=== PATIENT | male | born 1945 | race Two or more races ===

== ENCOUNTER → 2024-04-29 | Outpatient (CLI) | payer MEDICARE, MEDICAID, SELFPAY ==
--- NOTE | 2024-04-29 09:45 | XR_ITS ---
Examination: Abdomen sonogram, complete Date and time of exam: April 29, 2024 0954 hours INDICATIONS: Cirrhosis diagnosis, rectal pain beginning February 2024, diagnosis lung cancer. Technique: Multiple real-time grayscale transabdominal sonographic images of the abdomen have been obtained. Findings: Normal gallbladder Common bile duct 0.9 cm no stones Pancreatic head 2.8 cm Aorta not enlarged Liver irregular contour 11.7 cm with multiple calcifications with posterior shadowing, the largest lesion with calcified conway in the right lobe liver 2.5 x 2.4 x 2.6 cm Normal hepatopedal portal venous flow Patent IVC Right kidney 10.4 x 4.6 x 4.8 cm cortex 1.8 cm Left kidney 10.6 x 5.1 x 4.4 cm renal cortex 1.5 cm Moderate bilateral renal parenchyma scar formation No hydronephrosis Spleen 9.2 cm IMPRESSION: Cirrhosis Multiple calcified liver lesions MRI abdomen liver follow-up would best exclude solid hepatic lesions
== END | disposition home or self-care (01) ==
PROVIDERS: PCP Nurse Practitioner Family; Referring Provider Internal Medicine Gastroenterology; Visit Provider Internal Medicine Gastroenterology
DX: K74.60 Unspecified cirrhosis of liver (principal); K76.9 Liver disease, unspecified
CPT/HCPCS: 76700

== ENCOUNTER → 2024-05-11 | Outpatient (BNVA) | payer MEDICARE, MEDICAID, SELFPAY | END | disposition home or self-care (01) | PROVIDERS: PCP Nurse Practitioner Family; Referring Provider Nurse Practitioner Family; Visit Provider Nurse Practitioner Family | DX: E78.5 Hyperlipidemia, unspecified (principal); E11.9 Type 2 diabetes mellitus without complications; Z13.9 Encounter for screening, unspecified; Z23 Encounter for immunization; Z12.5 Encounter for screening for malignant neoplasm of prostate; Z01.83 Encounter for blood typing; M54.9 Dorsalgia, unspecified | CPT/HCPCS: 90471; 90686; 99214 ==

== ENCOUNTER → 2024-06-11 | Outpatient (CLI) | payer MEDICARE, MEDICAID, SELFPAY ==
--- NOTE | 2024-06-11 12:27 | XR_ITS ---
Examination: PA lateral chest 2 views TECHNIQUE: Upright PA lateral chest 2 views INDICATIONS: Masslike area in the left lung on chest film 08/04/2023 FINDINGS: Normal heart size Significant hyperexpansion Parenchymal disease is present in the lingular segment on the lateral view Significant osteopenia IMPRESSION: Recommend lordotic chest follow-up to confirm parenchymal disease in the lingular segment left upper
== END | disposition home or self-care (01) ==
LOC: CDIM 12:05
PROVIDERS: Referring Provider Specialist; Visit Provider Specialist
DX: R91.8 Other nonspecific abnormal finding of lung field (principal)
CPT/HCPCS: 71046

== ENCOUNTER → 2024-06-17 | Outpatient (BNVA) | payer MEDICARE, MEDICAID, SELFPAY | END | disposition home or self-care (01) | PROVIDERS: PCP Nurse Practitioner Family; Referring Provider Nurse Practitioner Family; Visit Provider Nurse Practitioner Family | DX: E11.9 Type 2 diabetes mellitus without complications (principal); Z71.2 Person consulting for explanation of examination or test findings; E78.5 Hyperlipidemia, unspecified; I10 Essential (primary) hypertension; F41.9 Anxiety disorder, unspecified; J44.9 Chronic obstructive pulmonary disease, unspecified | CPT/HCPCS: 94640; 99213; A9270 ==

== ENCOUNTER 2024-06-30 10:30 | Day surgery (SDC) | payer MEDICARE, MEDICAID, SELFPAY ==
[2024-06-30] VITALS (14 sets, daily range): BP systolic 116–182; BP diastolic 71–109; PULSE 62–87; RESP 11–22; TEMP 36.6–36.7; O2SAT 92–97; BMI 22.5
[2024-06-30] MEDS: ALBUTEROL RT 2.5 MG/0.5 ML NEBU INH (11:10)
[2024-06-30] MEDS: BENZOCAINE 20% (Hurricaine) SPRAY 1 DOSE TOP (13:18)
[2024-06-30] MEDS: fentaNYL CIT INJ 50 mCg/ML AMP 2ML (ASD USE ONLY) IV (13:19)
[2024-06-30] MEDS: MIDAZOLAM INJ 1 MG/ML VIAL 2 ML (ASD USE ONLY) 2 MG IV (13:19)
== END 2024-06-30 14:09 | disposition home or self-care (01) ==
PROVIDERS: PCP Nurse Practitioner Family; Referring Provider Internal Medicine Gastroenterology; Visit Provider Internal Medicine Gastroenterology
PROC: 0DBE8ZX Excision of Large Intestine, Via Natural or Artificial Opening Endoscopic, Diagnostic (ICD-10-PCS; CPT 45380; principal; 2024-06-30 12:00)
PROC: (CPT 43239; 2024-06-30 12:00)
DX: Z12.11 Encounter for screening for malignant neoplasm of colon (principal); D13.39 Benign neoplasm of other parts of small intestine; K64.3 Fourth degree hemorrhoids; K70.31 Alcoholic cirrhosis of liver with ascites
CPT/HCPCS: 45380; 88341; 88342; A4217; A4649; J2250; J3010; A9270

== ENCOUNTER 2024-07-01 02:27 | Inpatient (IN) | payer MEDICARE, MEDICAID, SELFPAY ==
[2024-07-01] VITALS (10 sets, daily range): BP systolic 121–161; BP diastolic 66–86; PULSE 65–98; RESP 14–22; TEMP 36.7–36.8; O2SAT 94–100; BMI 26.2
--- NOTE | 2024-07-01 03:16 | PD.EDRME ---
Rapid Medical Screening Exam RME Arrival date/time: 07/01/24 02:27 79-year-old male past medical history of COPD and hypertension presents emergency department complaining of lower abdominal pain 10 out of 10 with vomiting that started an hour ago. Chief Complaint: Abdominal Pain Time Seen by Provider: 07/01/24 03:12 Vital signs: Vital Signs Temperature 98.1 F 07/01/24 02:50 Pulse Rate 88 07/01/24 02:50 Respiratory Rate 18 07/01/24 02:50 Blood Pressure 126/67 07/01/24 02:50 Pulse Oximetry (%) 96 07/01/24 02:50 Oxygen Delivery Method Room Air 07/01/24 02:50 Vital signs reviewed by provider: Yes
--- NOTE | 2024-07-01 03:17 | XR_ITS ---
Examination: CT abdomen and pelvis without contrast. Coronal 3-D reconstructions. Sagittal 2-D reconstructions. Date and time of exam:July 01, 2024 at 0356 hrs. Comparison 02/21/2024 Indications: Onset abdominal pain beginning one hour ago, history perianal abscess on 02/21/2024 CT scan CTDI: vol (mGy): 6 DLP: (mGycm): 329 Technique: Axial images of the abdomen have been obtained, 3 mm slice thickness Intravenous contrast material has not been administered. Low dose protocols were performed. One or more of the following dose reduction techniques were used; automated exposure control, adjustment of the mA and/or KV according to patient size, use of iterative reconstruction technique. Findings: Minimal pericardial effusion Atelectasis versus pneumonia in the lingular segment and right lower lobe Pneumoperitoneum, several of the air droplets appear to be in the wall of small bowel, for instance axial image 90 Hyperdense areas in the liver No gallstones No pancreatic or adrenal mass No renal or ureteral calculi, no hydronephrosis No bowel obstruction No pericecal inflammatory change Fluid distended small bowel loops in the pelvis Contracted urinary bladder Transverse prostate dimension 4.2 cm Diffuse thickening of the conway of the colon, hepatic colopathy pattern Fat-containing inguinal hernias Significant osteopenia with advanced disc narrowing L5-S1 IMPRESSION: Cirrhosis Hyperdense areas in the liver, recommend elective MRI abdomen pre and post contrast follow-up Pneumoperitoneum, consider ischemic small bowel, recommend surgical consultation
[2024-07-01] MEDS: HYDROcodone/APAP 5/325 TABLET 1 TAB PO ×2 (04:05→21:24)
[2024-07-01 04:21] LABS: Alanine Aminotransferase 22 U/L (10-49); Albumin, Serum 4.4 gm/dL (3.4-4.8); Albumin/Globulin Ratio 1.3 (1.2-2.2); Alkaline Phosphatase 80 U/L (46-116); Anion Gap 8 (7-16); Aspartate Amino Transferase 37 U/L (0-34); BUN/Creatinine Ratio 19 Ratio (12-20); Bilirubin,Total 2.1 mg/dL (0.3-1.2); Blood Urea Nitrogen 17 mg/dL (9-23); Calcium 10.5 mg/dL (8.3-10.6); Calcium (Corrected) 10.5 mg/dL (8.5-10.1); Carbon Dioxide 29.9 mMol/L (20.0-31.0); Chloride 100 mMol/L (98-107); Creatinine (Component) 0.9 mg/dL (0.6-1.3); Estimated Creatinine Clearance 57.9 mL/min (>60); Globulin 3.4 gm/dL (2.3-3.5); Glucose 124 mg/dL (74-106); Lipase 31 U/L (12-53); Osmolality,Calculated 278 (275-295); Potassium 4.2 mMol/L (3.4-5.1); Sodium 138 mMol/L (136-145); Total Protein 7.8 gm/dL (5.7-8.2); eGFR > 60 See Note
[2024-07-01 04:37] LABS: Basophils # (Auto) 0.1 Thou/mm3 (0.0-0.2); Basophils % (Auto) 0 % (0-2.5); Eosinophils % (Auto) 0 % (0-10); Hematocrit 44.3 % (41.0-53.0); Hemoglobin 15.1 g/dL (13.5-16.0); Immature Granulocytes % (Auto) 0 % (0-0); Immature Granulocytes Auto 0.07 Thou/mm3 (0.00-0.00); Lymphocytes # (Auto) 1.5 Thou/mm3 (1.0-4.8); Lymphocytes % (Auto) 8 % (10-50); Mean Corpuscular HGB Conc 34.1 g/dl (31.0-37.0); Mean Corpuscular Hemoglobin 32.1 pg (25.0-35.0); Mean Corpuscular Volume 94 fL (80-100); Monocytes # (Auto) 1.1 Thou/mm3 (0.0-0.8); Monocytes % (Auto) 6 % (0-12); Neutrophils # (Auto) 16.8 Thou/mm3 (1.8-7.7); Neutrophils % (Auto) 86 % (37-80); Nucleated Red Blood Cell % 0 /100 WBC (0); Platelet Count 216 Thou/mm3 (140-440); RDW Standard Deviation 47.7 fL (35.1-43.9); White Blood Count 19.6 Thou/mm3 (3.8-10.6)
--- NOTE | 2024-07-01 04:56 | PRELIM_ITS ---
CT scan of the abdomen and pelvis without intravenous contrast (axial sections with sagittal and viki nal reformats) July 01, 2024 0356 hours Clinical History: Abdominal pain Comparison: None availabl e at the time of this report..Findings:Small consolidation in the lingula and right lower lobe.The ga llbladder, pancreas, spleen, kidneys and adrenals are unremarkable on this noncontrast study.Irregul ar liver margins. Hyperdense areas in the liver, possibly Lipiodol ablations.No evidence of bowel ob struction.No evidence of appendicitis.Vascular calcifications.There is no mesenteric or retroperitone al adenopathy.The urinary bladder is unremarkable. There is no free fluid or free air.Degenerative ch anges of the imaged portions of the spine. No acute fractures. Chronic multilevel disc disease.Vascu lar calcifications.Small complex pericardial effusion.Small hiatus hernia.Diverticulosis of the colon .Impression:1. Cirrhosis.2. Hyperdense areas in the liver, possibly Lipiodol ablations, please correl ate clinically and consider follow-up with MRI to assess for hepatocellular carcinoma.3. Small hiatus hernia.4. Small consolidation in the lingula and right lower lobe, scarring versus atelectasis versu s small foci of pneumonia.5. Small complex pericardial effusion suspicious for pericarditis.Discussio n Details: Attempts are being made to contact the clinical team to make them aware of these findings Report Electronically Signed By: Jostin Sol 07/01/2024 4:56:10 AM [EST]
[2024-07-01 05:43] LABS: Collection Type, Urine Clean Catch
[2024-07-01 06:07] LABS: Bacteria,Urine Rare; Bilirubin,Urine 1+ (Negative); Blood,Urine 2+ (Negative); Color,Urine Yellow (Lt Yel-Yel); Culture Indicated,Urine Not Indicated; Glucose, Urine Negative (Negative); Hyaline Casts,Urine < 1 /hpf (0-1); Ketones,Urine 1+ (Negative); Leukocyte Esterase,Urine Negative (Negative); Nitrite,Urine Negative (Negative); PH,Urine 5.5 (5.0-7.0); Protein,Urine 1+ (Neg - Trace); RBC,Urine 63 /hpf (0-3); Specific Gravity,Urine 1.037 (1.001-1.035); Squamous Epithelial Cell,Urine 3 /hpf (0-5); WBC,Urine 7 /hpf (0-5)
[2024-07-01 06:09] LABS: Clarity,Urine Hazy (Clear/Hazy); Sperm,Urine Present
--- NOTE | 2024-07-01 08:50 | EDNOTE_ITS ---
ED Abdominal Pain RME/HPI General Chief Complaint: Abdominal Pain Stated complaint: ABD PAIN X 1HOUR Time seen by provider: 07/01/24 03:12 Arrival date/time: 07/01/24 02:27 RME / HPI RME / HPI narrative: 07/01/24 02:27 79-year-old male past medical history of COPD and hypertension presents emergency department complaining of lower abdominal pain 10 out of 10 with vomiting that started an hour ago. DR. RESTREPO MAIN ED EVALUATION: 79 year old male presents to the ED for evaluation of abdominal and right shoulder pain today. The shoulder pain began 2 days ago, described as aching in sensation, rating as mild. States the abdominal pain began last night around 9pm, located most to the right lower abdomen, rating as moderate. Patients daughter reports the patient underwent endoscopy and colonoscopy with biopsies performed yesterday around noon and was doing well up until 9pm. Denies fevers, chills, sweats, chest pain, shortness of breath, nausea, vomiting, diarrhea, or urinary symptoms. Related Data Home Medications ?Medication ?Instructions ?Recorded ?Confirmed budesonide-formoterol HFA 160 2 puff inhalation Q12H 01/03/24 06/30/24 mcg-4.5 mcg/actuation aerosol inhaler (Symbicort) docusate sodium 100 mg capsule 100 mg PO QDAY 06/30/24 06/30/24 Previous Rx's ?Medication ?Instructions ?Recorded fluticasone propionate 230 2 puff inhalation BID #12 grams 12/23/23 mcg-salmeterol 21 mcg/actuation HFA inhaler (Advair HFA) apixaban 5 mg tablet (Eliquis) 5 mg PO BID #180 tabs 01/21/24 albuterol sulfate 90 mcg/actuation 2 puff inhalation Q6H PRN 06/17/24 aerosol inhaler (Ventolin HFA) Shortness Of Breath Or Wheezing #8.5 grams atorvastatin 10 mg tablet 10 mg PO QDAY #90 tabs 06/17/24 ezetimibe 10 mg tablet 10 mg PO QDAY #90 tabs 06/17/24 ipratropium bromide 17 2 puff inhalation Q8H #12.9 grams 06/17/24 mcg/actuation HFA aerosol inhaler (Atrovent HFA) lisinopril 20 mg tablet 20 mg PO QDAY #90 tabs 06/17/24 paroxetine HCl 10 mg tablet (Paxil) 10 mg PO QDAY #90 tabs 06/17/24 sitagliptin phosphate 25 mg tablet 25 mg PO QDAY #90 tabs 06/18/24 (Januvia) Allergies Allergy/AdvReac Type Severity Reaction Status Date / Time No Known Allergies Allergy Verified 06/30/24 11:15 Review of Systems Review of Systems Narrative Review of Systems: Constitutional: DENIES; Fevers Eyes: DENIES; Loss of vision Head/Ear/Nose: DENIES; Loss of hearing Throat: DENIES; Dysphagia Cardiovascular: DENIES; Chest pain, dyspnea or syncope Respiratory: DENIES; Shortness of breath Gastrointestinal: SEE HPI +abdominal pain. DENIES; Rectal bleeding or melena. Genitourinary: DENIES; Dysuria (painful or difficult urination) Musculoskeletal: SEE HPI +right shoulder pain Skin: DENIES; Rash Neurological: DENIES; Loss of function or movement Psychiatric: DENIES; recent major life stressor, emotional problem, illicit drug use or abuse Endocrinology: DENIES; Weight change Hematologic/Lymphatic: DENIES; Abnormal bruising Allergic/Immunologic: DENIES; Urticaria (hives) Past Medical History Past Medical History CARDIAC: Positive Cardiac Disorders, Atrial Fibrillation, Angina, Peripheral Vascular Disease, Hypercholesterolemia and Hypertension RESPIRATORY: Positive Chronic Obstructive Pulmonary Disease (COPD), Asthma, Bronchitis, Pneumonia and Smoking GASTROINTESTINAL: Positive Gastrointestinal Disorders and Cirrhosis GENITOURINARY: Positive Genitourinary Disorders and Renal Disease MUSCULOSKELETAL: Positive Musculoskeletal Disorders and Arthritis ENT: Positive Deafness ([place]) ENDOCRINE: Positive Endocrine Disorders and Diabetes Mellitus Type 2 HEMATOLOGIC: Positive Blood Disorders and Anemia PSYCHO/SOCIAL: Positive Depression OTHER HISTORY: Positive Hospitalization, Falls and Measles Family History FAMILY HISTORY: Positive Family Respiratory Disorders Surgical History SURGICAL: Negative Cardiac Surgery, Pacemaker, Endocrine Surgery, Abdominal Surgery or Joint Replacement Social History SMOKING STATUS: Current some day smoker SECOND HAND EXPOSURE: Yes SUBSTANCE USE: does not use ED Exam Narrative Physical exam: Physical Exam: General: The vital signs were reviewed. The patient is non-toxic, in no apparent distress and appears healthy with a patent airway, no respiratory distress and has no apparent circulatory problems. Head & Scalp: Normocephalic, atraumatic. Face: Appears normal and is without lesions, deformity. Ears: Left external pinna appears normal. Right external pinna appears normal. Eyes: The sclera is anicteric. No obvious photophobia. The Left and Right Orbit/Lid/Conjunctiva appears normal without swelling, discoloration or injection. Nose: The nose is without deformity, discharge or tenderness; Throat: Appears normal. The mucous membranes are pink and moist without exudates, redness or mass seen. The tongue appears normal. Neck: The neck is supple and no apparent mass or adenopathy. Chest: The chest wall is normal in size and symmetry and has no chest wall tenderness or crepitus. The patient displays normal ventilator effort without retractions, accessory muscle use and has adequate air movement bilaterally but has some diffuse mild wheezing and some rhonchus noises. Cardiovascular: Regular rate and rhythm; No murmurs, rubs, or gallops; Gastrointestinal: The abdomen appears normal. No obvious hernias or mass. The abdomen has vague central may be slightly rightward discomfort on palpation there is no rebound and there is no guarding. Is soft and benign, non-distended, with no pain, no guarding and no rebound tenderness. Bowel sounds are present and normal sounding. No CVA tenderness. Genitourinary: Back/Spine: Nontender normal inspection Extremities/Musculoskeletal/lymphatic: The bilateral upper and lower extremities are warm. There is no evidence of arterial insufficiency. There is no evidence of venous insufficiency/edema. The patient spontaneously moves bilateral upper and lower extremities with no pain and no limitation of movement. There is no apparent, injury or trauma. Skin: The skin is warm, dry and intact. No rashes. No petechia. No purpura. No abnormal bruising. The color is appropriate with no cyanosis. Mental status/Psychiatric: Mental status is appropriate for age. The patient has no apparent delusions, visual hallucinations, no apparent audible hallucinations. The patient has no apparent suicidal thoughts/ideation and no apparent homicidal thoughts/ideation. Neurological: The patient is awake, alert, interactive, cordial, cooperative and is oriented to name and situation. The patient follows commands and answers historical question with no impairment. There is no visual disturbance apparent. The pupils are equal and reactive bilaterally with normal eye movements and no diplopia The bilateral upper and lower extremities have normal strength, normal range of motion and normal functioning. The gait, station and balance were not tested due to acuity of Course Quality Measures none Orders Category Date Time Status CT abdomen pelvis wo con Stat Exams 07/01/24 03:17 Completed XR chest 1V portable Stat Exams 07/01/24 09:03 Completed Blood Culture (Lab) Stat Lab 07/01/24 09:30 Received CBC Stat Lab 07/01/24 03:17 Completed CMP [Comprehensive Metabolic Panel] Stat Lab 07/01/24 03:17 Completed Lactate (Lactic Acid) Stat Lab 07/01/24 09:44 Completed Lipase Stat Lab 07/01/24 03:17 Completed Urinalysis, C/S if Indicated Stat Lab 07/01/24 05:15 Completed Venous Blood Gas Stat Lab 07/01/24 09:44 Completed ALBUTEROL RT 0.5ml [Proventil Rt 0.5ml] Med 07/01/24 09:04 Discontinued 10 mg INH X1 ONE HYDROcodone*/APAP 5/325 [[place] 5/325] Med 07/01/24 03:17 Discontinued 1 tab PO X1 ONE MethylPREDNISolone.* [SoluMEDROL Inj] Med 07/01/24 09:04 Discontinued 125 mg IVP X1 ONE Piper/Tazo 3.375 gm [Zosyn] Med 07/01/24 09:41 Discontinued 3.375 gm in 50 ml IV X1 Sodium Chloride 0.9% 1000 ml [Ns] 1,000 ml Med 07/01/24 09:41 Active IV 150 mls/hr Sodium Chloride Rt Ronda 0.9% [NS Rt Ronda 0.9%] Med 07/01/24 09:04 Active 3 ml INH PRN PRN Vital Signs Vital signs: Vital Signs Temperature 98.1 F 07/01/24 02:50 Pulse Rate 88 07/01/24 02:50 Respiratory Rate 18 07/01/24 02:50 Blood Pressure 126/67 07/01/24 02:50 Pulse Oximetry (%) 96 07/01/24 02:50 Oxygen Delivery Method Room Air 07/01/24 02:50 Abdominal Pain MDM MDM Narrative MDM Narrative:: Patient had a full evaluation by myself and was found to have vague abdominal pain lots of wheezing a small pericardial effusion was incidentally picked up on the CT of the abdomen from last night and I was somewhat baffled by no significant explanation for the right abdominal pain since initial CT PE report from nighttime radiology service reported no free air under the diaphragm. But the radiologist today Dr. Hansen came down and reported that there is some free air under the diaphragm and presumably there was a perforation related to the colonoscopy. Dr. Palm our surgeon on-call was contacted she came down to see this patient and will be consulting. The Plavix will continue to be held. Patient's been started on Zosyn as I am dictating. And hospitalist Dr. Salvador the resident was called and will be admitting White count is 19.6 hemoglobin 15.1 venous blood gas pH is 7.42 pCO2 of 46 within normal limits. Electrolytes are within normal limits BUN is 17 and creatinine is 0.9 within normal limits. Total bilirubin slightly elevated 2.1 of uncertain significance. As the bilirubin has been up and down in the past multiple times has been measured urinalysis reveals a specific obvious concentrated with 63 red cells and 7 white cells. Chest x-ray reveals COPD changes diaphragm on the left is not as clearly seen and probably has infiltrates or chronic no effusion is seen. CT of the abdomen as reviewed with Dr. Hansen and over read from the original CT which did not see free air in the abdomen she reveals punctate air in the abdomen from an unknown source. In the setting of a colonoscopy yesterday again were concern for possible occult perforation and therefore patient be admitted as mentioned above Patient is fairly comfortable. Patient will be observed in the hospital at this time per Dr. Néstor Atkins who did the colonoscopy was paged and no callback as of 1307 hrs. Because of the presumed perforation and free air in the abdomen the patient is at risk for peritonitis and abscess therefore started antibiotics early. Patient is at risk for significant complication clean peritonitis sepsis and even . Because of this he will be a critical care patient. Patient data External records reviewed:: [facility] previous records (I reviewed endoscopy and colonoscopy performed yesterday 06/30/2024 ) Clinical information provided by:: patient Social determinants that could affect healthcare access:: none Patient has the following chronic illnesses:: AFib, hypertension, COPD, diabetes, hyperlipidemia, asthma, left spontaneous pneumothorax s/p chest tube, liver cirrhosis, former smoker How is presenting disease/condition affected by chronic disease/condition?: exacerbated by Evaluation data The following diagnostics were reviewed and interpreted by me:: lab results and radiology exam(s) Lab and/or radiology exams considered but not ordered:: None Interpretation Summary: Ordering Physician: Ernestina Umanzor (YARD MOTOR OPERATOR),Ramos YARD MOTOR OPERATOR Date of Service: 07/01/24 Procedure(s): CT abdomen pelvis wo [facility] Accession Number(s): [id number] cc: Roldan Aocsta MD; Imani Kevin ([facility]); Ernestina Umanzor (YARD MOTOR OPERATOR),Ramos VALLEP~ Examination: CT abdomen and pelvis without contrast. Coronal 3-D reconstructions. Sagittal 2-D reconstructions. Date and time of exam:July 01, 2024 at 0356 hrs. Comparison 02/21/2024 Indications: Onset abdominal pain beginning one hour ago, history perianal abscess on 02/21/2024 CT scan CTDI: vol (mGy): 6 DLP: (mGycm): 329 Technique: Axial images of the abdomen have been obtained, 3 mm slice thickness Intravenous contrast material has not been administered. Low dose protocols were performed. One or more of the following dose reduction techniques were used; automated exposure control, adjustment of the mA and/or KV according to patient size, use of iterative reconstruction technique. Findings: Minimal pericardial effusion Atelectasis versus pneumonia in the lingular segment and right lower lobe Pneumoperitoneum, several of the air droplets appear to be in the wall of small bowel, for instance axial image 90 Hyperdense areas in the liver No gallstones No pancreatic or adrenal mass No renal or ureteral calculi, no hydronephrosis No bowel obstruction No pericecal inflammatory change Fluid distended small bowel loops in the pelvis Contracted urinary bladder Transverse prostate dimension 4.2 cm Diffuse thickening of the conway of the colon, hepatic colopathy pattern Fat-containing inguinal hernias Significant osteopenia with advanced disc narrowing L5-S1 IMPRESSION: Cirrhosis Hyperdense areas in the liver, recommend elective MRI abdomen pre and post contrast follow-up Pneumoperitoneum, consider ischemic small bowel, recommend surgical consultation Dictated By: Roldan Acosta MD Signed By: <Electronically signed by Roldan Acosta MD in [place]> 07/01/24 1009 Medications / Prescriptions Medications or Prescriptions considered but not ordered:: None Medication administrations:: Medication Administration History Acetaminophen (Acetaminophen 325 Mg Tablet) 650 mg PO Q6H PRN PRN Reason: Fever >100.5 Stop: 07/31/24 11:42 Acetaminophen (Acetaminophen 325 Mg Tablet) 650 mg PO Q6H PRN PRN Reason: PAIN SCALE 1-3 (mild Stop: 07/31/24 11:42 Dextrose (Dextrose 50%-Water Inj 50 Ml Syringe) 25 ml IV Q15MIN PRN PRN Reason: BG 50-70 responsive npo pt Stop: 07/31/24 12:09 Dextrose (Dextrose 50%-Water Inj 50 Ml Syringe) 50 ml IV Q15MIN PRN PRN Reason: BG <50 OR BG <70 & pt unresponsive Stop: 07/31/24 12:09 Docusate Sodium (Docusate Sod 100 Mg Capsule) 100 mg PO QDAY [facility]; Protocol Stop: 07/31/24 11:44 Glucagon (Glucagon Inj 1 Mg Vial) 1 mg IM Q15MIN PRN PRN Reason: BG <70, and no IV access Stop: 07/01/24 14:11 Heparin Sodium (Porcine) (Heparin Sod Inj 5000 Unit/Ml Vial) 5,000 unit SC Q8HR [facility] Stop: 07/15/24 13:59 Sodium Chloride (Ns) 1,000 mls @ 150 mls/hr IV .Q6H40M ONE Stop: 07/01/24 16:20 Last Admin: 07/01/24 09:53 Dose: 150 mls/hr Documented By: JAIRO Ceftriaxone Sodium/Dextrose (Rocephin/D5w 1gm Iv Premix) 50 mls @ 100 mls/hr IV QDAY [facility] Stop: 07/08/24 11:46 Metronidazole (Flagyl 500 Mg Iv) 500 mg in 100 mls @ 200 mls/hr IV Q8HR [facility] Stop: 07/08/24 11:46 Insulin Human Lispro (Insulin Lispro (Admelog) 1 Unit/0.01 Ml Unit) 0 unit SC AC [facility]; Protocol Stop: 07/31/24 16:59 Melatonin (Melatonin 3 Mg Tablet) 3 mg PO HS SABINE Stop: 07/31/24 20:59 Ondansetron HCl (Ondansetron Inj 2 Mg/Ml Inj 2 Ml) 4 mg IV Q6H PRN; Protocol PRN Reason: NAUSEA OR VOMITING Stop: 07/31/24 11:42 Sodium Chloride (Sodium Chloride Rt Ronda 0.9% 3 Ml Nebu) 3 ml INH PRN PRN PRN Reason: SOLN Stop: 07/31/24 09:03 Last Admin: 07/01/24 09:12 Dose: 3 ml Documented By: BURAK Discontinued Medications Hydrocodone Bitart/Acetaminophen (Hydrocodone/Apap 5/325 Tablet) 1 tab PO X1 ONE Stop: 07/01/24 03:18 Last Admin: 07/01/24 04:05 Dose: 1 tab Documented By: TAO Albuterol (Albuterol Rt 2.5 Mg/0.5 Ml Nebu) 10 mg INH X1 ONE Stop: 07/01/24 09:05 Last Admin: 07/01/24 09:12 Dose: 10 mg Documented By: BURAK Piperacillin/Tazobactam/Dextrose (Zosyn) 3.375 gm in 50 mls @ 100 mls/hr IV X1 ONE Stop: 07/01/24 10:10 Last Infusion: 07/01/24 10:22 Dose: Infused Documented By: Admin: 07/01/24 09:52 Dose: 100 mls/hr Documented By: JAIRO Methylprednisolone Sodium Succinate (Methylprednisolone Sod Succ 62.5 Mg/Ml 2ml Vial) 125 mg IVP X1 ONE Stop: 07/01/24 09:05 Last Admin: 07/01/24 09:52 Dose: 125 mg Documented By: JAIRO See above Consultations Consultation(s) initiated? (list below): Yes Consultation #1 (Physician, Specialty, Details): I spoke with surgeon Dr. Vail. Discussed patients PMHx, HPI, ED course, exam findings, labs, and radiology results. Will come evaluate the patient in the ED. Time: 09:40 Consultation #2 (Physician, Specialty, Details): Surgeon Dr. Vail has evaluated the patient in ED and agrees to consult. Time: 09:45 Consultation #3 (Physician, Specialty, Details): I spoke with hospitalist Dr. Vasques working with Dr. Avalos. Discussed patients PMHx, HPI, ED course, exam findings, labs, and radiology results. The hospitalist accepts patient for admission. Diagnosis Differential diagnosis abdominal pain: abdominal pain, acute appendicitis, calculus of kidney, constipation, diverticulitis, gastroenteritis, pancreatitis and small bowel obstruction Most likely diagnosis given after review of the tests above:: Peritoneal free air COPD exacerbation Abdominal pain s/p colonoscopy Pericardial effusion Admission Indicated Admission indicated?: indicated Admission Request Was there a request for admission?: Yes Admission Attestation Admission request attestation: Discussed case with [] from Hospitalist service regarding admission. Discussed patients ED course, exam findings, labs, and radiology results. The Hospitalist [agrees,declines] to accept the patient for admission. Disposition Plan Disposition Plan: Admit Critical Care Time Critical Care Time Critical Care Time: Yes Total Critical Care Time (min.): 45 Attestation: The high probability of sudden, clinically significant deterioration in the patient's condition required the highest level of my preparedness to intervene urgently. The services I provided to this patient were to treat and/or prevent clinically significant deterioration. Services included the following: chart data review, reviewing nursing notes and/or old charts, documentation time, exchange underwriting consultant collaboration regarding findings and treatment options, medication orders and management, direct patient care, vital sign assessments and ordering, interpreting and reviewing diagnostic studies and lab tests. Aggregate critical care time includes only time during which I was engaged in work directly related to the patient's care, as described above, whether at bedside or elsewhere in the Emergency Department. It did not include time spent performing other reported procedures or the services of residents, students, nurses or physician assistants. Discharge Plan Plan Patient Disposition: Admit Acute Care w/in Hospital Disposition Comment: Hospitalist admit Dr. Palm to consult Problem List Clinical Impression: Peritoneal free air, COPD exacerbation, Abdominal pain, Status post colonoscopy, Pericardial effusion
--- NOTE | 2024-07-01 09:03 | XR_ITS ---
Examination: AP chest single view Technique one AP portable upright chest single view Exam date and time: July 01, 2024 0946 hours Comparison June 11, 2024 INDICATIONS: Leukocytosis and coughing today. FINDINGS: Mild bibasilar pneumonia Normal heart size Lordotic chest IMPRESSION: Mild bibasilar pneumonia
[2024-07-01] MEDS: ALBUTEROL RT 2.5 MG/0.5 ML NEBU 10 MG INH (09:12)
[2024-07-01] MEDS: SODIUM CHLORIDE RT SOL 0.9% 3 ML NEBU INH (09:12)
[2024-07-01] MEDS: PIPER/TAZO 3.375 GM 3.375 GM/50 ML BAG IV (09:52)
[2024-07-01] MEDS: MethylPREDNISolone SOD SUCC 62.5 MG/ML 2ML VIAL 125 MG IVP (09:52)
[2024-07-01] MEDS: SODIUM CHLORIDE 0.9% 1000 ML 1,000 ML 150 ML IV (09:53)
[2024-07-01 10:12] LABS: Lactate (Lactic Acid) 1.2 mMol/L (0.4-2.0)
--- NOTE | 2024-07-01 10:23 | ESCONSULT_ITS ---
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 Pt states pain was severe last night but it has improved; he denies any nausea/vomiting although is not feeling hungry. Pt underwent CT showing droplets of pneumoperitoneum, has WBC 19 without any fever or tachycardia Review of Systems Constitutional Constitutional: Reports system reviewed and no additional complaints, except as documented Meds Home Medications and Allergies Home Medications ?Medication ?Instructions ?Recorded ?Confirmed ?Type budesonide-formoterol HFA 160 2 puff inhalation Q12H 01/03/24 06/30/24 History mcg-4.5 mcg/actuation aerosol inhaler (Symbicort) docusate sodium 100 mg capsule 100 mg PO QDAY 06/30/24 06/30/24 History Allergies Allergy/AdvReac Type Severity Reaction Status Date / Time No Known Allergies Allergy Verified 06/30/24 11:15 Exam Vital Signs Temp Pulse Resp BP Pulse Ox O2 Del Method O2 Flow Rate 98.2 F 71 20 128/74 95 Aerosol Mask 7 07/01/24 08:11 07/01/24 10:12 07/01/24 10:12 07/01/24 10:12 07/01/24 10:12 07/01/24 10:12 07/01/24 10:12 Constitutional Constitutional: no acute distress Routine Respiratory Exam Respiratory: Present no resp distress Routine Abdominal Exam Abdominal: Present soft; Absent tenderness or distended Results Results: Laboratory Laboratory results: results reviewed Results: Imaging CT scan - abdomen: report reviewed and image reviewed Assessment & Plan Plan 79M with HTN, HLD, COPD, DMII, afib and cirrhosis who underwent EGD/colonoscopy 06/30 with findings of grade I varices, gastritis and ileal polyp presented to ER due to RLQ pain, findings of droplets of pneumoperitoneum on CT. Pt appears clinically very well with no current pain, benign abdominal exam and normal vitals; given his overall appearance I explained that surgery is not indicated, will proceed with bowel rest and abx NPO, IV abx Will follow up
[2024-07-01 11:17] LABS: Base Excess, Venous 5 (-3-3); O2 Saturation, Venous 93 % (96-97); PCO2, Venous 46 mmHg (36-56); PO2, Venous 65 mmHg (15-58); pH, Venous 7.42 (7.33-7.66)
--- NOTE | 2024-07-01 12:29 | PD.RESHP ---
Documentation for date of: 07/01/24 [facility] History of Present Illness Chief complaint: Abdominal pain History of present illness: 79-year-old male with past medical history of atrial fibrillation on Eliquis, hypertension, diabetes mellitus, hyperlipidemia, COPD who presented to the ED for abdominal pain. Per the patient patient had a colonoscopy yesterday with Dr. Atkins and then the following day started developing right lower quadrant and right upper quadrant abdominal pain, as well as some shortness of breath. Patient described the pain as 9 out of 10 in intensity characterizes sharp and nonradiating at this time. At this time patient denies headache, blurry vision, nausea, vomiting, chest pain, urinary symptoms. ED course: In the ED vitals stable, labs significant for leukocytosis WBCs 19.6, glucose 124, T. bili 2.1, AST 37, CT abdomen pelvis showed Cirrhosis, Hyperdense areas in the liver, recommend elective MRI abdomen pre and post-contrast follow-up, Pneumoperitoneum, consider ischemic small bowel, recommend surgical consultation. Chest x-ray showed mild bibasilar pneumonia. In the ED patient received 1 L NS, hydrocodone, Zosyn, PMHx: atrial fibrillation on Eliquis, hypertension, diabetes mellitus, hyperlipidemia, COPD SxHx: None Social Hx: Former smoker denies current cigarette use, denies alcohol use, denies illicit substances including THC FHx: Unknown Review of Systems Review of Systems Narrative Review of Systems: Narrative ROS GENERAL: Denies fevers/chills or diaphoresis. HEENT: Denies headache or visual/hearing changes. Denies nasal discharge. NEURO: Denies unusual weakness or difficulty speaking. CARDIO: Denies chest pain or palpitations. PULM: + SOB, denies coughing, or wheezing. GI: + abdominal pain, denies N/V/C/D/reflux/gas, bright red blood per rectum or melena. Reports having BMs. URO: Denies burning/itching/pain/urinary changes. MSK/EXT/SKIN: Denies joint/skeletal/muscle pain, issues/changes in upper or lower extremities, itchiness, or superficial pain. PSYCH: Cooperative, pleasant mood & affect. The rest of the review of systems is otherwise negative. Exam Vital Signs Temp Pulse Resp BP Pulse Ox O2 Del Method O2 Flow Rate 98.2 F 71 20 128/74 95 Aerosol Mask 7 07/01/24 08:11 07/01/24 10:12 07/01/24 10:12 07/01/24 10:12 07/01/24 10:12 07/01/24 10:12 07/01/24 10:12 Narrative Exam Physical Exam GENERAL: NAD, AAOx3 HEENT: Moist mucosa. Eyes open, symmetrical, & clear CARDIO: Heart RRR, no obvious murmurs PULM: No noted coughing/dyspnea bilateral wheezing mild GI: Abdomen soft, nondistended, pain on palpation in the right upper and right lower quadrants BSx4 SKIN/MSK/EXT: No wounds/rashes/edema/amputations, no pain on palpation. Pedal pulses present B/L NEURO: AAOx3, no focal neuro deficits, able to move all 4 extremities Results: Labs 07/02/24 04:40 07/02/24 04:40 Labs: Short CBC 07/01/24 Range/Units 03:17 WBC 19.6 H (3.8-10.6) Thou/mm3 Hgb 15.1 (13.5-16.0) g/dL Hct 44.3 (41.0-53.0) % Plt Count 216 (140-440) Thou/mm3 BMP 07/01/24 03:17 Sodium 138 Potassium 4.2 Chloride 100 Carbon Dioxide 29.9 BUN 17 Creatinine 0.9 Glucose 124 H Calcium 10.5 Liver Function 07/01/24 Range/Units 03:17 Total Bilirubin 2.1 H (0.3-1.2) mg/dL AST 37 H (0-34) U/L ALT 22 (10-49) U/L Alkaline Phosphatase 80 (46-116) U/L Albumin 4.4 (3.4-4.8) gm/dL Urine 07/01/24 Range/Units 05:15 Urine Color Yellow (Lt Yel-Yel) Urine Clarity Hazy (Clear/Hazy) Urine pH 5.5 (5.0-7.0) Ur Specific [place] 1.037 H (1.001-1.035) Urine Protein 1+ A (Neg - Trace) Urine Glucose (UA) Negative (Negative) ABG Interpretation ABG results: 07/01/24 09:44 VBG pH 7.42 VBG pCO2 46 VBG pO2 65 H VBG Base Excess 5 H Quality Measures Quality Measures none Advance care planning discussed with:: patient Medications Home Medications and Allergies Home Medications ?Medication ?Instructions ?Recorded ?Confirmed ?Type budesonide-formoterol HFA 160 2 puff inhalation Q12H 01/03/24 07/02/24 History mcg-4.5 mcg/actuation aerosol inhaler (Symbicort) docusate sodium 100 mg capsule 100 mg PO QDAY 06/30/24 07/02/24 History sitagliptin phosphate 25 mg tablet 25 mg PO DAILY 07/02/24 07/02/24 History (Januvia) Allergies Allergy/AdvReac Type Severity Reaction Status Date / Time No Known Allergies Allergy Verified 06/30/24 11:15 Visit Medications Acetaminophen (Acetaminophen 325 Mg Tablet) 650 mg PO Q6H PRN PRN Reason: Fever >100.5 Stop: 07/31/24 11:42 Acetaminophen (Acetaminophen 325 Mg Tablet) 650 mg PO Q6H PRN PRN Reason: PAIN SCALE 1-3 (mild Stop: 07/31/24 11:42 Dextrose (Dextrose 50%-Water Inj 50 Ml Syringe) 25 ml IV Q15MIN PRN PRN Reason: BG 50-70 responsive npo pt Stop: 07/31/24 12:09 Dextrose (Dextrose 50%-Water Inj 50 Ml Syringe) 50 ml IV Q15MIN PRN PRN Reason: BG <50 OR BG <70 & pt unresponsive Stop: 07/31/24 12:09 Docusate Sodium (Docusate Sod 100 Mg Capsule) 100 mg PO QDAY [facility]; Protocol Stop: 07/31/24 11:44 Glucagon (Glucagon Inj 1 Mg Vial) 1 mg IM Q15MIN PRN PRN Reason: BG <70, and no IV access Stop: 07/01/24 14:11 Heparin Sodium (Porcine) (Heparin Sod Inj 5000 Unit/Ml Vial) 5,000 unit SC Q8HR SABINE Stop: 07/15/24 13:59 Sodium Chloride (Ns) 1,000 mls @ 150 mls/hr IV .Q6H40M ONE Stop: 07/01/24 16:20 Last Admin: 07/01/24 09:53 Dose: 150 mls/hr Ceftriaxone Sodium/Dextrose (Rocephin/D5w 1gm Iv Premix) 50 mls @ 100 mls/hr IV QDAY [facility] Stop: 07/08/24 11:46 Metronidazole (Flagyl 500 Mg Iv) 500 mg in 100 mls @ 200 mls/hr IV Q8HR SABINE Stop: 07/08/24 11:46 Insulin Human Lispro (Insulin Lispro (Admelog) 1 Unit/0.01 Ml Unit) 0 unit SC AC SABINE; Protocol Stop: 07/31/24 16:59 Melatonin (Melatonin 3 Mg Tablet) 3 mg PO HS SABINE Stop: 07/31/24 20:59 Ondansetron HCl (Ondansetron Inj 2 Mg/Ml Inj 2 Ml) 4 mg IV Q6H PRN; Protocol PRN Reason: NAUSEA OR VOMITING Stop: 07/31/24 11:42 Sodium Chloride (Sodium Chloride Rt Ronda 0.9% 3 Ml Nebu) 3 ml INH PRN PRN PRN Reason: SOLN Stop: 07/31/24 09:03 Last Admin: 07/01/24 09:12 Dose: 3 ml Discontinued Medications Hydrocodone Bitart/Acetaminophen (Hydrocodone/Apap 5/325 Tablet) 1 tab PO X1 ONE Stop: 07/01/24 03:18 Last Admin: 07/01/24 04:05 Dose: 1 tab Albuterol (Albuterol Rt 2.5 Mg/0.5 Ml Nebu) 10 mg INH X1 ONE Stop: 07/01/24 09:05 Last Admin: 07/01/24 09:12 Dose: 10 mg Piperacillin/Tazobactam/Dextrose (Zosyn) 3.375 gm in 50 mls @ 100 mls/hr IV X1 ONE Stop: 07/01/24 10:10 Last Infusion: 07/01/24 10:22 Dose: Infused Methylprednisolone Sodium Succinate (Methylprednisolone Sod Succ 62.5 Mg/Ml 2ml Vial) 125 mg IVP X1 ONE Stop: 07/01/24 09:05 Last Admin: 07/01/24 09:52 Dose: 125 mg Assessment & Plan Plan 79-year-old male with past medical history of A-fib hypertension hyperlipidemia diabetes COPD who presented to the ED due to right upper quadrant and right lower quadrant pain after having a colonoscopy. Admitted for pneumoperitoneum. General surgery and GI consulted. #Pneumoperitoneum #Bibasilar pneumonia Patient had a colonoscopy the day prior to admission after which patient started developing right upper quadrant and right lower quadrant pain CT abdomen pelvis showed Pneumoperitoneum, consider ischemic small bowel, recommend surgical consultation. Chest x-ray shows some mild bibasilar pneumonia Patient is not septic -On IV fluids 75 cc/h -N.p.o. bowel rest -On ceftriaxone and Flagyl [07/01/2024-] -General Surgery Dr. Palm consulted, appreciate recommendations -GI Dr. Atkins consulted, appreciate recommendations #History of hypertension #History of A-fib Patient is normotensive at this time -Consider resuming antihypertensives at a later time -Eliquis has not been resumed at this time in anticipation for possible procedure #History of COPD Patient is a former smoker denies current cigarette use Examination some mild wheezing heard bilaterally -Levalbuterol and ipratropium as needed #Diabetes -Ordered A1c -SSI -Hypoglycemia protocol in place #Cirrhosis, Hyperdense areas in the liver Found on CT abdomen pelvis recommend elective MRI abdomen pre and post-contrast follow-up -Can follow-up as outpatient Case discussed with my senior Dr. Vasques PGY-[address] Bailey Valentine MD PGY-1 Disposition: Telemetry Fluids: NS Feeding: N.p.o. Thrombo prophylaxis: Heparin Gastric Ulcer prophylaxis: None CODE STATUS: Full code Senior resident attestation: Patient is 79-year-old male past medical history of A-fib, hypertension, hyperlipidemia, diabetes, COPD with a recent colonoscopy, found to have polyp in terminal ileum, which was attempted to be resected, following the procedure patient continued to have abdominal pain, and came to the emergency room, initial CT abdomen findings consistent with pneumoperitoneum, surgical consultation was obtained, Dr. 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 Dr. Atkins gastroenterology saw the patient, ordered labs, lactic acid, noticed uptrending lactic acidosis, IV fluid bolus was ordered. #Pneumoperitoneum General surgery recommends bowel rest, keep n.p.o., and IV fluids, will start the patient on broad-spectrum IV antibiotics due to concern for pneumoperitoneum. Will repeat chest x-ray in the morning, continue to monitor vitals, currently stable. #Cirrhosis/hypodense liver lesions MRI abdomen [id number] ordered, rule out hepatocellular carcinoma. #History of A-fib?on Eliquis at home, rate controlled, anticoagulation currently on hold in anticipation of possible surgical procedure. Patient evaluated and examined at the bedside, plan of care discussed with rest of the team including my attending physician, except as noted. Quresh PGY2 Attending Provider Attestation/Addendum Gloria Barreto DO, attest that I was physically present for the wilson portions of the service and evaluated the patient with the resident and I reviewed and discussed the case with the resident and agree with the resident's findings and plans of care as documented above Patient is a 79-year-old male with past medical history of A-fib on Eliquis, hypertension, diabetes mellitus, hyperlipidemia, COPD who presented to the ED with sudden onset of sharp abdominal pain that began yesterday. Patient had just undergone a colonoscopy during the day. He describes the pain as sharp in his right lower quadrant. He denies any fevers or chills, nausea or vomiting. Upon evaluation in the ED, abdomen is noted to be tense, but patient reports improvement of pain. He denies any dysuria, urinary frequency, diarrhea otherwise. CT abdomen pelvis was done in the ED showing evidence of cirrhosis, hypodense areas in the liver, pneumoperitoneum concerning for ischemic bowel. Patient was seen by surgeon, recommends n.p.o. bowel rest and IV fluids. Lactic acidosis noted. Will continue to follow. Will consult GI as well for further recommendations. Pain control as needed. Will admit patient to telemetry for further workup and medical management of pneumoperitoneum.
[2024-07-01] MEDS: DOCUSATE SOD 100 MG CAPSULE PO (13:50)
[2024-07-01] MEDS: HEPARIN SOD INJ 5000 UNIT/ML VIAL SC ×2 (13:51→22:45)
[2024-07-01] MEDS: cefTRIAXone/D5w 1gm IV premix 50 ML IV (13:51)
--- NOTE | 2024-07-01 14:27 | PC.CC ---
Patient is a 79 year-old male who presents to the hospital for abdominal pain. Patricia CALDERA made [id number] contact with patient. ASW introduced self, role, and reason for visit. Patient appeared alert and oriented to self, location, and situation. At bedside was patient's daughter, Shira Carreno who patient provided consent to remain in the room during assessment. Patient was pleasant and engaged in initial assessment. Patient confirmed information on demographics and reports he lives with his , Ina Carreno . Patient reports his medical decision maker is his Ina. At home patient is able to ambulate independently and complete his own ADLs. Patient does not use any DME. Patient receives primary care with Imani Kevin and uses [facility] for prescription medication. Upon discharge the patient plans to discharge home. statement services representative to remain available and follow-up for any discharge needs.
[2024-07-01] MEDS: metroNIDAZOLE/NS 500 MG IVPB 500 MG/100 ML BAG 200 MG IV ×2 (14:38→22:45)
--- NOTE | 2024-07-01 15:58 | PD.IMCONS ---
HPI Data of Consult Requesting Physician: Gloria Avalos DO Primary Care Provider: Imani Kevin NP Consult Narrative History of present illness: CC: Abdominal pain HPI: Pt is a 79 year old male with HTN, HLD, COPD, DMII, afib and cirrhosis who underwent EGD/colonoscopy 06/30 with findings of grade I varices, gastritis and ileal polyp presented to ER due to RLQ pain. Pt states pain was severe last night but it has improved; he denies any nausea/vomiting although is not feeling hungry. Pt underwent CT showing droplets of pneumoperitoneum, has WBC 19 without any fever or tachycardia. Pt had a colonoscopy yesterday performed by the data analyst report writer, had a Nodule/Polyp in terminal ileum, attempted to remove it by using a Hot Snare and electrocoagulation was applied but most likely due to fibrotic tecture of polyp/nodule, could not get removed and biopsy obtained. There was an easy intubation of TI. cc:: cc: Gloria Avalos DO Review of Systems Review of Systems Narrative Review of Systems: 12 POINT REVIEWED. Meds Home Medications and Allergies Home Medications ?Medication ?Instructions ?Recorded ?Confirmed ?Type budesonide-formoterol HFA 160 2 puff inhalation Q12H 01/03/24 06/30/24 History mcg-4.5 mcg/actuation aerosol inhaler (Symbicort) docusate sodium 100 mg capsule 100 mg PO QDAY 06/30/24 06/30/24 History Allergies Allergy/AdvReac Type Severity Reaction Status Date / Time No Known Allergies Allergy Verified 06/30/24 11:15 Exam Vital Signs Temp Pulse Resp BP Pulse Ox O2 Del Method O2 Flow Rate 98.1 F 80 17 122/66 95 Room Air 7 07/01/24 14:30 07/01/24 14:30 07/01/24 14:30 07/01/24 14:30 07/01/24 14:30 07/01/24 14:30 07/01/24 10:12 Detailed Abdominal Exam Comments: Normal abdominal exam, except tenderness in RLQ. No rebound No gaurding Results Labs 07/01/24 03:17 07/01/24 03:17 Labs: Short CBC 07/01/24 Range/Units 03:17 WBC 19.6 H (3.8-10.6) Thou/mm3 Hgb 15.1 (13.5-16.0) g/dL Hct 44.3 (41.0-53.0) % Plt Count 216 (140-440) Thou/mm3 BMP 07/01/24 03:17 Sodium 138 Potassium 4.2 Chloride 100 Carbon Dioxide 29.9 BUN 17 Creatinine 0.9 Glucose 124 H Calcium 10.5 Liver Function 07/01/24 Range/Units 03:17 Total Bilirubin 2.1 H (0.3-1.2) mg/dL AST 37 H (0-34) U/L ALT 22 (10-49) U/L Alkaline Phosphatase 80 (46-116) U/L Albumin 4.4 (3.4-4.8) gm/dL Urine 07/01/24 Range/Units 05:15 Urine Color Yellow (Lt Yel-Yel) Urine Clarity Hazy (Clear/Hazy) Urine pH 5.5 (5.0-7.0) Ur Specific [place] 1.037 H (1.001-1.035) Urine Protein 1+ A (Neg - Trace) Urine Glucose (UA) Negative (Negative) ABG Interpretation ABG results: 07/01/24 09:44 VBG pH 7.42 VBG pCO2 46 VBG pO2 65 H VBG Base Excess 5 H Assessment and Plan Additional Assessment & Plan Additional Plan: 79 year old male with HTN, HLD, COPD, DMII, afib and cirrhosis who underwent EGD/colonoscopy 06/30 with findings of grade I varices, gastritis and ileal polyp presented to ER due to RLQ pain. Nodule/Polyp in terminal ileum, attempted to remove it by using a Hot Snare and electrocoagulation was applied but most likely due to fibrotic tecture of polyp/nodule, could not get removed and biopsy obtained. There was an easy intubation of TI CT scan: IMPRESSION: Cirrhosis Hyperdense areas in the liver, recommend elective MRI abdomen pre and post contrast follow-up Pneumoperitoneum, consider ischemic small bowel, recommend surgical consultation post-polypectomy electrocoagulation syndrome Abx NPO for now IVF Check CRP Check lactic acid Check Procalcitonin Check Blood Cx x 2 Check CBC and BMP daily D/w Dr. Zuniga, no indication for surgical intervention Will follow closely
[2024-07-01 16:13] LABS: Lactate (Lactic Acid) 3.6 mMol/L (0.4-2.0)
[2024-07-01 16:26] LABS: Glucose Estimated Average 114 mg/dL (80-131); Hemoglobin A1C 5.6 % Hgb (4.8-6.0)
[2024-07-01] MEDS: SODIUM CHLORIDE 0.9% 1000 ML 1,000 ML 75 ML IV (16:30)
[2024-07-01 16:42] LABS: C-Reactive Protein 16.7 mg/dL (0.0-0.9); Procalcitonin 1.78 ng/ml (0.0-0.49)
[2024-07-01 19:12] LABS: Reflex Lactate? Y
[2024-07-01 19:43] LABS: Lactic Acid, 3 HR 2.4 mMol/L (0.4-2.0)
[2024-07-01] MEDS: SODIUM CHLORIDE 0.9% 1000 ML 1,000 ML 999 ML IV (20:58)
[2024-07-01] MEDS: SODIUM CHLORIDE 0.9% 1000 ML 1,000 ML 125 ML IV (21:09)
[2024-07-01] MEDS: MELATONIN 3 MG TABLET PO (21:50)
[2024-07-01 22:07] LABS: Lactate (Lactic Acid) 2.3 mMol/L (0.4-2.0)
[2024-07-01] MEDS: LEVALBUTEROL RT 1.25 MG/0.5 ML NEBU INH (23:43)
[2024-07-01] MEDS: IPRATROPIUM RT 0.5 MG/ 2.5 ML NEBU INH (23:43)
[2024-07-02] VITALS (11 sets, daily range): BP systolic 129–159; BP diastolic 64–107; PULSE 61–77; RESP 17–97; TEMP 36–37.1; O2SAT 92–100; BMI 23.9
[2024-07-02 01:06] LABS: Reflex Lactate? Y
[2024-07-02 02:11] LABS: Lactic Acid, 3 HR 1.6 mMol/L (0.4-2.0)
[2024-07-02] MEDS: SODIUM CHLORIDE 0.9% 1000 ML 1,000 ML 125 ML IV ×2 (03:18→15:42)
[2024-07-02] MEDS: HEPARIN SOD INJ 5000 UNIT/ML VIAL SC ×3 (05:27→21:27)
[2024-07-02] MEDS: metroNIDAZOLE/NS 500 MG IVPB 500 MG/100 ML BAG 200 MG IV (05:27)
--- NOTE | 2024-07-02 06:00 | XR_ITS ---
Examination: AP chest single view Technique one AP portable upright chest single view Exam date and time: July 02, 2024 0519 hrs. Comparison July 01, 2024 Indications: Leukocytosis abdominal pain coughing this week, pneumoperitoneum CTA abdomen pelvis dated July 01, 2024 Findings: Free air beneath right hemidiaphragm No significant cardiac enlargement Moderate vascular congestion No lobar pneumonia Moderate osteopenia Impression: Free air beneath right hemidiaphragm Moderate vascular congestion
[2024-07-02 06:05] LABS: Basophils % (Auto) 0 % (0-2.5); Eosinophils % (Auto) 0 % (0-10); Hematocrit 36.5 % (41.0-53.0); Hemoglobin 12.3 g/dL (13.5-16.0); Immature Granulocytes % (Auto) 1 % (0-0); Immature Granulocytes Auto 0.08 Thou/mm3 (0.00-0.00); Lymphocytes # (Auto) 0.9 Thou/mm3 (1.0-4.8); Lymphocytes % (Auto) 6 % (10-50); Mean Corpuscular HGB Conc 33.7 g/dl (31.0-37.0); Mean Corpuscular Hemoglobin 31.9 pg (25.0-35.0); Mean Corpuscular Volume 95 fL (80-100); Monocytes # (Auto) 0.3 Thou/mm3 (0.0-0.8); Monocytes % (Auto) 2 % (0-12); Neutrophils # (Auto) 12.5 Thou/mm3 (1.8-7.7); Neutrophils % (Auto) 91 % (37-80); Nucleated Red Blood Cell % 0 /100 WBC (0); Platelet Count 153 Thou/mm3 (140-440); RDW Standard Deviation 48.6 fL (35.1-43.9); Red Blood Count 3.85 Miln/mm3 (4.50-5.90); White Blood Count 13.8 Thou/mm3 (3.8-10.6)
[2024-07-02 06:50] LABS: Alanine Aminotransferase 15 U/L (10-49); Albumin, Serum 3.9 gm/dL (3.4-4.8); Albumin/Globulin Ratio 1.4 (1.2-2.2); Alkaline Phosphatase 56 U/L (46-116); Anion Gap 10 (7-16); Aspartate Amino Transferase 26 U/L (0-34); BUN/Creatinine Ratio 23 Ratio (12-20); Bilirubin,Total 0.9 mg/dL (0.3-1.2); Blood Urea Nitrogen 18 mg/dL (9-23); Calcium (Corrected) 9.1 mg/dL (8.5-10.1); Carbon Dioxide 24.5 mMol/L (20.0-31.0); Chloride 106 mMol/L (98-107); Cholesterol 111 mg/dL (132-200); Creatinine (Component) 0.8 mg/dL (0.6-1.3); Estimated Creatinine Clearance 65.1 mL/min (>60); Globulin 2.8 gm/dL (2.3-3.5); Glucose 142 mg/dL (74-106); HDL Cholesterol 56 mg/dL (40-60); LDL Cholesterol,Calculated 44 mg/dL (0-130); Magnesium 1.8 mg/dL (1.6-2.6); Osmolality,Calculated 283 (275-295); Sodium 140 mMol/L (136-145); Total Protein 6.7 gm/dL (5.7-8.2); Triglycerides 54 mg/dL (30-150); eGFR > 60 See Note
[2024-07-02] MEDS: LEVALBUTEROL RT 1.25 MG/0.5 ML NEBU INH ×3 (07:31→23:03)
[2024-07-02] MEDS: IPRATROPIUM RT 0.5 MG/ 2.5 ML NEBU INH ×3 (07:31→23:03)
--- NOTE | 2024-07-02 08:51 | XR_ITS ---
Examination: MRI abdomen with intravenous contrast. MRI abdomen without intravenous contrast. Date and time of exam: July 02, 2024 1258 hours INDICATIONS: Right-sided abdominal pain post colonoscopy, CT abdomen pelvis July 01, 2024 hyperdense areas in the liver Technique: Multiple axial, sagittal and coronal sections of the abdomen obtained. Transverse images, TR 6020, TE 107. T1 weighted transverse images, TR 582, TE 9.5. T2-weighted sagittal images, TR 4000, TE 105. T2-weighted sagittal images, TR 4000, TE 5. Coronal images, TR 4210, TE 107. Axial and coronal images are obtained post 19 cc gadolinium intravenous FINDINGS: The liver irregular in contour nonenhancing areas in the liver on the postcontrast images, likely complex cysts No biliary tract dilatation Spleen is not enlarged Gallbladder wall does not appear thickened No pancreatic mass Gallbladder is distended Common bile duct is enlarged 10 mm and there are several filling defects in the common bile duct, the largest 6 mm No pancreatic mass Spleen is not enlarged No hydronephrosis IMPRESSION: Primary hepatocellular disease No abnormal enhancing liver lesions Enlarged common bile duct with several filling defects consistent with sludge versus stones, recommend ERCP follow-up
[2024-07-02] MEDS: PIPER/TAZO 3.375 GM 3.375 GM/50 ML BAG IV ×3 (09:05→21:27)
[2024-07-02 09:29] LABS: C-Reactive Protein 20.9 mg/dL (0.0-0.9)
[2024-07-02 10:15] LABS: Lactate (Lactic Acid) 1.4 mMol/L (0.4-2.0)
--- NOTE | 2024-07-02 11:46 | PD.SURPROG ---
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 Pt states pain was severe last night but it has improved; he denies any nausea/vomiting although is not feeling hungry. Pt underwent CT showing droplets of pneumoperitoneum, has WBC 19 without any fever or tachycardia Narrative: Feeling well today with no pain, just mild soreness at the epigastrium. Denies nausea, has passed gas but not had a BM and not yet feeling hungry. Remaining afebrile with decreasing WBC Exam Vital Signs Temp Pulse Resp BP Pulse Ox O2 Del Method O2 Flow Rate 97.6 F 76 20 140/79 H 93 L Room Air 7 07/02/24 08:00 07/02/24 08:00 07/02/24 08:00 07/02/24 08:00 07/02/24 08:00 07/02/24 08:00 07/01/24 10:12 Constitutional Constitutional: no acute distress Routine Respiratory Exam Respiratory: Present no resp distress Routine Abdominal Exam Abdominal: Present soft; Absent tenderness or distended Results Results: Laboratory Laboratory results: results reviewed Results: Imaging Chest x-ray: report reviewed and image reviewed Assessment & Plan Plan 79M with HTN, HLD, COPD, DMII, afib and cirrhosis who underwent EGD/colonoscopy 06/30 with findings of grade I varices, gastritis and ileal polyp presented to ER due to RLQ pain, findings of droplets of pneumoperitoneum on CT. Pt appears clinically very well with no pain and benign abdominal exam; today's CXR showing free air under diaphragm is noted however as pt remains well it does not necessitate surgical intervention NPO (pt not yet feeling hungry), IVF Continue abx F/u MRI to assess liver Will follow up
--- NOTE | 2024-07-02 12:07 | PD.RESPRO ---
Documentation for date of: 07/02/24 Senior resident attestation: Patient evaluated and examined at the bedside, plan of care discussed with rest of the team including my attending physician, except as noted. Pneumoperitoneum following colonoscopy and biopsy of TI mass/lesion. Gen surg follwoing, pt is on bowel rest, NPO and iv fluids, repeat xr in the am showing expanding pneumoperitoneum but pt conitnue to report improvemt in symptoms, passing gas , abdominal exam reveals tense and tenderness in epigastrium/RUQ region but no rebound tenderness or rigidity. will follow gen surg recs, started on ernesto spectrum abx. Quresh PGY2 Subjective Subjective Interval history: Patient seen today at the bedside fine awake, alert, oriented x 3. No overnight events reported. States no active complaints at this time some mild tenderness in the right upper quadrant and epigastric region. Chest x-ray this morning showed free air under the right hemidiaphragm. General surgery Dr. Palm was consulted recommended no surgical intervention at this time ordered MRI we will follow-up. Ordered repeat chest x-ray for tomorrow morning. Exam Vital Signs Temp Pulse Resp BP Pulse Ox O2 Del Method O2 Flow Rate 97.6 F 76 20 140/79 H 93 L Room Air 7 07/02/24 08:00 07/02/24 08:00 07/02/24 08:00 07/02/24 08:00 07/02/24 08:00 07/02/24 08:00 07/01/24 10:12 Narrative Exam Physical Exam GENERAL: NAD, AAOx3 HEENT: Moist mucosa. Eyes open, symmetrical, & clear CARDIO: Heart RRR, no obvious murmurs PULM: No noted coughing/dyspnea bilateral wheezing mild GI: Abdomen soft, nondistended, tense, pain on palpation in the right upper and right lower quadrants BSx4 SKIN/MSK/EXT: No wounds/rashes/edema/amputations, no pain on palpation. Pedal pulses present B/L NEURO: AAOx3, no focal neuro deficits, able to move all 4 extremities Objective Labs 07/03/24 05:35 07/03/24 05:35 Labs: Laboratory Results - last 24 hr 07/01/24 07/01/2425 16:10 19:29 21:47 WBC RBC Hgb Hct MCV MCH MCHC RDW Std Deviation Plt Count Neut % (Auto) Lymph % (Auto) [place] % (Auto) Eos % (Auto) Baso % (Auto) Neut # (Auto) Lymph # (Auto) [place] # (Auto) Eos # (Auto) Baso # (Auto) Immature Gran # (Auto) Absolute Nucleated RBC Immature Gran % Nucleated RBC % Sodium Potassium Chloride Carbon Dioxide Anion Gap BUN Creatinine Estim Creat Clear Calc eGFR BUN/Creatinine Ratio Glucose Estimated Ave Glu mg/dL 114 Hemoglobin A1c 5.6 Calculated Osmolality Lactic Acid 3.6 H 2.4 H 2.3 H Calcium Corrected Calcium Magnesium Total Bilirubin AST ALT Alkaline Phosphatase C-Reactive Prot, Quant 16.7 H Total Protein Albumin Globulin Albumin/Globulin Ratio Triglycerides Cholesterol LDL Cholesterol, Calc HDL Cholesterol Cholesterol/HDL Ratio Tumor Marker AFP Procalcitonin 1.78 H 07/02/24 07/02/24 07/02/24 01:43 04:40 08:35 WBC 13.8 H D RBC 3.85 L Hgb 12.3 L D Hct 36.5 L MCV 95 MCH 31.9 MCHC 33.7 RDW Std Deviation 48.6 H Plt Count 153 D Neut % (Auto) 91 H Lymph % (Auto) 6 L [place] % (Auto) 2 Eos % (Auto) 0 Baso % (Auto) 0 Neut # (Auto) 12.5 H Lymph # (Auto) 0.9 L [place] # (Auto) 0.3 Eos # (Auto) 0.0 Baso # (Auto) 0.0 Immature Gran # (Auto) 0.08 H Absolute Nucleated RBC 0.00 Immature Gran % 1 H Nucleated RBC % 0 Sodium 140 Potassium 4.0 Chloride 106 Carbon Dioxide 24.5 Anion Gap 10 BUN 18 Creatinine 0.8 Estim Creat Clear Calc 65.1 eGFR > 60 BUN/Creatinine Ratio 23 H Glucose [address] Glu mg/dL Hemoglobin A1c Calculated Osmolality 283 Lactic Acid 1.6 Calcium 9.0 D Corrected Calcium 9.1 Magnesium 1.8 Total Bilirubin 0.9 D AST 26 ALT 15 Alkaline Phosphatase 56 D C-Reactive Prot, Quant 20.9 H Total Protein 6.7 Albumin 3.9 D Globulin 2.8 Albumin/Globulin Ratio 1.4 Triglycerides 54 Cholesterol 111 L LDL Cholesterol, Calc 44 HDL Cholesterol 56 Cholesterol/HDL Ratio 2.0 L Tumor Marker AFP 3.90 Procalcitonin 07/02/24 09:55 WBC RBC Hgb Hct MCV MCH MCHC RDW Std Deviation Plt Count Neut % (Auto) Lymph % (Auto) [place] % (Auto) Eos % (Auto) Baso % (Auto) Neut # (Auto) Lymph # (Auto) [place] # (Auto) Eos # (Auto) Baso # (Auto) Immature Gran # (Auto) Absolute Nucleated RBC Immature Gran % Nucleated RBC % Sodium Potassium Chloride Carbon Dioxide Anion Gap BUN Creatinine Estim Creat Clear Calc eGFR BUN/Creatinine Ratio Glucose Estimated Ave Glu mg/dL Hemoglobin A1c Calculated Osmolality Lactic Acid 1.4 Calcium Corrected Calcium Magnesium Total Bilirubin AST ALT Alkaline Phosphatase C-Reactive Prot, Quant Total Protein Albumin Globulin Albumin/Globulin Ratio Triglycerides Cholesterol LDL Cholesterol, Calc HDL Cholesterol Cholesterol/HDL Ratio Tumor Marker AFP Procalcitonin ABG Interpretation ABG results: 07/01/24 09:44 VBG pH 7.42 VBG pCO2 46 VBG pO2 65 H VBG Base Excess 5 H Quality Measures Quality Measures none Advance care planning discussed with:: patient and spouse Assessment & Plan Assessment Current Active Medications: Generic Name Dose Route Start Last Admin Trade Name Freq PRN Reason Stop Dose Admin Acetaminophen 650 mg 07/01/24 11:43 Acetaminophen 325 Mg Tablet PO 07/31/24 11:42 Q6H PRN Fever >100.5 Acetaminophen 650 mg 07/01/24 11:43 Acetaminophen 325 Mg Tablet PO 07/31/24 11:42 Q6H PRN PAIN SCALE 1-3 (mild Hydrocodone Bitart/Acetaminophen 1 tab 07/01/24 21:12 07/01/24 21:24 Hydrocodone/Apap 5/325 Tablet PO 07/06/24 21:11 1 tab Q4HR PRN Administration PAIN SCALE 4-10(Mod-Sev Dextrose 25 ml 07/01/24 12:10 Dextrose 50%-Water Inj 50 Ml Syringe IV 07/31/24 12:09 Q15MIN PRN BG 50-70 responsive npo pt Dextrose 50 ml 07/01/24 12:10 Dextrose 50%-Water Inj 50 Ml Syringe IV 07/31/24 12:09 Q15MIN PRN BG <50 OR BG <70 & pt unresponsive Docusate Sodium 100 mg 07/01/24 11:45 07/02/24 09:05 Docusate Sod 100 Mg Capsule PO 07/31/24 11:44 Not Given QDAY [facility] Protocol Heparin Sodium (Porcine) 5,000 unit 07/01/24 14:00 07/02/24 05:27 Heparin Sod Inj 5000 Unit/Ml Vial SC 07/15/24 13:59 5,000 unit Q8HR SABINE Administration Sodium Chloride 1,000 mls @ 125 mls/hr 07/01/24 20:06 07/02/24 03:18 Ns IV 07/31/24 20:05 125 mls/hr .Q8H SABINE Administration Piperacillin/Tazobactam/Dextrose 3.375 gm in 50 mls @ 12.5 mls/hr 07/02/24 14:00 Zosyn IV 07/09/24 13:59 Q8HR SABINE Insulin Human Lispro 0 unit 07/02/24 12:00 07/02/24 11:57 Insulin Lispro (Admelog) 1 Unit/0.01 Ml Unit SC 07/31/24 16:59 Not Given Q6HR [facility] Protocol Ipratropium [place] 0.5 mg 07/01/24 23:00 07/02/24 07:31 Ipratropium Rt 0.5 Mg/ 2.5 Ml Nebu INH 07/31/24 22:59 0.5 mg Q8HRRT SABINE Administration Levalbuterol HCl 1.25 mg 07/01/24 23:00 07/02/24 07:31 Levalbuterol Rt 1.25 Mg/0.5 Ml Nebu INH 07/31/24 22:59 1.25 mg Q8HRRT SABINE Administration Melatonin 3 mg 07/01/24 21:00 07/01/24 21:50 Melatonin 3 Mg Tablet PO 07/31/24 20:59 3 mg HS SABINE Administration Ondansetron HCl 4 mg 07/01/24 11:43 Ondansetron Inj 2 Mg/Ml Inj 2 Ml IV 07/31/24 11:42 Q6H PRN NAUSEA OR VOMITING Protocol Sodium Chloride 3 ml 07/01/24 15:50 Sodium Chloride Rt [place] 0.9% 3 Ml Nebu INH 07/31/24 15:49 PRN PRN SOLN Plan 79-year-old male with past medical history of A-fib hypertension hyperlipidemia diabetes COPD who presented to the ED due to right upper quadrant and right lower quadrant pain after having a colonoscopy. Admitted for pneumoperitoneum. General surgery and GI consulted. #Pneumoperitoneum #Bibasilar pneumonia Patient had a colonoscopy the day prior to admission after which patient started developing right upper quadrant and right lower quadrant pain CT abdomen pelvis showed Pneumoperitoneum, consider ischemic small bowel, recommend surgical consultation. Chest x-ray shows some mild bibasilar pneumonia Patient is not septic -On IV fluids 75 cc/h -N.p.o. bowel rest -On ceftriaxone and Flagyl [07/01/2024-] -General Surgery Dr. Palm consulted, appreciate recommendations -GI Dr. Atkins consulted, appreciate recommendations #History of hypertension #History of A-fib Patient is normotensive at this time -Consider resuming antihypertensives at a later time -Eliquis has not been resumed at this time in anticipation for possible procedure #History of COPD Patient is a former smoker denies current cigarette use Examination some mild wheezing heard bilaterally -Levalbuterol and ipratropium as needed #[id number] A1c 5.6 -SSI -Hypoglycemia protocol in place #Cirrhosis, Hyperdense areas in the liver Found on CT abdomen pelvis recommend elective MRI abdomen pre and post-contrast follow-up -Can follow-up as outpatient Case discussed with my senior Dr. Vasques PGY-[address] Bailey Valentine MD PGY-1 Disposition: Telemetry Fluids: NS Feeding: N.p.o. Thrombo prophylaxis: Heparin Gastric Ulcer prophylaxis: None CODE STATUS: Full code Attending Provider Attestation/Addendum Gloria Barreto DO, attest that I was physically present for the wilson portions of the service and evaluated the patient with the resident and I reviewed and discussed the case with the resident and agree with the resident's findings and plans of care as documented above Patient seen and evaluated this AM. Patient has no acute complaints. Patient's abdomen remains firm. No worsening distension noted. Patient endorses only pain to deep palpation. Case discussed with surgeon, continue with bowel rest and IV fluid hydration.
[2024-07-02] MEDS: PANTOPRAZOLE INJ 40 MG VIAL IV ×2 (13:53→21:27)
--- NOTE | 2024-07-02 15:19 | PC.SS ---
Rounding Note: Plan is for X-Ray, general surgery is following.
--- NOTE | 2024-07-02 15:19 | PD.IMPROG ---
Documentation for date of: 07/02/24 Subjective Subjective Interval history: Patient was seen and examined at the bedside, No overnight events reported. No abdominal pain. Exam Vital Signs Temp Pulse Resp BP Pulse Ox O2 Del Method O2 Flow Rate 98.4 F 61 20 129/64 100 Room Air 7 07/02/24 12:00 07/02/24 14:07/02/24 14:07/02/24 12:00 07/02/24 14:07/02/24 12:00 07/01/24 10:12 Detailed Abdominal Exam Comments: Soft, mild tenderness in RUQ, no rebound and no gaurding Objective Labs 07/02/24 04:40 07/02/24 04:40 Labs: Laboratory Results - last 24 hr 07/01/24 07/01/24 07/01/24 16:10 19:29 21:47 WBC RBC Hgb Hct MCV MCH MCHC RDW Std Deviation Plt Count Neut % (Auto) Lymph % (Auto) [place] % (Auto) Eos % (Auto) Baso % (Auto) Neut # (Auto) Lymph # (Auto) [place] # (Auto) Eos # (Auto) Baso # (Auto) Immature Gran # (Auto) Absolute Nucleated RBC Immature Gran % Nucleated RBC % Sodium Potassium Chloride Carbon Dioxide Anion Gap BUN Creatinine Estim Creat Clear Calc eGFR BUN/Creatinine Ratio Glucose Estimated Ave Glu mg/dL 114 Hemoglobin A1c 5.6 Calculated Osmolality Lactic Acid 3.6 H 2.4 H 2.3 H Calcium Corrected Calcium Magnesium Total Bilirubin AST ALT Alkaline Phosphatase C-Reactive Prot, Quant 16.7 H Total Protein Albumin Globulin Albumin/Globulin Ratio Triglycerides Cholesterol LDL Cholesterol, Calc HDL Cholesterol Cholesterol/HDL Ratio Tumor Marker AFP Procalcitonin 1.78 H 07/02/24 07/02/24 07/02/24 01:43 04:40 08:35 WBC 13.8 H D RBC 3.85 L Hgb 12.3 L D Hct 36.5 L MCV 95 MCH 31.9 MCHC 33.7 RDW Std Deviation 48.6 H Plt Count 153 D Neut % (Auto) 91 H Lymph % (Auto) 6 L [place] % (Auto) 2 Eos % (Auto) 0 Baso % (Auto) 0 Neut # (Auto) 12.5 H Lymph # (Auto) 0.9 L [place] # (Auto) 0.3 Eos # (Auto) 0.0 Baso # (Auto) 0.0 Immature Gran # (Auto) 0.08 H Absolute Nucleated RBC 0.00 Immature Gran % 1 H Nucleated RBC % 0 Sodium 140 Potassium 4.0 Chloride 106 Carbon Dioxide 24.5 Anion Gap 10 BUN 18 Creatinine 0.8 Estim Creat Clear Calc 65.1 eGFR > 60 BUN/Creatinine Ratio 23 H Glucose [address] Glu mg/dL Hemoglobin A1c Calculated Osmolality 283 Lactic Acid 1.6 Calcium 9.0 D Corrected Calcium 9.1 Magnesium 1.8 Total Bilirubin 0.9 D AST 26 ALT 15 Alkaline Phosphatase 56 D C-Reactive Prot, Quant 20.9 H Total Protein 6.7 Albumin 3.9 D Globulin 2.8 Albumin/Globulin Ratio 1.4 Triglycerides 54 Cholesterol 111 L LDL Cholesterol, Calc 44 HDL Cholesterol 56 Cholesterol/HDL Ratio 2.0 L Tumor Marker AFP 3.90 Procalcitonin 07/02/24 09:55 WBC RBC Hgb Hct MCV MCH MCHC RDW Std Deviation Plt Count Neut % (Auto) Lymph % (Auto) [place] % (Auto) Eos % (Auto) Baso % (Auto) Neut # (Auto) Lymph # (Auto) [place] # (Auto) Eos # (Auto) Baso # (Auto) Immature Gran # (Auto) Absolute Nucleated RBC Immature Gran % Nucleated RBC % Sodium Potassium Chloride Carbon Dioxide Anion Gap BUN Creatinine Estim Creat Clear Calc eGFR BUN/Creatinine Ratio Glucose Estimated Ave Glu mg/dL Hemoglobin A1c Calculated Osmolality Lactic Acid 1.4 Calcium Corrected Calcium Magnesium Total Bilirubin AST ALT Alkaline Phosphatase C-Reactive Prot, Quant Total Protein Albumin Globulin Albumin/Globulin Ratio Triglycerides Cholesterol LDL Cholesterol, Calc HDL Cholesterol Cholesterol/HDL Ratio Tumor Marker AFP Procalcitonin ABG Interpretation ABG results: 07/01/24 09:44 VBG pH 7.42 VBG pCO2 46 VBG pO2 65 H VBG Base Excess 5 H Assessment & Plan A&P Narrative 79 year old male with HTN, HLD, COPD, DMII, afib and cirrhosis who underwent EGD/colonoscopy 06/30 with findings of grade I varices, gastritis and ileal polyp presented to ER due to RLQ pain. Nodule/Polyp in terminal ileum, attempted to remove it by using a Hot Snare and electrocoagulation was applied but most likely due to fibrotic texture of polyp/nodule, could not get removed and biopsy obtained. There was an easy intubation of TI Post-polypectomy electrocoagulation syndrome Continue Abx Diet as per Surgery IVF Check CRP Check lactic acid Check Procalcitonin Check Blood Cx x 2 Check CBC and BMP daily D/w Dr. Zuniga, no indication for surgical intervention Will follow closely Time Spent With Patient Time: Total time spent is greater than 50% in coordination of care (as documented) at patient's floor/unit and/or counseling patient:
[2024-07-02] MEDS: MELATONIN 3 MG TABLET PO (21:27)
[2024-07-03] VITALS (14 sets, daily range): BP systolic 111–175; BP diastolic 68–91; PULSE 52–165; RESP 16–96; TEMP 36.3–37.2; O2SAT 92–99; BMI 24.0
[2024-07-03] MEDS: SODIUM CHLORIDE 0.9% 1000 ML 1,000 ML 125 ML IV ×3 (00:10→17:41)
--- NOTE | 2024-07-03 01:30 | PC.NURSE ---
Tele monitor reports patient HR as low as 43 does not sustain, HR in the low 50s, pt asleep in room, no distress noted, electronic engineering technician Dr Tegan TALLEY updated on HR, no new orders received, continue to monitor.
[2024-07-03] MEDS: HEPARIN SOD INJ 5000 UNIT/ML VIAL SC ×2 (05:21→14:54)
[2024-07-03] MEDS: PIPER/TAZO 3.375 GM 3.375 GM/50 ML BAG IV ×3 (05:21→21:13)
[2024-07-03 05:58] LABS: Basophils % (Auto) 0 % (0-2.5); Eosinophils % (Auto) 0 % (0-10); Hematocrit 34.5 % (41.0-53.0); Hemoglobin 11.7 g/dL (13.5-16.0); Immature Granulocytes % (Auto) 1 % (0-0); Immature Granulocytes Auto 0.07 Thou/mm3 (0.00-0.00); Lymphocytes # (Auto) 1.1 Thou/mm3 (1.0-4.8); Lymphocytes % (Auto) 9 % (10-50); Mean Corpuscular HGB Conc 33.9 g/dl (31.0-37.0); Mean Corpuscular Hemoglobin 32.5 pg (25.0-35.0); Mean Corpuscular Volume 96 fL (80-100); Monocytes # (Auto) 0.8 Thou/mm3 (0.0-0.8); Monocytes % (Auto) 7 % (0-12); Neutrophils # (Auto) 9.9 Thou/mm3 (1.8-7.7); Neutrophils % (Auto) 83 % (37-80); Nucleated Red Blood Cell % 0 /100 WBC (0); Platelet Count 182 Thou/mm3 (140-440); RDW Standard Deviation 49.1 fL (35.1-43.9); White Blood Count 11.9 Thou/mm3 (3.8-10.6)
--- NOTE | 2024-07-03 06:00 | XR_ITS ---
Examination: AP chest single view Technique one AP portable upright chest single view Exam date and time: July 03, 2024 0622 hrs. Comparison July 02, 2024 Indications: Onset abdominal pain this week with pneumoperitoneum on CT abdomen pelvis July 01, 2024 Findings: Minor prominence of ventricle Mild to moderate vascular congestion Free air beneath the hemidiaphragms Accentuation of the basilar bronchovascular markings No lobar pneumonia Impression: Significant pneumoperitoneum
[2024-07-03 06:36] LABS: Alanine Aminotransferase 17 U/L (10-49); Albumin, Serum 3.7 gm/dL (3.4-4.8); Albumin/Globulin Ratio 1.4 (1.2-2.2); Alkaline Phosphatase 49 U/L (46-116); Anion Gap 9 (7-16); Aspartate Amino Transferase 28 U/L (0-34); BUN/Creatinine Ratio 26 Ratio (12-20); Bilirubin,Total 0.9 mg/dL (0.3-1.2); Blood Urea Nitrogen 21 mg/dL (9-23); Calcium 8.6 mg/dL (8.3-10.6); Calcium (Corrected) 8.8 mg/dL (8.5-10.1); Carbon Dioxide 22.7 mMol/L (20.0-31.0); Chloride 110 mMol/L (98-107); Creatinine (Component) 0.8 mg/dL (0.6-1.3); Estimated Creatinine Clearance 65.1 mL/min (>60); Globulin 2.7 gm/dL (2.3-3.5); Glucose 106 mg/dL (74-106); Magnesium 1.9 mg/dL (1.6-2.6); Osmolality,Calculated 286 (275-295); Potassium 3.8 mMol/L (3.4-5.1); Sodium 142 mMol/L (136-145); Total Protein 6.4 gm/dL (5.7-8.2); eGFR > 60 See Note
[2024-07-03] MEDS: PANTOPRAZOLE INJ 40 MG VIAL IV ×2 (08:12→21:11)
[2024-07-03] MEDS: LEVALBUTEROL RT 1.25 MG/0.5 ML NEBU INH ×3 (08:59→22:11)
[2024-07-03] MEDS: IPRATROPIUM RT 0.5 MG/ 2.5 ML NEBU INH ×3 (08:59→22:11)
--- NOTE | 2024-07-03 11:54 | PC.SS ---
Rounding Note: General surgery recommendations are pending.
--- NOTE | 2024-07-03 12:55 | ECHO_ITS ---
Transthoracic Echo Report Ht (in): 65 Wt (lb): 144 Exam Location: Echo Lab Status: Inpatient Illuminator: Jayla Kathleen Indications: Procedure Performed: BP: 152 / 61 HR: 53 Rhythm: Sinus Technical Quality: Technically difficult study MEASUREMENTS (Male / Female) Normal Values 2D ECHO LV Diastolic Diameter PLAX 5.4 cm 4.2 - 5.9 / 3.9 - 5.3 cm LV Systolic Diameter PLAX 3.5 cm IVS Diastolic Thickness 0.8 cm 0.6 - 1.0 / 0.6 - 0.9 cm LVPW Diastolic Thickness 0.8 cm 0.6 - 1.0 / 0.6 - 0.9 cm LV Relative Wall Thickness 0.3 LVOT Diameter 1.9 cm LA Volume Index 27.5 cm?/m? 16 - 28 cm?/m? M-MODE Aortic Root Diameter MM 2.6 cm LA Systolic Diameter MM 3.8 cm LA Ao Ratio MM 1.5 AV Cusp Separation MM 2.2 cm DOPPLER AV Peak Velocity 119.0 cm/s AV Peak Gradient 5.7 mmHg AV Mean Gradient 3.0 mmHg AV Velocity Time Integral 28.4 cm LVOT Peak Velocity 95.3 cm/s LVOT Peak Gradient 3.6 mmHg LVOT Velocity Time Integral 20.6 cm LVOT Cardiac Index 1780.5 cm?/min?m? AV Area Cont Eq vti 2.1 cm? AV Area Cont Eq pk 2.3 cm? MV Area PHT 3.4 cm? MR Peak Velocity 438.5 cm/s MR Peak Gradient 76.9 mmHg Mitral E Point Velocity 76.6 cm/s Mitral A Point Velocity 85.9 cm/s Mitral E to A Ratio 0.9 LV E' Lateral Velocity 7.7 cm/s Mitral E to LV E' Lateral Ratio 9.9 LV E' Septal Velocity 7.7 cm/s Mitral E to LV E' Septal Ratio 9.9 TR Peak Velocity 280.0 cm/s TR Peak Gradient 31.4 mmHg PV Peak Velocity 70.6 cm/s PV Peak Gradient 2.0 mmHg FINDINGS Left Ventricle Normal left ventricular size, wall thickness, systolic function with no obvious regional wall motion abnormalities. Normal left ventricular diastolic filling pattern for age. The ejection fraction is v isually estimated at 55-60 %. Right Ventricle The right ventricle is normal in size and systolic function. Left Atrium The left atrium is normal by two-dimensional, color flow and Doppler imaging with no structural abnormalities, no thrombus formation present. Right Atrium The right atrium is normal by two-dimensional imaging, color flow and Doppler imaging with no struct ural abnormalities, no thrombus formation present. Atrial Septum The interatrial septum appears normal with no evidence of a shunt. Aorta The aorta is normal by two-dimensional, color flow and Doppler interrogation. Mitral Valve The mitral valve is normal by two-dimensional, color flow and Doppler interrogation. There is mild mitral valve regurgitation, stenosis or prolapse. Aortic Valve The aortic valve is trileaflet and normal by two-dimensional, color flow and Doppler interrogation. There is no significant aortic valve regurgitation. Tricuspid Valve The tricuspid valve is normal by two-dimensional, color flow and Doppler interrogation. There is mil d tricuspid valve regurgitation. Pulmonic Valve The pulmonic valve is not well visualized. There is no significant pulmonic valve regurgitation. Vessels The pulmonary artery appears normal. The inferior vena cava pulmonary and hepatic veins appear romero l. Pericardium The pericardium is normal by two-dimensional imaging. There is no significant pericardial effusion. CONCLUSIONS Indication: Pre-op cardiac clearance Normal LV size and function. Estimated EF 55-60%. Grade I diastolic dysfunction. Normal RV size and function. Mild MR and TR. Saran Chaves (Electronically Signed) Final Date: 06 July 2024 12:38
--- NOTE | 2024-07-03 13:51 | PC.SS ---
SOCCER PLAYER conducted bedside contact with the patient conduct initial assessment and to discuss discharge planning. Patient confirmed demographic information. Patient resides at home with spouse, Ina Carreno . Patient does not utilize any form of DME to assist with ambulation. Patient does not utilize home oxygen. Patient describes the ability to complete ADL?s independently. Patient spouse, Ina Carreno; as medical surrogate decision maker. Patient?s PCP is Vernell Kevin. Patient does not participate with dialysis. Patient?s farmer and grazier is Dr. Garcia. Patient utilizes [facility] for medication services. Plan is for the patient to return home at the time of discharge. Family will provide transportation on behalf of the patient. No discharge needs identified by the patient. No further intervention required at this time, director of social services will be available to address any further concerns. Patient?s physical address is [address], [place] [id number]. Next of Kin: Ina Wai D/C Plan: Home
--- NOTE | 2024-07-03 14:07 | ESPR_ITS ---
Documentation for date of: 07/03/24 Senior resident attestation: Patient evaluated and examined at the bedside, plan of care discussed with rest of the team including my attending physician, except as noted. Pneumoperitoneum following colonoscopy and biopsy of TI mass/lesion. Gen surg follwoing, pt is on bowel rest, NPO and iv fluids, repeat xr in the am showing expanding pneumoperitoneum but pt conitnue to report improvemt in symptoms, passing gas, abdominal exam reveals tense and tenderness in epigastrium/RUQ region but no rebound tenderness or rigidity. will follow gen surg recs, started on broad spectrum abx. Per GI , terminal illeum mass is Neuroendocrine tumor and patient may need surgical resection and colectomy, gen surg following, requiring Cardiac clearance prior to surgery, patient was updated regarding diagnosis and possible surgery, demonstrated understaning, started on lovenox BID for anticoaglution due to hx of afib to be withheld prior to surgery. Quresh PGY2 Subjective Subjective Interval history: Patient seen today at the bedside fine awake, alert, oriented x 3. No overnight events reported. Vital signs stable at this time. Labs unremarkable at this time. Chest x-ray this morning shows significant pneumoperitoneum. Dr. Atkins called said patient's polyp that was removed pathology reported to be a neuroendocrine tumor. General surgery Dr. Palm was consulted, recommended starting the patient on clear liquid diet and I request cardiac clearance for surgery on Saturday. Exam Vital Signs Temp Pulse Resp BP Pulse Ox O2 Del Method O2 Flow Rate 97.3 F 55 L 22 H 175/82 H 98 Room Air 7 07/03/24 08:00 07/03/24 12:00 07/03/24 09:00 07/03/24 08:00 07/03/24 09:00 07/03/24 08:00 07/01/24 10:12 Narrative Exam Physical Exam GENERAL: NAD, AAOx3 HEENT: Moist mucosa. Eyes open, symmetrical, & clear CARDIO: Heart RRR, no obvious murmurs PULM: No noted coughing/dyspnea bilateral wheezing mild GI: Abdomen soft, nondistended, tense, pain on palpation in the right upper and right lower quadrants BSx4 SKIN/MSK/EXT: No wounds/rashes/edema/amputations, no pain on palpation. Pedal pulses present B/L NEURO: AAOx3, no focal neuro deficits, able to move all 4 extremities Objective Labs 07/05/24 03:26 07/05/24 03:26 Labs: Laboratory Results - last 24 hr 07/03/24 05:35 WBC 11.9 H RBC 3.60 L Hgb 11.7 L Hct 34.5 L MCV 96 MCH 32.5 MCHC 33.9 RDW Std Deviation 49.1 H Plt Count 182 Neut % (Auto) 83 H Lymph % (Auto) 9 L [place] % (Auto) 7 Eos % (Auto) 0 Baso % (Auto) 0 Neut # (Auto) 9.9 H Lymph # (Auto) 1.1 [place] # (Auto) 0.8 Eos # (Auto) 0.0 Baso # (Auto) 0.0 Immature Gran # (Auto) 0.07 H Absolute Nucleated RBC 0.00 Immature Gran % 1 H Nucleated RBC % 0 Sodium 142 Potassium 3.8 Chloride 110 H Carbon Dioxide 22.7 Anion Gap 9 BUN 21 Creatinine 0.8 Estim Creat Clear Calc 65.1 eGFR > 60 BUN/Creatinine Ratio 26 H Glucose 106 Calculated Osmolality 286 Calcium 8.6 Corrected Calcium 8.8 Magnesium 1.9 Total Bilirubin 0.9 AST 28 ALT 17 Alkaline Phosphatase 49 Total Protein 6.4 Albumin 3.7 Globulin 2.7 Albumin/Globulin Ratio 1.4 ABG Interpretation ABG results: 07/01/24 09:44 VBG pH 7.42 VBG pCO2 46 VBG pO2 65 H VBG Base Excess 5 H Quality Measures Quality Measures none Advance care planning discussed with:: patient and spouse Assessment & Plan Assessment Current Active Medications: Generic Name Dose Route Start Last Admin Trade Name Freq PRN Reason Stop Dose Admin Acetaminophen 650 mg 07/01/24 11:43 Acetaminophen 325 Mg Tablet PO 07/31/24 11:42 Q6H PRN Fever >100.5 Acetaminophen 650 mg 07/01/24 11:43 Acetaminophen 325 Mg Tablet PO 07/31/24 11:42 Q6H PRN PAIN SCALE 1-3 (mild Hydrocodone Bitart/Acetaminophen 1 tab 07/01/24 21:12 07/01/24 21:24 Hydrocodone/Apap 5/325 Tablet PO 07/06/24 21:11 1 tab Q4HR PRN Administration PAIN SCALE 4-10(Mod-Sev Dextrose 25 ml 07/01/24 12:10 Dextrose 50%-Water Inj 50 Ml Syringe IV 07/31/24 12:09 Q15MIN PRN BG 50-70 responsive npo pt Dextrose 50 ml 07/01/24 12:10 Dextrose 50%-Water Inj 50 Ml Syringe IV 07/31/24 12:09 Q15MIN PRN BG <50 OR BG <70 & pt unresponsive Docusate Sodium 100 mg 07/01/24 11:45 07/03/24 12:13 Docusate Sod 100 Mg Capsule PO 07/31/24 11:44 Not Given QDAY [facility] Protocol Heparin Sodium (Porcine) 5,000 unit 07/01/24 14:00 07/03/24 05:21 Heparin Sod Inj 5000 Unit/Ml Vial SC 07/15/24 13:59 5,000 unit Q8HR SABINE Administration Sodium Chloride 1,000 mls @ 125 mls/hr 07/01/24 20:06 07/03/24 08:12 Ns IV 07/31/24 20:05 125 mls/hr .Q8H SABINE Administration Piperacillin/Tazobactam/Dextrose 3.375 gm in 50 mls @ 12.5 mls/hr 07/02/24 14:00 07/03/24 05:21 Zosyn IV 07/09/24 13:59 12.5 mls/hr Q8HR SABINE Administration Insulin Human Lispro 0 unit 07/02/24 12:00 07/03/24 12:14 Insulin Lispro (Admelog) 1 Unit/0.01 Ml Unit SC 07/31/24 16:59 Not Given Q6HR [facility] Protocol Ipratropium [place] 0.5 mg 07/01/24 23:00 07/03/24 08:59 Ipratropium Rt 0.5 Mg/ 2.5 Ml Nebu INH 07/31/24 22:59 0.5 mg Q8HRRT SABINE Administration Levalbuterol HCl 1.25 mg 07/01/24 23:00 07/03/24 08:59 Levalbuterol Rt 1.25 Mg/0.5 Ml Nebu INH 07/31/24 22:59 1.25 mg Q8HRRT SABINE Administration Melatonin 3 mg 07/01/24 21:00 07/02/24 21:27 Melatonin 3 Mg Tablet PO 07/31/24 20:59 3 mg HS SABINE Administration Ondansetron HCl 4 mg 07/01/24 11:43 Ondansetron Inj 2 Mg/Ml Inj 2 Ml IV 07/31/24 11:42 Q6H PRN NAUSEA OR VOMITING Protocol Pantoprazole Sodium 40 mg 07/02/24 12:30 07/03/24 08:12 Pantoprazole Inj 40 Mg Vial IV 08/01/24 12:29 40 mg BID SABINE Administration Sodium Chloride 3 ml 07/01/24 15:50 Sodium Chloride Rt Ronda 0.9% 3 Ml Nebu INH 07/31/24 15:49 PRN PRN SOLN Plan 79-year-old male with past medical history of A-fib hypertension hyperlipidemia diabetes COPD who presented to the ED due to right upper quadrant and right lower quadrant pain after having a colonoscopy. Admitted for pneumoperitoneum. General surgery and GI consulted. #Pneumoperitoneum #Bibasilar pneumonia #Neuroendocrine tumor of ileum Patient had a colonoscopy the day prior to admission after which patient started developing right upper quadrant and right lower quadrant pain CT abdomen pelvis showed Pneumoperitoneum, consider ischemic small bowel, recommend surgical consultation. Chest x-ray shows some mild bibasilar pneumonia Patient is not septic Patient had polyp removal via colonoscopy, pathology report showed neuroendocrine tumor of the ileum -Pending surgery on Saturday with general surgery Dr. Palm -N.p.o. after midnight on Saturday -On Zosyn -General Surgery Dr. Vail consulted, appreciate recommendations -GI Dr. Atkins consulted, appreciate recommendations #History of hypertension #History of A-fib Patient is normotensive at this time CHADVASC score of 4 - Lovenox 70mg BID, will dc on saturday prior to surgery -Consider resuming antihypertensives at a later time -Eliquis has not been resumed at this time in anticipation for possible procedure #History of COPD Patient is a former smoker denies current cigarette use Examination some mild wheezing heard bilaterally -Levalbuterol and ipratropium as needed #[id number] A1c 5.6 -SSI -Hypoglycemia protocol in place #Cirrhosis, Hyperdense areas in the liver Found on CT abdomen pelvis recommend elective MRI abdomen pre and post-contrast follow-up -Can follow-up as outpatient Case discussed with my senior Dr. Vasques PGY-[address] Tyshawn Valentine MD PGY-1 Disposition: Telemetry Fluids: None Feeding: Clear liquid diet Thrombo prophylaxis: Heparin Gastric Ulcer prophylaxis: Pantoprazole CODE STATUS: Full code Attending Provider Attestation/Addendum 79-year-old male with hypertension, hyperlipidemia, type 2 diabetes mellitus and atrial fibrillation on Eliquis who underwent colonoscopy on 06/30/2024 and afterwards started developing right lower quadrant abdominal pain subsequently presented to the ER on 07/01/2024. In the ER, patient noted to have pneumoperitoneum and subsequently surgical consultation was requested. 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 Furthermore, as for A- fib patient is currently on metoprolol and on a heparin drip.I reviewed above note and agree with findings and plans. I have also personally examined the patient with medicine team and went over assessment and plan with medical team including hospitality intern and resident physician.
--- NOTE | 2024-07-03 14:13 | ESCONSULT_ITS ---
<Statement entered by Saran Chaves MD - 07/04/24 16:49> I have personally seen and examined the patient separately on the above date of service and discussed the plan of care with the resident. I reviewed the resident Dr. Brown consultation note and agree with the resident findings and plan in the note above and have also edited the documentation to reflect my findings and plan. Patient well-known to me and follows with me in the clinic. A 79-year-old male with a past medical history of paroxysmal atrial fibrillation/flutter diagnosed in 2018, essential hypertension, grade 1 esophageal varices, questionable cirrhosis, essential hypertension, hyperlipidemia, type 2 diabetes mellitus, COPD not on home oxygen, ex-smoker [id number], history of perirectal abscess status post I&D in February 2024, left tension pneumothorax requiring chest tube in November 2023 presented to the emergency department for further evaluation of abdominal pain. Patient recently had and EGD and colonoscopy on 06/30/2024. EGD showed grade 1 esophageal varices along with gastritis. Colonoscopy showed ileal polyp and attempt was made to biopsy as well as snare and eventually electrocoagulation was done. Impression was for possible fibrous polyp. Patient did not came to the ED for evaluation of abdominal pain. CT abdomen pelvis was done which question of possible pneumoperitoneum versus ischemic bowel. Patient has been evaluated by general surgery as well as GI team. 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 General surgery contemplating help me colectomy and cardiology was now consulted for further evaluation of preoperative cardiac risk assessment. Assessment and plan: Patient is planned for an intermediate risk surgery with possible hemicolectomy which will require general anesthesia. Patient functional status is greater than 4 METS. Patient does not have any kind of cardiac in place at the present point of time including any chest pain chest pressure or shortness of breath or orthopnea PND or leg swelling or dizziness or syncope or fall. His main complaints are abdominal pain. Patient has extensive cardiac workup completed previously. EKG now shows normal sinus rhythm. Echo done in November 2023 showed normal LV and RV function with an LVEF of 55 to 60%. Grade 1 diastolic dysfunction. A1c is 5.6, TSH normal. LDL is 44 and total cholesterol 111. Cardiac catheterization performed in 2019 showed normal coronaries with only minimal luminal irregularities. He does not have other major cardiac risk factors at the present point of time except that patient does have longstanding atrial fibrillation for which he is on anticoagulation and rate controlled. Based on the above patient is at mildly elevated but acceptable cardiac risk for the surgery and recommend to proceed with the surgery with no further cardiac workup. An echocardiogram has been ordered during this admission which is yet to be done and I did perform bedside echocardiogram which still showed normal LV function and RV function with grade 1 diastolic dysfunction and only mild valvular abnormalities. Regarding his paroxysmal atrial fibrillation with atrial flutter patient is on anticoagulation for the A-fib as discharged Vascor is elevated at 4. Can hold off on the Eliquis at the present point of time and place the patient on heparin drip if okay by the surgical team as the patient is due for surgery. Management of rest of the medical conditions as per primary team and other consultants. Thank you for the consult and allowing me to participate in the care of the patient. Cardiology will continue to follow. Saran Chaves M.D. Interventional Cardiology HPI Data of Consult Requesting Physician: Gloria Avalos DO Admitting Provider: Gloria Avalos DO Attending Provider: Gloria Avalos DO Primary Care Provider: Imani Kevin NP Consult Narrative History of present illness: Des is a 79 y/o male with PMHx of paroxysmal atrial fibrillation/atrial flutter diagnosed in 2019, essential hypertension, Grade 1 esophageal varices, hyperlipidemia, COPD (~15 pack year hx, not a smoker currently, not on home oxygen) , ? history of cirrhosis, T2DM, perirectal abscess (s/p I and D in Feb 2024), L tension pneumothorax requiring chest tube (11/2023) who comes for an evaluation on 06/29/2023 for diffuse R sided abdominal pain that was rated 9/10, described as sharp and had some associated SOB. Pt was admitted to [facility] on 07/01/2024 after pt had gotten an EGD and colonoscopy by Dr. Atkins on 06/30/2024. EGD showed G1 esophageal varices and gastritis. Colonoscopy showed ileal polyp that was attempted to be biopsied, however had to be biopsied with snare electrocoagulation. The following day, patient went to the ED to be evaluated for abdominal pain. While in the ED, general surgery was consulted, Dr. Vail, for concern with pneumoperitoneum or possible ischemic bowel. He had been evaluated by general surgery who did not recommend any surgical intervention at the time. However upon biopsy results from the terminal ileum polyp, it was found that he had come positive for neuroendocrine tumor. Dr. Vail to speak with patient in regards for hemicolectomy. He does endorse ~10 lbs weight loss within the past 6 months. Patient to get further workup for cardiac clearance for surgery. Patient denies having history of strokes, heart attacks, cardiac stents. Had a cardiac cath done by Dr. Dale in 2019 which he had said was unremarkable. ED course: In the ED vitals stable, labs significant for leukocytosis WBCs 19.6, glucose 124, T. bili 2.1, AST 37, CT abdomen pelvis showed Cirrhosis, Hyperdense areas in the liver, recommend elective MRI abdomen pre and post-contrast follow- up, Pneumoperitoneum, consider ischemic small bowel, recommend surgical consultation. Chest x-ray showed mild bibasilar pneumonia. In the ED patient received 1 L NS, hydrocodone, Zosyn, PMHx: As above SxHx: None Allergies: No known allergies Medicines: Zetia 10 mg, Januvia 25 mg, Lipitor 10 mg, lisinopril 20 mg, Eliquis 5 mg twice a day, paroxetine Social Hx: [id number] smoking history, used to be a heavy drinker, does not use any illicit drugs or have any drug history FHx: Patient denies having family history of heart attacks, heart surgeries or stents cc:: cc: Gloria Avalos, Review of Systems Review of Systems Narrative Review of Systems: Constitutional: No fever, chills, fatigue, weakness, + weight loss HEENT: No eye pain, vision loss, ear pain, hearing loss, dysphagia, Cardiovascular: No chest pain, palpitations, edema, pain with walking Respiratory: No cough, shortness of breath, wheezing GI: + abd pain, No NVD, constipation, blood in stool, loss of appetite, heartburn Extremities: No presence of pitting edema MSK: No back pain, joint pain, joint swelling Neuro: No dizziness, numbness, weakness, headaches, seizures, tremors Psych: No anxiety, depression Exam Vital Signs Temp Pulse Resp BP Pulse Ox O2 Del Method O2 Flow Rate 97.3 F 55 L 22 H 175/82 H 98 Room Air 7 07/03/24 08:00 07/03/24 12:00 07/03/24 09:00 07/03/24 08:00 07/03/24 09:00 07/03/24 08:00 07/01/24 10:12 Narrative Exam General: AAOx3, NAD, pleasant speaking male HEENT: Moist mucous membranes, conjunctiva clear, EOMI, PERRLA, has gold teeth? Cardiovascular: Difficulty appreciating if presence of murmur, radial pulses +2 bilat, RRR Pulmonary: Wheezing heard diffusely throughout lung dsouza, no cough GI: Some tenderness to light palpitation in R quadrant, no guarding, rigidity, rebound tenderness or distension Extremities: No presence of trace or pitting edema in lower extremities bilaterally, dorsalis pedis pulses +2 bilaterally Neuro: AAOx3, no focal motor or sensory deficits in the UE or LE bilat Psych: Good judgement, thought and behavior. Cooperative Results Labs 07/04/24 05:30 07/04/24 05:30 Labs: Short CBC 07/03/24 Range/Units 05:35 WBC 11.9 H (3.8-10.6) Thou/mm3 Hgb 11.7 L (13.5-16.0) g/dL Hct 34.5 L (41.0-53.0) % Plt Count 182 (140-440) Thou/mm3 BMP 07/03/24 05:35 Sodium 142 Potassium 3.8 Chloride 110 H Carbon Dioxide 22.7 BUN 21 Creatinine 0.8 Glucose 106 Calcium 8.6 Liver Function 07/03/24 Range/Units 05:35 Total Bilirubin 0.9 (0.3-1.2) mg/dL AST 28 (0-34) U/L ALT 17 (10-49) U/L Alkaline Phosphatase 49 (46-116) U/L Albumin 3.7 (3.4-4.8) gm/dL ABG Interpretation ABG results: 07/01/24 09:44 VBG pH 7.42 VBG pCO2 46 VBG pO2 65 H VBG Base Excess 5 H Quality Measures Quality Measures none Advance care planning discussed with:: patient Medications Home Medications and Allergies Home Medications ?Medication ?Instructions ?Recorded ?Confirmed ?Type budesonide-formoterol HFA 160 2 puff inhalation Q12H 01/03/24 07/02/24 History mcg-4.5 mcg/actuation aerosol inhaler (Symbicort) docusate sodium 100 mg capsule 100 mg PO QDAY 06/30/24 07/02/24 History sitagliptin phosphate 25 mg tablet 25 mg PO DAILY 07/02/24 07/02/24 History (Edgarduvia) Allergies Allergy/AdvReac Type Severity Reaction Status Date / Time No Known Allergies Allergy Verified 06/30/24 11:15 Visit Medications Acetaminophen (Acetaminophen 325 Mg Tablet) 650 mg PO Q6H PRN PRN Reason: Fever >100.5 Stop: 07/31/24 11:42 Acetaminophen (Acetaminophen 325 Mg Tablet) 650 mg PO Q6H PRN PRN Reason: PAIN SCALE 1-3 (mild Stop: 07/31/24 11:42 Hydrocodone Bitart/Acetaminophen (Hydrocodone/Apap 5/325 Tablet) 1 tab PO Q4HR PRN PRN Reason: PAIN SCALE 4-10(Mod-Sev Stop: 07/06/24 21:11 Last Admin: 07/01/24 21:24 Dose: 1 tab Dextrose (Dextrose 50%-Water Inj 50 Ml Syringe) 25 ml IV Q15MIN PRN PRN Reason: BG 50-70 responsive npo pt Stop: 07/31/24 12:09 Dextrose (Dextrose 50%-Water Inj 50 Ml Syringe) 50 ml IV Q15MIN PRN PRN Reason: BG <50 OR BG <70 & pt unresponsive Stop: 07/31/24 12:09 Docusate Sodium (Docusate Sod 100 Mg Capsule) 100 mg PO QDAY [facility]; Protocol Stop: 07/31/24 11:44 Last Admin: 07/03/24 12:13 Dose: Not Given Heparin Sodium (Porcine) (Heparin Sod Inj 5000 Unit/Ml Vial) 5,000 unit SC Q8HR [facility] Stop: 07/15/24 13:59 Last Admin: 07/03/24 05:21 Dose: 5,000 unit Sodium Chloride (Ns) 1,000 mls @ 125 mls/hr IV .Q8H [facility] Stop: 07/31/24 20:05 Last Admin: 07/03/24 08:12 Dose: 125 mls/hr Piperacillin/Tazobactam/Dextrose (Zosyn) 3.375 gm in 50 mls @ 12.5 mls/hr IV Q8HR [facility] Stop: 07/09/24 13:59 Last Admin: 07/03/24 05:21 Dose: 12.5 mls/hr Insulin Human Lispro (Insulin Lispro (Admelog) 1 Unit/0.01 Ml Unit) 0 unit SC Q6HR [facility]; Protocol Stop: 07/31/24 16:59 Last Admin: 07/03/24 12:14 Dose: Not Given Ipratropium [place] (Ipratropium Rt 0.5 Mg/ 2.5 Ml Nebu) 0.5 mg INH Q8HRRT [facility] Stop: 07/31/24 22:59 Last Admin: 07/03/24 08:59 Dose: 0.5 mg Levalbuterol HCl (Levalbuterol Rt 1.25 Mg/0.5 Ml Nebu) 1.25 mg INH Q8HRRT [facility] Stop: 07/31/24 22:59 Last Admin: 07/03/24 08:59 Dose: 1.25 mg Melatonin (Melatonin 3 Mg Tablet) 3 mg PO HS [facility] Stop: 07/31/24 20:59 Last Admin: 07/02/24 21:27 Dose: 3 mg Ondansetron HCl (Ondansetron Inj 2 Mg/Ml Inj 2 Ml) 4 mg IV Q6H PRN; Protocol PRN Reason: NAUSEA OR VOMITING Stop: 07/31/24 11:42 Pantoprazole Sodium (Pantoprazole Inj 40 Mg Vial) 40 mg IV BID [facility] Stop: 08/01/24 12:29 Last Admin: 07/03/24 08:12 Dose: 40 mg Sodium Chloride (Sodium Chloride Rt Ronda 0.9% 3 Ml Nebu) 3 ml INH PRN PRN PRN Reason: SOLN Stop: 07/31/24 15:49 Discontinued Medications Hydrocodone Bitart/Acetaminophen (Hydrocodone/Apap 5/325 Tablet) 1 tab PO X1 ONE Stop: 07/01/24 03:18 Last Admin: 07/01/24 04:05 Dose: 1 tab Albuterol (Albuterol Rt 2.5 Mg/0.5 Ml Nebu) 10 mg INH X1 ONE Stop: 07/01/24 09:05 Last Admin: 07/01/24 09:12 Dose: 10 mg Glucagon (Glucagon Inj 1 Mg Vial) 1 mg IM Q15MIN PRN PRN Reason: BG <70, and no IV access Stop: 07/01/24 14:11 Sodium Chloride (Ns) 1,000 mls @ 150 mls/hr IV .Q6H40M ONE Stop: 07/01/24 16:20 Last Infusion: 07/01/24 16:26 Dose: 150 mls/hr Piperacillin/Tazobactam/Dextrose (Zosyn) 3.375 gm in 50 mls @ 100 mls/hr IV X1 ONE Stop: 07/01/24 10:10 Last Infusion: 07/01/24 10:22 Dose: Infused Ceftriaxone Sodium/Dextrose (Rocephin/D5w 1gm Iv Premix) 50 mls @ 100 mls/hr IV QDAY [facility] Stop: 07/08/24 11:46 Last Infusion: 07/01/24 14:20 Dose: Infused Metronidazole (Flagyl 500 Mg Iv) 500 mg in 100 mls @ 200 mls/hr IV Q8HR [facility] Stop: 07/08/24 11:46 Last Admin: 07/02/24 05:27 Dose: 200 mls/hr Sodium Chloride (Ns) 1,000 mls @ 75 mls/hr IV .[id number] [facility] Stop: 07/31/24 15:56 Last Infusion: 07/01/24 21:05 Dose: Infused Sodium Chloride (Ns) 250 mls @ 999 mls/hr IV .Q16M ONE Stop: 07/01/24 16:56 Last Admin: 07/01/24 21:07 Dose: Not Given Sodium Chloride (Ns) 1,000 mls @ 999 mls/hr IV .Q1H1M ONE Stop: 07/01/24 21:28 Last Admin: 07/01/24 20:58 Dose: 999 mls/hr Piperacillin/Tazobactam/Dextrose (Zosyn) 3.375 gm in 50 mls @ 100 mls/hr IV X1 ONE Stop: 07/02/24 09:29 Last Admin: 07/02/24 09:05 Dose: 100 mls/hr Insulin Human Lispro (Insulin Lispro (Admelog) 1 Unit/0.01 Ml Unit) 0 unit SC [facility]; Protocol Stop: 07/31/24 16:59 Last Admin: 07/02/24 09:28 Dose: Not Given Levalbuterol HCl (Levalbuterol Rt 1.25 Mg/0.5 Ml Nebu) 1.25 mg INH Q8HR PRN PRN Reason: WHEEZING Stop: 07/31/24 15:49 Levalbuterol HCl (Levalbuterol Rt 1.25 Mg/0.5 Ml Nebu) 1.25 mg INH Q8HR [facility] Stop: 07/31/24 21:59 Methylprednisolone Sodium Succinate (Methylprednisolone Sod Succ 62.5 Mg/Ml 2ml Vial) 125 mg IVP X1 ONE Stop: 07/01/24 09:05 Last Admin: 07/01/24 09:52 Dose: 125 mg Sodium Chloride (Sodium Chloride Rt Ronda 0.9% 3 Ml Nebu) 3 ml INH PRN PRN PRN Reason: SOLN Stop: 07/31/24 09:03 Last Admin: 07/01/24 09:12 Dose: 3 ml Assessment & Plan Plan Assessment Des is a 79 y/o male with PMHx of paroxysmal atrial fibrillation/atrial flutter diagnosed in 2018, essential hypertension, Grade 1 esophageal varices, hyperlipidemia, COPD (~15 pack year hx, not a smoker currently, not on home oxygen) , ? history of cirrhosis, T2DM, perirectal abscess (s/p I and D in Feb 2024), L tension pneumothorax requiring chest tube (11/2023) who is requiring cardiac clearance for ileocecectomy. #Preoperative cadiac risk assessment for #Neuroendocrine tumor of ileum #Pneumoperitoneum Patient to get ileocecectomy performed on Saturday by Dr. 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 Atkins Patient does endorse weight loss about 10 pounds in the past 6 months Chen activity status index: ~29 points Patient is able to walk and take care of himself, but does get short of breath with some strenuous activity such as some heavy work around the house, and strenuous sports and even moderate recreational activities, unable to run a short distance but able to climb flight of stairs or walk up a hill Abdomen MRI showed common bile duct with several filling defects consistent with sludge versus stones Cardiac cath in [address] Dale showed 1. Normal nonobstructive epicardial coronary arteries. 2. Normal left ventricular function, ejection fraction 60% Echo from November 2023 shows EF of 55 to 60%, normal LV, grade 1 diastolic dysfunction LDL 44 and total cholesterol 111 from recent lipid panel A1c of 5.6 Former smoker, COPD history, roughly [id number] history, not on home oxygen Reviewed pt's previous images of Cardiac cath no evidence of CAD Reviewed pt's echo images from 11/2023, will do bedside echo Pt is cleared for surgery at this point Plan: ?Echo to evaluate for EF, and wall motion abnormalities ?TSH ?EKG ?Keep magnesium and potassium above 2 and 4 respectively ?GI and general surgery on consult, appreciate recs #History of essential hypertension #Paroxysmal A-fib, chronic [id number] Rate: Controlled in the 70s Rhythm: Regular AC: Has home Eliquis No history of heart failure Plan: ?Will hold Eliquis due to surgery ?Primary team to start Lovenox 80 mg BID for perioperative A/C ?Restarting home lisinopril 20 mg #History of diabetes mellitus A1c 5.6 Plan: ? Primary team to handle blood sugars #History of COPD #Cirrhosis, Hyperdense areas in the liver Above managed by primary hospitalist team Patient seen and care discussed with my attending physician, Dr. Andie Galvan, PGY-1
[2024-07-03] MEDS: Magnesium Sulfate 2 GM Ivpb 2 GM/50 ML BAG IV (14:54)
[2024-07-03] MEDS: POTASSIUM CHL 10 mEq IVPB 10 MEQ/100 ML BAG 100 MEQ IV ×2 (14:55→16:04)
--- NOTE | 2024-07-03 15:52 | ESPR_ITS ---
Documentation for date of: 07/03/24 Subjective Subjective Brief History: Spoke to pt with in-person historical interpreter 79M with HTN, HLD, COPD, DMII, afib and cirrhosis who underwent EGD/colonoscopy 06/30 with findings of grade I varices, gastritis and ileal polyp presented to ER due to RLQ pain. Pt states pain was severe last night but it has improved; he denies any nausea/vomiting although is not feeling hungry. Pt underwent CT showing droplets of pneumoperitoneum, has WBC 19 without any fever or tachycardia Narrative: Spoke to pt with in-person historical interpreter No pain today, no nausea, passing gas and having BMs, remaining afebrile with normal WBC. 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 Exam Vital Signs Temp Pulse Resp BP Pulse Ox O2 Del Method O2 Flow Rate 97.3 F 76 20 175/82 H 98 Room Air 7 07/03/24 08:00 07/03/24 14:57 07/03/24 14:57 07/03/24 08:00 07/03/24 14:57 07/03/24 08:00 07/01/24 10:12 Constitutional Constitutional: no acute distress Routine Respiratory Exam Respiratory: Present no resp distress Routine Abdominal Exam Abdominal: Present soft; Absent tenderness or distended Results Results: Laboratory Laboratory Narrative: Pathology report reviewed Laboratory results: results reviewed Results: Imaging Chest x-ray: report reviewed and image reviewed Assessment & Plan Plan 79M with HTN, HLD, COPD, DMII, afib and cirrhosis who underwent EGD/colonoscopy 06/30 with findings of grade I varices, gastritis and ileal polyp presented to ER due to RLQ pain, findings of droplets of pneumoperitoneum on CT. Pt remains clinically well, not requiring emergent surgery however does require resection for the NET seen in the terminal ileum. With an historical interpreter I spoke to pt and his daughter to explain the plan for open ileocecectomy; I explained risks including bleeding, infection, possibility of additional polyps requiring additional resections, and bowel obstruction. All questions were answered and pt is agreeable to proceeding CLD, do not advance diet until after surgery Appreciate cardiology evaluation Plan for ileocecectomy Mon 07/06am
--- NOTE | 2024-07-03 16:06 | EKG_ITS ---
[facility] Test Date: 2024-07-03 Pat Name: REGIS CRUZ [facility] Salesforce Developer: JAMEL : 1945 Requested By: Stephanie Galvan Order Number: [id number] Reading MD: Stephanie Galvan Measurements Intervals [place] Rate: 73 P: 52 [place]: 142 QRS: -12 QRSD: 92 T: 31 QT: 404 QTc: 446 Interpretive Statements SINUS RHYTHM WITH OCCASIONAL VENTRICULAR PREMATURE COMPLEXES Compared to ECG 11/13/2023 22:16:02 Ventricular premature complex(es) now present /store/S0/[id number].pdf
[2024-07-03] MEDS: Lisinopril 20 MG TABLET PO (21:11)
[2024-07-03] MEDS: MELATONIN 3 MG TABLET PO (21:11)
[2024-07-03] MEDS: ENOXAPARIN SOD INJ 80 MG/0.8 ML SYRINGE SC (21:12)
--- NOTE | 2024-07-03 22:50 | EKG_ITS ---
[facility] Test Date: 2024-07-03 Pat Name: REGIS CRUZ [facility] Life Insurance Underwriter: BO : 1945 Requested By: Fabián Masterson Order Number: [id number] Reading MD: Fabián Masterson Measurements Intervals [place] Rate: 128 P: [place]: QRS: -68 QRSD: 138 T: 123 QT: 321 QTc: 470 Interpretive Statements ATRIAL FIBRILLATION WITH RAPID VENTRICULAR RESPONSE MARKED LEFT AXIS DEVIATION LEFT BUNDLE BRANCH BLOCK Compared to ECG 07/03/2024 16:35:52 Left-axis deviation now present Left bundle-branch block now present Sinus rhythm no longer present Ventricular premature complex(es) no longer present /store/S0/[id number]/[id number].pdf
[2024-07-03] MEDS: DILTIAZEM INJ 5 MG/ML VIAL 5 ML 10 MG IV ×2 (23:15→23:53)
--- NOTE | 2024-07-03 23:29 | PC.NURSE ---
2350- Called by Tele monitor at 2345, pt had run of PVCs, now sustaining. HR as high as 164, rhythm looks Afib RVR, Dr Obregon called and notified of pt HR, pt checked by RN, pt sleeping at time. Orders recieved for stat EKG and BG check. BG- 94, EKG showed Afib RVR, pt now awake, denies chest pain, only c/o pain to abdomen rating 5/10, confirms feeling palpitations. Order recieved for diltiazem 10 Mg IV given at 2315. HR 165, BP 135/83, 88% on RA, O2 placed via NC at 4L, O2 at 92%. called at 2325 to clarify second order for diltiazem on AUG, stated did not order, order to continue to monitor.
[2024-07-04] VITALS (14 sets, daily range): BP systolic 111–160; BP diastolic 55–90; PULSE 50–163; RESP 12–96; TEMP 36.2–37.1; O2SAT 93–100; BMI 24.0; BMI 25.5
[2024-07-04] MEDS: AMIODARONE 150 MG IVPB 150 MG/100 ML BAG 600 MG IV (01:10)
[2024-07-04] MEDS: AMIODARONE 360 MG IVPB 360 MG/200 ML BAG 33.333 MG IV (01:20)
--- NOTE | 2024-07-04 02:15 | PC.NURSE ---
0210- Md Dr Tellez, notified of HR as low as 37, patient HR fluctuates between SB and Afib, currently on Bag #2 of Amiodarone drip, order recieved to call MD before hanging third bag, continue to monitor. Pt resting, eyes closed, denies s/s.
[2024-07-04] MEDS: SODIUM CHLORIDE 0.9% 1000 ML 1,000 ML 125 ML IV ×3 (02:51→22:30)
[2024-07-04] MEDS: ACETAMINOPHEN 325 MG TABLET 650 MG PO (02:58)
--- NOTE | 2024-07-04 04:05 | PC.NURSE ---
MDs notified of pt ongoing bradycardia with minimal episodes of Afib, pt sleeping, orders recieved for set of vitals and to stop amiodarone drip at this time. Pt V/S's- B/P 111/63, pulse 59, resperations 13, 97% on 1 L NC, pt denies any s/s, HR back to SR with activity. Will continue to monitor.
[2024-07-04 05:54] LABS: Basophils % (Auto) 0 % (0-2.5); Eosinophils # (Auto) 0.1 Thou/mm3 (0.0-0.5); Eosinophils % (Auto) 1 % (0-10); Hemoglobin 12.4 g/dL (13.5-16.0); Immature Granulocytes % (Auto) 0 % (0-0); Immature Granulocytes Auto 0.03 Thou/mm3 (0.00-0.00); Lymphocytes # (Auto) 1.4 Thou/mm3 (1.0-4.8); Lymphocytes % (Auto) 17 % (10-50); Mean Corpuscular HGB Conc 33.5 g/dl (31.0-37.0); Mean Corpuscular Volume 96 fL (80-100); Monocytes # (Auto) 0.9 Thou/mm3 (0.0-0.8); Monocytes % (Auto) 11 % (0-12); Neutrophils # (Auto) 6.1 Thou/mm3 (1.8-7.7); Neutrophils % (Auto) 72 % (37-80); Nucleated Red Blood Cell % 0 /100 WBC (0); Platelet Count 169 Thou/mm3 (140-440); RDW Standard Deviation 49.6 fL (35.1-43.9); Red Blood Count 3.87 Miln/mm3 (4.50-5.90); White Blood Count 8.6 Thou/mm3 (3.8-10.6)
[2024-07-04] MEDS: IPRATROPIUM RT 0.5 MG/ 2.5 ML NEBU INH ×3 (06:17→22:40)
[2024-07-04] MEDS: LEVALBUTEROL RT 1.25 MG/0.5 ML NEBU INH ×3 (06:17→22:40)
[2024-07-04 06:25] LABS: Alanine Aminotransferase 20 U/L (10-49); Albumin, Serum 3.6 gm/dL (3.4-4.8); Albumin/Globulin Ratio 1.4 (1.2-2.2); Alkaline Phosphatase 46 U/L (46-116); Anion Gap 9 (7-16); Aspartate Amino Transferase 35 U/L (0-34); BUN/Creatinine Ratio 16 Ratio (12-20); Bilirubin,Total 0.9 mg/dL (0.3-1.2); Blood Urea Nitrogen 14 mg/dL (9-23); C-Reactive Protein 4.5 mg/dL (0.0-0.9); Calcium 8.7 mg/dL (8.3-10.6); Carbon Dioxide 26.8 mMol/L (20.0-31.0); Chloride 106 mMol/L (98-107); Creatinine (Component) 0.9 mg/dL (0.6-1.3); Estimated Creatinine Clearance 57.9 mL/min (>60); Globulin 2.6 gm/dL (2.3-3.5); Glucose 105 mg/dL (74-106); Magnesium 1.9 mg/dL (1.6-2.6); Osmolality,Calculated 283 (275-295); Potassium 4.1 mMol/L (3.4-5.1); Sodium 142 mMol/L (136-145); Thyroid Stimulating Hormone 2.25 uIU/mL (0.55-4.78); Total Protein 6.2 gm/dL (5.7-8.2); eGFR > 60 See Note
[2024-07-04] MEDS: PANTOPRAZOLE INJ 40 MG VIAL IV ×2 (09:39→20:27)
[2024-07-04] MEDS: DOCUSATE SOD 100 MG CAPSULE PO (09:39)
[2024-07-04] MEDS: Magnesium Sulfate 2 GM Ivpb 2 GM/50 ML BAG IV (09:39)
[2024-07-04] MEDS: ENOXAPARIN SOD INJ 80 MG/0.8 ML SYRINGE SC (09:39)
[2024-07-04] MEDS: PIPER/TAZO 3.375 GM 3.375 GM/50 ML BAG IV ×2 (09:39→21:35)
[2024-07-04] MEDS: Lisinopril 20 MG TABLET PO (09:40)
--- NOTE | 2024-07-04 11:20 | ESPR_ITS ---
<Statement entered by Saran Chaves MD - 07/04/24 16:52> I have personally seen and examined the patient separately on the above date of service and discussed the plan of care with the resident. I reviewed the resident Dr. Brown consultation progress note and agree with the resident findings and plan in the note above and have also edited the documentation to reflect my findings and plan. Patient well-known to me and follows with me in the clinic. A 79-year-old male with a past medical history of paroxysmal atrial fibrillation/flutter diagnosed in 2018, essential hypertension, grade 1 esophageal varices, questionable cirrhosis, essential hypertension, hyperlipidemia, type 2 diabetes mellitus, COPD not on home oxygen, ex-smoker [id number], history of perirectal abscess status post I&D in February 2024, left tension pneumothorax requiring chest tube in November 2023 presented to the emergency department for further evaluation of abdominal pain. Patient recently had and EGD and colonoscopy on 06/30/2024. EGD showed grade 1 esophageal varices along with gastritis. Colonoscopy showed ileal polyp and attempt was made to biopsy as well as snare and eventually electrocoagulation was done. Impression was for possible fibrous polyp. Patient did not came to the ED for evaluation of abdominal pain. CT abdomen pelvis was done which question of possible pneumoperitoneum versus ischemic bowel. Patient has been evaluated by general surgery as well as GI team. 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 General surgery contemplating help me colectomy and cardiology was now consulted for further evaluation of preoperative cardiac risk assessment. Assessment and plan: 1. Preoperative cardiac risk assessment 2. Neuroendocrine tumor 3. Pneumoperitoneum 4. Paroxysmal atrial fibrillation/atrial flutter 5. Essential hypertension 6. Diabetes mellitus type 2 7. Hyperlipidemia 8. Esophageal varices 9. Questionable cirrhosis 10. COPD not on home oxygen 11. ex-smoker with [id number] smoking history 12. History of peritoneal abscess status post I&D Patient is planned for an intermediate risk surgery with possible hemicolectomy which will require general anesthesia. Patient functional status is greater than 4 METS. Patient does not have any kind of cardiac in place at the present point of time including any chest pain chest pressure or shortness of breath or orthopnea PND or leg swelling or dizziness or syncope or fall. His main complaints are abdominal pain. Patient has extensive cardiac workup completed previously. EKG now shows normal sinus rhythm. Echo done in November 2023 showed normal LV and RV function with an LVEF of 55 to 60%. Grade 1 diastolic dysfunction. A1c is 5.6, TSH normal. LDL is 44 and total cholesterol 111. Cardiac catheterization performed in 2019 showed normal coronaries with only minimal luminal irregularities. He does not have other major cardiac risk factors at the present point of time except that patient does have longstanding atrial fibrillation for which he is on anticoagulation and rate controlled. Based on the above patient is at mildly elevated but acceptable cardiac risk for the surgery and recommend to proceed with the surgery with no further cardiac workup. An echocardiogram has been ordered during this admission which is yet to be done and I did perform bedside echocardiogram which still showed normal LV function and RV function with grade 1 diastolic dysfunction and only mild valvular abnormalities. Regarding his paroxysmal atrial fibrillation with atrial flutter patient is on anticoagulation for the A-fib as discharged Vascor is elevated at 4. Can hold off on the Eliquis at the present point of time and place the patient on heparin drip if okay by the surgical team as the patient is due for surgery. Patient had an episode of atrial fibrillation with RVR today and was given IV diltiazem pushes and eventually was given amiodarone drip with which she converted to normal sinus rhythm. Recommend to start the patient on metoprolol XL 50 mg once daily for now for rate control as the blood pressure is acceptable range. Patient can be started on diltiazem drip if the patient returns back to atrial fibrillation with RVR. Keep potassium greater than 4 and magnesium greater than 2.0 at all times. Heparin drip as noted above for anticoagulation if okay with surgical team Management of rest of the medical conditions as per primary team and other consultants. Thank you for the consult and allowing me to participate in the care of the patient. Cardiology will continue to follow. Saran Chaves M.D. Interventional Cardiology Documentation for date of: 07/04/24 Subjective Subjective Interval history: 07/04/2024: Patient examined at bedside today. Overnight events included patient going into A-fib with RVR heart rate was in the 160s, was given diltiazem 3 times IV 45 mg total, was started on amio drip was given about 410 mg of that and it was then stopped. He returned back to sinus and was bradycardia at some point. He reports no chest pain, palpitations or shortness of breath overnight. Even when he was asked about overnight events he did not complain of any pain or shortness of breath, he just said that he was awakened by the phlebotomy team and nothing else. He has no active chest pain at this time or palpitations. He has not been vomiting or felt nauseous. He is wondering when he is going to get surgery. BUN/creatinine of 14 and 0.9 respectively, white count of 8.6, hemoglobin 12.4, magnesium of 1.9, potassium 4.1, given 2 g of magnesium. No other complaints at this time. Exam Vital Signs Temp Pulse Resp BP Pulse Ox O2 Del Method O2 Flow Rate 97.4 F 75 17 152/61 H 95 Room Air 1 07/04/24 08:00 07/04/24 09:40 07/04/24 08:00 07/04/24 09:40 07/04/24 08:00 07/04/24 08:00 07/04/24 04:00 Narrative Exam General: AAOx3, NAD, pleasant speaking male HEENT: Moist mucous membranes, conjunctiva clear, EOMI, PERRLA, has gold teeth Cardiovascular: Difficulty appreciating if presence of murmur, radial pulses +2 bilat, RRR Pulmonary: Wheezing heard diffusely throughout lung dsouza, no cough GI: Some tenderness to light palpitation in R quadrant, no guarding, rigidity, rebound tenderness or distension Extremities: No presence of trace or pitting edema in lower extremities bilaterally, dorsalis pedis pulses +2 bilaterally Neuro: AAOx3, no focal motor or sensory deficits in the UE or LE bilat Psych: Good judgement, thought and behavior. Cooperative Objective Labs 07/04/24 05:30 07/04/24 05:30 Labs: Laboratory Results - last 24 hr 07/04/24 05:30 WBC 8.6 RBC 3.87 L Hgb 12.4 L Hct 37.0 L MCV 96 MCH 32.0 MCHC 33.5 RDW Std Deviation 49.6 H Plt Count 169 Neut % (Auto) 72 Lymph % (Auto) 17 [place] % (Auto) 11 Eos % (Auto) 1 Baso % (Auto) 0 Neut # (Auto) 6.1 Lymph # (Auto) 1.4 [place] # (Auto) 0.9 H Eos # (Auto) 0.1 Baso # (Auto) 0.0 Immature Gran # (Auto) 0.03 H Absolute Nucleated RBC 0.00 Immature Gran % 0 Nucleated RBC % 0 Sodium 142 Potassium 4.1 Chloride 106 Carbon Dioxide 26.8 Anion Gap 9 BUN 14 Creatinine 0.9 Estim Creat Clear Calc 57.9 L eGFR > 60 BUN/Creatinine Ratio 16 Glucose 105 Calculated Osmolality 283 Calcium 8.7 Corrected Calcium 9.0 Magnesium 1.9 Total Bilirubin 0.9 AST 35 H ALT 20 Alkaline Phosphatase 46 C-Reactive Prot, Quant 4.5 H Total Protein 6.2 Albumin 3.6 Globulin 2.6 Albumin/Globulin Ratio 1.4 TSH 2.25 ABG Interpretation ABG results: 07/01/24 09:44 VBG pH 7.42 VBG pCO2 46 VBG pO2 65 H VBG Base Excess 5 H Quality Measures Quality Measures none Advance care planning discussed with:: patient Assessment & Plan Assessment Current Active Medications: Generic Name Dose Route Start Last Admin Trade Name Freq PRN Reason Stop Dose Admin Acetaminophen 650 mg 07/01/24 11:43 07/04/24 02:58 Acetaminophen 325 Mg Tablet PO 07/31/24 11:42 650 mg Q6H PRN Administration Fever >100.5 Acetaminophen 650 mg 07/01/24 11:43 Acetaminophen 325 Mg Tablet PO 07/31/24 11:42 Q6H PRN PAIN SCALE 1-3 (mild Hydrocodone Bitart/Acetaminophen 1 tab 07/01/24 21:12 07/01/24 21:24 Hydrocodone/Apap 5/325 Tablet PO 07/06/24 21:11 1 tab Q4HR PRN Administration PAIN SCALE 4-10(Mod-Sev Dextrose 25 ml 07/01/24 12:10 Dextrose 50%-Water Inj 50 Ml Syringe IV 07/31/24 12:09 Q15MIN PRN BG 50-70 responsive npo pt Dextrose 50 ml 07/01/24 12:10 Dextrose 50%-Water Inj 50 Ml Syringe IV 07/31/24 12:09 Q15MIN PRN BG <50 OR BG <70 & pt unresponsive Docusate Sodium 100 mg 07/01/24 11:45 07/04/24 09:39 Docusate Sod 100 Mg Capsule PO 07/31/24 11:44 100 mg QDAY SABINE Administration Protocol Enoxaparin Sodium 80 mg 07/03/24 21:00 07/04/24 09:39 Enoxaparin Sod Inj 80 Mg/0.8 Ml Syringe SC 07/05/24 12:00 80 mg BID SABINE Administration Protocol Sodium Chloride 1,000 mls @ 125 mls/hr 07/01/24 20:06 07/04/24 02:51 Ns IV 07/31/24 20:05 125 mls/hr .Q8H SABINE Administration Piperacillin/Tazobactam/Dextrose 3.375 gm in 50 mls @ 12.5 mls/hr 07/02/24 14:00 07/04/24 09:39 Zosyn IV 07/09/24 13:59 12.5 mls/hr Q8HR SABINE Administration Amiodarone HCl/Dextrose 360 mg in 200 mls @ 16.667 mls/hr 07/04/24 06:57 Nexterone Ivpb IV 07/05/24 06:56 .Q12H SABINE Insulin Human Lispro 0 unit 07/03/24 21:00 07/04/24 07:30 Insulin Lispro (Admelog) 1 Unit/0.01 Ml Unit SC 08/01/24 11:59 Not Given ACHS SABINE Protocol Ipratropium [place] 0.5 mg 07/01/24 23:00 07/04/24 06:17 Ipratropium Rt 0.5 Mg/ 2.5 Ml Nebu INH 07/31/24 22:59 0.5 mg Q8HRRT SABINE Administration Levalbuterol HCl 1.25 mg 07/01/24 23:00 07/04/24 06:17 Levalbuterol Rt 1.25 Mg/0.5 Ml Nebu INH 07/31/24 22:59 1.25 mg Q8HRRT SABINE Administration Melatonin 3 mg 07/01/24 21:00 07/03/24 21:11 Melatonin 3 Mg Tablet PO 07/31/24 20:59 3 mg HS SABINE Administration Metoprolol Succinate 50 mg 07/04/24 21:00 Metoprolol Succinate Xl 25 Mg Tabcr PO 08/03/24 20:59 QDAY SABINE Ondansetron HCl 4 mg 07/01/24 11:43 Ondansetron Inj 2 Mg/Ml Inj 2 Ml IV 07/31/24 11:42 Q6H PRN NAUSEA OR VOMITING Protocol Pantoprazole Sodium 40 mg 07/02/24 12:30 07/04/24 09:39 Pantoprazole Inj 40 Mg Vial IV 08/01/24 12:29 40 mg BID SABINE Administration Sodium Chloride 3 ml 07/01/24 15:50 Sodium Chloride Rt Ronda 0.9% 3 Ml Nebu INH 07/31/24 15:49 PRN PRN SOLN Plan Assessment Des is a 79 y/o male with PMHx of paroxysmal atrial fibrillation/atrial flutter diagnosed in 2018, essential hypertension, Grade 1 esophageal varices, hyperlipidemia, COPD (~15 pack year hx, not a smoker currently, not on home oxygen) , ? history of cirrhosis, T2DM, perirectal abscess (s/p I and D in Feb 2024), L tension pneumothorax requiring chest tube (11/2023) who is requiring cardiac clearance for ileocecectomy. #Surgical Cardiac clearance for #Neuroendocrine tumor of ileum #Pneumoperitoneum Patient to get ileocecectomy performed on Saturday by Dr. 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 Atkins Patient does endorse weight loss about 10 pounds in the past 6 months Chen activity status index: ~29 points Patient is able to walk and take care of himself, but does get short of breath with some strenuous activity such as some heavy work around the house, and strenuous sports and even moderate recreational activities, unable to run a short distance but able to climb flight of stairs or walk up a hill Abdomen MRI showed common bile duct with several filling defects consistent with sludge versus stones Cardiac cath in [address] Dale showed 1. Normal nonobstructive epicardial coronary arteries. 2. Normal left ventricular function, ejection fraction 60% Echo from November 2023 shows EF of 55 to 60%, normal LV, grade 1 diastolic dysfunction LDL 44 and total cholesterol 111 from recent lipid panel A1c of 5.6 Former smoker, COPD history, roughly [id number] history, not on home oxygen Reviewed pt's previous images of Cardiac cath no evidence of CAD Reviewed pt's echo images from 11/2023, will do bedside echo TSH 2.25 EKG shows some PVCs Bedside echo done, normal LV and EF. From a cardiac standpoint, patient is cleared for surgery, however low risk for surgery for any adverse events. Plan: ?Pain control handled by primary team ?Keep magnesium and potassium above 2 and 4 respectively ?GI and general surgery on consult, appreciate recs #History of essential hypertension #Paroxysmal A-fib, chronic [id number] Rate: Controlled in the 70s Rhythm: Regular AC: Has home Eliquis No history of heart failure Considering patient went into A-fib with RVR last night, will want to switch anticoagulation at this time. Will hold DESEAN at this time, will give beta-yoselin with holding parameters Plan: ? Recommend starting heparin drip and to stop the heparin drip at midnight before surgery on Saturday ? Hold lisinopril 20 mg ? Metoprolol XL 50 mg starting at 2100, with holding parameters of heart rate below 55 or SBP below 110 #History of diabetes mellitus A1c 5.6 Plan: ? Primary team to handle blood sugars #History of COPD #Cirrhosis, Hyperdense areas in the liver Above managed by primary hospitalist team Patient seen and care discussed with my attending physician, Dr. Andie Galvan, PGY-1
[2024-07-04 13:12] LABS: Partial Thromboplastin Time 34.5 Seconds (22.0-36.0)
[2024-07-04] MEDS: Heparin/D5w 25K 250 ML Ivpb 25,000 UNIT/250 ML BAG 7.876 UNIT IV (13:25)
--- NOTE | 2024-07-04 13:32 | PD.RESPRO ---
Documentation for date of: 07/04/24 Subjective Subjective Interval history: Patient seen today at the bedside fine awake, alert, oriented x 3. Overnight patient had episode of atrial fibrillation with RVR was given diltiazem pushes x 2 was started on amnio drip but patient converted to sinus and was discontinued after. Patient at this time states no active complaints. Spoke to cardiology recommended metoprolol succinate 50 mg daily and to start heparin drip in anticipation for surgery on Saturday. At this time we will continue current antibiotic management. Exam Vital Signs Temp Pulse Resp BP Pulse Ox O2 Del Method O2 Flow Rate 97.1 F 54 L 20 137/70 H 96 Room Air 1 07/04/24 12:00 07/04/24 12:00 07/04/24 12:00 07/04/24 12:00 07/04/24 12:00 07/04/24 12:00 07/04/24 04:00 Narrative Exam Physical Exam GENERAL: NAD, AAOx3 HEENT: Moist mucosa. Eyes open, symmetrical, & clear CARDIO: Heart RRR, no obvious murmurs PULM: No noted coughing/dyspnea bilateral wheezing mild GI: Abdomen soft, nondistended, tense, pain on palpation in the right upper and right lower quadrants BSx4 SKIN/MSK/EXT: No wounds/rashes/edema/amputations, no pain on palpation. Pedal pulses present B/L NEURO: AAOx3, no focal neuro deficits, able to move all 4 extremities Objective Labs 07/05/24 03:26 07/05/24 03:26 Labs: Laboratory Results - last 24 hr 07/04/24 07/04/24 05:30 12:25 WBC 8.6 RBC 3.87 L Hgb 12.4 L Hct 37.0 L MCV 96 MCH 32.0 MCHC 33.5 RDW Std Deviation 49.6 H Plt Count 169 Neut % (Auto) 72 Lymph % (Auto) 17 [place] % (Auto) 11 Eos % (Auto) 1 Baso % (Auto) 0 Neut # (Auto) 6.1 Lymph # (Auto) 1.4 [place] # (Auto) 0.9 H Eos # (Auto) 0.1 Baso # (Auto) 0.0 Immature Gran # (Auto) 0.03 H Absolute Nucleated RBC 0.00 Immature Gran % 0 Nucleated RBC % 0 APTT 34.5 Sodium 142 Potassium 4.1 Chloride 106 Carbon Dioxide 26.8 Anion Gap 9 BUN 14 Creatinine 0.9 Estim Creat Clear Calc 57.9 L eGFR > 60 BUN/Creatinine Ratio 16 Glucose 105 Calculated Osmolality 283 Calcium 8.7 Corrected Calcium 9.0 Magnesium 1.9 Total Bilirubin 0.9 AST 35 H ALT 20 Alkaline Phosphatase 46 C-Reactive Prot, Quant 4.5 H Total Protein 6.2 Albumin 3.6 Globulin 2.6 Albumin/Globulin Ratio 1.4 TSH 2.25 ABG Interpretation ABG results: 07/01/24 09:44 VBG pH 7.42 VBG pCO2 46 VBG pO2 65 H VBG Base Excess 5 H Quality Measures Quality Measures none Advance care planning discussed with:: patient and spouse Assessment & Plan Assessment Current Active Medications: Generic Name Dose Route Start Last Admin Trade Name Freq PRN Reason Stop Dose Admin Acetaminophen 650 mg 07/01/24 11:43 07/04/24 02:58 Acetaminophen 325 Mg Tablet PO 07/31/24 11:42 650 mg Q6H PRN Administration Fever >100.5 Acetaminophen 650 mg 07/01/24 11:43 Acetaminophen 325 Mg Tablet PO 07/31/24 11:42 Q6H PRN PAIN SCALE 1-3 (mild Hydrocodone Bitart/Acetaminophen 1 tab 07/01/24 21:12 07/01/24 21:24 Hydrocodone/Apap 5/325 Tablet PO 07/06/24 21:11 1 tab Q4HR PRN Administration PAIN SCALE 4-10(Mod-Sev Dextrose 25 ml 07/01/24 12:10 Dextrose 50%-Water Inj 50 Ml Syringe IV 07/31/24 12:09 Q15MIN PRN BG 50-70 responsive npo pt Dextrose 50 ml 07/01/24 12:10 Dextrose 50%-Water Inj 50 Ml Syringe IV 07/31/24 12:09 Q15MIN PRN BG <50 OR BG <70 & pt unresponsive Docusate Sodium 100 mg 07/01/24 11:45 07/04/24 09:39 Docusate Sod 100 Mg Capsule PO 07/31/24 11:44 100 mg QDAY SABINE Administration Protocol Sodium Chloride 1,000 mls @ 125 mls/hr 07/01/24 20:06 07/04/24 02:51 Ns IV 07/31/24 20:05 125 mls/hr .Q8H SABINE Administration Piperacillin/Tazobactam/Dextrose 3.375 gm in 50 mls @ 12.5 mls/hr 07/02/24 14:00 07/04/24 13:31 Zosyn IV 07/09/24 13:59 Not Given Q8HR SABINE Amiodarone HCl/Dextrose 360 mg in 200 mls @ 16.667 mls/hr 07/04/24 06:57 07/04/24 12:14 Nexterone Ivpb IV 07/05/24 06:56 Not Given .Q12H SABINE Heparin Sodium/Dextrose 25,000 unit in 250 mls @ 7.876 mls/hr 07/04/24 13:00 07/04/24 13:25 Heparin In D5w Ivpb IV 07/18/24 12:59 12 units/kg/hr .Q24H SABINE 7.876 mls/hr Administration Protocol 12 UNITS/KG/HR Insulin Human Lispro 0 unit 07/03/24 21:00 07/04/24 12:20 Insulin Lispro (Admelog) 1 Unit/0.01 Ml Unit SC 08/01/24 11:59 Not Given ACHS [facility] Protocol Ipratropium [place] 0.5 mg 07/01/24 23:00 07/04/24 06:17 Ipratropium Rt 0.5 Mg/ 2.5 Ml Nebu INH 07/31/24 22:59 0.5 mg Q8HRRT SABINE Administration Levalbuterol HCl 1.25 mg 07/01/24 23:00 07/04/24 06:17 Levalbuterol Rt 1.25 Mg/0.5 Ml Nebu INH 07/31/24 22:59 1.25 mg Q8HRRT [facility] Administration Melatonin 3 mg 07/01/24 21:00 07/03/24 21:11 Melatonin 3 Mg Tablet PO 07/31/24 20:59 3 mg HS SABINE Administration Metoprolol Succinate 50 mg 07/04/24 21:00 Metoprolol Succinate Xl 25 Mg Tabcr PO 08/03/24 20:59 HS SABINE Ondansetron HCl 4 mg 07/01/24 11:43 Ondansetron Inj 2 Mg/Ml Inj 2 Ml IV 07/31/24 11:42 Q6H PRN NAUSEA OR VOMITING Protocol Pantoprazole Sodium 40 mg 07/02/24 12:30 07/04/24 09:39 Pantoprazole Inj 40 Mg Vial IV 08/01/24 12:29 40 mg BID SABINE Administration Sodium Chloride 3 ml 07/01/24 15:50 Sodium Chloride Rt [place] 0.9% 3 Ml Nebu INH 07/31/24 15:49 PRN PRN SOLN Plan 79-year-old male with past medical history of A-fib hypertension hyperlipidemia diabetes COPD who presented to the ED due to right upper quadrant and right lower quadrant pain after having a colonoscopy. Admitted for pneumoperitoneum. General surgery and GI consulted. #Pneumoperitoneum #Bibasilar pneumonia #Neuroendocrine tumor of ileum Patient had a colonoscopy the day prior to admission after which patient started developing right upper quadrant and right lower quadrant pain CT abdomen pelvis showed Pneumoperitoneum, consider ischemic small bowel, recommend surgical consultation. Chest x-ray shows some mild bibasilar pneumonia Patient is not septic Patient had polyp removal via colonoscopy, pathology report showed neuroendocrine tumor of the ileum -Pending surgery on Saturday with general surgery Dr. Vail -N.p.o. after midnight on Saturday -On Zosyn -General Surgery Dr. Vail consulted, appreciate recommendations -GI Dr. Atkins consulted, appreciate recommendations #History of hypertension #History of A-fib Patient is normotensive at this time CHADVASC score of 4 Patient overnight had A-fib with RVR with rate in the 160s required 45 mg total of diltiazem pushes at 1 point was placed on amiodarone drip the patient converted to sinus rhythm was discontinued. Cardiology recommends metoprolol 50 mg daily and start heparin drip in anticipation for surgery on Saturday -On heparin drip -On metoprolol succinate 50 mg daily -Eliquis has not been resumed at this time in anticipation for possible procedure -Cardiology, Dr. Chaves consulted, appreciate recommendations #History of COPD Patient is a former smoker denies current cigarette use Examination some mild wheezing heard bilaterally -Levalbuterol and ipratropium as needed #[id number] A1c 5.6 -SSI -Hypoglycemia protocol in place #Cirrhosis, Hyperdense areas in the liver Found on CT abdomen pelvis recommend elective MRI abdomen pre and post-contrast follow-up -Can follow-up as outpatient Case discussed with my attending Dr. Tyshawn Valentine MD PGY-1 Disposition: Telemetry Fluids: None Feeding: Clear liquid diet Thrombo prophylaxis: Heparin drip Gastric Ulcer prophylaxis: Pantoprazole CODE STATUS: Full code Attending Provider Attestation/Addendum 79-year-old male with hypertension, hyperlipidemia, type 2 diabetes mellitus and atrial fibrillation on Eliquis who underwent colonoscopy on 06/30/2024 and afterwards started developing right lower quadrant abdominal pain subsequently presented to the ER on 07/01/2024. In the ER, patient noted to have pneumoperitoneum and subsequently surgical consultation was requested. 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 Overnight, patient went to A-fib with RVR requiring multiple pushes of diltiazem drip with improvement in heart rate. As of now, general surgery will want to prep the patient for right hemicolectomy. As for exam, patient does have distended abdomen however no guarding or rebound tenderness. Appreciate GI and surgical input. I reviewed above note and agree with findings and plans. I have also personally examined the patient with medicine team and went over assessment and plan with medical team including general internal medicine physician and resident physician.
[2024-07-04] MEDS: HYDROcodone/APAP 5/325 TABLET 1 TAB PO ×2 (15:40→22:31)
[2024-07-04] MEDS: MELATONIN 3 MG TABLET PO (20:27)
[2024-07-05] VITALS (11 sets, daily range): BP systolic 148–154; BP diastolic 73–88; PULSE 49–74; RESP 12–94; TEMP 36.3–36.7; O2SAT 94–100; BMI 25.5
[2024-07-05] MEDS: HYDROcodone/APAP 5/325 TABLET 1 TAB PO ×4 (03:59→21:37)
[2024-07-05 04:09] LABS: Basophils % (Auto) 1 % (0-2.5); Eosinophils # (Auto) 0.5 Thou/mm3 (0.0-0.5); Eosinophils % (Auto) 6 % (0-10); Immature Granulocytes % (Auto) 1 % (0-0); Immature Granulocytes Auto 0.04 Thou/mm3 (0.00-0.00); Lymphocytes # (Auto) 1.9 Thou/mm3 (1.0-4.8); Lymphocytes % (Auto) 23 % (10-50); Mean Corpuscular HGB Conc 33.3 g/dl (31.0-37.0); Mean Corpuscular Hemoglobin 31.9 pg (25.0-35.0); Mean Corpuscular Volume 96 fL (80-100); Monocytes % (Auto) 12 % (0-12); Neutrophils # (Auto) 4.7 Thou/mm3 (1.8-7.7); Neutrophils % (Auto) 58 % (37-80); Nucleated Red Blood Cell % 0 /100 WBC (0); Platelet Count 154 Thou/mm3 (140-440); Red Blood Count 3.76 Miln/mm3 (4.50-5.90); White Blood Count 8.1 Thou/mm3 (3.8-10.6)
[2024-07-05 04:25] LABS: Alanine Aminotransferase 17 U/L (10-49); Albumin, Serum 3.3 gm/dL (3.4-4.8); Albumin/Globulin Ratio 1.4 (1.2-2.2); Alkaline Phosphatase 46 U/L (46-116); Anion Gap 7 (7-16); Aspartate Amino Transferase 21 U/L (0-34); BUN/Creatinine Ratio 10 Ratio (12-20); Bilirubin,Total 1.2 mg/dL (0.3-1.2); Blood Urea Nitrogen 8 mg/dL (9-23); Calcium 7.8 mg/dL (8.3-10.6); Calcium (Corrected) 8.4 mg/dL (8.5-10.1); Carbon Dioxide 27.1 mMol/L (20.0-31.0); Chloride 108 mMol/L (98-107); Creatinine (Component) 0.8 mg/dL (0.6-1.3); Estimated Creatinine Clearance 62.7 mL/min (>60); Globulin 2.4 gm/dL (2.3-3.5); Glucose 93 mg/dL (74-106); Magnesium 1.7 mg/dL (1.6-2.6); Osmolality,Calculated 281 (275-295); Potassium 3.1 mMol/L (3.4-5.1); Sodium 142 mMol/L (136-145); Total Protein 5.7 gm/dL (5.7-8.2); eGFR > 60 See Note
[2024-07-05] MEDS: PIPER/TAZO 3.375 GM 3.375 GM/50 ML BAG IV ×3 (05:18→21:20)
[2024-07-05] MEDS: IPRATROPIUM RT 0.5 MG/ 2.5 ML NEBU INH ×2 (06:30→22:41)
[2024-07-05] MEDS: LEVALBUTEROL RT 1.25 MG/0.5 ML NEBU INH ×2 (06:30→22:41)
[2024-07-05] MEDS: DOCUSATE SOD 100 MG CAPSULE PO (08:55)
[2024-07-05] MEDS: POTASSIUM CHLORIDE 20 mEq TABCR 40 MEQ PO (08:55)
[2024-07-05] MEDS: PANTOPRAZOLE INJ 40 MG VIAL IV ×2 (08:55→21:21)
[2024-07-05] MEDS: SODIUM CHLORIDE 0.9% 1000 ML 1,000 ML 125 ML IV (08:55)
[2024-07-05] MEDS: POTASSIUM CHL 10 mEq IVPB 10 MEQ/100 ML BAG 100 MEQ IV ×6 (08:56→16:26)
[2024-07-05 11:58] LABS: Partial Thromboplastin Time 49.8 Seconds (22.0-36.0)
[2024-07-05] MEDS: HEPARIN SOD INJ 5000 UNIT/ML VIAL 2000 UNIT IV (13:27)
--- NOTE | 2024-07-05 13:43 | PD.RESPRO ---
Documentation for date of: 07/05/24 Subjective Subjective Interval history: 07/04/2024: Patient examined at bedside today. Overnight events included patient going into A-fib with RVR heart rate was in the 160s, was given diltiazem 3 times IV 45 mg total, was started on amio drip was given about 410 mg of that and it was then stopped. He returned back to sinus and was bradycardia at some point. He reports no chest pain, palpitations or shortness of breath overnight. Even when he was asked about overnight events he did not complain of any pain or shortness of breath, he just said that he was awakened by the phlebotomy team and nothing else. He has no active chest pain at this time or palpitations. He has not been vomiting or felt nauseous. He is wondering when he is going to get surgery. BUN/creatinine of 14 and 0.9 respectively, white count of 8.6, hemoglobin 12.4, magnesium of 1.9, potassium 4.1, given 2 g of magnesium. No other complaints at this time. 07/05/2024: Patient examined at bedside today. Telemetry reviewed, patient seems to be bradycardia, lowest of rate was 41. Patient reports she is doing well today is having no chest pain, or palpitations. He does endorse a little abdominal pain but no other complaints at this time he is still agreeable with having surgery tomorrow.. He says that he is not really having any shortness of breath this this time and the breathing treatments are helping him. His white count today is 8.1, hemoglobin is 12, potassium 3.1, repleted by primary team, magnesium 1.7 repleted by primary team, BUN/creatinine of 8 and 0.8 respectively, bicarb 27. Patient blood pressure and heart rate have been stable, heart rate has been in the 60s, his blood pressure has been in the 140s. Will continue with current management. Exam Vital Signs Temp Pulse Resp BP Pulse Ox O2 Del Method O2 Flow Rate 97.4 F 67 19 148/73 H 95 Room Air 1 07/05/24 12:00 07/05/24 12:07/05/24 12:07/05/24 12:07/05/24 12:00 07/05/24 12:07/05/24 06:33 Narrative Exam General: AAOx3, NAD, pleasant speaking male HEENT: Moist mucous membranes, conjunctiva clear, EOMI, PERRLA, has gold teeth Cardiovascular: Difficulty appreciating if presence of murmur, radial pulses +2 bilat, RRR Pulmonary: Minimal wheezing heard diffusely throughout lung dsouza, no cough GI: Some tenderness to light palpitation in R quadrant, no guarding, rigidity, rebound tenderness or distension Extremities: No presence of trace or pitting edema in lower extremities bilaterally, dorsalis pedis pulses +2 bilaterally Neuro: AAOx3, no focal motor or sensory deficits in the UE or LE bilat Psych: Good judgement, thought and behavior. Cooperative Objective Labs 07/07/24 04:42 07/07/24 04:42 Labs: Laboratory Results - last 24 hr 07/04/24 07/05/24 07/05/24 19:00 03:26 10:35 WBC 8.1 RBC 3.76 L Hgb 12.0 L Hct 36.0 L MCV 96 MCH 31.9 MCHC 33.3 RDW Std Deviation 49.0 H Plt Count 154 Neut % (Auto) 58 Lymph % (Auto) 23 [place] % (Auto) 12 Eos % (Auto) 6 Baso % (Auto) 1 Neut # (Auto) 4.7 Lymph # (Auto) 1.9 [place] # (Auto) 1.0 H Eos # (Auto) 0.5 Baso # (Auto) 0.0 Immature Gran # (Auto) 0.04 H Absolute Nucleated RBC 0.00 Immature Gran % 1 H Nucleated RBC % 0 APTT 55.0 H D 62.0 H 49.8 H D Sodium 142 Potassium 3.1 L D Chloride 108 H Carbon Dioxide 27.1 Anion Gap 7 BUN 8 L Creatinine 0.8 Estim Creat Clear Calc 62.7 eGFR > 60 BUN/Creatinine Ratio 10 L Glucose 93 Calculated Osmolality 281 Calcium 7.8 L Corrected Calcium 8.4 L Magnesium 1.7 Total Bilirubin 1.2 AST 21 ALT 17 Alkaline Phosphatase 46 Total Protein 5.7 Albumin 3.3 L Globulin 2.4 Albumin/Globulin Ratio 1.4 ABG Interpretation ABG results: 07/01/24 09:44 VBG pH 7.42 VBG pCO2 46 VBG pO2 65 H VBG Base Excess 5 H Quality Measures Quality Measures none Advance care planning discussed with:: patient Assessment & Plan Assessment Current Active Medications: Generic Name Dose Route Start Last Admin Trade Name Antoniq PRN Reason Stop Dose Admin Acetaminophen 650 mg 07/01/24 11:43 07/04/24 02:58 Acetaminophen 325 Mg Tablet PO 07/31/24 11:42 650 mg Q6H PRN Administration Fever >100.5 Acetaminophen 650 mg 07/01/24 11:43 Acetaminophen 325 Mg Tablet PO 07/31/24 11:42 Q6H PRN PAIN SCALE 1-3 (mild Hydrocodone Bitart/Acetaminophen 1 tab 07/01/24 21:12 07/05/24 09:04 Hydrocodone/Apap 5/325 Tablet PO 07/06/24 21:11 1 tab Q4HR PRN Administration PAIN SCALE 4-10(Mod-Sev Dextrose 25 ml 07/01/24 12:10 Dextrose 50%-Water Inj 50 Ml Syringe IV 07/31/24 12:09 Q15MIN PRN BG 50-70 responsive npo pt Dextrose 50 ml 07/01/24 12:10 Dextrose 50%-Water Inj 50 Ml Syringe IV 07/31/24 12:09 Q15MIN PRN BG <50 OR BG <70 & pt unresponsive Docusate Sodium 100 mg 07/01/24 11:45 07/05/24 08:55 Docusate Sod 100 Mg Capsule PO 07/31/24 11:44 100 mg QDAY SABIEN Administration Protocol Sodium Chloride 1,000 mls @ 125 mls/hr 07/01/24 20:06 07/05/24 13:29 Ns IV 07/31/24 20:05 Not Given .Q8H SABINE Piperacillin/Tazobactam/Dextrose 3.375 gm in 50 mls @ 12.5 mls/hr 07/02/24 14:00 07/05/24 13:29 Zosyn IV 07/09/24 13:59 12.5 mls/hr Q8HR SABINE Administration Heparin Sodium/Dextrose 25,000 unit in 250 mls @ 7.876 mls/hr 07/04/24 13:00 07/05/24 13:30 Heparin In D5w Ivpb IV 07/18/24 12:59 Not Given .Q24H SABINE Protocol 12 UNITS/KG/HR Potassium Chloride 10 meq in 100 mls @ 100 mls/hr 07/05/24 08:40 07/05/24 13:28 Kcl Ivpb IV 07/05/24 14:39 100 mls/hr Q1H SABINE Administration Insulin Human Lispro 0 unit 07/03/24 21:00 07/05/24 11:39 Insulin Lispro (Admelog) 1 Unit/0.01 Ml Unit SC 08/01/24 11:59 Not Given ACHS SABINE Protocol Ipratropium [place] 0.5 mg 07/01/24 23:00 07/05/24 06:30 Ipratropium Rt 0.5 Mg/ 2.5 Ml Nebu INH 07/31/24 22:59 0.5 mg Q8HRRT SABINE Administration Levalbuterol HCl 1.25 mg 07/01/24 23:00 07/05/24 06:30 Levalbuterol Rt 1.25 Mg/0.5 Ml Nebu INH 07/31/24 22:59 1.25 mg Q8HRRT SABINE Administration Melatonin 3 mg 07/01/24 21:00 07/04/24 20:27 Melatonin 3 Mg Tablet PO 07/31/24 20:59 3 mg HS SABINE Administration Metoprolol Succinate 50 mg 07/04/24 21:00 07/04/24 20:26 Metoprolol Succinate Xl 25 Mg Tabcr PO 08/03/24 20:59 Not Given HS SABINE Ondansetron HCl 4 mg 07/01/24 11:43 Ondansetron Inj 2 Mg/Ml Inj 2 Ml IV 07/31/24 11:42 Q6H PRN NAUSEA OR VOMITING Protocol Pantoprazole Sodium 40 mg 07/02/24 12:30 07/05/24 08:55 Pantoprazole Inj 40 Mg Vial IV 08/01/24 12:29 40 mg BID SABINE Administration Sodium Chloride 3 ml 07/01/24 15:50 Sodium Chloride Rt [place]onda 0.9% 3 Ml Nebu INH 07/31/24 15:49 PRN PRN SOLN Plan Assessment Des is a 79 y/o male with PMHx of paroxysmal atrial fibrillation/atrial flutter diagnosed in 2019, essential hypertension, Grade 1 esophageal varices, hyperlipidemia, COPD (~15 pack year hx, not a smoker currently, not on home oxygen) , ? history of cirrhosis, T2DM, perirectal abscess (s/p I and D in Feb 2024), L tension pneumothorax requiring chest tube (11/2023) who is requiring cardiac clearance for ileocecectomy. #Surgical Cardiac clearance for #Neuroendocrine tumor of ileum #Pneumoperitoneum Patient to get ileocecectomy performed on Saturday by Dr. 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 Atkins Patient does endorse weight loss about 10 pounds in the past 6 months Chen activity status index: ~29 points Patient is able to walk and take care of himself, but does get short of breath with some strenuous activity such as some heavy work around the house, and strenuous sports and even moderate recreational activities, unable to run a short distance but able to climb flight of stairs or walk up a hill Abdomen MRI showed common bile duct with several filling defects consistent with sludge versus stones Cardiac cath in [address] Dale showed 1. Normal nonobstructive epicardial coronary arteries. 2. Normal left ventricular function, ejection fraction 60% Echo from November 2023 shows EF of 55 to 60%, normal LV, grade 1 diastolic dysfunction LDL 44 and total cholesterol 111 from recent lipid panel A1c of 5.6 Former smoker, COPD history, roughly [id number] history, not on home oxygen Reviewed pt's previous images of Cardiac cath no evidence of CAD Reviewed pt's echo images from 11/2023, will do bedside echo TSH 2.25 EKG shows some PVCs Bedside echo done, normal LV and EF. From a cardiac standpoint, patient is cleared for surgery, however low risk for surgery for any adverse events. Plan: ?Pain control handled by primary team ?Keep magnesium and potassium above 2 and 4 respectively ?GI and general surgery on consult, appreciate recs #History of essential hypertension #Paroxysmal A-fib, chronic [id number]:4 Rate: Controlled in the 70s Rhythm: Regular AC: Has home Eliquis No history of heart failure Considering patient went into A-fib with RVR last night, will want to switch anticoagulation at this time. Will hold DESEAN at this time, will give beta-yoselin with holding parameters Plan: ? Continue with heparin drip, stop at midnight. ? Hold lisinopril 20 mg ? Metoprolol XL 50 mg, with holding parameters of heart rate below 55 or SBP below 110 #History of diabetes mellitus A1c 5.6 Plan: ? Primary team to handle blood sugars #History of COPD #Cirrhosis, Hyperdense areas in the liver Above managed by primary hospitalist team Patient seen and care discussed with my attending physician, Dr. Andie Galvan, PGY-1 Attending Provider Attestation/Addendum I have personally seen and examined the patient separately on the above date of service and discussed the plan of care with the resident. I reviewed the resident Dr. Brown consultation progress note and agree with the resident findings and plan in the note above and have also edited the documentation to reflect my findings and plan. Saran Chaves M.D. Interventional Cardiology
--- NOTE | 2024-07-05 16:27 | ESPR_ITS ---
<Statement entered by Moustapha Villagran MD - 07/11/24 13:40> I reviewed above note and agree with findings and plans. I have also personally examined the patient with medicine team and went over assessment and plan with medical team including winter intern and resident physician. Documentation for date of: 07/05/24 Subjective Subjective Interval history: Patient is aware of the bedside, resting comfortably, reported no acute abdominal symptoms, still noted mild tenderness right lower quadrant of abdomen, but negative for rebound, pending surgery by Dr. Vail tomorrow morning, patient was made n.p.o. after midnight, will hold heparin infusion at 2 AM, currently rate controlled, on metoprolol XL per cardiology recommendations. Exam Vital Signs Temp Pulse Resp BP Pulse Ox O2 Del Method O2 Flow Rate 97.4 F 67 19 148/73 H 95 Room Air 1 07/05/24 12:00 07/05/24 12:00 07/05/24 12:00 07/05/24 12:00 07/05/24 12:00 07/05/24 12:00 07/05/24 06:33 Narrative Exam General: AAOx3, NAD, pleasant speaking male HEENT: Moist mucous membranes, conjunctiva clear, EOMI, PERRLA, has gold teeth Cardiovascular: Difficulty appreciating if presence of murmur, radial pulses +2 bilat, RRR Pulmonary: Minimal wheezing heard diffusely throughout lung dsouza, no cough GI: Some tenderness to light palpitation in R quadrant, no guarding, rigidity, rebound tenderness or distension Extremities: No presence of trace or pitting edema in lower extremities bilaterally, dorsalis pedis pulses +2 bilaterally Neuro: AAOx3, no focal motor or sensory deficits in the UE or LE bilat Psych: Good judgement, thought and behavior. Cooperative Objective Labs 07/05/24 03:26 07/05/24 03:26 Labs: Laboratory Results - last 24 hr 07/04/24 07/05/24 07/05/24 19:00 03:26 10:35 WBC 8.1 RBC 3.76 L Hgb 12.0 L Hct 36.0 L MCV 96 MCH 31.9 MCHC 33.3 RDW Std Deviation 49.0 H Plt Count 154 Neut % (Auto) 58 Lymph % (Auto) 23 [place] % (Auto) 12 Eos % (Auto) 6 Baso % (Auto) 1 Neut # (Auto) 4.7 Lymph # (Auto) 1.9 [place] # (Auto) 1.0 H Eos # (Auto) 0.5 Baso # (Auto) 0.0 Immature Gran # (Auto) 0.04 H Absolute Nucleated RBC 0.00 Immature Gran % 1 H Nucleated RBC % 0 APTT 55.0 H D 62.0 H 49.8 H D Sodium 142 Potassium 3.1 L D Chloride 108 H Carbon Dioxide 27.1 Anion Gap 7 BUN 8 L Creatinine 0.8 Estim Creat Clear Calc 62.7 eGFR > 60 BUN/Creatinine Ratio 10 L Glucose 93 Calculated Osmolality 281 Calcium 7.8 L Corrected Calcium 8.4 L Magnesium 1.7 Total Bilirubin 1.2 AST 21 ALT 17 Alkaline Phosphatase 46 Total Protein 5.7 Albumin 3.3 L Globulin 2.4 Albumin/Globulin Ratio 1.4 ABG Interpretation ABG results: 07/01/24 09:44 VBG pH 7.42 VBG pCO2 46 VBG pO2 65 H VBG Base Excess 5 H Quality Measures Quality Measures none Advance care planning discussed with:: patient Assessment & Plan Assessment Current Active Medications: Generic Name Dose Route Start Last Admin Trade Name Freq PRN Reason Stop Dose Admin Acetaminophen 650 mg 07/01/24 11:43 07/04/24 02:58 Acetaminophen 325 Mg Tablet PO 07/31/24 11:42 650 mg Q6H PRN Administration Fever >100.5 Acetaminophen 650 mg 07/01/24 11:43 Acetaminophen 325 Mg Tablet PO 07/31/24 11:42 Q6H PRN PAIN SCALE 1-3 (mild Hydrocodone Bitart/Acetaminophen 1 tab 07/01/24 21:12 07/05/24 16:23 Hydrocodone/Apap 5/325 Tablet PO 07/06/24 21:11 1 tab Q4HR PRN Administration PAIN SCALE 4-10(Mod-Sev Dextrose 25 ml 07/01/24 12:10 Dextrose 50%-Water Inj 50 Ml Syringe IV 07/31/24 12:09 Q15MIN PRN BG 50-70 responsive npo pt Dextrose 50 ml 07/01/24 12:10 Dextrose 50%-Water Inj 50 Ml Syringe IV 07/31/24 12:09 Q15MIN PRN BG <50 OR BG <70 & pt unresponsive Docusate Sodium 100 mg 07/01/24 11:45 07/05/24 08:55 Docusate Sod 100 Mg Capsule PO 07/31/24 11:44 100 mg QDAY SABINE Administration Protocol Sodium Chloride 1,000 mls @ 125 mls/hr 07/01/24 20:06 07/05/24 13:29 Ns IV 07/31/24 20:05 Not Given .Q8H SABINE Piperacillin/Tazobactam/Dextrose 3.375 gm in 50 mls @ 12.5 mls/hr 07/02/24 14:00 07/05/24 13:29 Zosyn IV 07/09/24 13:59 12.5 mls/hr Q8HR SABINE Administration Heparin Sodium/Dextrose 25,000 unit in 250 mls @ 7.876 mls/hr 07/04/24 13:00 07/05/24 13:30 Heparin In D5w Ivpb IV 07/18/24 12:59 Not Given .Q24H SABINE Protocol 12 UNITS/KG/HR Insulin Human Lispro 0 unit 07/03/24 21:00 07/05/24 11:39 Insulin Lispro (Admelog) 1 Unit/0.01 Ml Unit SC 08/01/24 11:59 Not Given ACHS [facility] Protocol Ipratropium [place] 0.5 mg 07/01/24 23:00 07/05/24 06:30 Ipratropium Rt 0.5 Mg/ 2.5 Ml Nebu INH 07/31/24 22:59 0.5 mg Q8HRRT SABINE Administration Levalbuterol HCl 1.25 mg 07/01/24 23:00 07/05/24 06:30 Levalbuterol Rt 1.25 Mg/0.5 Ml Nebu INH 07/31/24 22:59 1.25 mg Q8HRRT SABINE Administration Melatonin 3 mg 07/01/24 21:00 07/04/24 20:27 Melatonin 3 Mg Tablet PO 07/31/24 20:59 3 mg HS SABINE Administration Metoprolol Succinate 50 mg 07/04/24 21:00 07/04/24 20:26 Metoprolol Succinate Xl 25 Mg Tabcr PO 08/03/24 20:59 Not Given HS SABINE Ondansetron HCl 4 mg 07/01/24 11:43 Ondansetron Inj 2 Mg/Ml Inj 2 Ml IV 07/31/24 11:42 Q6H PRN NAUSEA OR VOMITING Protocol Pantoprazole Sodium 40 mg 07/02/24 12:30 07/05/24 08:55 Pantoprazole Inj 40 Mg Vial IV 08/01/24 12:29 40 mg BID SABINE Administration Sodium Chloride 3 ml 07/01/24 15:50 Sodium Chloride Rt [place] 0.9% 3 Ml Nebu INH 07/31/24 15:49 PRN PRN SOLN Plan 79-year-old male with past medical history of A-fib hypertension hyperlipidemia diabetes COPD who presented to the ED due to right upper quadrant and right lower quadrant pain after having a colonoscopy. Admitted for pneumoperitoneum. General surgery and GI consulted. #Pneumoperitoneum #Bibasilar pneumonia #Neuroendocrine tumor of ileum Patient had a colonoscopy the day prior to admission after which patient started developing right upper quadrant and right lower quadrant pain CT abdomen pelvis showed Pneumoperitoneum, consider ischemic small bowel, recommend surgical consultation. Chest x-ray shows some mild bibasilar pneumonia Patient is not septic Patient had polyp removal via colonoscopy, pathology report showed neuroendocrine tumor of the ileum -Pending surgery on Saturday with general surgery Dr. Vail -N.p.o. after midnight on Saturday -On Zosyn -General Surgery Dr. Vail consulted, appreciate recommendations -GI Dr. Atkins consulted, appreciate recommendations #History of hypertension #History of A-fib Patient is normotensive at this time CHADVASC score of 4 Patient overnight had A-fib with RVR with rate in the 160s required 45 mg total of diltiazem pushes at 1 point was placed on amiodarone drip the patient converted to sinus rhythm was discontinued. Cardiology recommends metoprolol 50 mg daily and start heparin drip in anticipation for surgery on Saturday -On heparin drip -On metoprolol succinate 50 mg daily -Eliquis has not been resumed at this time in anticipation for possible procedure -Cardiology, Dr. Chaves consulted, appreciate recommendations #History of COPD Patient is a former smoker denies current cigarette use Examination some mild wheezing heard bilaterally -Levalbuterol and ipratropium as needed #[id number] A1c 5.6 -SSI -Hypoglycemia protocol in place #Cirrhosis, Hyperdense areas in the liver Found on CT abdomen pelvis recommend elective MRI abdomen pre and post-contrast follow-up -Can follow-up as outpatient Case discussed with my attending Dr. Tyshawn Vasques PGy 2 Disposition: Telemetry Fluids: None Feeding: Clear liquid diet Thrombo prophylaxis: Heparin drip Gastric Ulcer prophylaxis: Pantoprazole CODE STATUS: Full code
[2024-07-05 20:28] LABS: Partial Thromboplastin Time 62.8 Seconds (22.0-36.0)
--- NOTE | 2024-07-05 20:47 | ESPR_ITS ---
Documentation for date of: 07/05/24 Subjective Subjective Interval history: Patient was seen and examined, resting comfortably,no abdominal symptoms, mild tenderness right lower quadrant of abdomen, no other associated symptoms. Exam Vital Signs Temp Pulse Resp BP Pulse Ox O2 Del Method O2 Flow Rate 97.5 F 64 17 152/78 H 96 Room Air 1 07/05/24 16:00 07/05/24 16:00 07/05/24 16:00 07/05/24 16:00 07/05/24 16:00 07/05/24 16:00 07/05/24 06:33 Detailed Abdominal Exam Comments: Abd soft, BS heard, mild tenderness in RLQ, No sign of peritonitis Objective Labs 07/05/24 03:26 07/05/24 03:26 Labs: Laboratory Results - last 24 hr 07/05/24 07/05/24 07/05/24 03:26 10:35 19:37 WBC 8.1 RBC 3.76 L Hgb 12.0 L Hct 36.0 L MCV 96 MCH 31.9 MCHC 33.3 RDW Std Deviation 49.0 H Plt Count 154 Neut % (Auto) 58 Lymph % (Auto) 23 [place] % (Auto) 12 Eos % (Auto) 6 Baso % (Auto) 1 Neut # (Auto) 4.7 Lymph # (Auto) 1.9 [place] # (Auto) 1.0 H Eos # (Auto) 0.5 Baso # (Auto) 0.0 Immature Gran # (Auto) 0.04 H Absolute Nucleated RBC 0.00 Immature Gran % 1 H Nucleated RBC % 0 APTT 62.0 H 49.8 H D 62.8 H D Sodium 142 Potassium 3.1 L D Chloride 108 H Carbon Dioxide 27.1 Anion Gap 7 BUN 8 L Creatinine 0.8 Estim Creat Clear Calc 62.7 eGFR > 60 BUN/Creatinine Ratio 10 L Glucose 93 Calculated Osmolality 281 Calcium 7.8 L Corrected Calcium 8.4 L Magnesium 1.7 Total Bilirubin 1.2 AST 21 ALT 17 Alkaline Phosphatase 46 Total Protein 5.7 Albumin 3.3 L Globulin 2.4 Albumin/Globulin Ratio 1.4 ABG Interpretation ABG results: 07/01/24 09:44 VBG pH 7.42 VBG pCO2 46 VBG pO2 65 H VBG Base Excess 5 H Assessment & Plan A&P Narrative 79 year old male with HTN, HLD, COPD, DMII, afib and cirrhosis who underwent EGD/colonoscopy 06/30 with findings of grade I varices, gastritis and ileal polyp presented to ER due to RLQ pain. Nodule/Polyp in terminal ileum, attempted to remove it by using a Hot Snare and electrocoagulation was applied but most likely due to fibrotic texture of polyp/nodule, could not get removed and biopsy obtained. There was an easy intubation of TI Dx: Post-polypectomy electrocoagulation syndrome : almost resolved, WBC normalized and CRP trending down significantly Pathology TI polyp: NET Continue Abx IVF Will have ileocectomy tomorrow A-fibb/RVR management as per primary and Cardiology Will follow closely Time Spent With Patient Time: Total time spent is greater than 50% in coordination of care (as documented) at patient's floor/unit and/or counseling patient:
[2024-07-05] MEDS: METOPROLOL SUCCINATE XL 25 MG TABCR 50 MG PO (21:21)
[2024-07-05] MEDS: MELATONIN 3 MG TABLET PO (21:21)
[2024-07-05] MEDS: Heparin/D5w 25K 250 ML Ivpb 25,000 UNIT/250 ML BAG 9.189 UNIT IV (21:41)
[2024-07-06] VITALS (27 sets, daily range): BP systolic 109–197; BP diastolic 61–98; PULSE 54–101; RESP 12–98; TEMP 36–37.1; O2SAT 92–100; BMI 25.5
[2024-07-06] MEDS: SODIUM CHLORIDE 0.9% 1000 ML 1,000 ML 125 ML IV ×2 (02:08→13:47)
[2024-07-06] MEDS: PIPER/TAZO 3.375 GM 3.375 GM/50 ML BAG IV ×3 (05:14→21:05)
[2024-07-06 06:10] LABS: Basophils # (Auto) 0.1 Thou/mm3 (0.0-0.2); Basophils % (Auto) 1 % (0-2.5); Eosinophils # (Auto) 0.7 Thou/mm3 (0.0-0.5); Eosinophils % (Auto) 7 % (0-10); Immature Granulocytes % (Auto) 1 % (0-0); Immature Granulocytes Auto 0.08 Thou/mm3 (0.00-0.00); Lymphocytes # (Auto) 1.6 Thou/mm3 (1.0-4.8); Lymphocytes % (Auto) 16 % (10-50); Mean Corpuscular HGB Conc 33.3 g/dl (31.0-37.0); Mean Corpuscular Hemoglobin 31.9 pg (25.0-35.0); Mean Corpuscular Volume 96 fL (80-100); Monocytes # (Auto) 1.1 Thou/mm3 (0.0-0.8); Monocytes % (Auto) 11 % (0-12); Neutrophils # (Auto) 6.8 Thou/mm3 (1.8-7.7); Neutrophils % (Auto) 66 % (37-80); Nucleated Red Blood Cell % 0 /100 WBC (0); Platelet Count 195 Thou/mm3 (140-440); RDW Standard Deviation 48.7 fL (35.1-43.9); Red Blood Count 4.07 Miln/mm3 (4.50-5.90); White Blood Count 10.3 Thou/mm3 (3.8-10.6)
[2024-07-06 06:25] LABS: INR 1.1 (0.9-1.3); Partial Thromboplastin Time 30.8 Seconds (22.0-36.0); Prothrombin Time 12.2 Seconds (9.0-12.2)
[2024-07-06 06:36] LABS: Alanine Aminotransferase 18 U/L (10-49); Albumin, Serum 3.4 gm/dL (3.4-4.8); Albumin/Globulin Ratio 1.3 (1.2-2.2); Alkaline Phosphatase 49 U/L (46-116); Anion Gap 8 (7-16); Aspartate Amino Transferase 23 U/L (0-34); BUN/Creatinine Ratio 9 Ratio (12-20); Bilirubin,Total 1.3 mg/dL (0.3-1.2); Blood Urea Nitrogen 7 mg/dL (9-23); Calcium 8.7 mg/dL (8.3-10.6); Calcium (Corrected) 9.2 mg/dL (8.5-10.1); Carbon Dioxide 25.8 mMol/L (20.0-31.0); Chloride 105 mMol/L (98-107); Creatinine (Component) 0.8 mg/dL (0.6-1.3); Estimated Creatinine Clearance 62.7 mL/min (>60); Globulin 2.6 gm/dL (2.3-3.5); Glucose 91 mg/dL (74-106); Magnesium 1.6 mg/dL (1.6-2.6); Osmolality,Calculated 275 (275-295); Potassium 3.9 mMol/L (3.4-5.1); Sodium 139 mMol/L (136-145); eGFR > 60 See Note
[2024-07-06] MEDS: IPRATROPIUM RT 0.5 MG/ 2.5 ML NEBU INH ×2 (07:08→23:28)
[2024-07-06] MEDS: LEVALBUTEROL RT 1.25 MG/0.5 ML NEBU INH ×2 (07:09→23:28)
[2024-07-06] MEDS: Magnesium Sulfate 4 GM Ivpb 4 GM/50 ML BAG IV (08:07)
[2024-07-06] MEDS: PANTOPRAZOLE INJ 40 MG VIAL IV ×2 (08:09→21:03)
[2024-07-06] MEDS: POTASSIUM CHL 10 mEq IVPB 100 ML 100 MEQ IV ×2 (08:10→13:40)
--- NOTE | 2024-07-06 08:54 | PD.RESPRO ---
Documentation for date of: 07/06/24 Subjective Subjective Interval history: 07/04/2024: Patient examined at bedside today. Overnight events included patient going into A-fib with RVR heart rate was in the 160s, was given diltiazem 3 times IV 45 mg total, was started on amio drip was given about 410 mg of that and it was then stopped. He returned back to sinus and was bradycardia at some point. He reports no chest pain, palpitations or shortness of breath overnight. Even when he was asked about overnight events he did not complain of any pain or shortness of breath, he just said that he was awakened by the phlebotomy team and nothing else. He has no active chest pain at this time or palpitations. He has not been vomiting or felt nauseous. He is wondering when he is going to get surgery. BUN/creatinine of 14 and 0.9 respectively, white count of 8.6, hemoglobin 12.4, magnesium of 1.9, potassium 4.1, given 2 g of magnesium. No other complaints at this time. 07/05/2024: Patient examined at bedside today. Telemetry reviewed, patient seems to be bradycardia, lowest of rate was 41. Patient reports he is doing well today is having no chest pain, or palpitations. He does endorse a little abdominal pain but no other complaints at this time he is still agreeable with having surgery tomorrow.. He says that he is not really having any shortness of breath this this time and the breathing treatments are helping him. His white count today is 8.1, hemoglobin is 12, potassium 3.1, repleted by primary team, magnesium 1.7 repleted by primary team, BUN/creatinine of 8 and 0.8 respectively, bicarb 27. Patient blood pressure and heart rate have been stable, heart rate has been in the 60s, his blood pressure has been in the 140s. Will continue with current management. 07/06/2024: Pt examined at bedside today. Telemetry reviewed, some instances of possible multifocal atrial tachycardia, however, rhythm strip reviewed, looks to be sinus tachycardia based of rate in 100s and clear p waves. Pt reports he is doing well today, have no chest pain or palpitations. Said overnight he was having some abdominal pain, however did not endorse any chest pain. He is still agreeable to the surgery which will happen today at 9 AM. Is not having any shortness of breath at the time. His white count is 7.3, hemoglobin 13, BUN/creatinine of 7 and 0.8 respectively, magnesium 1.6, repleted 4 g by primary team, potassium 3.9, repleted by primary team, T. bili 1.3. Heparin drip has been on hold since last night. His blood pressure has been stable 130s systolic, heart rate at this time is in mid 60s. No other complaints this time. Exam Vital Signs Temp Pulse Resp BP Pulse Ox O2 Del Method O2 Flow Rate 98.3 F 65 21 H 136/84 H 100 Room Air 1 07/06/24 04:00 07/06/24 07:09 07/06/24 07:09 07/06/24 04:00 07/06/24 07:09 07/06/24 04:00 07/06/24 04:00 Narrative Exam General: AAOx3, NAD, pleasant speaking male HEENT: Moist mucous membranes, conjunctiva clear, EOMI, PERRLA, has gold teeth Cardiovascular: Difficulty appreciating if presence of murmur, radial pulses +2 bilat, RRR Pulmonary:No wheezing heard throughout lung dsouza, no cough GI: Some tenderness to light palpitation in R quadrant, no guarding, rigidity, rebound tenderness or distension Extremities: No presence of trace or pitting edema in lower extremities bilaterally, dorsalis pedis pulses +2 bilaterally Neuro: AAOx3, no focal motor or sensory deficits in the UE or LE bilat Psych: Good judgement, thought and behavior. Cooperative Objective Labs 07/07/24 04:42 07/07/24 04:42 Labs: Laboratory Results - last 24 hr 07/05/24 07/05/24 07/06/24 10:35 19:37 04:55 WBC 10.3 RBC 4.07 L Hgb 13.0 L Hct 39.0 L MCV 96 MCH 31.9 MCHC 33.3 RDW Std Deviation 48.7 H Plt Count 195 D Neut % (Auto) 66 Lymph % (Auto) 16 [place] % (Auto) 11 Eos % (Auto) 7 Baso % (Auto) 1 Neut # (Auto) 6.8 Lymph # (Auto) 1.6 [place] # (Auto) 1.1 H Eos # (Auto) 0.7 H Baso # (Auto) 0.1 Immature Gran # (Auto) 0.08 H Absolute Nucleated RBC 0.00 Immature Gran % 1 H Nucleated RBC % 0 PT 12.2 INR 1.1 APTT 49.8 H D 62.8 H D 30.8 D Sodium 139 Potassium 3.9 D Chloride 105 Carbon Dioxide 25.8 Anion Gap 8 BUN 7 L Creatinine 0.8 Estim Creat Clear Calc 62.7 eGFR > 60 BUN/Creatinine Ratio 9 L Glucose 91 Calculated Osmolality 275 Calcium 8.7 Corrected Calcium 9.2 Magnesium 1.6 Total Bilirubin 1.3 H AST 23 ALT 18 Alkaline Phosphatase 49 Total Protein 6.0 Albumin 3.4 Globulin 2.6 Albumin/Globulin Ratio 1.3 ABG Interpretation ABG results: 07/01/24 09:44 VBG pH 7.42 VBG pCO2 46 VBG pO2 65 H VBG Base Excess 5 H Quality Measures Quality Measures none Advance care planning discussed with:: patient Assessment & Plan Assessment Current Active Medications: Generic Name Dose Route Start Last Admin Trade Name Freq PRN Reason Stop Dose Admin Acetaminophen 650 mg 07/01/24 11:43 07/04/24 02:58 Acetaminophen 325 Mg Tablet PO 07/31/24 11:42 650 mg Q6H PRN Administration Fever >100.5 Acetaminophen 650 mg 07/01/24 11:43 Acetaminophen 325 Mg Tablet PO 07/31/24 11:42 Q6H PRN PAIN SCALE 1-3 (mild Hydrocodone Bitart/Acetaminophen 1 tab 07/01/24 21:12 07/05/24 21:37 Hydrocodone/Apap 5/325 Tablet PO 07/06/24 21:11 1 tab Q4HR PRN Administration PAIN SCALE 4-10(Mod-Sev Dextrose 25 ml 07/01/24 12:10 Dextrose 50%-Water Inj 50 Ml Syringe IV 07/31/24 12:09 Q15MIN PRN BG 50-70 responsive npo pt Dextrose 50 ml 07/01/24 12:10 Dextrose 50%-Water Inj 50 Ml Syringe IV 07/31/24 12:09 Q15MIN PRN BG <50 OR BG <70 & pt unresponsive Docusate Sodium 100 mg 07/01/24 11:45 07/06/24 08:20 Docusate Sod 100 Mg Capsule PO 07/31/24 11:44 Not Given QDAY SABINE Protocol Sodium Chloride 1,000 mls @ 125 mls/hr 07/01/24 20:06 07/06/24 02:08 Ns IV 07/31/24 20:05 125 mls/hr .Q8H SABINE Administration Piperacillin/Tazobactam/Dextrose 3.375 gm in 50 mls @ 12.5 mls/hr 07/02/24 14:00 07/06/24 05:14 Zosyn IV 07/09/24 13:59 12.5 mls/hr Q8HR SABINE Administration Heparin Sodium/Dextrose 25,000 unit in 250 mls @ 7.876 mls/hr 07/04/24 13:00 07/05/24 21:41 Heparin In D5w Ivpb IV 07/18/24 12:59 14 units/kg/hr .Q24H SABINE 9.189 mls/hr Administration Protocol 12 UNITS/KG/HR Magnesium Sulfate 4 gm in 50 mls @ 12.5 mls/hr 07/06/24 07:54 07/06/24 08:07 Magnesium Sulfate Ivpb IV 07/06/24 11:53 12.5 mls/hr X1 ONE Administration Potassium Chloride 100 mls @ 100 mls/hr 07/06/24 08:00 07/06/24 08:10 Kcl Ivpb IV 07/06/24 09:59 100 mls/hr Q1H SABINE Administration Insulin Human Lispro 0 unit 07/03/24 21:00 07/06/24 08:20 Insulin Lispro (Admelog) 1 Unit/0.01 Ml Unit SC 08/01/24 11:59 Not Given ACHS SABINE Protocol Ipratropium [place] 0.5 mg 07/01/24 23:00 07/06/24 07:08 Ipratropium Rt 0.5 Mg/ 2.5 Ml Nebu INH 07/31/24 22:59 0.5 mg Q8HRRT SABINE Administration Levalbuterol HCl 1.25 mg 07/01/24 23:00 07/06/24 07:09 Levalbuterol Rt 1.25 Mg/0.5 Ml Nebu INH 07/31/24 22:59 1.25 mg Q8HRRT SABINE Administration Melatonin 3 mg 07/01/24 21:00 07/05/24 21:21 Melatonin 3 Mg Tablet PO 07/31/24 20:59 3 mg HS SABINE Administration Metoprolol Succinate 50 mg 07/04/24 21:00 07/05/24 21:21 Metoprolol Succinate Xl 25 Mg Tabcr PO 08/03/24 20:59 50 mg HS SABINE Administration Ondansetron HCl 4 mg 07/01/24 11:43 Ondansetron Inj 2 Mg/Ml Inj 2 Ml IV 07/31/24 11:42 Q6H PRN NAUSEA OR VOMITING Protocol Pantoprazole Sodium 40 mg 07/02/24 12:30 07/06/24 08:09 Pantoprazole Inj 40 Mg Vial IV 08/01/24 12:29 40 mg BID SABINE Administration Sodium Chloride 3 ml 07/01/24 15:50 Sodium Chloride Rt [place] 0.9% 3 Ml Nebu INH 07/31/24 15:49 PRN PRN SOLN Plan Assessment Des is a 79 y/o male with PMHx of paroxysmal atrial fibrillation/atrial flutter diagnosed in 2018, essential hypertension, Grade 1 esophageal varices, hyperlipidemia, COPD (~15 pack year hx, not a smoker currently, not on home oxygen) , ? history of cirrhosis, T2DM, perirectal abscess (s/p I and D in Feb 2024), L tension pneumothorax requiring chest tube (11/2023) who is requiring cardiac clearance for ileocecectomy. #Surgical Cardiac clearance for #Neuroendocrine tumor of ileum #Pneumoperitoneum Patient to get ileocecectomy performed on Saturday by Dr. 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 Atkins Patient does endorse weight loss about 10 pounds in the past 6 months Chen activity status index: ~29 points Patient is able to walk and take care of himself, but does get short of breath with some strenuous activity such as some heavy work around the house, and strenuous sports and even moderate recreational activities, unable to run a short distance but able to climb flight of stairs or walk up a hill Abdomen MRI showed common bile duct with several filling defects consistent with sludge versus stones Cardiac cath in [address] Dale showed 1. Normal nonobstructive epicardial coronary arteries. 2. Normal left ventricular function, ejection fraction 60% Echo from November 2023 shows EF of 55 to 60%, normal LV, grade 1 diastolic dysfunction LDL 44 and total cholesterol 111 from recent lipid panel A1c of 5.6 Former smoker, COPD history, roughly [id number] history, not on home oxygen Reviewed pt's previous images of Cardiac cath no evidence of CAD Reviewed pt's echo images from 11/2023, will do bedside echo TSH 2.25 EKG shows some PVCs Bedside echo done, normal LV and EF. From a cardiac standpoint, patient is cleared for surgery, however low risk for surgery for any adverse events. Surgery today Plan: ?Pain control handled by primary team ?Keep magnesium and potassium above 2 and 4 respectively ?GI and general surgery on consult, appreciate recs #History of essential hypertension #Paroxysmal A-fib, chronic [id number] Rate: Controlled in the 70s Rhythm: Regular AC: Has home Eliquis No history of heart failure Considering patient went into A-fib with RVR last night, will want to switch anticoagulation at this time. Will hold DESEAN at this time, will give beta-yoselin with holding parameters Plan: ? Resume A/C after surgery ? Metoprolol XL 50 mg, with holding parameters of heart rate below 55 or SBP below 110 #History of diabetes mellitus A1c 5.6 Plan: ? Primary team to handle blood sugars #History of COPD #Cirrhosis, Hyperdense areas in the liver Above managed by primary hospitalist team Patient seen and care discussed with my attending physician, Dr. Andie Galvan, PGY-1 Attending Provider Attestation/Addendum I have personally seen and examined the patient separately on the above date of service and discussed the plan of care with the resident. I reviewed the resident Dr. Brown consultation progress note and agree with the resident findings and plan in the note above and have also edited the documentation to reflect my findings and plan. Saran Chaves M.D. Interventional Cardiology
[2024-07-06 09:34] LABS: C-Reactive Protein 10.9 mg/dL (0.0-0.9)
--- NOTE | 2024-07-06 09:43 | PC.SS ---
Update: Plan is for the patient to undergo surgery today with Dr. Vail
--- NOTE | 2024-07-06 09:49 | PD.IMPROG ---
Documentation for date of: 07/06/24 Subjective Subjective Interval history: Pt was seen and examined post-op, tolerated surgery well, started on diet by surgery. Exam Vital Signs Temp Pulse Resp BP Pulse Ox O2 Del Method O2 Flow Rate 97.7 F 69 15 162/95 H 95 Room Air 1 07/06/24 08:30 07/06/24 08:30 07/06/24 08:30 07/06/24 08:30 07/06/24 08:30 07/06/24 08:30 07/06/24 04:00 Detailed Abdominal Exam Comments: Mildly tender at the surgical site, expected. no other significant findings. Soft, BS heard, no gaurding Objective Labs 07/06/24 04:55 07/06/24 04:55 Labs: Laboratory Results - last 24 hr 07/05/24 07/05/24 07/06/24 10:35 19:37 04:55 WBC 10.3 RBC 4.07 L Hgb 13.0 L Hct 39.0 L MCV 96 MCH 31.9 MCHC 33.3 RDW Std Deviation 48.7 H Plt Count 195 D Neut % (Auto) 66 Lymph % (Auto) 16 [place] % (Auto) 11 Eos % (Auto) 7 Baso % (Auto) 1 Neut # (Auto) 6.8 Lymph # (Auto) 1.6 [place] # (Auto) 1.1 H Eos # (Auto) 0.7 H Baso # (Auto) 0.1 Immature Gran # (Auto) 0.08 H Absolute Nucleated RBC 0.00 Immature Gran % 1 H Nucleated RBC % 0 PT 12.2 INR 1.1 APTT 49.8 H D 62.8 H D 30.8 D Sodium 139 Potassium 3.9 D Chloride 105 Carbon Dioxide 25.8 Anion Gap 8 BUN 7 L Creatinine 0.8 Estim Creat Clear Calc 62.7 eGFR > 60 BUN/Creatinine Ratio 9 L Glucose 91 Calculated Osmolality 275 Calcium 8.7 Corrected Calcium 9.2 Magnesium 1.6 Total Bilirubin 1.3 H AST 23 ALT 18 Alkaline Phosphatase 49 C-Reactive Prot, Quant 10.9 H Total Protein 6.0 Albumin 3.4 Globulin 2.6 Albumin/Globulin Ratio 1.3 ABG Interpretation ABG results: 07/01/24 09:44 VBG pH 7.42 VBG pCO2 46 VBG pO2 65 H VBG Base Excess 5 H Assessment & Plan A&P Narrative 79 year old male with HTN, HLD, COPD, DMII, afib and cirrhosis who underwent EGD/colonoscopy 06/30 with findings of grade I varices, gastritis and ileal polyp presented to ER due to RLQ pain. Nodule/Polyp in terminal ileum, attempted to remove it by using a Hot Snare and electrocoagulation was applied but most likely due to fibrotic texture of polyp/nodule, could not get removed and biopsy obtained. 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
--- NOTE | 2024-07-06 11:17 | SUR.PHASEI ---
1117 Patient arrived to recovery resting comfortably in bed, on oxygen 8L via oxy mask, breathing unlabored, vital signs stable, denies pain, dressing intact to midline abdomen; sutures, telfa gauze, medipore tape, no bleeding noted, report received from Dayna MCCANN and Dr. Potts
--- NOTE | 2024-07-06 11:25 | PD.SUROPNT ---
Date of Procedure 07/06/24 Pre Op Diagnosis Neuroendocrine tumor of terminal ileum Post Op Diagnosis Same Procedure Laparotomy, resection of terminal ileum and ascending colon Findings Terminal ileum polyp, inflammation of terminal ileum and proximal ascending colon Procedure Description After discussion of risks and benefits with patient and his daughter and an validation software facilitator, patient was brought to the operating room, SCDs were placed and general anesthesia was induced. A Veliz was placed and he received preoperative antibiotics. He was prepped and draped in the usual sterile fashion. After timeout a midline incision was made with a #10 blade and the tissues were dissected with electrocautery. When the peritoneum was reached it was elevated with tonsil clamps and incised with Metzenbaum scissors. The small bowel was eviscerated and examined by palpation, and no additional intraluminal polyps were identified. The terminal ileum was noted to be thickened with fibrinous exudate, and the polyp was palpated at the most distal aspect of the ileum. The ascending colon was also somewhat inflamed. The ascending colon was mobilized taking care to separate the duodenum. Once it was fully mobilized the distal transection point was chosen at the proximal transverse colon and a window was made in the mesentery. The transverse colon was stapled with a 60 mm gold staple. The proximal transection point was chosen at the distal ileum approximately 20 cm from the ileocecal valve. Opening was made in the mesentery with a tonsil clamp and this portion of bowel was stapled also with a 60 mm gold load. The mesentery was transected with an Enseal device and the specimen was removed. A [id number] ileocolic anastomosis was made and the common channel was inspected. There were no signs of bleeding. The common enterotomy/colotomy was closed with a 60 mm gold load staple and oversewn in a Lembert fashion with 3-0 Vicryl sutures. The crotch of the anastomosis was also sutured with a 3-0 Vicryl interrupted suture. The abdomen was irrigated and there were no signs of bleeding. The fascia was closed with a #1 PDS and the wound was irrigated. The skin was closed with ely and covered with Telfa, gauze and Tegaderm. The Veliz catheter was removed. Patient was extubated without complication. He was brought to PACU in stable condition Pathology / specimen Other (Terminal ileum and right colon) Estimated Blood Loss 100 Surgeon Barby Vail MD Surgical Staff Operation Date: 07/06/24 08:30 Case Staff Anesthesiologist: Edmundo Potts RN First Assistant: Kiah King
[2024-07-06] MEDS: fentaNYL CIT INJ 50 mCg/ML AMP 2ML 25 MCG IV (11:26)
--- NOTE | 2024-07-06 11:32 | SUR.PHASEI ---
1132 patient anxious, disoriented, sitting up and try to get out of bed, unable to verbally redirect patient, anesthesia provider at bedside, verbal order read-back received from Versed 1mg IVP repeat after 10 min if patient to bed anxious and restless
[2024-07-06] MEDS: MIDAZOLAM INJ 1 MG/ML VIAL 2 ML IV ×2 (11:37→12:06)
--- NOTE | 2024-07-06 11:48 | SUR.PHASEI ---
1148 Anesthesia provider at bedside, patients blood pressure elevated 197/94, verbal order read-back received from Hydralazine 10mg via IVP, will place order in EMR and administer per anesthesia order
[2024-07-06] MEDS: hydrALAZINE INJ 20 MG/ML VIAL 10 MG IV (11:52)
[2024-07-06] MEDS: MORPHINE SULF 1 MG/ML PCA SYRINGE 30 ML PCA (12:36)
--- NOTE | 2024-07-06 12:38 | PD.RESPRO ---
Documentation for date of: 07/06/24 Senior resident attestation: The patient is 79-year-old male with past medical history of hypertension, atrial fibrillation and hyperlipidemia, diabetes and COPD who admitted following abdominal pain after having a colonoscopy, initial concern for pneumoperitoneum, general surgery was consulted and followed the patient initially on conservative management. Pathology of terminal ileum polyp report showed neuroendocrine tumor, plan made to proceed with laparotomy and resection of terminal ileum and ascending colon, patient s/p resection of terminal ileum ascending colon, status post ileocolic anastomosis, patient started on clear liquid diet by general surgery, currently tolerating diet. ? 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 CBD dilation, concern for choledocholithiasis versus stricture, GI Dr Atkins following the patient recommended patient will need an ERCP prior to discharge. ? History of A-fib, was on heparin drip, which was on hold due to surgery, will resume after 24 hours postsurgery after consulting with general surgery. Cardiology is following the patient. ? Cirrhosis, hyperdense areas of liver, MRI showed no abnormal enhancing liver lesions. ? History of COPD?as needed nebulization Patient evaluated and examined at the bedside, plan of care discussed with rest of the team including my attending physician, except as noted. Quresh PGY2 Subjective Subjective Interval history: Consulted at the bedside found awake, oriented x 3. No overnight events reported. She is complaining of pain at this time. Patient is status post Laparotomy, resection of terminal ileum and ascending colon findings include Terminal ileum polyp, inflammation of terminal ileum and proximal ascending colon. Patient currently with patient controlled analgesia. Patient had MRI of the abdomen done found with enlarged common bile duct, Dr. Atkins recommends ERCP prior to discharge. Exam Vital Signs Temp Pulse Resp BP Pulse Ox O2 Del Method O2 Flow Rate 98.7 F 82 20 197/98 H 99 Room Air 8 07/06/24 11:17 07/06/24 11:52 07/06/24 11:17 07/06/24 11:52 07/06/24 11:17 07/06/24 08:30 07/06/24 11:17 Narrative Exam Physical Exam GENERAL: NAD, AAOx3 HEENT: Moist mucosa. Eyes open, symmetrical, & clear CARDIO: Heart RRR, no obvious murmurs PULM: No noted coughing/dyspnea CTA B/L, no R/W/R GI: Abdomen soft, nondistended, laparotomy scar noted covered with ely and covered with Telfa, gauze and Tegaderm SKIN/MSK/EXT: No wounds/rashes/edema/amputations, no pain on palpation. Pedal pulses present B/L NEURO: AAOx3, no focal neuro deficits, able to move all 4 extremities Objective Labs 07/07/24 04:42 07/07/24 04:42 Labs: Laboratory Results - last 24 hr 07/05/24 07/06/24 19:37 04:55 WBC 10.3 RBC 4.07 L Hgb 13.0 L Hct 39.0 L MCV 96 MCH 31.9 MCHC 33.3 RDW Std Deviation 48.7 H Plt Count 195 D Neut % (Auto) 66 Lymph % (Auto) 16 [place] % (Auto) 11 Eos % (Auto) 7 Baso % (Auto) 1 Neut # (Auto) 6.8 Lymph # (Auto) 1.6 [place] # (Auto) 1.1 H Eos # (Auto) 0.7 H Baso # (Auto) 0.1 Immature Gran # (Auto) 0.08 H Absolute Nucleated RBC 0.00 Immature Gran % 1 H Nucleated RBC % 0 PT 12.2 INR 1.1 APTT 62.8 H D 30.8 D Sodium 139 Potassium 3.9 D Chloride 105 Carbon Dioxide 25.8 Anion Gap 8 BUN 7 L Creatinine 0.8 Estim Creat Clear Calc 62.7 eGFR > 60 BUN/Creatinine Ratio 9 L Glucose 91 Calculated Osmolality 275 Calcium 8.7 Corrected Calcium 9.2 Magnesium 1.6 Total Bilirubin 1.3 H AST 23 ALT 18 Alkaline Phosphatase 49 C-Reactive Prot, Quant 10.9 H Total Protein 6.0 Albumin 3.4 Globulin 2.6 Albumin/Globulin Ratio 1.3 ABG Interpretation ABG results: 07/01/24 09:44 VBG pH 7.42 VBG pCO2 46 VBG pO2 65 H VBG Base Excess 5 H Quality Measures Quality Measures none Advance care planning discussed with:: patient Assessment & Plan Assessment Current Active Medications: Generic Name Dose Route Start Last Admin Trade Name Freq PRN Reason Stop Dose Admin Acetaminophen 650 mg 07/01/24 11:43 07/04/24 02:58 Acetaminophen 325 Mg Tablet PO 07/31/24 11:42 650 mg Q6H PRN Administration Fever >100.5 Acetaminophen 650 mg 07/01/24 11:43 Acetaminophen 325 Mg Tablet PO 07/31/24 11:42 Q6H PRN PAIN SCALE 1-3 (mild Hydrocodone Bitart/Acetaminophen 1 tab 07/01/24 21:12 07/05/24 21:37 Hydrocodone/Apap 5/325 Tablet PO 07/06/24 21:11 1 tab Q4HR PRN Administration PAIN SCALE 4-10(Mod-Sev Dextrose 25 ml 07/01/24 12:10 Dextrose 50%-Water Inj 50 Ml Syringe IV 07/31/24 12:09 Q15MIN PRN BG 50-70 responsive npo pt Dextrose 50 ml 07/01/24 12:10 Dextrose 50%-Water Inj 50 Ml Syringe IV 07/31/24 12:09 Q15MIN PRN BG <50 OR BG <70 & pt unresponsive Docusate Sodium 100 mg 07/01/24 11:45 07/06/24 08:20 Docusate Sod 100 Mg Capsule PO 07/31/24 11:44 Not Given QDAY SABINE Protocol Sodium Chloride 1,000 mls @ 125 mls/hr 07/01/24 20:06 07/06/24 02:08 Ns IV 07/31/24 20:05 125 mls/hr .Q8H SABINE Administration Piperacillin/Tazobactam/Dextrose 3.375 gm in 50 mls @ 12.5 mls/hr 07/02/24 14:00 07/06/24 05:14 Zosyn IV 07/09/24 13:59 12.5 mls/hr Q8HR SABINE Administration Insulin Human Lispro 0 unit 07/03/24 21:00 07/06/24 08:20 Insulin Lispro (Admelog) 1 Unit/0.01 Ml Unit SC 08/01/24 11:59 Not Given ACHS SABINE Protocol Ipratropium [place] 0.5 mg 07/01/24 23:00 07/06/24 07:08 Ipratropium Rt 0.5 Mg/ 2.5 Ml Nebu INH 07/31/24 22:59 0.5 mg Q8HRRT SABINE Administration Levalbuterol HCl 1.25 mg 07/01/24 23:00 07/06/24 07:09 Levalbuterol Rt 1.25 Mg/0.5 Ml Nebu INH 07/31/24 22:59 1.25 mg Q8HRRT SABINE Administration Melatonin 3 mg 07/01/24 21:00 07/05/24 21:21 Melatonin 3 Mg Tablet PO 07/31/24 20:59 3 mg HS SABINE Administration Metoprolol Succinate 50 mg 07/04/24 21:00 07/05/24 21:21 Metoprolol Succinate Xl 25 Mg Tabcr PO 08/03/24 20:59 50 mg HS SABINE Administration Morphine Sulfate 0 mg 07/06/24 12:14 07/06/24 12:36 Morphine Sulf 1 Mg/Ml Supervisor [employer]rication Syringe 30 Ml [employer]ARMWORK[employer] 07/11/24 12:13 30 mg PER ORDER SABINE Administration Protocol Ondansetron HCl 4 mg 07/01/24 11:43 Ondansetron Inj 2 Mg/Ml Inj 2 Ml IV 07/31/24 11:42 Q6H PRN NAUSEA OR VOMITING Protocol Pantoprazole Sodium 40 mg 07/02/24 12:30 07/06/24 08:09 Pantoprazole Inj 40 Mg Vial IV 08/01/24 12:29 40 mg BID SABINE Administration Sodium Chloride 3 ml 07/01/24 15:50 Sodium Chloride Rt [place]onda 0.9% 3 Ml Nebu INH 07/31/24 15:49 PRN PRN SOLN Ursodiol 300 mg 07/06/24 12:00 Ursodiol 300 Mg Capsule PO 08/05/24 11:59 QID SABINE Plan 79-year-old male with past medical history of A-fib hypertension hyperlipidemia diabetes COPD who presented to the ED due to right upper quadrant and right lower quadrant pain after having a colonoscopy. Admitted for pneumoperitoneum. General surgery and GI consulted. #Pneumoperitoneum #Bibasilar pneumonia #Neuroendocrine tumor of ileum #Status post Laparotomy, resection of terminal ileum and ascending colon Patient had a colonoscopy the day prior to admission after which patient started developing right upper quadrant and right lower quadrant pain CT abdomen pelvis showed Pneumoperitoneum, consider ischemic small bowel, recommend surgical consultation. Chest x-ray shows some mild bibasilar pneumonia Patient is not septic Patient had polyp removal via colonoscopy, pathology report showed neuroendocrine tumor of the ileum Patient is status post Laparotomy, resection of terminal ileum and ascending colon, findings include Terminal ileum polyp, inflammation of terminal ileum and proximal ascending colon -On Zosyn -General Surgery Dr. Vail consulted, appreciate recommendations -GI Dr. Atkins consulted, appreciate recommendations -Started on clear liquid diet per general surgery, will advance diet per general surgery commendations #Concern for common bile duct stone/cholangitis MRI abdomen was done and showed Primary hepatocellular disease No abnormal enhancing liver lesions, Enlarged common bile duct with several filling defects consistent with sludge versus stones GI Dr. Atkins recommends ERCP prior to discharge -On Zosyn -Pending ERCP -GI recommends ursodiol 300 mg 4 times daily, however will hold off at this time as patient is postop -GI, Dr. Atkins consulted, appreciate recommendations #History of hypertension #History of A-fib Patient is normotensive at this time CHADVASC score of 4 Patient overnight had A-fib with RVR with rate in the 160s required 45 mg total of diltiazem pushes at 1 point was placed on amiodarone drip the patient converted to sinus rhythm was discontinued. Cardiology recommends metoprolol 50 mg daily anticoagulation with heparin drip, Eliquis withheld in anticipation of surgery. -Heparin drip is on hold, plan to resume 24 hours postop after consulting with general surgery. -On metoprolol succinate 50 mg daily -Eliquis has not been resumed at this time in anticipation for possible procedure -Cardiology, Dr. Chaves consulted, appreciate recommendations #History of COPD Patient is a former smoker denies current cigarette use Examination some mild wheezing heard bilaterally -Levalbuterol and ipratropium as needed #[id number] A1c 5.6 -SSI -Hypoglycemia protocol in place #Cirrhosis, Hyperdense areas in the liver Found on CT abdomen pelvis recommend elective MRI abdomen pre and post-contrast follow-up -, MRI showed no abnormal enhancing liver lesions. Case discussed with my senior Dr. Vasques PGY-[address] Bailey Valentine MD PGY-1 Disposition: Telemetry Fluids: None Feeding: Diabetic clear liquid diet Thrombo prophylaxis: None as patient is postop Gastric Ulcer prophylaxis: Pantoprazole CODE STATUS: Full code Attending Provider Attestation/Addendum Gloria Barreto, , attest that I was physically present for the wilson portions of the service and evaluated the patient with the resident and I reviewed and discussed the case with the resident and agree with the resident's findings and plans of care as documented above Patient seen and evaluated this afternoon following laparotomy and resection of terminal ileum and ascending colon. Patient is somnolent and somewhat confused, likely due to anesthesia. 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 Continue with post-op care. Dressing over midline appears clean, dry and intact.
--- NOTE | 2024-07-06 12:58 | SUR.PHASEI ---
1250 Report given to Claudia MCCANN, patient meets discharge criteria from recovery, resting comfortably in bed, on oxygen 2L via nasal cannula, breathing unlabored, vital signs stable, pain controlled with METAL POURER, dressing intact with abdominal binder, no bleeding noted, patient voided in the urinal, denies nausea. 1258 Patient transported via bed to room 279 without incident.
--- NOTE | 2024-07-06 14:37 | PC.SS ---
Rounding Note: Patient scheduled for surgery today.
[2024-07-06] MEDS: METOPROLOL SUCCINATE XL 25 MG TABCR 50 MG PO (21:04)
[2024-07-06] MEDS: MELATONIN 3 MG TABLET PO (21:04)
[2024-07-07] VITALS (10 sets, daily range): BP systolic 113–128; BP diastolic 57–64; PULSE 64–84; RESP 17–94; TEMP 36.3–36.5; O2SAT 96–100
[2024-07-07] MEDS: PIPER/TAZO 3.375 GM 3.375 GM/50 ML BAG IV ×3 (06:00→21:16)
[2024-07-07] MEDS: LEVALBUTEROL RT 1.25 MG/0.5 ML NEBU INH ×3 (06:11→23:41)
[2024-07-07] MEDS: IPRATROPIUM RT 0.5 MG/ 2.5 ML NEBU INH ×3 (06:11→23:41)
[2024-07-07 06:25] LABS: Basophils % (Auto) 0 % (0-2.5); Eosinophils % (Auto) 0 % (0-10); Hemoglobin 12.8 g/dL (13.5-16.0); Immature Granulocytes % (Auto) 1 % (0-0); Immature Granulocytes Auto 0.07 Thou/mm3 (0.00-0.00); Lymphocytes # (Auto) 0.8 Thou/mm3 (1.0-4.8); Lymphocytes % (Auto) 6 % (10-50); Mean Corpuscular HGB Conc 33.7 g/dl (31.0-37.0); Mean Corpuscular Hemoglobin 32.2 pg (25.0-35.0); Mean Corpuscular Volume 96 fL (80-100); Monocytes # (Auto) 0.8 Thou/mm3 (0.0-0.8); Monocytes % (Auto) 6 % (0-12); Neutrophils % (Auto) 87 % (37-80); Nucleated Red Blood Cell % 0 /100 WBC (0); Platelet Count 207 Thou/mm3 (140-440); RDW Standard Deviation 48.6 fL (35.1-43.9); Red Blood Count 3.98 Miln/mm3 (4.50-5.90); White Blood Count 12.6 Thou/mm3 (3.8-10.6)
[2024-07-07 07:34] LABS: Alanine Aminotransferase 22 U/L (10-49); Albumin, Serum 3.7 gm/dL (3.4-4.8); Albumin/Globulin Ratio 1.5 (1.2-2.2); Alkaline Phosphatase 50 U/L (46-116); Anion Gap 9 (7-16); Aspartate Amino Transferase 32 U/L (0-34); BUN/Creatinine Ratio 17 Ratio (12-20); Bilirubin,Direct 0.5 mg/dL (0.0-0.3); Blood Urea Nitrogen 15 mg/dL (9-23); Calcium 9.1 mg/dL (8.3-10.6); Calcium (Corrected) 9.3 mg/dL (8.5-10.1); Carbon Dioxide 26.1 mMol/L (20.0-31.0); Chloride 100 mMol/L (98-107); Creatinine (Component) 0.9 mg/dL (0.6-1.3); Estimated Creatinine Clearance 55.7 mL/min (>60); Globulin 2.5 gm/dL (2.3-3.5); Glucose 165 mg/dL (74-106); Magnesium 1.9 mg/dL (1.6-2.6); Osmolality,Calculated 274 (275-295); Potassium 4.2 mMol/L (3.4-5.1); Sodium 135 mMol/L (136-145); Total Protein 6.2 gm/dL (5.7-8.2); eGFR > 60 See Note
[2024-07-07] MEDS: INSULIN LISPRO (AdmeLOG) 1 UNIT/0.01 ML UNIT SC ×3 (07:35→17:34)
[2024-07-07] MEDS: DOCUSATE SOD 100 MG CAPSULE PO (08:05)
[2024-07-07] MEDS: PANTOPRAZOLE INJ 40 MG VIAL IV ×2 (08:05→20:31)
--- NOTE | 2024-07-07 08:44 | PC.NURSE ---
[facility]24 from 0100 to 0700.
[2024-07-07] MEDS: Magnesium Sulfate 1 gm Ivpb 1 GM/100 ML BAG IV (09:50)
--- NOTE | 2024-07-07 13:46 | ESPR_ITS ---
Documentation for date of: 07/07/24 Senior resident attestation: The patient is 79-year-old male with past medical history of hypertension, atrial fibrillation and hyperlipidemia, diabetes and COPD who admitted following abdominal pain after having a colonoscopy, initial concern for pneumoperitoneum, general surgery was consulted and followed the patient initially on conservative management. Pathology of terminal ileum polyp report showed neuroendocrine tumor, plan made to proceed with laparotomy and resection of terminal ileum and ascending colon, patient s/p resection of terminal ileum ascending colon, status post ileocolic anastomosis, patient started on clear liquid diet by general surgery, currently tolerating diet. ? 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 CBD dilation, concern for choledocholithiasis versus stricture, GI Dr Atkins following the patient recommended patient will need an ERCP prior to discharge. ? History of A-fib, was on heparin drip, which was on hold due to surgery, will resume after 24 hours postsurgery after consulting with general surgery. Cardiology is following the patient. ? Cirrhosis, hyperdense areas of liver, MRI showed no abnormal enhancing liver lesions. ? History of COPD?as needed nebulization Patient evaluated and examined at the bedside, plan of care discussed with rest of the team including my attending physician, except as noted. Quresh PGY2 Subjective Subjective Interval history: Patient seen today at the bedside and awake, alert, oriented x 3. No overnight events reported. States no active complaints at this time, pain is adequately controlled is having flatus at this time. Vital signs stable at this time. Labs at this time unremarkable. Patient controlled analgesia switched to morphine 2 mg every 4 hours as needed. Spoke to general surgery Dr. Vail recommended advancing diet to full liquid diet will continue to advance as tolerated and when tolerating regular diet can start anticoagulation. Exam Vital Signs Temp Pulse Resp BP Pulse Ox O2 Del Method O2 Flow Rate 97.3 F 80 18 121/57 L 97 Room Air 3 07/07/24 12:00 07/07/24 12:07/07/24 12:07/07/24 12:07/07/24 12:07/07/24 12:07/07/24 06:12 Narrative Exam Physical Exam GENERAL: NAD, AAOx3 HEENT: Moist mucosa. Eyes open, symmetrical, & clear CARDIO: Heart RRR, no obvious murmurs PULM: No noted coughing/dyspnea CTA B/L, no R/W/R GI: Abdomen soft, nondistended, laparotomy scar noted covered with ely and covered with gauze and Tegaderm SKIN/MSK/EXT: No wounds/rashes/edema/amputations, no pain on palpation. Pedal pulses present B/L NEURO: AAOx3, no focal neuro deficits, able to move all 4 extremities Objective Labs 07/08/24 04:35 07/08/24 04:35 Labs: Laboratory Results - last 24 hr 07/07/24 04:42 WBC 12.6 H RBC 3.98 L Hgb 12.8 L Hct 38.0 L MCV 96 MCH 32.2 MCHC 33.7 RDW Std Deviation 48.6 H Plt Count 207 Neut % (Auto) 87 H Lymph % (Auto) 6 L [place] % (Auto) 6 Eos % (Auto) 0 Baso % (Auto) 0 Neut # (Auto) 11.0 H Lymph # (Auto) 0.8 L [place] # (Auto) 0.8 Eos # (Auto) 0.0 Baso # (Auto) 0.0 Immature Gran # (Auto) 0.07 H Absolute Nucleated RBC 0.00 Immature Gran % 1 H Nucleated RBC % 0 Sodium 135 L Potassium 4.2 Chloride 100 Carbon Dioxide 26.1 Anion Gap 9 BUN 15 Creatinine 0.9 Estim Creat Clear Calc 55.7 L eGFR > 60 BUN/Creatinine Ratio 17 Glucose 165 H D Calculated Osmolality 274 L Calcium 9.1 Corrected Calcium 9.3 Magnesium 1.9 Total Bilirubin 1.0 Direct Bilirubin 0.5 H AST 32 ALT 22 Alkaline Phosphatase 50 Total Protein 6.2 Albumin 3.7 Globulin 2.5 Albumin/Globulin Ratio 1.5 ABG Interpretation ABG results: 07/01/24 09:44 VBG pH 7.42 VBG pCO2 46 VBG pO2 65 H VBG Base Excess 5 H Quality Measures Quality Measures none Advance care planning discussed with:: patient Assessment & Plan Assessment Current Active Medications: Generic Name Dose Route Start Last Admin Trade Name Freq PRN Reason Stop Dose Admin Acetaminophen 650 mg 07/01/24 11:43 07/04/24 02:58 Acetaminophen 325 Mg Tablet PO 07/31/24 11:42 650 mg Q6H PRN Administration Fever >100.5 Dextrose 25 ml 07/01/24 12:10 Dextrose 50%-Water Inj 50 Ml Syringe IV 07/31/24 12:09 Q15MIN PRN BG 50-70 responsive npo pt Dextrose 50 ml 07/01/24 12:10 Dextrose 50%-Water Inj 50 Ml Syringe IV 07/31/24 12:09 Q15MIN PRN BG <50 OR BG <70 & pt unresponsive Docusate Sodium 100 mg 07/01/24 11:45 07/07/24 08:05 Docusate Sod 100 Mg Capsule PO 07/31/24 11:44 100 mg QDAY SABINE Administration Protocol Piperacillin/Tazobactam/Dextrose 3.375 gm in 50 mls @ 12.5 mls/hr 07/02/24 14:00 07/07/24 06:00 Zosyn IV 07/09/24 13:59 12.5 mls/hr Q8HR SABINE Administration Insulin Human Lispro 0 unit 07/03/24 21:00 07/07/24 11:34 Insulin Lispro (Admelog) 1 Unit/0.01 Ml Unit SC 08/01/24 11:59 2 unit ACHS SABINE Administration Protocol Ipratropium [place] 0.5 mg 07/01/24 23:00 07/07/24 06:11 Ipratropium Rt 0.5 Mg/ 2.5 Ml Nebu INH 07/31/24 22:59 0.5 mg Q8HRRT SABINE Administration Levalbuterol HCl 1.25 mg 07/01/24 23:00 07/07/24 06:11 Levalbuterol Rt 1.25 Mg/0.5 Ml Nebu INH 07/31/24 22:59 1.25 mg Q8HRRT SABINE Administration Melatonin 3 mg 07/01/24 21:00 07/06/24 21:04 Melatonin 3 Mg Tablet PO 07/31/24 20:59 3 mg HS SABINE Administration Metoprolol Succinate 50 mg 07/04/24 21:00 07/06/24 21:04 Metoprolol Succinate Xl 25 Mg Tabcr PO 08/03/24 20:59 50 mg HS SABINE Administration Morphine Sulfate 2 mg 07/07/24 12:30 Morphine Sulf Inj 10 Mg/Ml Vial IVP 07/12/24 12:29 Q4HR PRN PAIN SCALE 7-10 (Severe Ondansetron HCl 4 mg 07/01/24 11:43 Ondansetron Inj 2 Mg/Ml Inj 2 Ml IV 07/31/24 11:42 Q6H PRN NAUSEA OR VOMITING Protocol Pantoprazole Sodium 40 mg 07/02/24 12:30 07/07/24 08:05 Pantoprazole Inj 40 Mg Vial IV 08/01/24 12:29 40 mg BID SABINE Administration Sodium Chloride 3 ml 07/01/24 15:50 Sodium Chloride Rt [place] 0.9% 3 Ml Nebu INH 07/31/24 15:49 PRN PRN SOLN Plan 79-year-old male with past medical history of A-fib hypertension hyperlipidemia diabetes COPD who presented to the ED due to right upper quadrant and right lower quadrant pain after having a colonoscopy. Admitted for pneumoperitoneum. General surgery and GI consulted. #Pneumoperitoneum #Bibasilar pneumonia #Neuroendocrine tumor of ileum #Status post Laparotomy, resection of terminal ileum and ascending colon Patient had a colonoscopy the day prior to admission after which patient started developing right upper quadrant and right lower quadrant pain CT abdomen pelvis showed Pneumoperitoneum, consider ischemic small bowel, recommend surgical consultation. Chest x-ray shows some mild bibasilar pneumonia Patient is not septic Patient had polyp removal via colonoscopy, pathology report showed neuroendocrine tumor of the ileum Patient is status post Laparotomy, resection of terminal ileum and ascending colon, findings include Terminal ileum polyp, inflammation of terminal ileum and proximal ascending colon -On Zosyn -Patient controlled analgesia switched to IV morphine 2 mg every 4 as needed -General Surgery Dr. Vail consulted, appreciate recommendations -GI Dr. Atkins consulted, appreciate recommendations #Concern for common bile duct stone/cholangitis MRI abdomen was done and showed Primary hepatocellular disease No abnormal enhancing liver lesions, Enlarged common bile duct with several filling defects consistent with sludge versus stones GI Dr. Atkins recommends ERCP prior to discharge -On Zosyn -Pending ERCP -GI recommends ursodiol 300 mg 4 times daily, however will hold off at this time as patient is postop -GI, Dr. Atkins consulted, appreciate recommendations #History of hypertension #History of A-fib Patient is normotensive at this time CHADVASC score of 4 Patient overnight had A-fib with RVR with rate in the 160s required 45 mg total of diltiazem pushes at 1 point was placed on amiodarone drip the patient converted to sinus rhythm was discontinued. Cardiology recommends metoprolol 50 mg daily and start heparin drip in anticipation for surgery on Saturday -On heparin drip -On metoprolol succinate 50 mg daily -Eliquis has not been resumed at this time patient is postop -Cardiology, Dr. Chaves consulted, appreciate recommendations #History of COPD Patient is a former smoker denies current cigarette use Examination some mild wheezing heard bilaterally -Levalbuterol and ipratropium as needed #[id number] A1c 5.6 -SSI -Hypoglycemia protocol in place #Cirrhosis, Hyperdense areas in the liver Found on CT abdomen pelvis recommend elective MRI abdomen pre and post-contrast follow-up -Can follow-up as outpatient Case discussed with my senior Dr. Vasques PGY-[address] Bailey Valentine MD PGY-1 Disposition: Telemetry Fluids: None Feeding: Diabetic full liquid diet Thrombo prophylaxis: None as patient is postop Gastric Ulcer prophylaxis: Pantoprazole CODE STATUS: Full code Attending Provider Attestation/Addendum Gloria Barreto, , attest that I was physically present for the wilson portions of the service and evaluated the patient with the resident and I reviewed and discussed the case with the resident and agree with the resident's findings and plans of care as documented above Patient seen and evaluated this AM. He states he is feeling well and not requiring much pain medicine. 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 Tolerating liquid diet. Continue with postop care. Advance diet as per surgeon. GI plans for MRCP and ERCP prior to discharge due to enlarged CBD wtih stones/ sludge.
--- NOTE | 2024-07-07 16:45 | ESPR_ITS ---
Documentation for date of: 07/07/24 Subjective Subjective Interval history: Patient seen and examined today at the bedside .No overnight events reported. No abdominal pain, s/o ilecectomy Exam Vital Signs Temp Pulse Resp BP Pulse Ox O2 Del Method O2 Flow Rate 97.3 F 77 19 121/57 L 100 Room Air 3 07/07/24 12:00 07/07/24 15:56 07/07/24 14:59 07/07/24 12:00 07/07/24 14:59 07/07/24 12:00 07/07/24 06:12 Detailed Abdominal Exam Comments: Soft, mild tenderness at the site of surgery, no rebound Objective Labs 07/07/24 04:42 07/07/24 04:42 Labs: Laboratory Results - last 24 hr 07/07/24 04:42 WBC 12.6 H RBC 3.98 L Hgb 12.8 L Hct 38.0 L MCV 96 MCH 32.2 MCHC 33.7 RDW Std Deviation 48.6 H Plt Count 207 Neut % (Auto) 87 H Lymph % (Auto) 6 L [place] % (Auto) 6 Eos % (Auto) 0 Baso % (Auto) 0 Neut # (Auto) 11.0 H Lymph # (Auto) 0.8 L [place] # (Auto) 0.8 Eos # (Auto) 0.0 Baso # (Auto) 0.0 Immature Gran # (Auto) 0.07 H Absolute Nucleated RBC 0.00 Immature Gran % 1 H Nucleated RBC % 0 Sodium 135 L Potassium 4.2 Chloride 100 Carbon Dioxide 26.1 Anion Gap 9 BUN 15 Creatinine 0.9 Estim Creat Clear Calc 55.7 L eGFR > 60 BUN/Creatinine Ratio 17 Glucose 165 H D Calculated Osmolality 274 L Calcium 9.1 Corrected Calcium 9.3 Magnesium 1.9 Total Bilirubin 1.0 Direct Bilirubin 0.5 H AST 32 ALT 22 Alkaline Phosphatase 50 Total Protein 6.2 Albumin 3.7 Globulin 2.5 Albumin/Globulin Ratio 1.5 ABG Interpretation ABG results: 07/01/24 09:44 VBG pH 7.42 VBG pCO2 46 VBG pO2 65 H VBG Base Excess 5 H Assessment & Plan A&P Narrative 79 year old male with HTN, HLD, COPD, DMII, afib and cirrhosis who underwent EGD/colonoscopy 06/30 with findings of grade I varices, gastritis and ileal polyp presented to ER due to RLQ pain. Nodule/Polyp in terminal ileum, attempted to remove it by using a Hot Snare and electrocoagulation was applied but most likely due to fibrotic texture of polyp/nodule, could not get removed and biopsy obtained. There was an easy intubation of TI Bili trending down Dx: Post-polypectomy electrocoagulation syndrome , resolved. Pathology TI polyp: NET S/p ileocectomy Choledocholithiasis Continue Abx IVF Diet as per surgery MRCP tomorrow if shows CBD stone then ERCP on Will follow Time Spent With Patient Time: Total time spent is greater than 50% in coordination of care (as documented) at patient's floor/unit and/or counseling patient:
--- NOTE | 2024-07-07 17:25 | PD.RESPRO ---
Documentation for date of: 07/07/24 Subjective Subjective Interval history: 07/04/2024: Patient examined at bedside today. Overnight events included patient going into A-fib with RVR heart rate was in the 160s, was given diltiazem 3 times IV 45 mg total, was started on amio drip was given about 410 mg of that and it was then stopped. He returned back to sinus and was bradycardia at some point. He reports no chest pain, palpitations or shortness of breath overnight. Even when he was asked about overnight events he did not complain of any pain or shortness of breath, he just said that he was awakened by the phlebotomy team and nothing else. He has no active chest pain at this time or palpitations. He has not been vomiting or felt nauseous. He is wondering when he is going to get surgery. BUN/creatinine of 14 and 0.9 respectively, white count of 8.6, hemoglobin 12.4, magnesium of 1.9, potassium 4.1, given 2 g of magnesium. No other complaints at this time. 07/05/2024: Patient examined at bedside today. Telemetry reviewed, patient seems to be bradycardia, lowest of rate was 41. Patient reports he is doing well today is having no chest pain, or palpitations. He does endorse a little abdominal pain but no other complaints at this time he is still agreeable with having surgery tomorrow.. He says that he is not really having any shortness of breath this this time and the breathing treatments are helping him. His white count today is 8.1, hemoglobin is 12, potassium 3.1, repleted by primary team, magnesium 1.7 repleted by primary team, BUN/creatinine of 8 and 0.8 respectively, bicarb 27. Patient blood pressure and heart rate have been stable, heart rate has been in the 60s, his blood pressure has been in the 140s. Will continue with current management. 07/06/2024: Pt examined at bedside today. Telemetry reviewed, some instances of possible multifocal atrial tachycardia, however, rhythm strip reviewed, looks to be sinus tachycardia based of rate in 100s and clear p waves. Pt reports he is doing well today, have no chest pain or palpitations. Said overnight he was having some abdominal pain, however did not endorse any chest pain. He is still agreeable to the surgery which will happen today at 9 AM. Is not having any shortness of breath at the time. His white count is 7.3, hemoglobin 13, BUN/creatinine of 7 and 0.8 respectively, magnesium 1.6, repleted 4 g by primary team, potassium 3.9, repleted by primary team, T. bili 1.3. Heparin drip has been on hold since last night. His blood pressure has been stable 130s systolic, heart rate at this time is in mid 60s. No other complaints this time. 07/07/2024: Pt examined at bedside. Telemetry reviewed, pt seems to be rate controlled in 70s and 80s. Pt reports he is doing well and is not experiencing any chest pain or abd pain. He denies having any shortness of breath and is wondering when he is going to go home. His potassium is 4.2, mg 1.9, repleted 1 g, BUN and Cr 15 and 0.9 respectively, hemoglobin ~13, and white count ~12. Will continue with pain management and current management, no other events at this time. Exam Vital Signs Temp Pulse Resp BP Pulse Ox O2 Del Method O2 Flow Rate 97.3 F 77 19 121/57 L 100 Room Air 3 07/07/24 12:00 07/07/24 15:56 07/07/24 14:59 07/07/24 12:00 07/07/24 14:59 07/07/24 12:00 07/07/24 06:12 Narrative Exam General: AAOx3, NAD, pleasant speaking male HEENT: Moist mucous membranes, conjunctiva clear, EOMI, PERRLA, has gold teeth Cardiovascular: Difficulty appreciating if presence of murmur, radial pulses +2 bilat, RRR Pulmonary:No wheezing heard throughout lung dsouza, no cough GI: Some tenderness to light palpitation in R quadrant, no guarding, rigidity, rebound tenderness or distension Extremities: No presence of trace or pitting edema in lower extremities bilaterally, dorsalis pedis pulses +2 bilaterally Neuro: AAOx3, no focal motor or sensory deficits in the UE or LE bilat Psych: Good judgement, thought and behavior. Cooperative Objective Labs 07/07/24 04:42 07/07/24 04:42 Labs: Laboratory Results - last 24 hr 07/07/24 04:42 WBC 12.6 H RBC 3.98 L Hgb 12.8 L Hct 38.0 L MCV 96 MCH 32.2 MCHC 33.7 RDW Std Deviation 48.6 H Plt Count 207 Neut % (Auto) 87 H Lymph % (Auto) 6 L [place] % (Auto) 6 Eos % (Auto) 0 Baso % (Auto) 0 Neut # (Auto) 11.0 H Lymph # (Auto) 0.8 L [place] # (Auto) 0.8 Eos # (Auto) 0.0 Baso # (Auto) 0.0 Immature Gran # (Auto) 0.07 H Absolute Nucleated RBC 0.00 Immature Gran % 1 H Nucleated RBC % 0 Sodium 135 L Potassium 4.2 Chloride 100 Carbon Dioxide 26.1 Anion Gap 9 BUN 15 Creatinine 0.9 Estim Creat Clear Calc 55.7 L eGFR > 60 BUN/Creatinine Ratio 17 Glucose 165 H D Calculated Osmolality 274 L Calcium 9.1 Corrected Calcium 9.3 Magnesium 1.9 Total Bilirubin 1.0 Direct Bilirubin 0.5 H AST 32 ALT 22 Alkaline Phosphatase 50 Total Protein 6.2 Albumin 3.7 Globulin 2.5 Albumin/Globulin Ratio 1.5 ABG Interpretation ABG results: 07/01/24 09:44 VBG pH 7.42 VBG pCO2 46 VBG pO2 65 H VBG Base Excess 5 H Quality Measures Quality Measures none Advance care planning discussed with:: patient Assessment & Plan Assessment Current Active Medications: Generic Name Dose Route Start Last Admin Trade Name Freq PRN Reason Stop Dose Admin Acetaminophen 650 mg 07/01/24 11:43 07/04/24 02:58 Acetaminophen 325 Mg Tablet PO 07/31/24 11:42 650 mg Q6H PRN Administration Fever >100.5 Dextrose 25 ml 07/01/24 12:10 Dextrose 50%-Water Inj 50 Ml Syringe IV 07/31/24 12:09 Q15MIN PRN BG 50-70 responsive npo pt Dextrose 50 ml 07/01/24 12:10 Dextrose 50%-Water Inj 50 Ml Syringe IV 07/31/24 12:09 Q15MIN PRN BG <50 OR BG <70 & pt unresponsive Docusate Sodium 100 mg 07/01/24 11:45 07/07/24 08:05 Docusate Sod 100 Mg Capsule PO 07/31/24 11:44 100 mg QDAY SABINE Administration Protocol Piperacillin/Tazobactam/Dextrose 3.375 gm in 50 mls @ 12.5 mls/hr 07/02/24 14:00 07/07/24 14:33 Zosyn IV 07/09/24 13:59 12.5 mls/hr Q8HR SABINE Administration Insulin Human Lispro 0 unit 07/03/24 21:00 07/07/24 11:34 Insulin Lispro (Admelog) 1 Unit/0.01 Ml Unit SC 08/01/24 11:59 2 unit ACHS SABINE Administration Protocol Ipratropium [place] 0.5 mg 07/01/24 23:00 07/07/24 14:59 Ipratropium Rt 0.5 Mg/ 2.5 Ml Nebu INH 07/31/24 22:59 0.5 mg Q8HRRT SABINE Administration Levalbuterol HCl 1.25 mg 07/01/24 23:00 07/07/24 14:59 Levalbuterol Rt 1.25 Mg/0.5 Ml Nebu INH 07/31/24 22:59 1.25 mg Q8HRRT SABINE Administration Melatonin 3 mg 07/01/24 21:00 07/06/24 21:04 Melatonin 3 Mg Tablet PO 07/31/24 20:59 3 mg HS SABINE Administration Metoprolol Succinate 50 mg 07/04/24 21:00 07/06/24 21:04 Metoprolol Succinate Xl 25 Mg Tabcr PO 08/03/24 20:59 50 mg HS SABINE Administration Morphine Sulfate 2 mg 07/07/24 12:30 Morphine Sulf Inj 10 Mg/Ml Vial IVP 07/12/24 12:29 Q4HR PRN PAIN SCALE 7-10 (Severe Ondansetron HCl 4 mg 07/01/24 11:43 Ondansetron Inj 2 Mg/Ml Inj 2 Ml IV 07/31/24 11:42 Q6H PRN NAUSEA OR VOMITING Protocol Pantoprazole Sodium 40 mg 07/02/24 12:30 07/07/24 08:05 Pantoprazole Inj 40 Mg Vial IV 08/01/24 12:29 40 mg BID SABINE Administration Sodium Chloride 3 ml 07/01/24 15:50 Sodium Chloride Rt [place]onda 0.9% 3 Ml Nebu INH 07/31/24 15:49 PRN PRN SOLN Plan Assessment Des is a 79 y/o male with PMHx of paroxysmal atrial fibrillation/atrial flutter diagnosed in 2019, essential hypertension, Grade 1 esophageal varices, hyperlipidemia, COPD (~15 pack year hx, not a smoker currently, not on home oxygen) , ? history of cirrhosis, T2DM, perirectal abscess (s/p I and D in Feb 2024), L tension pneumothorax requiring chest tube (11/2023) who is requiring cardiac clearance for ileocecectomy. 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 Atkins Patient does endorse weight loss about 10 pounds in the past 6 months Chen activity status index: ~29 points Patient is able to walk and take care of himself, but does get short of breath with some strenuous activity such as some heavy work around the house, and strenuous sports and even moderate recreational activities, unable to run a short distance but able to climb flight of stairs or walk up a hill Abdomen MRI showed common bile duct with several filling defects consistent with sludge versus stones Cardiac cath in [address] Dale showed 1. Normal nonobstructive epicardial coronary arteries. 2. Normal left ventricular function, ejection fraction 60% Echo from November 2023 shows EF of 55 to 60%, normal LV, grade 1 diastolic dysfunction LDL 44 and total cholesterol 111 from recent lipid panel A1c of 5.6 Former smoker, COPD history, roughly [id number] history, not on home oxygen Reviewed pt's previous images of Cardiac cath no evidence of CAD Reviewed pt's echo images from 11/2023, will do bedside echo TSH 2.25 EKG shows some PVCs Bedside echo done, normal LV and EF. From a cardiac standpoint, patient is cleared for surgery, however low risk for surgery for any adverse events. Surgery today Plan: ?Pain control handled by primary team ?Keep magnesium and potassium above 2 and 4 respectively ?GI and general surgery on consult, appreciate recs #History of essential hypertension #Paroxysmal A-fib, chronic [id number] Rate: Controlled in the 70s Rhythm: Regular AC: Has home Eliquis 5 mg BID No history of heart failure Considering patient went into A-fib with RVR last night, will want to switch anticoagulation at this time. Will hold DESEAN at this time, will give beta-yoselin with holding parameters Plan: ? Consider resuming A/C after approval with surgery team and no concern for bleeding ? Metoprolol XL 50 mg, with holding parameters of heart rate below 55 or SBP below 110 #History of diabetes mellitus A1c 5.6 Plan: ? Primary team to handle blood sugars #History of COPD #Cirrhosis, Hyperdense areas in the liver Above managed by primary hospitalist team Patient seen and care discussed with my attending physician, Dr. Andie Galvan, PGY-1 Attending Provider Attestation/Addendum I have personally seen and examined the patient separately on the above date of service and discussed the plan of care with the resident. I reviewed the resident Dr. Brown consultation progress note and agree with the resident findings and plan in the note above and have also edited the documentation to reflect my findings and plan. Saran Chaves M.D. Interventional Cardiology
[2024-07-07] MEDS: MELATONIN 3 MG TABLET PO (20:30)
[2024-07-07] MEDS: METOPROLOL SUCCINATE XL 25 MG TABCR 50 MG PO (20:30)
[2024-07-07] MEDS: SIMETHICONE 80 MG CHEW PO (20:34)
[2024-07-08] VITALS (9 sets, daily range): BP systolic 104–133; BP diastolic 51–90; PULSE 57–74; RESP 16–99; TEMP 36.1–36.6; O2SAT 92–100
[2024-07-08] MEDS: PIPER/TAZO 3.375 GM 3.375 GM/50 ML BAG IV ×2 (05:35→13:40)
[2024-07-08 06:46] LABS: Basophils % (Auto) 0 % (0-2.5); Eosinophils % (Auto) 0 % (0-10); Hematocrit 35.7 % (41.0-53.0); Hemoglobin 12.2 g/dL (13.5-16.0); Immature Granulocytes % (Auto) 1 % (0-0); Immature Granulocytes Auto 0.09 Thou/mm3 (0.00-0.00); Lymphocytes # (Auto) 1.1 Thou/mm3 (1.0-4.8); Lymphocytes % (Auto) 8 % (10-50); Mean Corpuscular HGB Conc 34.2 g/dl (31.0-37.0); Mean Corpuscular Hemoglobin 32.3 pg (25.0-35.0); Mean Corpuscular Volume 94 fL (80-100); Monocytes # (Auto) 1.2 Thou/mm3 (0.0-0.8); Monocytes % (Auto) 9 % (0-12); Neutrophils # (Auto) 10.6 Thou/mm3 (1.8-7.7); Neutrophils % (Auto) 82 % (37-80); Nucleated Red Blood Cell % 0 /100 WBC (0); Platelet Count 215 Thou/mm3 (140-440); RDW Standard Deviation 47.9 fL (35.1-43.9); Red Blood Count 3.78 Miln/mm3 (4.50-5.90); White Blood Count 12.9 Thou/mm3 (3.8-10.6)
[2024-07-08] MEDS: IPRATROPIUM RT 0.5 MG/ 2.5 ML NEBU INH ×2 (06:57→15:02)
[2024-07-08] MEDS: LEVALBUTEROL RT 1.25 MG/0.5 ML NEBU INH ×2 (06:57→15:02)
[2024-07-08 07:12] LABS: Alanine Aminotransferase 29 U/L (10-49); Albumin, Serum 3.9 gm/dL (3.4-4.8); Albumin/Globulin Ratio 1.4 (1.2-2.2); Alkaline Phosphatase 56 U/L (46-116); Anion Gap 10 (7-16); Aspartate Amino Transferase 35 U/L (0-34); BUN/Creatinine Ratio 23 Ratio (12-20); Blood Urea Nitrogen 21 mg/dL (9-23); Calcium 9.9 mg/dL (8.3-10.6); Carbon Dioxide 29.1 mMol/L (20.0-31.0); Chloride 99 mMol/L (98-107); Creatinine (Component) 0.9 mg/dL (0.6-1.3); Estimated Creatinine Clearance 55.7 mL/min (>60); Globulin 2.7 gm/dL (2.3-3.5); Glucose 135 mg/dL (74-106); Magnesium 1.9 mg/dL (1.6-2.6); Osmolality,Calculated 280 (275-295); Potassium 4.2 mMol/L (3.4-5.1); Sodium 138 mMol/L (136-145); Total Protein 6.6 gm/dL (5.7-8.2); eGFR > 60 See Note
[2024-07-08] MEDS: PANTOPRAZOLE INJ 40 MG VIAL IV (08:19)
[2024-07-08] MEDS: Magnesium Sulfate 2 GM Ivpb 2 GM/50 ML BAG IV (08:22)
--- NOTE | 2024-07-08 11:23 | PC.NURSE ---
changed abdominal dressing ,incision well approximated with ely intact.pt.tolerated procedure well.daughter Shira at bedside.no bruising or bleeding noted.
--- NOTE | 2024-07-08 11:26 | PD.SURPROG ---
Documentation for date of: 07/08/24 Subjective Subjective Brief History: Spoke to pt with in-person translator and interpreter 79M with HTN, HLD, COPD, DMII, afib and cirrhosis who underwent EGD/colonoscopy 06/30 with findings of grade I varices, gastritis and ileal polyp presented to ER due to RLQ pain. Pt states pain was severe last night but it has improved; he denies any nausea/vomiting although is not feeling hungry. Pt underwent CT showing droplets of pneumoperitoneum, has WBC 19 without any fever or tachycardia Narrative: Spoke to patient with in person translator and interpreter Patient reports feeling very well minimal pain, no nausea, tolerating diet and had a loose BM, remaining afebrile Exam Vital Signs Temp Pulse Resp BP Pulse Ox O2 Del Method O2 Flow Rate 97.4 F 68 19 130/68 100 Room Air 1 07/08/24 08:00 07/08/24 08:00 07/08/24 08:00 07/08/24 08:00 07/08/24 08:00 07/08/24 08:00 07/08/24 06:58 Constitutional Constitutional: no acute distress Routine Respiratory Exam Respiratory: Present no resp distress Routine Abdominal Exam Abdominal: Present soft and wound (Midline incision with ely intact, no erythema, no fluctuance or tenderness); Absent tenderness or distended Results Results: Laboratory Laboratory results: results reviewed Assessment & Plan Plan 79M with HTN, HLD, COPD, DMII, afib and cirrhosis who underwent EGD/colonoscopy 06/30 with findings of grade I varices, gastritis and ileal polyp which turned out to be a neuroendocrine tumor now status post right hemicolectomy 07/06, recovering well. Patient was noted to have incidental choledocholithiasis on MRI last week, was considered for MRCP/ERCP however as he is asymptomatic with normal bilirubin, I spoke to the air traffic control specialist and we agreed on outpatient follow-up DM diet Okay to DC if tolerating Resume anticoagulation tomorrow Follow-up with me in 2 weeks as outpatient Follow-up with GI in 2 months Procedures Procedures Laparotomy, resection of terminal ileum and ascending colon
--- NOTE | 2024-07-08 12:20 | PD.RESPRO ---
Documentation for date of: 07/08/24 Subjective Subjective Interval history: 07/04/2024: Patient examined at bedside today. Overnight events included patient going into A-fib with RVR heart rate was in the 160s, was given diltiazem 3 times IV 45 mg total, was started on amio drip was given about 410 mg of that and it was then stopped. He returned back to sinus and was bradycardia at some point. He reports no chest pain, palpitations or shortness of breath overnight. Even when he was asked about overnight events he did not complain of any pain or shortness of breath, he just said that he was awakened by the phlebotomy team and nothing else. He has no active chest pain at this time or palpitations. He has not been vomiting or felt nauseous. He is wondering when he is going to get surgery. BUN/creatinine of 14 and 0.9 respectively, white count of 8.6, hemoglobin 12.4, magnesium of 1.9, potassium 4.1, given 2 g of magnesium. No other complaints at this time. 07/05/2024: Patient examined at bedside today. Telemetry reviewed, patient seems to be bradycardia, lowest of rate was 41. Patient reports he is doing well today is having no chest pain, or palpitations. He does endorse a little abdominal pain but no other complaints at this time he is still agreeable with having surgery tomorrow.. He says that he is not really having any shortness of breath this this time and the breathing treatments are helping him. His white count today is 8.1, hemoglobin is 12, potassium 3.1, repleted by primary team, magnesium 1.7 repleted by primary team, BUN/creatinine of 8 and 0.8 respectively, bicarb 27. Patient blood pressure and heart rate have been stable, heart rate has been in the 60s, his blood pressure has been in the 140s. Will continue with current management. 07/06/2024: Pt examined at bedside today. Telemetry reviewed, some instances of possible multifocal atrial tachycardia, however, rhythm strip reviewed, looks to be sinus tachycardia based of rate in 100s and clear p waves. Pt reports he is doing well today, have no chest pain or palpitations. Said overnight he was having some abdominal pain, however did not endorse any chest pain. He is still agreeable to the surgery which will happen today at 9 AM. Is not having any shortness of breath at the time. His white count is 7.3, hemoglobin 13, BUN/creatinine of 7 and 0.8 respectively, magnesium 1.6, repleted 4 g by primary team, potassium 3.9, repleted by primary team, T. bili 1.3. Heparin drip has been on hold since last night. His blood pressure has been stable 130s systolic, heart rate at this time is in mid 60s. No other complaints this time. 07/07/2024: Pt examined at bedside. Telemetry reviewed, pt seems to be rate controlled in 70s and 80s. Pt reports he is doing well and is not experiencing any chest pain or abd pain. He denies having any shortness of breath and is wondering when he is going to go home. His potassium is 4.2, mg 1.9, repleted 1 g, BUN and Cr 15 and 0.9 respectively, hemoglobin ~13, and white count ~12. Will continue with pain management and current management, no other events at this time. 07/08/2024: Pt examined at bedside. Telemetry reviewed, patient appears to be rate controlled in the 60s. Patient reports he is doing well and is bilaterally go home. Is having very mild abdominal pain, was not experiencing chest pain or palpitations per patient. He is not experiencing any shortness of breath. His BUN/creatinine today is 21 and 0.9 respectively, white count of 12.9, hemoglobin 12.2, T. bili 1.0, potassium 4.2, Mg 1.9, repleted by primary team. No other complaints at this time. Exam Vital Signs Temp Pulse Resp BP Pulse Ox O2 Del Method O2 Flow Rate 97.4 F 68 19 130/68 100 Room Air 1 07/08/24 08:00 07/08/24 08:00 07/08/24 08:00 07/08/24 08:00 07/08/24 08:00 07/08/24 08:00 07/08/24 06:58 Narrative Exam General: AAOx3, NAD, pleasant speaking male HEENT: Moist mucous membranes, conjunctiva clear, EOMI, PERRLA, has gold teeth Cardiovascular: Difficulty appreciating if presence of murmur, radial pulses +2 bilat, RRR Pulmonary:No wheezing heard throughout lung dsouza, no cough GI: Some tenderness to light palpitation in R quadrant, no guarding, rigidity, rebound tenderness or distension, abd binder present Extremities: No presence of trace or pitting edema in lower extremities bilaterally, dorsalis pedis pulses +2 bilaterally Neuro: AAOx3, no focal motor or sensory deficits in the UE or LE bilat Psych: Good judgement, thought and behavior. Cooperative Objective Labs 07/08/24 04:35 07/08/24 04:35 Labs: Laboratory Results - last 24 hr 07/08/24 04:35 WBC 12.9 H RBC 3.78 L Hgb 12.2 L Hct 35.7 L MCV 94 MCH 32.3 MCHC 34.2 RDW Std Deviation 47.9 H Plt Count 215 Neut % (Auto) 82 H Lymph % (Auto) 8 L [place] % (Auto) 9 Eos % (Auto) 0 Baso % (Auto) 0 Neut # (Auto) 10.6 H Lymph # (Auto) 1.1 [place] # (Auto) 1.2 H Eos # (Auto) 0.0 Baso # (Auto) 0.0 Immature Gran # (Auto) 0.09 H Absolute Nucleated RBC 0.00 Immature Gran % 1 H Nucleated RBC % 0 Sodium 138 Potassium 4.2 Chloride 99 Carbon Dioxide 29.1 Anion Gap 10 BUN 21 Creatinine 0.9 Estim Creat Clear Calc 55.7 L eGFR > 60 BUN/Creatinine Ratio 23 H Glucose 135 H Calculated Osmolality 280 Calcium 9.9 Corrected Calcium 10.0 Magnesium 1.9 Total Bilirubin 1.0 AST 35 H ALT 29 Alkaline Phosphatase 56 Total Protein 6.6 Albumin 3.9 Globulin 2.7 Albumin/Globulin Ratio 1.4 ABG Interpretation ABG results: 07/01/24 09:44 VBG pH 7.42 VBG pCO2 46 VBG pO2 65 H VBG Base Excess 5 H Quality Measures Quality Measures none Advance care planning discussed with:: patient Assessment & Plan Assessment Current Active Medications: Generic Name Dose Route Start Last Admin Trade Name Freq PRN Reason Stop Dose Admin Acetaminophen 650 mg 07/01/24 11:43 07/04/24 02:58 Acetaminophen 325 Mg Tablet PO 07/31/24 11:42 650 mg Q6H PRN Administration Fever >100.5 Dextrose 25 ml 07/01/24 12:10 Dextrose 50%-Water Inj 50 Ml Syringe IV 07/31/24 12:09 Q15MIN PRN BG 50-70 responsive npo pt Dextrose 50 ml 07/01/24 12:10 Dextrose 50%-Water Inj 50 Ml Syringe IV 07/31/24 12:09 Q15MIN PRN BG <50 OR BG <70 & pt unresponsive Docusate Sodium 100 mg 07/01/24 11:45 07/08/24 08:23 Docusate Sod 100 Mg Capsule PO 07/31/24 11:44 Not Given QDAY SABINE Protocol Piperacillin/Tazobactam/Dextrose 3.375 gm in 50 mls @ 12.5 mls/hr 07/02/24 14:00 07/08/24 05:35 Zosyn IV 07/09/24 13:59 12.5 mls/hr Q8HR SABINE Administration Insulin Human Lispro 0 unit 07/08/24 06:00 07/08/24 05:17 Insulin Lispro (Admelog) 1 Unit/0.01 Ml Unit SC 08/07/24 05:59 Not Given Q6H SABINE Protocol Ipratropium [place] 0.5 mg 07/01/24 23:00 07/08/24 06:57 Ipratropium Rt 0.5 Mg/ 2.5 Ml Nebu INH 07/31/24 22:59 0.5 mg Q8HRRT SABINE Administration Levalbuterol HCl 1.25 mg 07/01/24 23:00 07/08/24 06:57 Levalbuterol Rt 1.25 Mg/0.5 Ml Nebu INH 07/31/24 22:59 1.25 mg Q8HRRT SABINE Administration Melatonin 3 mg 07/01/24 21:00 07/07/24 20:30 Melatonin 3 Mg Tablet PO 07/31/24 20:59 3 mg HS SABINE Administration Metoprolol Succinate 50 mg 07/04/24 21:00 07/07/24 20:30 Metoprolol Succinate Xl 25 Mg Tabcr PO 08/03/24 20:59 50 mg HS SABINE Administration Morphine Sulfate 2 mg 07/07/24 12:30 Morphine Sulf Inj 10 Mg/Ml Vial IVP 07/12/24 12:29 Q4HR PRN PAIN SCALE 7-10 (Severe Ondansetron HCl 4 mg 07/01/24 11:43 Ondansetron Inj 2 Mg/Ml Inj 2 Ml IV 07/31/24 11:42 Q6H PRN NAUSEA OR VOMITING Protocol Pantoprazole Sodium 40 mg 07/02/24 12:30 07/08/24 08:19 Pantoprazole Inj 40 Mg Vial IV 08/01/24 12:29 40 mg BID SABINE Administration Sodium Chloride 3 ml 07/01/24 15:50 Sodium Chloride Rt [place]onda 0.9% 3 Ml Nebu INH 07/31/24 15:49 PRN PRN SOLN Plan Assessment Des is a 79 y/o male with PMHx of paroxysmal atrial fibrillation/atrial flutter diagnosed in 2018, essential hypertension, Grade 1 esophageal varices, hyperlipidemia, COPD (~15 pack year hx, not a smoker currently, not on home oxygen) , ? history of cirrhosis, T2DM, perirectal abscess (s/p I and D in Feb 2024), L tension pneumothorax requiring chest tube (11/2023) who is requiring cardiac clearance for ileocecectomy. 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 Atkins Patient does endorse weight loss about 10 pounds in the past 6 months Chen activity status index: ~29 points Patient is able to walk and take care of himself, but does get short of breath with some strenuous activity such as some heavy work around the house, and strenuous sports and even moderate recreational activities, unable to run a short distance but able to climb flight of stairs or walk up a hill Abdomen MRI showed common bile duct with several filling defects consistent with sludge versus stones Cardiac cath in [address] Dale showed 1. Normal nonobstructive epicardial coronary arteries. 2. Normal left ventricular function, ejection fraction 60% Echo from November 2023 shows EF of 55 to 60%, normal LV, grade 1 diastolic dysfunction LDL 44 and total cholesterol 111 from recent lipid panel A1c of 5.6 Former smoker, COPD history, roughly [id number] history, not on home oxygen Reviewed pt's previous images of Cardiac cath no evidence of CAD Reviewed pt's echo images from 11/2023, will do bedside echo TSH 2.25 EKG shows some PVCs Bedside echo done, normal LV and EF. From a cardiac standpoint, patient is cleared for surgery, however low risk for surgery for any adverse events. Per surgery, Dr. Vail, if pt tolerates diet, okay for DC, however, will do MRCP outpatient with Dr. Atkins Plan: ?Pain control handled by primary team ?Keep magnesium and potassium above 2 and 4 respectively ?GI and general surgery on consult, appreciate recs #History of essential hypertension #Paroxysmal A-fib, chronic [id number] Rate: Controlled in the 70s Rhythm: Regular AC: Has home Eliquis 5 mg BID No history of heart failure Considering patient went into A-fib with RVR last night, will want to switch anticoagulation at this time. Will hold DESEAN at this time, will give beta-yoselin with holding parameters Plan: ? Surgery team okay to resume A/C tomorrow ? Metoprolol XL 50 mg, with holding parameters of heart rate below 55 or SBP below 110 #History of diabetes mellitus A1c 5.6 Plan: ? Primary team to handle blood sugars #History of COPD #Cirrhosis, Hyperdense areas in the liver Above managed by primary hospitalist team Patient seen and care discussed with my attending physician, Dr. Andie Galvan, PGY-1 Attending Provider Attestation/Addendum I have personally seen and examined the patient separately on the above date of service and discussed the plan of care with the resident. I reviewed the resident Dr. Brown consultation progress note and agree with the resident findings and plan in the note above and have also edited the documentation to reflect my findings and plan. Saran Chaves M.D. Interventional Cardiology
--- NOTE | 2024-07-08 12:37 | ESPR_ITS ---
Documentation for date of: 07/08/24 Subjective Subjective Interval history: Pt was seen and examined and very mild pain in RLQ and no new symptoms and tolerating diet. Exam Vital Signs Temp Pulse Resp BP Pulse Ox O2 Del Method O2 Flow Rate 97.4 F 68 19 130/68 100 Room Air 1 07/08/24 08:00 07/08/24 08:00 07/08/24 08:00 07/08/24 08:00 07/08/24 08:00 07/08/24 08:00 07/08/24 06:58 Detailed Abdominal Exam Comments: Benign abdominal exam Objective Labs 07/08/24 04:35 07/08/24 04:35 Labs: Laboratory Results - last 24 hr 07/08/24 04:35 WBC 12.9 H RBC 3.78 L Hgb 12.2 L Hct 35.7 L MCV 94 MCH 32.3 MCHC 34.2 RDW Std Deviation 47.9 H Plt Count 215 Neut % (Auto) 82 H Lymph % (Auto) 8 L [place] % (Auto) 9 Eos % (Auto) 0 Baso % (Auto) 0 Neut # (Auto) 10.6 H Lymph # (Auto) 1.1 [place] # (Auto) 1.2 H Eos # (Auto) 0.0 Baso # (Auto) 0.0 Immature Gran # (Auto) 0.09 H Absolute Nucleated RBC 0.00 Immature Gran % 1 H Nucleated RBC % 0 Sodium 138 Potassium 4.2 Chloride 99 Carbon Dioxide 29.1 Anion Gap 10 BUN 21 Creatinine 0.9 Estim Creat Clear Calc 55.7 L eGFR > 60 BUN/Creatinine Ratio 23 H Glucose 135 H Calculated Osmolality 280 Calcium 9.9 Corrected Calcium 10.0 Magnesium 1.9 Total Bilirubin 1.0 AST 35 H ALT 29 Alkaline Phosphatase 56 Total Protein 6.6 Albumin 3.9 Globulin 2.7 Albumin/Globulin Ratio 1.4 ABG Interpretation ABG results: 07/01/24 09:44 VBG pH 7.42 VBG pCO2 46 VBG pO2 65 H VBG Base Excess 5 H Assessment & Plan A&P Narrative 79 year old male with HTN, HLD, COPD, DMII, afib and cirrhosis who underwent EGD/colonoscopy 06/30 with findings of grade I varices, gastritis and ileal polyp presented to ER due to RLQ pain. Nodule/Polyp in terminal ileum, attempted to remove it by using a Hot Snare and electrocoagulation was applied but most likely due to fibrotic texture of polyp/nodule, could not get removed and biopsy obtained. There was an easy intubation of TI Bili trending down and normal Dx: Post-polypectomy electrocoagulation syndrome , resolved. Pathology TI polyp: NET S/p ileocectomy Choledocholithiasis Continue Abx IVF Diet as per surgery Discussed with [place]-rectal surgery, given recent abdominal surgery and being asymptomatic, we will follow out pt in 2 months and obtain MRCP and will decide about ERCP Call GI with any questions Time Spent With Patient Time: Total time spent is greater than 50% in coordination of care (as documented) at patient's floor/unit and/or counseling patient:
--- NOTE | 2024-07-08 13:49 | PC.SS ---
Update: MRCP planned for today, ERCP planned for tomorrow.
--- NOTE | 2024-07-08 15:07 | PD.RESPRO ---
Documentation for date of: 07/08/24 Subjective Subjective Interval history: Patient seen today at the bedside fine awake, alert, oriented x 3. No overnight events reported. States no active complaints at this time. Vital signs stable at this time. Labs at this time unremarkable. Patient was scheduled to have MRCP today with Dr. Atkins however general surgery spoke to Exam Vital Signs Temp Pulse Resp BP Pulse Ox O2 Del Method O2 Flow Rate 97.6 F 64 19 133/63 H 95 Room Air 1 07/08/24 12:00 07/08/24 12:00 07/08/24 12:00 07/08/24 12:00 07/08/24 12:00 07/08/24 12:00 07/08/24 06:58 Objective Labs 07/08/24 04:35 07/08/24 04:35 Labs: Laboratory Results - last 24 hr 07/08/24 04:35 WBC 12.9 H RBC 3.78 L Hgb 12.2 L Hct 35.7 L MCV 94 MCH 32.3 MCHC 34.2 RDW Std Deviation 47.9 H Plt Count 215 Neut % (Auto) 82 H Lymph % (Auto) 8 L [place] % (Auto) 9 Eos % (Auto) 0 Baso % (Auto) 0 Neut # (Auto) 10.6 H Lymph # (Auto) 1.1 [place] # (Auto) 1.2 H Eos # (Auto) 0.0 Baso # (Auto) 0.0 Immature Gran # (Auto) 0.09 H Absolute Nucleated RBC 0.00 Immature Gran % 1 H Nucleated RBC % 0 Sodium 138 Potassium 4.2 Chloride 99 Carbon Dioxide 29.1 Anion Gap 10 BUN 21 Creatinine 0.9 Estim Creat Clear Calc 55.7 L eGFR > 60 BUN/Creatinine Ratio 23 H Glucose 135 H Calculated Osmolality 280 Calcium 9.9 Corrected Calcium 10.0 Magnesium 1.9 Total Bilirubin 1.0 AST 35 H ALT 29 Alkaline Phosphatase 56 Total Protein 6.6 Albumin 3.9 Globulin 2.7 Albumin/Globulin Ratio 1.4 ABG Interpretation ABG results: 07/01/24 09:44 VBG pH 7.42 VBG pCO2 46 VBG pO2 65 H VBG Base Excess 5 H Quality Measures Quality Measures none Assessment & Plan Assessment Current Active Medications: Generic Name Dose Route Start Last Admin Trade Name Freq PRN Reason Stop Dose Admin Acetaminophen 650 mg 07/01/24 11:43 07/04/24 02:58 Acetaminophen 325 Mg Tablet PO 07/31/24 11:42 650 mg Q6H PRN Administration Fever >100.5 Dextrose 25 ml 07/01/24 12:10 Dextrose 50%-Water Inj 50 Ml Syringe IV 07/31/24 12:09 Q15MIN PRN BG 50-70 responsive npo pt Dextrose 50 ml 07/01/24 12:10 Dextrose 50%-Water Inj 50 Ml Syringe IV 07/31/24 12:09 Q15MIN PRN BG <50 OR BG <70 & pt unresponsive Docusate Sodium 100 mg 07/01/24 11:45 07/08/24 08:23 Docusate Sod 100 Mg Capsule PO 07/31/24 11:44 Not Given QDAY SABINE Protocol Piperacillin/Tazobactam/Dextrose 3.375 gm in 50 mls @ 12.5 mls/hr 07/02/24 14:00 07/08/24 13:40 Zosyn IV 07/09/24 13:59 12.5 mls/hr Q8HR SABINE Administration Insulin Human Lispro 0 unit 07/08/24 06:00 07/08/24 13:17 Insulin Lispro (Admelog) 1 Unit/0.01 Ml Unit SC 08/07/24 05:59 Not Given Q6H SABINE Protocol Ipratropium [place] 0.5 mg 07/01/24 23:00 07/08/24 15:02 Ipratropium Rt 0.5 Mg/ 2.5 Ml Nebu INH 07/31/24 22:59 0.5 mg Q8HRRT SABINE Administration Levalbuterol HCl 1.25 mg 07/01/24 23:00 07/08/24 15:02 Levalbuterol Rt 1.25 Mg/0.5 Ml Nebu INH 07/31/24 22:59 1.25 mg Q8HRRT SABINE Administration Melatonin 3 mg 07/01/24 21:00 07/07/24 20:30 Melatonin 3 Mg Tablet PO 07/31/24 20:59 3 mg HS SABINE Administration Metoprolol Succinate 50 mg 07/04/24 21:00 07/07/24 20:30 Metoprolol Succinate Xl 25 Mg Tabcr PO 08/03/24 20:59 50 mg HS SABINE Administration Morphine Sulfate 2 mg 07/07/24 12:30 Morphine Sulf Inj 10 Mg/Ml Vial IVP 07/12/24 12:29 Q4HR PRN PAIN SCALE 7-10 (Severe Ondansetron HCl 4 mg 07/01/24 11:43 Ondansetron Inj 2 Mg/Ml Inj 2 Ml IV 07/31/24 11:42 Q6H PRN NAUSEA OR VOMITING Protocol Pantoprazole Sodium 40 mg 07/02/24 12:30 07/08/24 08:19 Pantoprazole Inj 40 Mg Vial IV 08/01/24 12:29 40 mg BID SABINE Administration Sodium Chloride 3 ml 07/01/24 15:50 Sodium Chloride Rt [place]onda 0.9% 3 Ml Nebu INH 07/31/24 15:49 PRN PRN SOLN
--- NOTE | 2024-07-08 15:55 | ESDS_ITS ---
<Statement entered by Gloria Avalos DO - 07/09/24 08:21> I, Gloria Avalos DO, attest that I was physically present for the wilson portions of the service and evaluated the patient with the resident and I reviewed and discussed the case with the resident and agree with the resident's findings and plans of care as documented above Planned Discharge Date 07/08/24 DS: Providers Provider Date of admission: 07/01/24 11:32 Primary care physician: Imani Kevin NP Admitting Provider: Gloria Avalos DO Attending Provider on Admission: Gloria Avalos DO Consults: 07/01/24 11:52 Consult to Gastroenterology Stat Comment: Consulting Provider: Doug Stephens 07/01/24 13:31 Consult to General Surgery Stat Comment: Consulting Provider: Barby Vail 07/01/24 15:03 Consult to Gastroenterology Urgent Comment: Consulting Provider: Doug Stephens 07/02/24 01:32 Referral Respiratory Therapy Routine Comment: Instructions: Hx of COPD, has breathing treatments at home 07/02/24 09:00 Health Equity Referral - Knowledge Deficit Routine Comment: Positive screening for knowledge deficit needs. Instructions: PT reports forgetful, understands MD when explained but forgets. [facility] Referral - Nutrition Routine Comment: Positive screening for nutrition needs. Instructions: pt reports sometimes runs out of money for food. 07/03/24 12:55 Consult to Cardiology Stat Comment: Pre-op cardiac clearance Consulting Provider: Saran Chaves Attending Provider on DC: Gloria Avalos DO Discharging Provider: Gautam Valentine MD Anticipated date of discharge: 07/08/24 DS: Diagnosis Problem List Completed Was Problem List Reviewed/Reconciled?: Yes Hospital Course Hospital Course Hospital course: 79-year-old male with past medical history of A-fib hypertension hyperlipidemia diabetes COPD who presented to the ED due to right upper quadrant and right lower quadrant pain after having a colonoscopy. Admitted for pneumoperitoneum. General surgery and GI consulted. During Hospital stay patient was managed with IV antibiotics namely zosyn for pneumonia and pneumoperitoneum. 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 Vail was consulted. Patient underwent laparotomy with resection of terminal ileum and scending colon. There was some concern for common bile duct stone found on MRI abdomen. Gi recommended MRCP and ERCP within 2 months of discharge as patient was not having any active symptoms. Patient has history of Atrial fibrillation and hypertension for which cardiology was consulted and provided recommendations. Patient was started on Metoprolol for rate control of his atrial fibrillation. Patient takes eliquis at home however anticoagulation will be resumed after disharge. Patient has history of COPD and breathing treatments were provided as needed. Patients pre-diabetes was controlled with insulin sliding scale and hypoglycemia protocol. Patient had hyperdense areas in the liver for which patient was counseled to follow up as outpatient. At this time medically stable for discharge. Recommended follow-up with primary care physician within 1 week of discharge. Recommended to follow-up with GI Dr. Atkins within 2 months of discharge. Recommended to follow-up with general surgeon Dr. Vail in 2 weeks after discharge. Anticoagulation Eliquis 5 mg twice daily for paroxysmal atrial fibrillation can be resumed 07/09/2024. Should symptoms progress patient instructed to return to the ED Problem List: #Pneumoperitoneum #Bibasilar pneumonia #Neuroendocrine tumor of ileum #Status post Laparotomy, resection of terminal ileum and ascending colon #Concern for common bile duct stone/cholangitis #History of hypertension #History of A-fib #History of COPD #[id number] #Cirrhosis, Hyperdense areas in the liver Case discussed with my attending Dr. Bailey Valentine MD PGY-1 Status at Discharge Functional status at discharge: independent ambulation Overall status at discharge: patient is progressing back to baseline Time Spent with Patient Time attestation: Total time spent providing and/or coordinating discharge services: > 30min Exam Vital Signs Temp Pulse Resp BP Pulse Ox O2 Del Method O2 Flow Rate 97.6 F 61 21 H 133/63 H 99 Room Air 1 07/08/24 12:00 07/08/24 15:02 07/08/24 15:02 07/08/24 12:07/08/24 15:02 07/08/24 12:07/08/24 06:58 Narrative Exam Physical Exam GENERAL: NAD, AAOx3 HEENT: Moist mucosa. Eyes open, symmetrical, & clear CARDIO: Heart RRR, no obvious murmurs PULM: No noted coughing/dyspnea CTA B/L, no R/W/R GI: Abdomen soft, nondistended, laparotomy scar noted covered SKIN/MSK/EXT: No wounds/rashes/edema/amputations, no pain on palpation. Pedal pulses present B/L NEURO: AAOx3, no focal neuro deficits, able to move all 4 extremities Discharge Plan Plan Patient Disposition: Home w/HOME HEALTH Care Plan Goals: Recommended follow-up with primary care physician within 1 week of discharge Recommended to follow-up with GI Dr. Atkins within 2 months of discharge Recommended to follow-up with general surgeon Dr. Vail in 2 weeks after discharge Anticoagulation Eliquis 5 mg twice daily for paroxysmal atrial fibrillation can be resumed 07/09/2024 Should symptoms progress patient instructed to return to the ED Prescriptions/Referrals Prescriptions/Med Rec: New metoprolol succinate 25 mg Tablet Extended Release 24 Hr 50 mg PO HS 30 Days Qty: 60 0RF hydrocodone-acetaminophen 5-325 mg tablet 1 tab PO Q6H MDD 20mg PRN (Reason: pain) Qty: 20 0RF Continued budesonide-formoterol [Symbicort] 160-4.5 mcg/actuation HFA aerosol inhaler 2 puff inhalation Q12H lisinopril 20 mg tablet 20 mg PO QDAY Qty: 90 0RF paroxetine HCl [Paxil] 10 mg tablet 10 mg PO QDAY Qty: 90 0RF albuterol sulfate [Ventolin HFA] 90 mcg/actuation HFA aerosol inhaler 2 puff inhalation Q6H PRN (Reason: Shortness Of Breath Or Wheezing) Qty: 8.5 0RF atorvastatin 10 mg tablet 10 mg PO QDAY Qty: 90 0RF ezetimibe 10 mg tablet 10 mg PO QDAY Qty: 90 0RF Eliquis 5 mg tablet 5 mg PO BID Qty: 180 0RF docusate sodium 100 mg capsule 100 mg PO QDAY Patient Comments: TOME 1 C PSULA POR V A ORAL TODOS LOS D Januvia 25 mg Tablet 25 mg PO DAILY Referrals: [facility],Imani Fried NP [Primary Care Provider] - Barby Vail MD [Physician] - (You will receive a phone call to confirm a follow-up appointment with me in 2 weeks) Patient/Caregiver Discharge Instructions Other Discharge Activity Instructions:: Avoid lifting objects greater than 10 pounds for 6 weeks You may resume showering Avoid bathing or swimming for 2 weeks It is okay to get ely wet, pat them dry after You may stop covering the wound if there is no drainage on the gauze If you develop worsening pain, nausea/vomiting, or fever please seek care in ER or you may call the office if during business hours Other Discharge Diet Instructions: follow up with next week [phone] Education Materials: Abdominal Pain, Exploratory Laparotomy, Having Open Colon Surgery Print Language: Albanian Stand Alone Forms: Emily Award Info., Patient Portal Info Letter Discharge Order Discharge Orders: Discharge (Routine); Ordered 07/08/24 Ordered By: Gautam Valentine Quality Discharge Quality Measures VTE prophylaxis
--- NOTE | 2024-07-09 12:08 | PC.CC ---
Addendum entered by Esperanza Hernandez RN 07/09/24 14:26: [facility] accepted the pt. Booked [facility]. Pending start of care date. Original Note: pt discharge disposition is Home with HH. Informed Dr. Avalos need HH orders.
--- NOTE | 2024-07-10 11:07 | PC.CC ---
Start of care date with [facility] is 07/12/24.
== END 2024-07-08 18:35 | disposition home health service (06) | DRG 329 ==
LOC: SERX 09:54 → SERHOLD 11:55 → S2NX 22:32
PROVIDERS: Internal Medicine Gastroenterology; Student in an Organized Health Care Education/Training Program; Surgery; Admitting Provider Internal Medicine; Emergency Provider Emergency Medicine; PCP Nurse Practitioner Family; Visit Provider Internal Medicine
PROC: 0DTK0ZZ Resection of Ascending Colon, Open Approach (ICD-10-PCS; CPT 49000; principal; 2024-07-06 08:15)
DX: K66.8 Other specified disorders of peritoneum (principal); J18.9 Pneumonia, unspecified organism; J44.0 Chronic obstructive pulmonary disease with (acute) lower respiratory infection; I85.10 Secondary esophageal varices without bleeding; I10 Essential (primary) hypertension; E11.9 Type 2 diabetes mellitus without complications; F17.200 Nicotine dependence, unspecified, uncomplicated; Z79.01 Long term (current) use of anticoagulants; E78.5 Hyperlipidemia, unspecified; K74.60 Unspecified cirrhosis of liver; D3A.8 Other benign neuroendocrine tumors; I48.0 Paroxysmal atrial fibrillation; K29.70 Gastritis, unspecified, without bleeding
CPT/HCPCS: 36415; 71045; 74176; 74183; 80053; 80061; 80076; 81001; 82105; 82803; 83036; 83605; 83690; 83735; 84145; 84443; 85025; 85610; 85730; 86140; 87040; 87811; 93005; 93306; 94640; 94644; 96361; 96365; 96367; 96372; 96375; 99291; A4217; A4649; A9579; J0283; J0360; J0461; J0694; J0696; J1643; J1644; J1650; J1815; J2250; J2270; J2371; J2470; J2543; J2704; J2919; J3010; J3475; J3480; J3490; J7030; A9270; J1836

== ENCOUNTER → 2024-07-15 | Outpatient (BNVA) | payer MEDICARE, MEDICAID, SELFPAY | END | disposition home or self-care (01) | PROVIDERS: PCP Nurse Practitioner Family; Referring Provider Nurse Practitioner Family; Visit Provider Nurse Practitioner Family | DX: Z76.89 Persons encountering health services in other specified circumstances (principal); K65.9 Peritonitis, unspecified | CPT/HCPCS: 96372; 99213; A4216; J0696 ==

== ENCOUNTER → 2024-07-17 | Outpatient (BNVA) | payer MEDICARE, MEDICAID, SELFPAY | END | disposition home or self-care (01) | PROVIDERS: PCP Nurse Practitioner Family; Referring Provider Nurse Practitioner Family; Visit Provider Nurse Practitioner Family | DX: C7B.8 Other secondary neuroendocrine tumors (principal) | CPT/HCPCS: 96372; 99215; A4216; J0696 ==

== ENCOUNTER 2024-07-20 13:32 | Outpatient (AMB) | payer MEDICARE, MEDICAID, SELFPAY ==
[2024-07-20 13:51] VITALS: BP 102/61; PULSE 92; RESP 19; TEMP 36.1; O2SAT 95; BMI 21.4
--- NOTE | 2024-07-20 13:51 | GSCOFFNT_ITS ---
Vital Signs - [facility] 07/20/24 13:51 Height 1.65 m Height Method Stated Weight 58.258 kg Weight Measurement Method Standing Scale BMI 21.4 BP 102/61 Blood Pressure Source Automatic Cuff Blood Pressure Location Right Upper Arm Position Sitting Respiration 19 Pulse 92 Pulse Source Monitor Temp 97.0 F Temp Source Temporal Artery Scan Pulse Oximetry (%) 95 Oxygen Delivery Method Room Air Med/Allergies Allergies & Medications Allergies No Known Allergies Allergy (Verified 07/20/24 13:54) Medication Reconciliation budesonide-formoterol HFA 160 mcg-4.5 mcg/actuation aerosol inhaler (Symbicort) 2 puff inhalation Q12H 01/03/24 [History Confirmed 07/20/24] apixaban 5 mg tablet (Eliquis) 5 mg PO BID #180 tabs 01/21/24 [Rx Confirmed 07/20/24] albuterol sulfate 90 mcg/actuation aerosol inhaler (Ventolin HFA) 2 puff inhalation Q6H PRN Shortness Of Breath Or Wheezing #8.5 grams 06/17/24 [Rx Confirmed 07/20/24] atorvastatin 10 mg tablet 10 mg PO QDAY #90 tabs 06/17/24 [Rx Confirmed 07/20/24] ezetimibe 10 mg tablet 10 mg PO QDAY #90 tabs 06/17/24 [Rx Confirmed 07/20/24] lisinopril 20 mg tablet 20 mg PO QDAY #90 tabs 06/17/24 [Rx Confirmed 07/20/24] paroxetine HCl 10 mg tablet (Paxil) 10 mg PO QDAY #90 tabs 06/17/24 [Rx Confirmed 07/20/24] docusate sodium 100 mg capsule 100 mg PO QDAY 06/30/24 [History Confirmed 07/20/24] sitagliptin phosphate 25 mg tablet (Januvia) 25 mg PO DAILY 07/02/24 [History Confirmed 07/20/24] hydrocodone 5 mg-acetaminophen 325 mg tablet 1 tab PO Q6H PRN pain #20 tabs 07/08/24 [Rx Confirmed 07/20/24] metoprolol succinate 25 mg tablet,extended release 24 hr 50 mg (2 x 25 mg) PO HS 30 days #60 tabs 07/08/24 [Rx Confirmed 07/20/24] amoxicillin 875 mg-potassium clavulanate 125 mg tablet 1 tab PO BID #14 tabs 07/15/24 [Rx Confirmed 07/20/24] pantoprazole 40 mg tablet,delayed release 40 mg PO QAM 8 weeks #56 tabs 07/15/24 [Rx Confirmed 07/20/24] inhalat.spacing dev,large mask (Aerochamber Plus Z Stat Large Mask) #10 ea 07/17/24 [Rx Confirmed 07/20/24] MA Intake Visit Data Collection New Patient or Established: Established Patient (seen at [facility] within 3 years) Seen by Clinical Staff ONLY (RN/MA): No Pain Present Currently: No Pain Scale Used: [place] Required: Yes PCP or OBGYN visit in last 3 months: Yes Hx Now: No Do You Feel Safe at Home: Yes Authorities Contacted: N/A Smoking Status Smoking Status: Former smoker Immunization / Flu Flu Vaccine in the Last 12 Months: No Flu Vaccine Exclusion Criteria: No Exclusion Criteria Past Medical History Past Medical History NEUROLOGIC: Negative Neurological Disorders or Seizures CARDIAC: Positive Cardiac Disorders, Atrial Fibrillation, Angina, Peripheral Vascular Disease, Hypercholesterolemia and Hypertension; Negative Congestive Heart Failure RESPIRATORY: Positive Chronic Obstructive Pulmonary Disease (COPD), Asthma, Bronchitis, Pneumonia and Smoking GASTROINTESTINAL: Positive Gastrointestinal Disorders and Cirrhosis; Negative Colorectal Cancer GENITOURINARY: Positive Genitourinary Disorders and Renal Disease; Negative Prostate Cancer MUSCULOSKELETAL: Positive Arthritis ENT: Positive Deafness ENDOCRINE: Positive Endocrine Disorders and Diabetes Mellitus Type 2; Negative Diabetes Mellitus Type 1 HEMATOLOGIC: Positive Blood Disorders and Anemia; Negative Sickle Cell Disease PSYCHO/SOCIAL: Positive Depression OTHER HISTORY: Positive Hospitalization, Falls and Measles; Negative Down Syndrome, Developmental Delay, Blood Transfusions, Blood Transfusion Reaction, Anesthesia Reactions, MRSA, Vancomycin-Resistant Enterococci, Cancer, Colorectal Cancer, Lung Cancer, Ovarian Cancer or Prostate Cancer Family History FAMILY HISTORY: Positive Family Respiratory Disorders and Family Cancer (MOM- CANCER TYPE UNKNOWN); Negative Family Cardiac Disorders Surgical History SURGICAL: Negative Cardiac Surgery, Pacemaker, Endocrine Surgery, Abdominal Surgery or Joint Replacement Social History SMOKING STATUS: Smoking status: Former smoker SECOND HAND EXPOSURE: second hand exposure: Yes SUBSTANCE USE: Substance use type: does not use ALCOHOL: Alcohol Intake: Former ALCOHOL FREQUENCY: Alcohol Intake Frequency: A Few Times a Month HOUSING: Housing: Apartment LIVES WITH: Lives With: Spouse Travel Risk Travel Hx Recent Travel: No HPI HPI Narrative Spoke to pt with in-person diplomatic interpreter 79M with HTN, HLD, COPD, DMII, afib and cirrhosis who underwent EGD/colonoscopy 06/30 with findings of grade I varices, gastritis and ileal polyp which turned out to be a neuroendocrine tumor now status post right hemicolectomy 07/06, here for planned follow up. Last week pt developed erythema surrounding the incision and was starting on augmentin, which will complete tomorrow. He states he has intermittent pain and some drainage, but denies nausea and fever, states he is eating well and having regular BMs ROS Review of Systems Systems Reviewed: All systems reviewed, normal except as documented Objective/Exam General General Appearance: alert, cooperative and well groomed Resp Respiratory exam: Absent respiratory distress Abdominal Abdominal exam: Present soft and incision (midline incision with minimal surrounding erythema. 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 I showed pt's daughter how to pack the wound and she expressed understanding. I also explained that I am referring to oncology for follow up due to the positive LN seen in the specimen. All questions were answered and pt will follow up in 2 weeks Orders: Referrals Oncology C7A.8 - Other malignant neuroendocrine tumors, C7B.8 - Other secondary neuroendocrine tumors Advanced Care Planning Advance care planning discussed with:: patient Office Procedures GNS Level of Care Nursing/Assessment Patient Status: Established Patient Nursing Assessment/Reassesment: Medication Reconciliation, Update PMH in EMR and Vital Signs Coordination of Care: Complex Care and Chronic Disease 1-5, Education Complex Pt/Fam, Consent,records obtained, informed consent, Results/Orders obtained and Staff clarify orders Special Needs: Language special needs Established Patient Charge Established Patient Point Assignment: 95 Established Patient Point Charge: EP Level 3 (80-115) Patient Portal Questionaires Social History Living Situation History Lives With: Spouse Housing: Apartment Housing Other:: Pt lives with Tobacco History Smoking Status: Former smoker Second Hand Smoke Exposure: Yes Alcohol History Alcohol Intake: Former Alcohol Intake Frequency: A Few Times a Month Substance Use History Substance Use: NONE Domestic Abuse History Do You Feel Safe at Home: Yes Review of Systems Report any current symptoms Only answer those that you have currently: Past Medical History Past Medical History Have you ever been diagnosed with any of the following: Neurological Problems Seizures: No Cardiology Problems Atrial Fibrillation: Yes Angina: Yes Peripheral Vascular Disease: Yes Hypercholesterolemia: Yes Congestive Heart Failure: No Hypertension: Yes Respiratory Problems Chronic Obstructive Pulmonary Disease (COPD): Yes Asthma: Yes Bronchitis: Yes Pneumonia: Yes Smoking: Yes Stomache/Intestinal Problems Cirrhosis: Yes Colorectal Cancer: No Genital/Urinary Problems Renal Disease: Yes Prostate Cancer: No Musculoskeletal Problems Arthritis: Yes Head,Eye,Nose,Throat Problems Deafness: Yes Endocrine Problems Diabetes Mellitus Type 1: No Diabetes Mellitus Type 2: Yes Blood Problems Anemia: Yes Sickle Cell Disease: No Psychologic Problems Depression: Yes Other Problems Hospitalization: Yes Down Syndrome: No Developmental Delay: No Falls: Yes Blood Transfusions: No Blood Transfusion Reaction: No Anesthesia Reactions: No MRSA: No Vancomycin-Resistant Enterococci: No Measles: Yes Cancer: No Lung Cancer: No Ovarian Cancer: No Surgical History Pacemaker: No
== END 2024-07-20 14:18 | disposition home or self-care (01) ==
LOC: HODSRG 13:32
PROVIDERS: PCP Nurse Practitioner Family; Referring Provider Nurse Practitioner Family; Supervising Provider Surgery; Visit Provider Surgery
DX: Z48.815 Encounter for surgical aftercare following surgery on the digestive system (principal); C7A.8 Other malignant neuroendocrine tumors; L08.9 Local infection of the skin and subcutaneous tissue, unspecified
CPT/HCPCS: 99213; G0463

== ENCOUNTER 2024-08-04 08:27 | Outpatient (RCR) | payer MEDICARE, MEDICAID, SELFPAY ==
[2024-08-07 14:50] VITALS: BMI 21.7
--- NOTE | 2024-08-10 08:59 | CTCCONSULT_ITS ---
Patient: REGIS CRUZ : 1945 MR#: [id number] Page 2 of 3 CONSULTATION NOTE DATE OF CONSULTATION: 08/04/2024 NAME: REGIS CRUZ ACCOUNT: [id number] : 1945 AGE: 79 REFERRING PHYSICIAN: Barby Vail MD PRIMARY PHYSICIAN: Abelino Samson MD REASON FOR VISIT: Patient here for consult for new diagnosis of NET. Patient is having diarrhea since procedure . he have lost about 20 pounds of weight since surgery. Patient also have wheezing which he attributes to smoking . 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 Patient have quit smoking since last hospitalization. Patient had lsot weight ,abt 20 and still have diarrhea. Patient have poor appetite .he also have wheexing which gets better with inhalers OTHER MEDICAL HISTORY/CONDITIONS: Neuroendocrine Diabetes Abscess?-? Pneumothorax?left?2023 FAMILY HISTORY: Patient?denies?family?cancer?history. 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 ETOH Use:?Quit 10-15yrs ago - Beer/ Hard liquor daily Drug?Note:?Denies Social?History?Note:?Lives?with? MEDICATIONS: 1. atorvastatin - 10 mg 1 tab Daily 2. Januvia - 25 mg 1 tab Daily Medications Last Reconciled by Polina Harris RN on 08/04/2024 ALLERGIES: No Known Drug Allergies REVIEW OF SYSTEMS: A complete 14-point review of systems was performed and is negative except as noted in interval history. PHYSICAL EXAMINATION: VITAL SIGNS: Temperature?100.2, B/P?115/64, Height?64?inches, Oxygen?Saturation?93% Weight?134?lbs PAIN: 3 - Between mild and moderate pain ECOG Performance Status: 0 - Asymptomatic and fully active GENERAL APPEARANCE: Appears well, in no apparent distress, appropriately interactive. HEENT: Normocephalic, no temporal wasting, normal conjunctiva, no scleral icterus, normal hearing, lips without lesions, neck normal range of motion. CARDIOVASCULAR: Not assessed. PULMONARY: Normal respiratory effort, no respiratory distress or use of accessory muscles, speaking in full sentences, no tachypnea. EXTREMITIES: No pedal edema or cyanosis. SKIN: Normal skin appearance. NEUROLOGIC: Alert and oriented x4. PSHYCHIATRIC: Appropriate affect, mood normal, behavior normal, intact thought and speech. 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 I spent a total of 50 minutes on this patient?s care on the day of their visit excluding time spent related to any billed procedures. This time includes time spent with the patient as well as time spent documenting in the medical record, reviewing patients records and tests, obtaining history, placing orders, communicating with other healthcare professionals, counseling the patient, family or caregiver, and/or care coordination for the diagnoses above. Electronically Signed by: Abelino Samson MD T: 8:56 AM CC: PCP: Abelino Samson Referring: Barby Vail This document was completed utilizing speech recognition software. Grammatical errors, random word insertions, pronoun errors, and incomplete sentences are an occasional consequence of this system due to software limitations, ambient noise, and hardware issues. Any formal questions or concerns about the content, text or information contained within the body of this dictation should be directly addressed to the provider for clarification.
== END 2024-08-07 23:59 | disposition home or self-care (01) ==
LOC: SCTC 08:27
PROVIDERS: PCP Nurse Practitioner Family; Referring Provider Surgery; Visit Provider Internal Medicine Hematology & Oncology
DX: C7A.8 Other malignant neuroendocrine tumors (principal); R19.7 Diarrhea, unspecified; R06.2 Wheezing; Z87.891 Personal history of nicotine dependence
CPT/HCPCS: 99213; G0463

== ENCOUNTER 2024-08-06 14:18 | Outpatient (AMB) | payer MEDICARE, MEDICAID, SELFPAY ==
[2024-08-06 14:31] VITALS: BP 128/47; PULSE 87; RESP 18; TEMP 36.7; O2SAT 90; BMI 22.4
--- NOTE | 2024-08-06 14:31 | GSCOFFNT_ITS ---
[facility] - [facility] 08/06/24 14:31 Height 1.65 m Height Method Stated Weight 61.008 kg Weight Measurement Method Standing Scale BMI 22.4 BP 128/47 L Blood Pressure Source Automatic Cuff Blood Pressure Location Right Lower Arm Position Sitting Respiration 18 Pulse 87 Pulse Source Monitor Temp 98.1 F Temp Source Temporal Artery Scan Pulse Oximetry (%) 90 L Oxygen Delivery Method Room Air Med/Allergies Allergies & Medications Allergies No Known Allergies Allergy (Verified 08/06/24 14:33) Medication Reconciliation apixaban 5 mg tablet (Eliquis) 5 mg PO BID #180 tabs 01/21/24 [Rx Confirmed 08/06/24] atorvastatin 10 mg tablet 10 mg PO QDAY #90 tabs 06/17/24 [Rx Confirmed 08/06/24] ezetimibe 10 mg tablet 10 mg PO QDAY #90 tabs 06/17/24 [Rx Confirmed 08/06/24] lisinopril 20 mg tablet 20 mg PO QDAY #90 tabs 06/17/24 [Rx Confirmed 08/06/24] paroxetine HCl 10 mg tablet (Paxil) 10 mg PO QDAY #90 tabs 06/17/24 [Rx Confirmed 08/06/24] docusate sodium 100 mg capsule 100 mg PO QDAY 06/30/24 [History Confirmed 08/06/24] sitagliptin phosphate 25 mg tablet (Januvia) 25 mg PO DAILY 07/02/24 [History Confirmed 08/06/24] hydrocodone 5 mg-acetaminophen 325 mg tablet 1 tab PO Q6H PRN pain #20 tabs 07/08/24 [Rx Confirmed 08/06/24] metoprolol succinate 25 mg tablet,extended release 24 hr 50 mg (2 x 25 mg) PO HS 30 days #60 tabs 07/08/24 [Rx Confirmed 08/06/24] amoxicillin 875 mg-potassium clavulanate 125 mg tablet 1 tab PO BID #14 tabs 07/15/24 [Rx Confirmed 08/06/24] pantoprazole 40 mg tablet,delayed release 40 mg PO QAM 8 weeks #56 tabs 07/15/24 [Rx Confirmed 08/06/24] albuterol sulfate 90 mcg/actuation aerosol inhaler (Ventolin HFA) 2 puff inhalation Q6H PRN Shortness Of Breath Or Wheezing #8.5 grams 08/04/24 [Rx Confirmed 08/06/24] budesonide-formoterol HFA 160 mcg-4.5 mcg/actuation aerosol inhaler (Symbicort) 2 puff inhalation Q12H #10.2 grams 08/04/24 [Rx Confirmed 08/06/24] inhalat.spacing dev,large mask (Aerochamber Plus Z Stat Large Mask) #10 ea 08/04/24 [Rx Confirmed 08/06/24] megestrol 20 mg tablet 20 mg PO BID #60 tabs 08/06/24 [Rx] MA Intake Visit Data Collection New Patient or Established: Established Patient (seen at [facility] within 3 years) Seen by Clinical Staff ONLY (RN/MA): No Reason for Visit:: 2 weeks f/u Pain Present Currently: No Pain scale:: 0 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 PCP or OBGYN visit in last 3 months: Yes Do You Feel Safe at Home: Yes Authorities Contacted: N/A Smoking Status Smoking Status: Never smoker Immunization / Flu Flu Vaccine in the Last 12 Months: Yes Flu Vaccine Exclusion Criteria: Already Received Past Medical History Past Medical History NEUROLOGIC: Negative Neurological Disorders or Seizures CARDIAC: Positive Cardiac Disorders, Atrial Fibrillation, Angina, Peripheral Vascular Disease, Hypercholesterolemia and Hypertension; Negative Congestive Heart Failure RESPIRATORY: Positive Chronic Obstructive Pulmonary Disease (COPD), Asthma, Bronchitis, Pneumonia and Smoking GASTROINTESTINAL: Positive Gastrointestinal Disorders and Cirrhosis; Negative Colorectal Cancer GENITOURINARY: Positive Genitourinary Disorders and Renal Disease; Negative Prostate Cancer MUSCULOSKELETAL: Positive Arthritis ENT: Positive Deafness ENDOCRINE: Positive Endocrine Disorders and Diabetes Mellitus Type 2; Negative Diabetes Mellitus Type 1 HEMATOLOGIC: Positive Blood Disorders and Anemia; Negative Sickle Cell Disease PSYCHO/SOCIAL: Positive Depression OTHER HISTORY: Positive Hospitalization, Falls and Measles; Negative Down Syndrome, Developmental Delay, Blood Transfusions, Blood Transfusion Reaction, Anesthesia Reactions, MRSA, Vancomycin-Resistant Enterococci, Cancer, Colorectal Cancer, Lung Cancer, Ovarian Cancer or Prostate Cancer Family History FAMILY HISTORY: Positive Family Respiratory Disorders and Family Cancer (MOM- CANCER TYPE UNKNOWN); Negative Family Cardiac Disorders Surgical History SURGICAL: Negative Cardiac Surgery, Pacemaker, Endocrine Surgery, Abdominal Surgery or Joint Replacement Social History SMOKING STATUS: Smoking status: Never smoker SECOND HAND EXPOSURE: second hand exposure: Yes ALCOHOL: Alcohol Intake: Former ALCOHOL FREQUENCY: Alcohol Intake Frequency: A Few Times a Month HOUSING: Housing: Apartment LIVES WITH: Lives With: Spouse HPI HPI Narrative Spoke to pt with in-person interpreter for the deaf 79M with HTN, HLD, COPD, DMII, afib and cirrhosis and 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 At last visit pt was having purulent drainage from the incision and I instructed him how to pack; he states it is healing well now with no drainage and he is no longer able to pack it. He states his pain is controlled however he has had persistent anorexia making it difficult to eat much of anything. Pt had two episodes of vomiting last night but does feel better with no current nausea. 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 I will prescribe Megace and will follow up in 4 weeks Advanced Care Planning Advance care planning discussed with:: other Patient Portal Questionaires Social History Living Situation History Lives With: Spouse Housing: Apartment Housing Other:: Pt lives with Tobacco History Smoking Status: Never smoker Second Hand Smoke Exposure: Yes Alcohol History Alcohol Intake: Former Alcohol Intake Frequency: A Few Times a Month Substance Use History Substance Use: NONE Domestic Abuse History Do You Feel Safe at Home: Yes Review of Systems Report any current symptoms Only answer those that you have currently: Past Medical History Past Medical History Have you ever been diagnosed with any of the following: Neurological Problems Seizures: No Cardiology Problems Atrial Fibrillation: Yes Angina: Yes Peripheral Vascular Disease: Yes Hypercholesterolemia: Yes Congestive Heart Failure: No Hypertension: Yes Respiratory Problems Chronic Obstructive Pulmonary Disease (COPD): Yes Asthma: Yes Bronchitis: Yes Pneumonia: Yes Smoking: Yes Stomache/Intestinal Problems Cirrhosis: Yes Colorectal Cancer: No Genital/Urinary Problems Renal Disease: Yes Prostate Cancer: No Musculoskeletal Problems Arthritis: Yes Head,Eye,Nose,Throat Problems Deafness: Yes Endocrine Problems Diabetes Mellitus Type 1: No Diabetes Mellitus Type 2: Yes Blood Problems Anemia: Yes Sickle Cell Disease: No Psychologic Problems Depression: Yes Other Problems Hospitalization: Yes Down Syndrome: No Developmental Delay: No Falls: Yes Blood Transfusions: No Blood Transfusion Reaction: No Anesthesia Reactions: No MRSA: No Vancomycin-Resistant Enterococci: No Measles: Yes Cancer: No Lung Cancer: No Ovarian Cancer: No Surgical History Pacemaker: No
== END 2024-08-06 14:41 | disposition home or self-care (01) ==
LOC: HODSRG 14:18
PROVIDERS: PCP Nurse Practitioner Family; Referring Provider Nurse Practitioner Family; Supervising Provider Surgery; Visit Provider Surgery
DX: C7B.8 Other secondary neuroendocrine tumors (principal); Z90.49 Acquired absence of other specified parts of digestive tract
CPT/HCPCS: 99213; G0463

== ENCOUNTER → 2024-08-06 | Outpatient (CLI) | payer MEDICARE, MEDICAID, SELFPAY ==
[2024-08-06 09:20] LABS: Misc Send Out* See Sep Rpt
== END | disposition home or self-care (01) ==
LOC: SCTO 09:08 → SLDO 09:09
PROVIDERS: Referring Provider Internal Medicine Hematology & Oncology; Visit Provider Internal Medicine Hematology & Oncology
DX: C7B.8 Other secondary neuroendocrine tumors (principal)

== ENCOUNTER → 2024-08-19 | Outpatient (BNVA) | payer MEDICARE, MEDICAID, SELFPAY | END | disposition home or self-care (01) | PROVIDERS: PCP Nurse Practitioner Family; Referring Provider Nurse Practitioner Family; Visit Provider Nurse Practitioner Family | DX: Z71.2 Person consulting for explanation of examination or test findings (principal); E11.9 Type 2 diabetes mellitus without complications; C77.2 Secondary and unspecified malignant neoplasm of intra-abdominal lymph nodes; R10.9 Unspecified abdominal pain; E78.5 Hyperlipidemia, unspecified; I10 Essential (primary) hypertension; D64.9 Anemia, unspecified | CPT/HCPCS: 99214 ==

== ENCOUNTER → 2024-08-29 | Outpatient (CLI) | payer MEDICARE, MEDICAID, SELFPAY ==
--- NOTE | 2024-08-29 09:00 | XR_ITS ---
Examination: MRI abdomen with intravenous contrast. MRI abdomen without intravenous contrast. Date and time of exam: August 29, 2024 10:00 AM Comparison MR abdomen pre and postcontrast July 02, 2024, CT abdomen and pelvis July 01, 2024 INDICATIONS: Diagnoses other secondary neuroendocrine tumors, July 02, 2024 pre-MRI history right-sided abdominal pain post colonoscopy, CT examination July 01, 2024 hyperdense areas in the liver Technique: Multiple axial, sagittal and coronal sections of the abdomen obtained. Transverse images, TR 6020, TE 107. T1 weighted transverse images, TR 582, TE 9.5. T2-weighted sagittal images, TR 4000, TE 105. T2-weighted sagittal images, TR 4000, TE 5. Coronal images, TR 4210, TE 107. Axial and coronal images are obtained post 20 cc intravenous injection, gadolinium. Findings: Liver is irregular in contour Precontrast images demonstrate multiple hypointense areas of signal in the liver corresponding to calcifications on the CT abdomen examination July 01, 2024, the largest in the medial right lobe of the liver 30 mm These areas do not enhance on the post contrast MRI images No gallstones Common bile duct 6 mm, on this study no common bile duct stones Pancreatic duct minimal dilatation 2.6 mm No pancreatic mass or edema Spleen not enlarged No hydronephrosis Aorta normal size No abdominal lymphadenopathy No ascites IMPRESSION: Multiple areas of calcification in the liver which do not enhance on the postcontrast images Mild extrahepatic biliary tract dilatation but no common hepatic or common bile duct stones on this study
== END | disposition home or self-care (01) ==
PROVIDERS: Referring Provider Internal Medicine Hematology & Oncology; Visit Provider Internal Medicine Hematology & Oncology
DX: K76.89 Other specified diseases of liver (principal); K83.8 Other specified diseases of biliary tract; C7B.8 Other secondary neuroendocrine tumors
CPT/HCPCS: 74183; A4699; A9579

== ENCOUNTER → 2024-09-04 | Outpatient (CLI) | payer MEDICARE, MEDICAID, SELFPAY ==
--- NOTE | 2024-09-04 15:15 | XR_ITS ---
Examination: MRI of brain without intravenous contrast. MRI brain with intravenous contrast. Date and time of exam:September 04, 2024 1517 hours Comparison December 24, 2023 INDICATIONS: Diagnosis other secondary narrowing) tumors, dizziness weakness in both hands and feet increasing memory loss 1 year Technique: Multiple axial and sagittal images of the brain to been obtained. Siemens high-resolution 1.52 Maria D short bore scanner utilized. Sagittal sections, T1 weighted images, TR 500, TE 14, are performed. Axial sections proton-density and T2-weighted images have been obtained. Inversion recovery axial images, TR 9260, TE 111, TR 2500. Diffusion weighted images, axial sections, TR 4800, TE 128, B value 1000. Axial sections, ADC map, TR 4800, TE 128. Axial and coronal images were also obtained post 12 cc gadolinium administered intravenously. Findings:: Enlargement of the sella turcica is not present. The optic chiasm and infundibular stalk are not remarkable. There is no localized enlargement of the medulla or marija. Fourth ventricle and cerebellar tonsils appear normal in position. No subacute area of hemorrhage density is seen. Fourth ventricle is midline. Mass in the cerebellopontine angle region is not evident. 7th and 8th nerve complexes exhibit symmetry Globes are symmetrical Orbital musculature including medial lateral rectus muscles do not exhibit abnormality Increased white matter signal is moderate Effacement of the cortical sulcal markings is not identified. Mass effect upon the ventricular system is not identified. Diffusion-weighted images demonstrate no focus of restricted diffusion Contrast images demonstrate right mastoiditis Impression: Negative for acute hemorrhage mass effect or midline shift No acute infarct Moderate chronic microvascular white matter change Right mastoiditis
== END | disposition home or self-care (01) ==
PROVIDERS: PCP Nurse Practitioner Family; Referring Provider Internal Medicine Hematology & Oncology; Visit Provider Internal Medicine Hematology & Oncology
DX: R90.82 White matter disease, unspecified (principal); H70.91 Unspecified mastoiditis, right ear; C78.80 Secondary malignant neoplasm of unspecified digestive organ; C79.31 Secondary malignant neoplasm of brain
CPT/HCPCS: 70553; A9579

== ENCOUNTER 2024-09-07 15:11 | Outpatient (AMB) | payer MEDICARE, MEDICAID, SELFPAY ==
--- NOTE | 2024-09-07 15:14 | GSCOFFNT_ITS ---
Vital Signs - [facility] 09/07/24 15:19 Height 1.65 m Height Method Stated Weight 59.591 kg Weight Measurement Method Standing Scale BMI 21.9 BP 103/60 Blood Pressure Source Automatic Cuff Blood Pressure Location Left Upper Arm Position Sitting Respiration 18 Pulse 91 Pulse Source Monitor Temp 97.4 F Temp Source Temporal Artery Scan Pulse Oximetry (%) 90 L Oxygen Delivery Method Room Air Med/Allergies Allergies & Medications Allergies No Known Allergies Allergy (Verified 09/07/24 15:20) Medication Reconciliation apixaban 5 mg tablet (Eliquis) 5 mg PO BID #180 tabs 01/21/24 [Rx Confirmed 09/07/24] ezetimibe 10 mg tablet 10 mg PO QDAY #90 tabs 06/17/24 [Rx Confirmed 09/07/24] docusate sodium 100 mg capsule 100 mg PO QDAY 06/30/24 [History Confirmed 09/07/24] hydrocodone 5 mg-acetaminophen 325 mg tablet 1 tab PO Q6H PRN pain #20 tabs 07/08/24 [Rx Confirmed 09/07/24] amoxicillin 875 mg-potassium clavulanate 125 mg tablet 1 tab PO BID #14 tabs 07/15/24 [Rx Confirmed 09/07/24] albuterol sulfate 90 mcg/actuation aerosol inhaler (Ventolin HFA) 2 puff inhalation Q6H PRN Shortness Of Breath Or Wheezing #8.5 grams 08/04/24 [Rx Confirmed 09/07/24] budesonide-formoterol HFA 160 mcg-4.5 mcg/actuation aerosol inhaler (Symbicort) 2 puff inhalation Q12H #10.2 grams 08/04/24 [Rx Confirmed 09/07/24] inhalat.spacing dev,large mask (Aerochamber Plus Z Stat Large Mask) #10 ea 08/04/24 [Rx Confirmed 09/07/24] blood sugar diagnostic #100 ea 08/19/24 [Rx Confirmed 09/07/24] ferrous sulfate 325 mg (65 mg iron) tablet,delayed release 325 mg PO QDAY #90 tabs 08/19/24 [Rx Confirmed 09/07/24] lancets 28 gauge (Comfort EZ Lancets) #100 ea 08/19/24 [Rx Confirmed 09/07/24] lisinopril 20 mg tablet 20 mg PO QDAY #90 tabs 08/19/24 [Rx Confirmed 09/07/24] pantoprazole 40 mg tablet,delayed release 40 mg PO QAM 8 weeks #56 tabs 08/19/24 [Rx Confirmed 09/07/24] paroxetine HCl 10 mg tablet (Paxil) 10 mg PO QDAY #90 tabs 08/19/24 [Rx Confirmed 09/07/24] sitagliptin phosphate 25 mg tablet (Januvia) 25 mg PO DAILY #90 tabs 08/19/24 [Rx Confirmed 09/07/24] megestrol 40 mg tablet 40 mg PO BID #60 tabs 09/07/24 [Rx] MA Intake Visit Data Collection New Patient or Established: Established Patient (seen at [facility] within 3 years) Seen by Clinical Staff ONLY (RN/MA): No Reason for Visit:: FOLLOW UP WOUND Pain Present Currently: No Evaluation Manager Required: Yes PCP or OBGYN visit in last 3 months: Yes Hx Now: No Do You Feel Safe at Home: Yes Authorities Contacted: N/A Smoking Status Smoking Status: Never smoker Immunization / Flu Flu Vaccine in the Last 12 Months: No Flu Vaccine Exclusion Criteria: No Exclusion Criteria Past Medical History Past Medical History NEUROLOGIC: Negative Neurological Disorders or Seizures CARDIAC: Positive Cardiac Disorders, Atrial Fibrillation, Angina, Peripheral Vascular Disease, Hypercholesterolemia and Hypertension; Negative Congestive Heart Failure RESPIRATORY: Positive Chronic Obstructive Pulmonary Disease (COPD), Asthma, Bronchitis, Pneumonia and Smoking GASTROINTESTINAL: Positive Gastrointestinal Disorders and Cirrhosis; Negative Colorectal Cancer GENITOURINARY: Positive Genitourinary Disorders and Renal Disease; Negative Prostate Cancer MUSCULOSKELETAL: Positive Arthritis ENT: Positive Deafness ENDOCRINE: Positive Endocrine Disorders and Diabetes Mellitus Type 2; Negative Diabetes Mellitus Type 1 HEMATOLOGIC: Positive Blood Disorders and Anemia; Negative Sickle Cell Disease PSYCHO/SOCIAL: Positive Depression OTHER HISTORY: Positive Hospitalization, Falls and Measles; Negative Down Syndrome, Developmental Delay, Blood Transfusions, Blood Transfusion Reaction, Anesthesia Reactions, MRSA, Vancomycin-Resistant Enterococci, Cancer, Colorectal Cancer, Lung Cancer, Ovarian Cancer or Prostate Cancer Family History FAMILY HISTORY: Positive Family Respiratory Disorders and Family Cancer (MOM- CANCER TYPE UNKNOWN); Negative Family Cardiac Disorders Surgical History SURGICAL: Negative Cardiac Surgery, Pacemaker, Endocrine Surgery, Abdominal Surgery or Joint Replacement Social History SMOKING STATUS: Smoking status: Never smoker SECOND HAND EXPOSURE: second hand exposure: Yes ALCOHOL: Alcohol Intake: Former ALCOHOL FREQUENCY: Alcohol Intake Frequency: A Few Times a Month HOUSING: Housing: Apartment LIVES WITH: Lives With: Spouse HPI HPI Narrative 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 At last visit I prescribed megestrol 20mg BID for appetite stimulation and pt reports it has helped somewhat, he is able to eat a bit more though still not at his baseline. He has seen oncology as well as his PCP and is planned for octreotide infusions He denies any abdominal pain or drainage from the wound. 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 For his decreased appetite I explained that a higher dose of megestrol is within reason and pt would like to try this Plan: Follow up with PCP, oncology Follow up in 3 mos Advanced Care Planning Advance care planning discussed with:: patient Office Procedures GNS Level of Care Nursing/Assessment Patient Status: Established Patient Nursing Assessment/Reassesment: Medication Reconciliation, Update PMH in EMR and Vital Signs Coordination of Care: Complex Care and Chronic Disease 1-5, Consent,records obtained, informed consent, Education Simp Pt/Fam, Results/Orders obtained and Staff clarify orders Established Patient Charge Established Patient Point Assignment: 90 Established Patient Point Charge: EP Level 3 (80-115) Patient Portal Questionaires Social History Living Situation History Lives With: Spouse Housing: Apartment Housing Other:: Pt lives with Tobacco History Smoking Status: Never smoker Second Hand Smoke Exposure: Yes Alcohol History Alcohol Intake: Former Alcohol Intake Frequency: A Few Times a Month Substance Use History Substance Use: NONE Domestic Abuse History Do You Feel Safe at Home: Yes Review of Systems Report any current symptoms Only answer those that you have currently: Past Medical History Past Medical History Have you ever been diagnosed with any of the following: Neurological Problems Seizures: No Cardiology Problems Atrial Fibrillation: Yes Angina: Yes Peripheral Vascular Disease: Yes Hypercholesterolemia: Yes Congestive Heart Failure: No Hypertension: Yes Respiratory Problems Chronic Obstructive Pulmonary Disease (COPD): Yes Asthma: Yes Bronchitis: Yes Pneumonia: Yes Smoking: Yes Stomache/Intestinal Problems Cirrhosis: Yes Colorectal Cancer: No Genital/Urinary Problems Renal Disease: Yes Prostate Cancer: No Musculoskeletal Problems Arthritis: Yes Head,Eye,Nose,Throat Problems Deafness: Yes Endocrine Problems Diabetes Mellitus Type 1: No Diabetes Mellitus Type 2: Yes Blood Problems Anemia: Yes Sickle Cell Disease: No Psychologic Problems Depression: Yes Other Problems Hospitalization: Yes Down Syndrome: No Developmental Delay: No Falls: Yes Blood Transfusions: No Blood Transfusion Reaction: No Anesthesia Reactions: No MRSA: No Vancomycin-Resistant Enterococci: No Measles: Yes Cancer: No Lung Cancer: No Ovarian Cancer: No Surgical History Pacemaker: No
[2024-09-07 15:19] VITALS: BP 103/60; PULSE 91; RESP 18; TEMP 36.3; O2SAT 90; BMI 21.9
== END 2024-09-07 15:34 | disposition home or self-care (01) ==
LOC: HODSRG 15:11
PROVIDERS: PCP Nurse Practitioner Family; Referring Provider Nurse Practitioner Family; Supervising Provider Surgery; Visit Provider Surgery
DX: C7A.8 Other malignant neuroendocrine tumors (principal)
CPT/HCPCS: 99213; G0463

== ENCOUNTER → 2024-09-09 | Outpatient (CLI) | payer MEDICARE, MEDICAID, SELFPAY ==
--- NOTE | 2024-09-09 13:24 | XR_ITS ---
Examination: PA lateral chest 2 views TECHNIQUE: Upright PA lateral chest 2 views Exam date and time: September 09, 2024 1335 hours Comparison July 03, 2024 INDICATIONS: Coughing wheezing shortness of breath beginning 4 months ago FINDINGS: Significant hyperexpansion Exenteration bronchovascular markings at the lung bases Suspicious for early pneumonia in the lingular segment Normal heart size IMPRESSION: COPD Basilar bronchitis pattern Suspicious for early pneumonia lingular segment left upper lobe
== END | disposition home or self-care (01) ==
LOC: CDIM 12:54
PROVIDERS: PCP Nurse Practitioner Family; Referring Provider Nurse Practitioner Family; Visit Provider Nurse Practitioner Family
DX: J44.1 Chronic obstructive pulmonary disease with (acute) exacerbation (principal)
CPT/HCPCS: 71046

== ENCOUNTER → 2024-09-09 | Outpatient (BNVA) | payer MEDICARE, MEDICAID, SELFPAY | END | disposition home or self-care (01) | PROVIDERS: PCP Nurse Practitioner Family; Referring Provider Nurse Practitioner Family; Visit Provider Nurse Practitioner Family | DX: J44.1 Chronic obstructive pulmonary disease with (acute) exacerbation (principal); R53.83 Other fatigue | CPT/HCPCS: 85018; 94640; 96372; 99214; J2919; A9270 ==

== ENCOUNTER → 2024-09-10 | Outpatient (BNVA) | payer MEDICARE, MEDICAID, SELFPAY | END | disposition home or self-care (01) | PROVIDERS: PCP Nurse Practitioner Family; Referring Provider Nurse Practitioner Family; Visit Provider Nurse Practitioner Family | DX: Z71.2 Person consulting for explanation of examination or test findings (principal); R53.83 Other fatigue; J44.1 Chronic obstructive pulmonary disease with (acute) exacerbation; J18.9 Pneumonia, unspecified organism | CPT/HCPCS: 96372; 99214; A4216; J0696; A9270 ==

== ENCOUNTER → 2024-09-17 | Outpatient (CLI) | payer MEDICARE, MEDICAID, SELFPAY ==
--- NOTE | 2024-09-17 | XR_ITS ---
Examination: PA lateral chest 2 views Technique: Upright PA lateral chest 2 views Exam date and time: September 17, 2024 1309 hrs. Comparison September 09, 2024 Indications: Pneumonia lingular segment left upper lobe on chest film September 09, 2024. Findings: Scarring versus pneumonia in the lingular segment remains Moderate hyperexpansion Normal heart size Accentuation basilar bronchovascular markings Prominent osteopenia Impression: Scarring versus pneumonia remains in the lingular segment left upper lobe, the appearance should be clinically correlated
== END | disposition home or self-care (01) ==
PROVIDERS: PCP Nurse Practitioner Family; Referring Provider Nurse Practitioner Family; Visit Provider Nurse Practitioner Family
DX: R91.8 Other nonspecific abnormal finding of lung field (principal)
CPT/HCPCS: 71046

== ENCOUNTER → 2024-09-18 | Outpatient (BNVA) | payer MEDICARE, MEDICAID, SELFPAY | END | disposition home or self-care (01) | PROVIDERS: PCP Nurse Practitioner Family; Referring Provider Nurse Practitioner Family; Visit Provider Nurse Practitioner Family | DX: Z71.2 Person consulting for explanation of examination or test findings (principal); J44.9 Chronic obstructive pulmonary disease, unspecified; I10 Essential (primary) hypertension; J44.1 Chronic obstructive pulmonary disease with (acute) exacerbation; R53.83 Other fatigue; J18.9 Pneumonia, unspecified organism; R06.00 Dyspnea, unspecified | CPT/HCPCS: 94640; 99214; J7614; A9270 ==

== ENCOUNTER 2024-09-22 18:45 | Inpatient (IN) | payer MEDICARE, MEDICAID, SELFPAY ==
[2024-09-22] VITALS (9 sets, daily range): BP systolic 119–166; BP diastolic 54–98; PULSE 68–130; RESP 18–27; TEMP 37.1–38.3; O2SAT 95–987; BMI 24.8
--- NOTE | 2024-09-22 18:57 | EKG_ITS ---
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
--- NOTE | 2024-09-22 18:57 | XR_ITS ---
Examination: AP chest single view Technique one AP portable upright chest single view Exam date and time: September 22, 2024 1904 hrs. Comparison November 2024 Indications: Onset chest pain shortness of breath today Findings: Significant bibasilar pneumonia Normal heart size Ectatic thoracic aorta. Moderate osteopenia Impression: Significant bibasilar pneumonia
--- NOTE | 2024-09-22 18:59 | PD.EDADULT ---
ED General RME/HPI General Chief complaint: Shortness of Breath/Dyspnea Stated complaint: SOB Time Seen by Provider: 09/22/24 18:54 Arrival date/time: 09/22/24 18:45 CC: Shortness of breath HPI patient presents to the ER via EMS with stated having on 10 L nonrebreather for acute shortness of breath. Onset approximately 2 hours ago patient has had a history of this in the past. He used his butyryl to have his alert multiple times without success. Fire report low oxygen saturations at 88 to 85%. Patient does wear home oxygen currently he is on a simple facemask at 6 L satting 93 to 94% and is tachycardic with a fever of 101.3. Related Data Home Medications ?Medication ?Instructions ?Recorded ?Confirmed budesonide-formoterol HFA 160 2 puff inhalation Q12H 09/09/24 09/18/24 mcg-4.5 mcg/actuation aerosol inhaler (Breyna) metoprolol succinate 50 mg 50 mg PO QDAY 09/09/24 09/18/24 tablet,extended release 24 hr megestrol 40 mg tablet 20 mg PO BID 09/18/24 Previous Rx's ?Medication ?Instructions ?Recorded apixaban 5 mg tablet (Eliquis) 5 mg PO BID #180 tabs 01/21/24 ezetimibe 10 mg tablet 10 mg PO QDAY #90 tabs 06/17/24 albuterol sulfate 90 mcg/actuation 2 puff inhalation Q6H PRN 08/04/24 aerosol inhaler (Ventolin HFA) Shortness Of Breath Or Wheezing #8.5 grams inhalat.spacing dev,large mask #10 ea 08/04/24 (Aerochamber Plus Z Stat Large Mask) blood sugar diagnostic #100 ea 08/19/24 ferrous sulfate 325 mg (65 mg 325 mg PO QDAY #90 tabs 08/19/24 iron) tablet,delayed release lancets 28 gauge (Comfort EZ #100 ea 08/19/24 Lancets) lisinopril 20 mg tablet 20 mg PO QDAY #90 tabs 08/19/24 pantoprazole 40 mg tablet,delayed 40 mg PO QAM 8 weeks #56 tabs 08/19/24 release paroxetine HCl 10 mg tablet (Paxil) 10 mg PO QDAY #90 tabs 08/19/24 sitagliptin phosphate 25 mg tablet 25 mg PO DAILY #90 tabs 08/19/24 (Januvia) albuterol sulfate 2.5 mg/3 mL 2.5 mg (3 mL) inhalation TID-QID 09/09/24 (0.083 %) solution for nebulization PRN shortness of breath or wheezing 30 days #360 mL ipratropium bromide 0.02 % 0.5 mg (2.5 mL) inhalation Q6H 09/09/24 solution for inhalation shortness of breath or wheezing 30 days #300 mL Allergies Allergy/AdvReac Type Severity Reaction Status Date / Time No Known Allergies Allergy Verified 09/18/24 10:50 Course Quality Measures none Orders Category Date Time Status Admit to Inpatient Status Routine Admission 09/22/24 20:32 Active Patient Condition Routine Admission 09/22/24 20:32 Ordered Bedside Blood Glucose AC Care 09/22/24 20:51 Active Bedside COVID-19 Antigen Test NOW Care 09/22/24 18:58 Active Bedside Influenza A&B Antigen Test NOW Care 09/22/24 18:58 Completed Mold Closer STAT Care 09/22/24 19:18 Active Continuous Pulse Oximetry STAT Care 09/22/24 19:18 Completed EKG (ED ONLY) *Do not use* NOW Care 09/22/24 18:57 Completed In and Out Catheter X1PRN Care 09/22/24 19:18 Active Insert IV NOW Care 09/22/24 19:18 Active Miscellaneous Nursing Order NOW Care 09/22/24 20:51 Active NPO STAT Care 09/22/24 19:18 Active Notify provider NEEDED Care 09/22/24 20:32 Active Obtain weight daily Care 09/22/24 20:33 Active Strict Intake and Output Routine Care 09/22/24 19:18 Ordered Diet Carbohydrate Consistent Diet 09/23/24 Breakfast Active EKG (ED Only) Stat Exams 09/22/24 18:57 Draft XR chest 1V Stat Exams 09/22/24 18:57 Completed B-Type Natriuretic Peptide Stat Lab 09/22/24 19:12 Completed Blood Culture (Lab) Stat Lab 09/22/24 19:31 Received CBC AM DRAW Lab 09/23/24 05:00 Ordered CBC AM DRAW Lab 09/24/24 05:00 Ordered CBC AM DRAW Lab 09/25/24 05:00 Ordered CBC Stat Lab 09/22/24 19:12 Completed Comprehensive Metabolic Panel AM DRAW Lab 09/23/24 05:00 Ordered Comprehensive Metabolic Panel AM DRAW Lab 09/24/24 05:00 Ordered Comprehensive Metabolic Panel AM DRAW Lab 09/25/24 05:00 Ordered Comprehensive Metabolic Panel Stat Lab 09/22/24 19:12 Completed Drug Screen,Urine Stat Lab 09/22/24 18:57 Ordered Glycohemoglobin w (eAG) AM DRAW Lab 09/23/24 05:00 Ordered LDH (Lactate Dehydrogenase) Stat Lab 09/22/24 19:12 Completed Lactate (Lactic Acid) Stat Lab 09/22/24 19:31 Completed Lipase Stat Lab 09/22/24 19:12 Completed Lipid Panel AM DRAW Lab 09/23/24 05:00 Ordered MRSA Nasal Screen Stat Lab 09/22/24 20:50 Ordered Magnesium AM DRAW Lab 09/23/24 05:00 Ordered Magnesium AM DRAW Lab 09/24/24 05:00 Ordered Magnesium AM DRAW Lab 09/25/24 05:00 Ordered Magnesium Stat Lab 09/22/24 19:12 Completed Partial Thromboplastin Time Stat Lab 09/22/24 19:12 Completed Phosphorous AM DRAW Lab 09/23/24 05:00 Ordered Phosphorous AM DRAW Lab 09/24/24 05:00 Ordered Phosphorous AM DRAW Lab 09/25/24 05:00 Ordered Phosphorous Stat Lab 09/22/24 19:12 Completed Procalcitonin Stat Lab 09/22/24 19:12 Completed Prothrombin Time with INR Stat Lab 09/22/24 19:12 Completed Sputum Culture and Gram Stain Routine Lab 09/22/24 20:41 Ordered Thyroid Stimulating Hormone AM DRAW Lab 09/23/24 05:00 Ordered Troponin I Stat Lab 09/22/24 19:12 Completed Urinalysis Stat Lab 09/22/24 18:57 Ordered Urine Culture Stat Lab 09/22/24 19:18 Ordered ALBUTEROL RT 0.5ml [Proventil Rt 0.5ml] Med 09/22/24 18:58 Discontinued 10 mg INH X1 ONE Acetaminophen Tab [Tylenol Tab] Med 09/22/24 20:37 Active 650 mg PO Q6H PRN Acetaminophen Tab [Tylenol Tab] Med 09/22/24 20:37 Active 650 mg PO Q6H PRN Acetaminophen Tab [Tylenol Tab] Med 09/22/24 19:29 Discontinued 650 mg PO X1 ONE Azithromycin Inj [Zithromax Inj] 500 mg Med 09/22/24 21:00 Discontinued Sodium Chloride 0.9% 250 ml [Ns] 250 ml IV Q24H Dextrose 50% Syr [D50w Syringe Abboject] Med 09/22/24 20:51 Active 25 ml IV Q15MIN PRN Dextrose 50% Syr [D50w Syringe Abboject] Med 09/22/24 20:51 Active 50 ml IV Q15MIN PRN Glucagon Inj Med 09/22/24 20:51 Active 1 mg IM Q15MIN PRN HYDROcodone*/APAP 5/325 [Gilson 5/325] Med 09/22/24 20:37 Active 1 tab PO Q4HR PRN INSULIN LISPRO (AdmeLOG) [HumaLOG] Med 09/23/24 07:30 Active See Protocol SC AC Ipratropium [place] Rt Ronda [Atrovent Rt Ronda] Med 09/22/24 21:00 Discontinued 0.5 mg INH Q6H Levalbuterol Rt [Xopenex Rt Ronda] Med 09/22/24 21:00 Discontinued 0.63 mg INH Q6H Magnesium Sulfate 4 GM Ivpb [Magnesium Sulfate Ivpb] Med 09/22/24 20:30 Active 4 gm in 50 ml IV X1 Magnesium Sulfate 4 GM Ivpb [Magnesium Sulfate Ivpb] Med 09/23/24 00:30 Active 4 gm in 50 ml IV X1 Naph,Kph Mbdb [Neutra-Phos Pkt] Med 09/22/24 20:31 Discontinued 1 packet PO X1 ONE Ondansetron Inj [Zofran Inj] Med 09/22/24 20:37 Active 4 mg IV Q6H PRN POT PHOS 15 mMol in NS 250 ML [Pot Phos 15 mMol in NS Med 09/22/24 20:31 Active 250 ml] 15 mmol in 250 ml IV X1 Pantoprazole [Protonix] Med 09/23/24 09:00 Active 40 mg PO QDAY Piper/Tazo 3.375 gm Premix [Zosyn] Med 09/23/24 06:00 Active 3.375 gm in 50 ml IV Q8HR Piper/Tazo 3.375 gm Premix [Zosyn] Med 09/22/24 20:45 Discontinued 3.375 gm in 50 ml IV X1 Sodium Chloride 0.9% 1000 ml [Ns] 1,000 ml Med 09/22/24 20:46 Discontinued IV 999 mls/hr Sodium Chloride 0.9% 500 ml [Ns] 500 ml Med 09/22/24 19:22 Discontinued IV 999 mls/hr Sodium Chloride Rt Ronda 10% [NS Rt Ronda 10%] Med 09/22/24 20:37 Discontinued 5 ml INH X1 ONE Vancomycin Pharmacy to Dose Med 09/22/24 20:45 Active 1 each IV Q24H PRN Vancomycin/Ns 1 gm Ivpb 200 ml Med 09/22/24 21:00 Active IV X1 Vancomycin/Ns 750 mg Ivpb Med 09/23/24 10:00 Active 750 mg in 150 ml IV Q12H cefTRIAXone/D5w 1gm IV premix [Rocephin/D5w 1gm IV Med 09/22/24 19:52 Discontinued premix] 1 gm in 50 ml IV X1 Code Status Routine Oth 09/22/24 20:32 Ordered Oxygen Delivery NOW RT 09/22/24 19:18 Active Sputum Induction PRN RT 09/22/24 20:45 Ordered Vital Signs Vital signs: Vital Signs Temperature 101 F H 09/22/24 18:58 Pulse Rate 128 H 09/22/24 18:58 Respiratory Rate 27 H 09/22/24 18:58 Blood Pressure 150/88 H 09/22/24 18:58 Pulse Oximetry (%) 95 09/22/24 18:58 Oxygen Delivery Method Nasal Cannula 09/22/24 18:58 Oxygen Flow Rate 6 09/22/24 18:58 [facility] Patient data External records reviewed:: EMS form Clinical information provided by:: patient and EMS Social determinants that could affect healthcare access:: none Patient has the following chronic illnesses:: COPD anemia hypertension hyperlipidemia diabetes How is presenting disease/condition affected by chronic disease/condition?: uneffected by Evaluation data The following diagnostics were reviewed and interpreted by me:: lab results, radiology exam(s) and EKG tracing(s) Lab and/or radiology exams considered but not ordered:: EKG performed at 1911 shows a ventricular rate of 119 MI interval 139 QRS of 83 QTc of 382 this is sinus tachycardia. Chest x-ray as interpreted by me read by radiology shows bibasilar pneumonia. CBC shows a leukocytosis of 17.4 and H&H of 10.1 and 29.7 platelets at 160. No bandemia. Coags show PT of 12.5 INR and PTT are within acceptable limits CMP shows sodium 133 no other electrolyte imbalances other than the glucose of 157. No renal impairment transaminitis or T. bili elevation Lactic of 1.5 Troponin is negative BNP is negative Interpretation Summary: Pneumonia with hypoxemia. CBC shows a 17,000 white count with a fever, and hypoxemia. This time.spoke with the resident for Dr. Cifuentes and agrees except the patient for minute admission for pneumonia hypoxemia. Medications Medications considered but not ordered:: None Medication administrations:: Medication Administration History Acetaminophen (Acetaminophen 325 Mg Tablet) 650 mg PO Q6H PRN PRN Reason: Fever >101.5 Stop: 10/22/24 20:36 Acetaminophen (Acetaminophen 325 Mg Tablet) 650 mg PO Q6H PRN PRN Reason: PAIN SCALE 1-3 (mild Stop: 10/22/24 20:36 Hydrocodone Bitart/Acetaminophen (Hydrocodone/Apap 5/325 Tablet) 1 tab PO Q4HR PRN PRN Reason: PAIN SCALE 4-6 (Moderate Stop: 09/27/24 20:36 Apixaban (Apixaban 2.5 Mg Tablet) 5 mg PO BID SABINE Stop: 10/22/24 21:29 Dextrose (Dextrose 50%-Water Inj 50 Ml Syringe) 25 ml IV Q15MIN PRN PRN Reason: BG 50-70 responsive npo pt Stop: 10/22/24 20:50 Dextrose (Dextrose 50%-Water Inj 50 Ml Syringe) 50 ml IV Q15MIN PRN PRN Reason: BG <50 OR BG <70 & pt unresponsive Stop: 10/22/24 20:50 Ezetimibe (Ezetimibe 10 Mg Tablet) 10 mg PO QDAY SABINE Stop: 10/23/24 08:59 Ferrous Sulfate (Ferrous Sulf 325 Mg Tablet) 325 mg PO Q48H SABINE Stop: 10/22/24 20:59 Glucagon (Glucagon Inj 1 Mg Vial) 1 mg IM Q15MIN PRN PRN Reason: BG <70, and no IV access Magnesium Sulfate (Magnesium Sulfate Ivpb) 4 gm in 50 mls @ 12.5 mls/hr IV X1 ONE Stop: 09/23/24 00:29 Last Admin: 09/22/24 21:15 Dose: 12.5 mls/hr Documented By: LB Magnesium Sulfate (Magnesium Sulfate Ivpb) 4 gm in 50 mls @ 12.5 mls/hr IV X1 ONE Stop: 09/23/24 04:29 Potassium Phosphate (Pot Phos 15 Mmol In Ns 250 Ml) 15 mmol in 250 mls @ 62.5 mls/hr IV X1 ONE Stop: 09/23/24 00:30 Piperacillin/Tazobactam/Dextrose (Zosyn) 3.375 gm in 50 mls @ 12.5 mls/hr IV Q8HR [facility] Stop: 09/30/24 05:59 Vancomycin/Sodium Chloride (Vancomycin/Ns 1 Gm Ivpb) 200 mls @ 120 mls/hr IV X1 ONE Stop: 09/22/24 22:39 Vancomycin/Sodium Chloride (Vancomycin/Ns 750 Mg Ivpb) 750 mg in 150 mls @ 120 mls/hr IV Q12H [facility] Stop: 09/30/24 09:59 Insulin Human Lispro (Insulin Lispro (Admelog) 1 Unit/0.01 Ml Unit) 0 unit SC [facility]; Protocol Stop: 10/23/24 07:29 Ipratropium [place] (Ipratropium Rt 0.5 Mg/ 2.5 Ml Nebu) 0.5 mg INH Q6HRRT [facility] Stop: 10/23/24 00:59 Levalbuterol HCl (Levalbuterol Rt 0.63 Mg/3 Ml Nebu) 0.63 mg INH Q6HRRT [facility] Stop: 10/23/24 00:59 Megestrol Acetate (Megestrol Acet 20 Mg Tablet) 20 mg PO QDAY [facility] Stop: 10/23/24 08:59 Metoprolol Succinate (Metoprolol Succinate Xl 25 Mg Tabcr) 50 mg PO QDAY [facility] Stop: 10/23/24 08:59 Ondansetron HCl (Ondansetron Inj 2 Mg/Ml Inj 2 Ml) 4 mg IV Q6H PRN; Protocol PRN Reason: NAUSEA OR VOMITING Stop: 10/22/24 20:36 Pantoprazole Sodium (Pantoprazole 40 Mg Tablet) 40 mg PO QDAY [facility] Stop: 10/23/24 08:59 Paroxetine HCl (Paroxetine Hcl 10 Mg Tablet) 10 mg PO QDAY [facility] Stop: 10/23/24 08:59 Pharmacy Consult (Vancomycin Pharmacy To Dose 1 Each Each) 1 each IV Q24H PRN PRN Reason: PROTOCOL Stop: 10/22/24 20:44 Discontinued Medications Acetaminophen (Acetaminophen 325 Mg Tablet) 650 mg PO X1 ONE Stop: 09/22/24 19:30 Last Admin: 09/22/24 19:48 Dose: 650 mg Documented By: BALBIR Albuterol (Albuterol Rt 2.5 Mg/0.5 Ml Nebu) 10 mg INH X1 ONE Stop: 09/22/24 18:59 Last Admin: 09/22/24 19:29 Dose: 10 mg Documented By: LAURA Apixaban (Apixaban 2.5 Mg Tablet) 2.5 mg PO BID SABINE Stop: 10/22/24 20:59 Sodium Chloride (Ns) 500 mls @ 999 mls/hr IV .Q31M ONE Stop: 09/22/24 19:52 Last Infusion: 09/22/24 20:03 Dose: Infused Documented By: Admin: 09/22/24 19:32 Dose: 999 mls/hr Documented By: BALBIR Ceftriaxone Sodium/Dextrose (Rocephin/D5w 1gm Iv Premix) 1 gm in 50 mls @ 100 mls/hr IV X1 ONE Stop: 09/22/24 20:21 Last Infusion: 09/22/24 20:27 Dose: Infused Documented By: Admin: 09/22/24 19:57 Dose: 100 mls/hr Documented By: BALBIR Piperacillin/Tazobactam/Dextrose (Zosyn) 3.375 gm in 50 mls @ 100 mls/hr IV X1 ONE Stop: 09/22/24 21:14 Last Admin: 09/22/24 21:01 Dose: 100 mls/hr Documented By: BALBIR Sodium Chloride (Ns) 1,000 mls @ 999 mls/hr IV .Q1H1M ONE Stop: 09/22/24 21:46 Last Admin: 09/22/24 21:00 Dose: 999 mls/hr Documented By: BALBIR Azithromycin 500 mg/ Sodium (Chloride) 250 mls @ 250 mls/hr IV Q24H SABINE Stop: 09/29/24 20:59 Ipratropium [place] (Ipratropium Rt 0.5 Mg/ 2.5 Ml Nebu) 0.5 mg INH Q6H SABINE Stop: 10/22/24 20:59 Levalbuterol HCl (Levalbuterol Rt 0.63 Mg/3 Ml Nebu) 0.63 mg INH Q6H SABINE Stop: 10/22/24 20:59 Potassium Phos/Sodium Phos (Naph,[facility] Mbdb 1 Packet (1.5 Gm)) 1 packet PO X1 ONE Stop: 09/22/24 20:32 Sodium Chloride (Sodium Chloride Rt 10% 15 Ml Nebu) 5 ml INH X1 ONE Stop: 09/22/24 20:38 None Consultations Consultation(s) initiated? (list below): No Diagnosis Differential Diagnosis ED Complaint MDM: Pneumonia hypoxemia fever Most likely diagnosis given after review of the tests above:: Pneumonia hypoxemia fever Admission Indicated Admission indicated?: indicated Explain why admission is indicated or not indicated:: Requires further medical management Admission Request Was there a request for admission?: No Disposition Plan Disposition Plan: Discharge Discharge Attestation Discharge Attestation: The patient and all family members were given an opportunity to ask questions and understood the discharge instructions. Discharge instructions specifically effects, indications for sooner follow up or return to the emergency department, and the expected course of current diagnosis. Patient condition: Stable Medical Decision Making Differential Diagnosis Differential Diagnosis: Pneumonia hypoxemia fever Lab Data 09/22/24 19:12 09/22/24 19:12 Labs: Lab Results 09/22/24 09/22/24 Range/Units 19:12 19:31 WBC 17.4 H (3.8-10.6) Thou/mm3 RBC 3.10 L (4.50-5.90) Miln/mm3 Hgb 10.1 L (13.5-16.0) g/dL Hct 29.7 L (41.0-53.0) % MCV 96 (80-100) fL MCH 32.6 (25.0-35.0) pg MCHC 34.0 (31.0-37.0) g/dl RDW Std Deviation 51.5 H (35.1-43.9) fL Plt Count 160 (140-440) Thou/mm3 Neut % (Auto) 83 H (37-80) % Lymph % (Auto) 8 L (10-50) % [place] % (Auto) 7 (0-12) % Eos % (Auto) 1 (0-10) % Baso % (Auto) 0 (0-2.5) % Neut # (Auto) 14.4 H (1.8-7.7) Thou/mm3 Lymph # (Auto) 1.4 (1.0-4.8) Thou/mm3 [place] # (Auto) 1.3 H (0.0-0.8) Thou/mm3 Eos # (Auto) 0.1 (0.0-0.5) Thou/mm3 Baso # (Auto) 0.1 (0.0-0.2) Thou/mm3 Immature Gran # (Auto) 0.12 H (0.00-0.00) Thou/mm3 Absolute Nucleated RBC 0.00 (0.00-0.00) Thou/mm3 Immature Gran % 1 H (0-0) % Nucleated RBC % 0 (0) /100 WBC PT 12.5 H (9.0-12.2) Seconds INR 1.2 (0.9-1.3) APTT 30.8 (22.0-36.0) Seconds Sodium 133 L (136-145) mMol/L Potassium 3.7 (3.4-5.1) mMol/L Chloride 103 (98-107) mMol/L Carbon Dioxide 21.9 (20.0-31.0) mMol/L Anion Gap 8 (7-16) BUN 18 (9-23) mg/dL Creatinine 0.8 (0.6-1.3) mg/dL Estim Creat Clear Calc 57.8 L (>60) mL/min eGFR > 60 (60 - ) See Note BUN/Creatinine Ratio 23 H (12-20) Ratio Glucose 157 H (74-106) mg/dL Calculated Osmolality 271 L (275-295) Lactic Acid 1.5 (0.4-2.0) mMol/L Calcium 8.7 (8.3-10.6) mg/dL Corrected Calcium 9.1 (8.5-10.1) mg/dL Phosphorus 1.9 L (2.4-5.1) mg/dL Magnesium 1.3 L (1.6-2.6) mg/dL Total Bilirubin 0.9 (0.3-1.2) mg/dL AST 20 (0-34) U/L ALT 17 (10-49) U/L Alkaline Phosphatase 69 (46-116) U/L Lactate Dehydrogenase 156 (120-246) U/L Troponin I < 0.020 (0.0-0.045) ng/mL B-Natriuretic Peptide 81 (0-100) pg/mL Total Protein 6.1 (5.7-8.2) gm/dL Albumin 3.5 (3.4-4.8) gm/dL Globulin 2.6 (2.3-3.5) gm/dL Albumin/Globulin Ratio 1.3 (1.2-2.2) Lipase 43 (12-53) U/L Procalcitonin 0.15 (0.0-0.49) ng/ml Discharge Plan Plan Patient Disposition: Other Care w/in Hosp ([facility]) Patient condition on transfer: Stable Problem List Clinical Impression: Pneumonia, Fever, Hypoxemia PA/INSTRUMENTATION TECHNOLOGIST Supervising Physician PA/INSTRUMENTATION TECHNOLOGIST Supervising Physician: Weston Michaud ENP
[2024-09-22] MEDS: ALBUTEROL RT 2.5 MG/0.5 ML NEBU 10 MG INH (19:29)
[2024-09-22 19:30] LABS: Basophils # (Auto) 0.1 Thou/mm3 (0.0-0.2); Basophils % (Auto) 0 % (0-2.5); Eosinophils # (Auto) 0.1 Thou/mm3 (0.0-0.5); Eosinophils % (Auto) 1 % (0-10); Hematocrit 29.7 % (41.0-53.0); Hemoglobin 10.1 g/dL (13.5-16.0); Immature Granulocytes % (Auto) 1 % (0-0); Immature Granulocytes Auto 0.12 Thou/mm3 (0.00-0.00); Lymphocytes # (Auto) 1.4 Thou/mm3 (1.0-4.8); Lymphocytes % (Auto) 8 % (10-50); Mean Corpuscular Hemoglobin 32.6 pg (25.0-35.0); Mean Corpuscular Volume 96 fL (80-100); Monocytes # (Auto) 1.3 Thou/mm3 (0.0-0.8); Monocytes % (Auto) 7 % (0-12); Neutrophils # (Auto) 14.4 Thou/mm3 (1.8-7.7); Neutrophils % (Auto) 83 % (37-80); Nucleated Red Blood Cell % 0 /100 WBC (0); Platelet Count 160 Thou/mm3 (140-440); RDW Standard Deviation 51.5 fL (35.1-43.9); White Blood Count 17.4 Thou/mm3 (3.8-10.6)
[2024-09-22] MEDS: SODIUM CHLORIDE 0.9% 500 ML 500 ML 999 ML IV (19:32)
[2024-09-22 19:38] LABS: INR 1.2 (0.9-1.3); Partial Thromboplastin Time 30.8 Seconds (22.0-36.0); Prothrombin Time 12.5 Seconds (9.0-12.2)
[2024-09-22 19:39] LABS: B-Type Natriuretic Peptide 81 pg/mL (0-100)
[2024-09-22 19:39] LABS: Lactate (Lactic Acid) 1.5 mMol/L (0.4-2.0)
[2024-09-22 19:47] LABS: Alanine Aminotransferase 17 U/L (10-49); Albumin, Serum 3.5 gm/dL (3.4-4.8); Albumin/Globulin Ratio 1.3 (1.2-2.2); Alkaline Phosphatase 69 U/L (46-116); Anion Gap 8 (7-16); Aspartate Amino Transferase 20 U/L (0-34); BUN/Creatinine Ratio 23 Ratio (12-20); Bilirubin,Total 0.9 mg/dL (0.3-1.2); Blood Urea Nitrogen 18 mg/dL (9-23); Calcium 8.7 mg/dL (8.3-10.6); Calcium (Corrected) 9.1 mg/dL (8.5-10.1); Carbon Dioxide 21.9 mMol/L (20.0-31.0); Chloride 103 mMol/L (98-107); Creatinine (Component) 0.8 mg/dL (0.6-1.3); Estimated Creatinine Clearance 57.8 mL/min (>60); Globulin 2.6 gm/dL (2.3-3.5); Glucose 157 mg/dL (74-106); LDH (Lactate Dehydrogenase) 156 U/L (120-246); Lipase 43 U/L (12-53); Magnesium 1.3 mg/dL (1.6-2.6); Osmolality,Calculated 271 (275-295); Phosphorous 1.9 mg/dL (2.4-5.1); Potassium 3.7 mMol/L (3.4-5.1); Procalcitonin 0.15 ng/ml (0.0-0.49); Sodium 133 mMol/L (136-145); Total Protein 6.1 gm/dL (5.7-8.2); Troponin I < 0.020 ng/mL (0.0-0.045); eGFR > 60 See Note
[2024-09-22] MEDS: ACETAMINOPHEN 325 MG TABLET 650 MG PO (19:48)
[2024-09-22] MEDS: cefTRIAXone/D5w 1gm IV premix 1 GM/50 ML BAG IV (19:57)
--- NOTE | 2024-09-22 20:15 | PC.NURSE ---
Resident in room seeing pt.
[2024-09-22] MEDS: SODIUM CHLORIDE 0.9% 1000 ML 1,000 ML 999 ML IV (21:00)
[2024-09-22] MEDS: PIPER/TAZO 3.375 GM PREMIX 3.375 GM/50 ML BAG IV (21:01)
--- NOTE | 2024-09-22 21:01 | PD.RESHP ---
Documentation for date of: 09/22/24 [facility] History of Present Illness History of present illness: The patient is a 79-year-old male with significant past medical history of atrial fibrillation on Eliquis, hypertension, diabetes mellitus type 2, hyperlipidemia, COPD supposed to be on home oxygen and neuroendocrine tumor presented to ED with chief complaint of worsening of SOB for 1 hour. The patient was diagnosed with community-acquired pneumonia and prescribed oral levofloxacin as an outpatient, but that did not help. He admitted associated cough but denied any chest pain or palpitations. He also denied any headache, lightheadedness, nausea or vomiting, abdominal pain, any changes in bowel or bladder habit or leg swelling. He also denied any subjective fever or chills. In the ED his vitals were significant for blood pressure 150/88, pulse 128, RR 27, temperature 101. Labs revealed WBC 17.4, hemoglobin 10.1, PT 12.5, sodium 133, blood sugar 157, phosphorus 1.9, magnesium 1.3, Pro-Bryan negative. EKG revealed sinus tachycardia, and chest x-ray was significant for bibasilar pneumonia. PMH: As mentioned above SHX: Unremarkable Social history: Former smoker, left smoking 6 years ago, denied alcohol or illicit drug use Family history: Unremarkable Medications: To be reconciled Allergies: No known allergies The patient reported ceftriaxone 1 g IV x 1, and 500 cc of bolus normal saline in the ED and was admitted to telemetry unit for further management of acute hypoxic respiratory failure secondary to pneumonia. Review of Systems Review of Systems Systems Reviewed: All systems reviewed, normal except as documented Exam Vital Signs Temp Pulse Resp BP Pulse Ox O2 Del Method O2 Flow Rate 101 F H 114 H 22 H 124/54 L 95 Nasal Cannula 6 09/22/24 19:48 09/22/24 19:39 09/22/24 19:39 09/22/24 19:39 09/22/24 19:39 09/22/24 19:39 09/22/24 19:39 Narrative Exam General: Elderly, cooperative gentleman, no acute distress, Alert and Oriented x 3 HEENT: Mildly dry mucous membranes, oropharynx clear Neck: Supple, No masses, No JVD CVS: Sinus tachycardia, No murmurs, rubs or gallops Lungs: Rhonchi throughout the lung field, but unable to appreciate any wheezing, saturating 95% on 6 L NC. Abd: Soft, NT/ND, +BS, no organomegaly Ext: No edema, warm and well perfused Skin: No rash Psych: Appropriate mood and affect Results: Labs 09/22/24 19:12 09/22/24 19:12 Labs: Short CBC 09/22/24 Range/Units 19:12 WBC 17.4 H (3.8-10.6) Thou/mm3 Hgb 10.1 L (13.5-16.0) g/dL Hct 29.7 L (41.0-53.0) % Plt Count 160 (140-440) Thou/mm3 BMP 09/22/24 19:12 Sodium 133 L Potassium 3.7 Chloride 103 Carbon Dioxide 21.9 BUN 18 Creatinine 0.8 Glucose 157 H Calcium 8.7 Cardiac Enzymes 09/22/24 Range/Units 19:12 Troponin I < 0.020 (0.0-0.045) ng/mL Liver Function 09/22/24 Range/Units 19:12 Total Bilirubin 0.9 (0.3-1.2) mg/dL AST 20 (0-34) U/L ALT 17 (10-49) U/L Alkaline Phosphatase 69 (46-116) U/L Albumin 3.5 (3.4-4.8) gm/dL Quality Measures Quality Measures VTE prophylaxis Advance care planning discussed with:: patient and child Medications Home Medications and Allergies Home Medications ?Medication ?Instructions ?Recorded ?Confirmed ?Type budesonide-formoterol HFA 160 2 puff inhalation Q12H 09/09/24 09/18/24 History mcg-4.5 mcg/actuation aerosol inhaler (Breyna) metoprolol succinate 50 mg 50 mg PO QDAY 09/09/24 09/18/24 History tablet,extended release 24 hr megestrol 40 mg tablet 20 mg PO BID 09/18/24 History Allergies Allergy/AdvReac Type Severity Reaction Status Date / Time No Known Allergies Allergy Verified 09/18/24 10:50 Visit Medications Acetaminophen (Acetaminophen 325 Mg Tablet) 650 mg PO Q6H PRN PRN Reason: Fever >101.5 Stop: 10/22/24 20:36 Acetaminophen (Acetaminophen 325 Mg Tablet) 650 mg PO Q6H PRN PRN Reason: PAIN SCALE 1-3 (mild Stop: 10/22/24 20:36 Hydrocodone Bitart/Acetaminophen (Hydrocodone/Apap 5/325 Tablet) 1 tab PO Q4HR PRN PRN Reason: PAIN SCALE 4-6 (Moderate Stop: 09/27/24 20:36 Apixaban (Apixaban 2.5 Mg Tablet) 2.5 mg PO BID SABINE Stop: 10/22/24 20:59 Dextrose (Dextrose 50%-Water Inj 50 Ml Syringe) 25 ml IV Q15MIN PRN PRN Reason: BG 50-70 responsive npo pt Stop: 10/22/24 20:50 Dextrose (Dextrose 50%-Water Inj 50 Ml Syringe) 50 ml IV Q15MIN PRN PRN Reason: BG <50 OR BG <70 & pt unresponsive Stop: 10/22/24 20:50 Ezetimibe (Ezetimibe 10 Mg Tablet) 10 mg PO QDAY SABINE Stop: 10/23/24 08:59 Ferrous Sulfate (Ferrous Sulf 325 Mg Tablet) 325 mg PO Q48H SABINE Stop: 10/22/24 20:59 Glucagon (Glucagon Inj 1 Mg Vial) 1 mg IM Q15MIN PRN PRN Reason: BG <70, and no IV access Magnesium Sulfate (Magnesium Sulfate Ivpb) 4 gm in 50 mls @ 12.5 mls/hr IV X1 ONE Stop: 09/23/24 00:29 Magnesium Sulfate (Magnesium Sulfate Ivpb) 4 gm in 50 mls @ 12.5 mls/hr IV X1 ONE Stop: 09/23/24 04:29 Potassium Phosphate (Pot Phos 15 Mmol In Ns 250 Ml) 15 mmol in 250 mls @ 62.5 mls/hr IV X1 ONE Stop: 09/23/24 00:30 Piperacillin/Tazobactam/Dextrose (Zosyn) 3.375 gm in 50 mls @ 12.5 mls/hr IV Q8HR SABINE Stop: 09/30/24 05:59 Piperacillin/Tazobactam/Dextrose (Zosyn) 3.375 gm in 50 mls @ 100 mls/hr IV X1 ONE Stop: 09/22/24 21:14 Vancomycin/Sodium Chloride (Vancomycin/Ns 1 Gm Ivpb) 200 mls @ 120 mls/hr IV X1 ONE Stop: 09/22/24 22:39 Vancomycin/Sodium Chloride (Vancomycin/Ns 750 Mg Ivpb) 750 mg in 150 mls @ 120 mls/hr IV Q12H SABINE Stop: 09/30/24 09:59 Sodium Chloride (Ns) 1,000 mls @ 999 mls/hr IV .Q1H1M ONE Stop: 09/22/24 21:46 Last Admin: 09/22/24 21:00 Dose: 999 mls/hr Insulin Human Lispro (Insulin Lispro (Admelog) 1 Unit/0.01 Ml Unit) 0 unit SC AC [facility]; Protocol Stop: 10/23/24 07:29 Ipratropium Modale (Ipratropium Rt 0.5 Mg/ 2.5 Ml Nebu) 0.5 mg INH Q6H SABINE Stop: 10/22/24 20:59 Levalbuterol HCl (Levalbuterol Rt 0.63 Mg/3 Ml Nebu) 0.63 mg INH Q6H [facility] Stop: 10/22/24 20:59 Megestrol Acetate (Megestrol Acet 20 Mg Tablet) 20 mg PO QDAY [facility] Stop: 10/23/24 08:59 Metoprolol Succinate (Metoprolol Succinate Xl 25 Mg Tabcr) 50 mg PO QDAY [facility] Stop: 10/23/24 08:59 Ondansetron HCl (Ondansetron Inj 2 Mg/Ml Inj 2 Ml) 4 mg IV Q6H PRN; Protocol PRN Reason: NAUSEA OR VOMITING Stop: 10/22/24 20:36 Pantoprazole Sodium (Pantoprazole 40 Mg Tablet) 40 mg PO QDAY [facility] Stop: 10/23/24 08:59 Paroxetine HCl (Paroxetine Hcl 10 Mg Tablet) 10 mg PO QDAY [facility] Stop: 10/23/24 08:59 Pharmacy Consult (Vancomycin Pharmacy To Dose 1 Each Each) 1 each IV Q24H PRN PRN Reason: PROTOCOL Stop: 10/22/24 20:44 Discontinued Medications Acetaminophen (Acetaminophen 325 Mg Tablet) 650 mg PO X1 ONE Stop: 09/22/24 19:30 Last Admin: 09/22/24 19:48 Dose: 650 mg Albuterol (Albuterol Rt 2.5 Mg/0.5 Ml Nebu) 10 mg INH X1 ONE Stop: 09/22/24 18:59 Last Admin: 09/22/24 19:29 Dose: 10 mg Sodium Chloride (Ns) 500 mls @ 999 mls/hr IV .Q31M ONE Stop: 09/22/24 19:52 Last Infusion: 09/22/24 20:03 Dose: Infused Ceftriaxone Sodium/Dextrose (Rocephin/D5w 1gm Iv Premix) 1 gm in 50 mls @ 100 mls/hr IV X1 ONE Stop: 09/22/24 20:21 Last Infusion: 09/22/24 20:27 Dose: Infused Azithromycin 500 mg/ Sodium (Chloride) 250 mls @ 250 mls/hr IV Q24H SABINE Stop: 09/29/24 20:59 Potassium Phos/Sodium Phos (Naph,[facility] Mbdb 1 Packet (1.5 Gm)) 1 packet PO X1 ONE Stop: 09/22/24 20:32 Sodium Chloride (Sodium Chloride Rt 10% 15 Ml Nebu) 5 ml INH X1 ONE Stop: 09/22/24 20:38 Assessment & Plan Plan The patient is a 79-year-old male with significant past medical history of atrial fibrillation on Eliquis, hypertension, diabetes mellitus type 2, hyperlipidemia, COPD supposed to be on home oxygen and neuroendocrine tumor presented to ED with chief complaint of worsening of SOB for 1 hour. The patient is admitted to telemetry unit for further management of acute hypoxic respiratory failure secondary to sepsis secondary to pneumonia. #Acute hypoxic respiratory failure 2/2 #Sepsis 2/2 #Community-acquired pneumonia #COPD Met 4/4 SIRS criteria, with source of infection as pneumonia and endorgan failure as acute-respiratory failure Patient presented with acute worsening of SOB for over 1 hour, associated with cough, was recently diagnosed with community-acquired pneumonia and was prescribed levofloxacin, but failed the treatment. During presentation pulse 128, RR 27, temperature 101. Labs revealed WBC 17.4, chest x-ray revealed bibasilar pneumonia Received 500 cc bolus normal saline in the ED along with ceftriaxone 1 g IV x 1 -Started on vancomycin and Zosyn - INH levalbuterol and ipratropium every 6 hourly - We will complete 30 cc/kg body weight of normal saline - Oxygen as needed, taper down as tolerated - Blood, urine and sputum culture ordered, narrow down antibiotics as per results - Telemetry monitoring - Daily a.m. labs for CBC, CMP and electrolytes #Diabetes mellitus type 2 A1c ordered - Started on sliding scale insulin lispro AC #A-fib #Hypertension - Resumed metoprolol succinate 50 Mg daily - Started on Eliquis 5 Mg twice daily - May consider resuming other antihypertensive if blood pressure allows after home medication reconciliation - Maintain potassium and magnesium greater than 4 and 2 respectively - Daily a.m. labs for potassium and magnesium #Hypomagnesemia #Hypophosphatemia Presented with magnesium 1.3 and phosphorus 1.9 -Ordered 8 g IV magnesium sulfate and 15 mEq of potassium phosphate along with 1 packet of Neutra-Phos - Daily a.m. labs for potassium and magnesium, and replete as needed #Hyperlipidemia - Started on ezetimibe 10 Mg daily - Follow-up on lipid panel #Abdominal neuroendocrine tumor - Started on megestrol 20 Mg daily Health maintenance: Dispo: Patient admitted to telemetry unit for further management of acute hypoxic respiratory failure secondary to sepsis secondary to community-acquired pneumonia Diet: Carb consistent diet DVT prophylaxis: On Eliquis 5 Mg twice daily for A-fib CODE STATUS: Full code The patient's management plan was discussed with my attending physician MD Delbert Faustin MD, PGY2 Attending Provider Attestation/Addendum I have examined the patient, reviewed labs and imaging findings, discussed the case with the resident(s), and reviewed entered orders. I agree with the plan of care as outlined in this note, with these additional summaries/recommendations: Patient is a 79-year-old male with a medical history of prediabetes, hyperlipidemia, primary hypertension, COPD, liver cirrhosis, anxiety/depression, and neuroendocrine tumor status post hemicolectomy on 07/06/2024 presents to [facility] emergency department on 09/22/2024 with chief complaint of shortness of breath. Of note patient was recently seen by outpatient PCP and was prescribed Levaquin for pneumonia. Patient was also being evaluated for home oxygen and appears patient had been developing some hypotension and home antihypertensives were being decreased. Patient seen at bedside. Per EMS O2 saturation was 85 to 88% in the field on room air. Patient placed on 6 L nasal cannula in the emergency department satting at 96%. Patient diagnosed with acute hypoxic respiratory failure and sepsis. Evidence of endorgan damage is hypoxia. We will give 30 cc/kg fluid resuscitation. Most likely source for sepsis is pneumonia as chest x-ray shows significant bibasilar pneumonia. Pna most likely secondary to GNRs. Urinalysis still pending. Given that patient failed outpatient Levaquin we will start with broad-spectrum antibiotics vancomycin and Zosyn and can likely de-escalate. Cultures taken and we will follow-up results when available. Patient does have history of COPD although no wheezing during my evaluation. We will schedule breathing treatments although no IV steroids needed at this time. Leukocytosis present with WBC 17.4. Hypophosphatemia and hypomagnesia present and replacement given. Repeat levels in AM. Continue supplemental oxygen and wean as tolerated. Suspect patient will require O2 on discharge. Tylenol as needed for fever. Patient does have history of atrial fibrillation although EKG in the emergency room showed sinus tachycardia. Resume home anticoagulation. We will treat underlying infection and monitor for improvement in heart rate. We will be cautious with antihypertensives as patient was recently being evaluated for hypotension. Please review resident's note for additional management of chronic disease processes. All questions answered to satisfaction. Repeat hematology and chemistry panel in AM. Dr. Marleen MD
[2024-09-22] MEDS: Magnesium Sulfate 4 GM Ivpb 4 GM/50 ML BAG IV (21:15)
[2024-09-22] MEDS: VANCOMYCIN/NS 1 GM IVPB 200 ML IV (22:34)
[2024-09-22] MEDS: APIXABAN 2.5 MG TABLET 5 MG PO (22:34)
[2024-09-22] MEDS: NAPH,KPH MBDB 1 PACKET (1.5 GM) PO (23:09)
[2024-09-22] MEDS: POT PHOS 15 mMol in NS 250 ML 15 MMOL/250 ML BAG 62.5 MMOL IV (23:19)
[2024-09-23] VITALS (13 sets, daily range): BP systolic 98–127; BP diastolic 46–70; PULSE 61–102; RESP 16–22; TEMP 36.3–36.8; O2SAT 94–105; BMI 23.0
[2024-09-23] MEDS: LEVALBUTEROL RT 0.63 MG/3 ML NEBU INH ×4 (01:07→18:38)
[2024-09-23] MEDS: IPRATROPIUM RT 0.5 MG/ 2.5 ML NEBU INH ×4 (01:07→18:38)
[2024-09-23] MEDS: Magnesium Sulfate 4 GM Ivpb 4 GM/50 ML BAG IV (01:15)
[2024-09-23] MEDS: FERROUS SULF 325 MG TABLET PO (01:15)
[2024-09-23 02:50] LABS: Collection Type, Urine Clean Catch
[2024-09-23 02:58] LABS: Bilirubin,Urine Negative (Negative); Blood,Urine 3+ (Negative); Clarity,Urine Clear (Clear/Hazy); Color,Urine Colorless (Lt Yel-Yel); Glucose, Urine Negative (Negative); Ketones,Urine Negative (Negative); Leukocyte Esterase,Urine Negative (Negative); Nitrite,Urine Negative (Negative); Protein,Urine Negative (Neg - Trace); RBC,Urine 9 /hpf (0-3); Specific Gravity,Urine 1.006 (1.001-1.035); Squamous Epithelial Cell,Urine < 1 /hpf (0-5); Urobilinogen,Urine Negative mg/dL (0.0-1.0); WBC,Urine 1 /hpf (0-5)
[2024-09-23 03:06] LABS: Amphetamine/Methamp Scrn,U Negative (Negative); Barbiturate Screen,Urine Negative (Negative); Benzodiazepines Screen,Urine Negative (Negative); Benzoylecgonine Screen, Ur Negative (Negative); Fentanyl Screen,Urine Negative (Negative); Opiate Screen,Urine Negative (Negative); THC Screen,Urine Negative (Negative)
[2024-09-23] MEDS: PIPER/TAZO 3.375 GM PREMIX 3.375 GM/50 ML BAG IV ×3 (05:47→21:01)
[2024-09-23 05:57] LABS: Basophils % (Auto) 0 % (0-2.5); Eosinophils # (Auto) 0.3 Thou/mm3 (0.0-0.5); Eosinophils % (Auto) 2 % (0-10); Hematocrit 28.6 % (41.0-53.0); Hemoglobin 9.4 g/dL (13.5-16.0); Immature Granulocytes % (Auto) 1 % (0-0); Immature Granulocytes Auto 0.09 Thou/mm3 (0.00-0.00); Lymphocytes # (Auto) 1.3 Thou/mm3 (1.0-4.8); Lymphocytes % (Auto) 10 % (10-50); Mean Corpuscular HGB Conc 32.9 g/dl (31.0-37.0); Mean Corpuscular Hemoglobin 32.9 pg (25.0-35.0); Mean Corpuscular Volume 100 fL (80-100); Monocytes # (Auto) 1.2 Thou/mm3 (0.0-0.8); Monocytes % (Auto) 9 % (0-12); Neutrophils # (Auto) 10.4 Thou/mm3 (1.8-7.7); Neutrophils % (Auto) 78 % (37-80); Nucleated Red Blood Cell % 0 /100 WBC (0); Platelet Count 142 Thou/mm3 (140-440); RDW Standard Deviation 55.4 fL (35.1-43.9); Red Blood Count 2.86 Miln/mm3 (4.50-5.90); White Blood Count 13.3 Thou/mm3 (3.8-10.6)
--- NOTE | 2024-09-23 05:59 | PC.NURSE ---
99% O2 sat on 4L/min/nc- Decreased to 3L/min/nc.
[2024-09-23 06:17] LABS: Glucose Estimated Average 117 mg/dL (80-131); Hemoglobin A1C 5.7 % Hgb (4.8-6.0)
[2024-09-23 06:32] LABS: Alanine Aminotransferase 15 U/L (10-49); Albumin, Serum 3.2 gm/dL (3.4-4.8); Albumin/Globulin Ratio 1.3 (1.2-2.2); Alkaline Phosphatase 65 U/L (46-116); Anion Gap 8 (7-16); Aspartate Amino Transferase 18 U/L (0-34); BUN/Creatinine Ratio 20 Ratio (12-20); Bilirubin,Total 0.9 mg/dL (0.3-1.2); Blood Urea Nitrogen 16 mg/dL (9-23); Calcium 8.4 mg/dL (8.3-10.6); Carbon Dioxide 23.1 mMol/L (20.0-31.0); Cardiac Risk Estimate 2.2 RATIO (4.0-6.7); Chloride 109 mMol/L (98-107); Cholesterol 90 mg/dL (132-200); Creatinine (Component) 0.8 mg/dL (0.6-1.3); Estimated Creatinine Clearance 62.7 mL/min (>60); Globulin 2.5 gm/dL (2.3-3.5); Glucose 138 mg/dL (74-106); HDL Cholesterol 41 mg/dL (40-60); LDL Cholesterol,Calculated 40 mg/dL (0-130); Magnesium 3.5 mg/dL (1.6-2.6); Osmolality,Calculated 282 (275-295); Phosphorous 4.7 mg/dL (2.4-5.1); Potassium 4.3 mMol/L (3.4-5.1); Sodium 140 mMol/L (136-145); Thyroid Stimulating Hormone 1.63 uIU/mL (0.55-4.78); Total Protein 5.7 gm/dL (5.7-8.2); Triglycerides 45 mg/dL (30-150); eGFR > 60 See Note
[2024-09-23] MEDS: APIXABAN 2.5 MG TABLET 5 MG PO ×2 (08:59→20:57)
[2024-09-23] MEDS: PANTOPRAZOLE 40 MG TABLET PO (08:59)
[2024-09-23] MEDS: EZETIMIBE 10 MG TABLET PO (08:59)
[2024-09-23] MEDS: MEGESTROL ACET 20 MG TABLET PO (08:59)
[2024-09-23] MEDS: PARoxetine HCL 10 MG TABLET PO (08:59)
[2024-09-23] MEDS: VANCOMYCIN/NS 750 MG IVPB 750 MG/150 ML BAG 120 MG IV ×2 (09:00→22:10)
[2024-09-23] MEDS: METOPROLOL SUCCINATE XL 25 MG TABCR 50 MG PO (09:27)
--- NOTE | 2024-09-23 16:05 | PC.SS ---
SS update: treating infection and monitoring improvement in heart rate.
--- NOTE | 2024-09-23 16:07 | ESPR_ITS ---
<Statement entered by Parag Solorzano MD - 09/24/24 07:39> Senior Resident Attestation: I supervised/discussed management plan with internet assessor physician Dr. Lyons, and was involved in the care of this patient. I personally saw and examined the patient and discussed the assessment and plan with the entire medicine team, including my attending. I agree with the assessment and plan as documented. Patient reports his shortness of breath has improved significantly however she still has a lot of cough. Cultures are taken. Will continue current management with vancomycin and Zosyn and monitor patient. Patient's care was discussed with attending physician, Dr. Avalos. Parag Solorzano MD PGY-2. Documentation for date of: 09/23/24 Subjective Subjective Interval history: Patient is an overnight admit. Patient seen and examine at bedside this morning. Patient has significant improvement of his shortness of breath initially was saturating 96% on 1 L oxygen and when oxygen turned off patient was saturating 98% on room air. Patient had failed therapy for pneumonia with levofloxacin outpatient. Chest x-ray shows significant pneumonia patient is started on broad-spectrum antibiotics including Zosyn plus vancomycin although patient is improving symptomatically he continues to have a productive cough. Vitals are stable and labs are also within normal limits. Patient has no other complaints. Exam Vital Signs Temp Pulse Resp BP Pulse Ox O2 Del Method O2 Flow Rate 97.5 F 77 18 122/50 L 99 Room Air 2 09/23/24 12:00 09/23/24 12:39 09/23/24 12:39 09/23/24 12:00 09/23/24 12:39 09/23/24 12:00 09/23/24 08:00 Narrative Exam GENERAL: A&Ox3 . elderly male, cooperative, saturating on room air, not in acute distress NEURO: no focal neurological deficits HEENT: Atraumatic, Normocephalic. mucous membranes moist. Eyes open, symmetrical, & clear HEART: Normal Heart Sounds LUNGS: faint expiratory wheezing ABDOMEN: soft, non-distended, non-tender, bowel sounds heard, no guarding or rebound tenderness SKIN: No Rash or ecchymoses EXTREMITIES: No edema, tenderness, able to move all 4 extremities, pedal pulses palpated Objective Labs 09/24/24 04:29 09/24/24 04:29 Labs: Laboratory Results - last 24 hr 09/22/24 09/22/24 09/23/24 19:12 19:31 02:34 WBC 17.4 H RBC 3.10 L Hgb 10.1 L Hct 29.7 L MCV 96 MCH 32.6 MCHC 34.0 RDW Std Deviation 51.5 H Plt Count 160 Neut % (Auto) 83 H Lymph % (Auto) 8 L [place] % (Auto) 7 Eos % (Auto) 1 Baso % (Auto) 0 Neut # (Auto) 14.4 H Lymph # (Auto) 1.4 [place] # (Auto) 1.3 H Eos # (Auto) 0.1 Baso # (Auto) 0.1 Immature Gran # (Auto) 0.12 H Absolute Nucleated RBC 0.00 Immature Gran % 1 H Nucleated RBC % 0 PT 12.5 H INR 1.2 APTT 30.8 Sodium 133 L Potassium 3.7 Chloride 103 Carbon Dioxide 21.9 Anion Gap 8 BUN 18 Creatinine 0.8 Estim Creat Clear Calc 57.8 L eGFR > 60 BUN/Creatinine Ratio 23 H Glucose [address] Glu mg/dL Hemoglobin A1c Calculated Osmolality 271 L Lactic Acid 1.5 Calcium 8.7 Corrected Calcium 9.1 Phosphorus 1.9 L Magnesium 1.3 L Total Bilirubin 0.9 AST 20 ALT 17 Alkaline Phosphatase 69 Lactate Dehydrogenase 156 Troponin I < 0.020 B-Natriuretic Peptide 81 Total Protein 6.1 Albumin 3.5 Globulin 2.6 Albumin/Globulin Ratio 1.3 Triglycerides Cholesterol LDL Cholesterol, Calc HDL Cholesterol Cholesterol/HDL Ratio Lipase 43 Procalcitonin 0.15 TSH Ur Collection Type Clean Catch Urine Color Colorless A Urine Clarity Clear Urine pH 5.0 Ur Specific [place] 1.006 Urine Protein Negative Urine Glucose (UA) Negative Urine Ketones Negative Urine Blood 3+ A Urine Nitrite Negative Urine Bilirubin Negative Urine Urobilinogen (Auto) Negative Ur Leukocyte Esterase Negative Urine RBC 9 H Urine WBC 1 Ur Squamous Epith Cells < 1 Urine Bacteria None Urine Opiates Screen Negative Urine Fentanyl Screen Negative Ur Barbiturates Screen Negative U Amphetamin/Meth Scrn Negative U Benzodiazepines Scrn Negative U Cocaine Metab Screen Negative U Marijuana (THC) Screen Negative 09/23/24 05:15 WBC 13.3 H RBC 2.86 L Hgb 9.4 L Hct 28.6 L MCV 100 MCH 32.9 MCHC 32.9 RDW Std Deviation 55.4 H Plt Count 142 Neut % (Auto) 78 Lymph % (Auto) 10 [place] % (Auto) 9 Eos % (Auto) 2 Baso % (Auto) 0 Neut # (Auto) 10.4 H Lymph # (Auto) 1.3 [place] # (Auto) 1.2 H Eos # (Auto) 0.3 Baso # (Auto) 0.0 Immature Gran # (Auto) 0.09 H Absolute Nucleated RBC 0.00 Immature Gran % 1 H Nucleated RBC % 0 PT INR APTT Sodium 140 Potassium 4.3 D Chloride 109 H Carbon Dioxide 23.1 Anion Gap 8 BUN 16 Creatinine 0.8 Estim Creat Clear Calc 62.7 eGFR > 60 BUN/Creatinine Ratio [address] Glu mg/dL 117 Hemoglobin A1c 5.7 Calculated Osmolality 282 Lactic Acid Calcium 8.4 Corrected Calcium 9.0 Phosphorus 4.7 Magnesium 3.5 H Total Bilirubin 0.9 AST 18 ALT 15 Alkaline Phosphatase 65 Lactate Dehydrogenase Troponin I B-Natriuretic Peptide Total Protein 5.7 Albumin 3.2 L Globulin 2.5 Albumin/Globulin Ratio 1.3 Triglycerides 45 Cholesterol 90 L LDL Cholesterol, Calc 40 HDL Cholesterol 41 Cholesterol/HDL Ratio 2.2 L Lipase Procalcitonin TSH 1.63 Ur Collection Type Urine Color Urine Clarity Urine pH Ur Specific [place] Urine Protein Urine Glucose (UA) Urine Ketones Urine Blood Urine Nitrite Urine Bilirubin Urine Urobilinogen (Auto) Ur Leukocyte Esterase Urine RBC Urine WBC Ur Squamous Epith Cells Urine Bacteria Urine Opiates Screen Urine Fentanyl Screen Ur Barbiturates Screen U Amphetamin/Meth Scrn U Benzodiazepines Scrn U Cocaine Metab Screen U Marijuana (THC) Screen Quality Measures Quality Measures none Advance care planning discussed with:: patient Assessment & Plan Assessment Current Active Medications: Generic Name Dose Route Start Last Admin Trade Name Freq PRN Reason Stop Dose Admin Acetaminophen 650 mg 09/22/24 20:37 Acetaminophen 325 Mg Tablet PO 10/22/24 20:36 Q6H PRN Fever >101.5 Acetaminophen 650 mg 09/22/24 20:37 Acetaminophen 325 Mg Tablet PO 10/22/24 20:36 Q6H PRN PAIN SCALE 1-3 (mild Hydrocodone Bitart/Acetaminophen 1 tab 09/22/24 20:37 Hydrocodone/Apap 5/325 Tablet PO 09/27/24 20:36 Q4HR PRN PAIN SCALE 4-6 (Moderate Apixaban 5 mg 09/22/24 21:30 04/16/25 08:59 Apixaban 2.5 Mg Tablet PO 10/22/24 21:29 5 mg BID SABINE Administration Dextrose 25 ml 09/22/24 20:51 Dextrose 50%-Water Inj 50 Ml Syringe IV 10/22/24 20:50 Q15MIN PRN BG 50-70 responsive npo pt Dextrose 50 ml 09/22/24 20:51 Dextrose 50%-Water Inj 50 Ml Syringe IV 10/22/24 20:50 Q15MIN PRN BG <50 OR BG <70 & pt unresponsive Ezetimibe 10 mg 09/23/24 09:00 09/23/24 08:59 Ezetimibe 10 Mg Tablet PO 10/23/24 08:59 10 mg QDAY SABINE Administration Ferrous Sulfate 325 mg 09/22/24 21:00 09/23/24 01:15 Ferrous Sulf 325 Mg Tablet PO 10/22/24 20:59 325 mg Q48H SABINE Administration Glucagon 1 mg 09/22/24 20:51 Glucagon Inj 1 Mg Vial IM Q15MIN PRN BG <70, and no IV access Piperacillin/Tazobactam/Dextrose 3.375 gm in 50 mls @ 12.5 mls/hr 09/23/24 06:00 09/23/24 13:09 Zosyn IV 09/30/24 05:59 12.5 mls/hr Q8HR SABINE Administration Vancomycin/Sodium Chloride 750 mg in 150 mls @ 120 mls/hr 09/23/24 10:00 09/23/24 09:00 Vancomycin/Ns 750 Mg Ivpb IV 09/30/24 09:59 120 mls/hr Q12H SABINE Administration Insulin Human Lispro 0 unit 09/23/24 07:30 09/23/24 11:42 Insulin Lispro (Admelog) 1 Unit/0.01 Ml Unit SC 10/23/24 07:29 Not Given AC [facility] Protocol Ipratropium [place] 0.5 mg 09/23/24 01:00 09/23/24 12:39 Ipratropium Rt 0.5 Mg/ 2.5 Ml Nebu INH 10/23/24 00:59 0.5 mg Q6HRRT SABINE Administration Levalbuterol HCl 0.63 mg 09/23/24 01:00 09/23/24 12:39 Levalbuterol Rt 0.63 Mg/3 Ml Nebu INH 10/23/24 00:59 0.63 mg Q6HRRT SABINE Administration Megestrol Acetate 20 mg 09/23/24 09:00 09/23/24 08:59 Megestrol Acet 20 Mg Tablet PO 10/23/24 08:59 20 mg QDAY SABINE Administration Metoprolol Succinate 50 mg 09/23/24 09:00 09/23/24 09:27 Metoprolol Succinate Xl 25 Mg Tabcr PO 10/23/24 08:59 50 mg QDAY SABINE Administration Ondansetron HCl 4 mg 09/22/24 20:37 Ondansetron Inj 2 Mg/Ml Inj 2 Ml IV 10/22/24 20:36 Q6H PRN NAUSEA OR VOMITING Protocol Pantoprazole Sodium 40 mg 09/23/24 09:00 09/23/24 08:59 Pantoprazole 40 Mg Tablet PO 10/23/24 08:59 40 mg QDAY SABINE Administration Paroxetine HCl 10 mg 09/23/24 09:00 09/23/24 08:59 Paroxetine Hcl 10 Mg Tablet PO 10/23/24 08:59 10 mg QDAY SABINE Administration Pharmacy Consult 1 each 09/22/24 20:45 Vancomycin Pharmacy To Dose 1 Each Each IV 10/22/24 20:44 Q24H PRN PROTOCOL Plan The patient is a 79-year-old male with significant past medical history of atrial fibrillation on Eliquis, hypertension, diabetes mellitus type 2, hyperlipidemia, COPD supposed to be on home oxygen and neuroendocrine tumor presented to ED with chief complaint of worsening of SOB for 1 hour. The patient is admitted to telemetry unit for further management of acute hypoxic respiratory failure secondary to sepsis secondary to pneumonia. #Acute hypoxic respiratory failure 2/2- improved #Sepsis 2/2 #Community-acquired pneumonia #COPD Met 4/4 SIRS criteria, with source of infection as pneumonia and endorgan failure as acute-respiratory failure Patient presented with acute worsening of SOB for over 1 hour, associated with cough, was recently diagnosed with community-acquired pneumonia and was prescribed levofloxacin, but failed outpatient treatment. On admission pulse 128, RR 27, temperature 101. Labs revealed WBC 17.4 chest x-ray revealed bibasilar pneumonia Received 500 cc bolus normal saline in the ED along with ceftriaxone 1 g IV x 1 -Started on vancomycin and Zosyn 09/23- - INH levalbuterol and ipratropium every 6 hourly - We will complete 30 cc/kg body weight of normal saline - Oxygen as needed, taper down as tolerated - Blood, urine and sputum culture ordered, narrow down antibiotics as per results - Telemetry monitoring - Daily a.m. labs for CBC, CMP and electrolytes #Diabetes mellitus type 2 -A1c 5.7 on 09/23 -Started on sliding scale insulin lispro AC -Hypoglycemia protocol in place #A-fib, rate controlled #Hypertension - Resumed home metoprolol succinate 50 Mg daily - Resumed home on Eliquis 5 Mg twice daily - Maintain potassium and magnesium greater than 4 and 2 respectively - Monitor daily labs for potassium and magnesium -Pt's Bp is WNL, will consider antihypertensives if BP continues to be elevated #Hypomagnesemia -resolved #Hypophosphatemia- resolved Presented with magnesium 1.3 and phosphorus 1.9 -Ordered 8 g IV magnesium sulfate and 15 mEq of potassium phosphate along with 1 packet of Neutra-Phos - Daily a.m. labs for potassium and magnesium, and replete as needed #Hyperlipidemia - resumed home ezetimibe 10 Mg daily - Follow-up on lipid panel #Abdominal neuroendocrine tumor - resumed home megestrol 20 Mg daily Health maintenance: Dispo: Patient admitted to telemetry unit for further management of AHRF 2/2 to sepsis secondary to community-acquired pneumonia Diet: Carb consistent diet DVT prophylaxis: On Eliquis 5 Mg twice daily for A-fib CODE STATUS: Full code Assessment and plan discussed with my senior resident Dr. Solorzano & attending physician Dr. Bailey Lyons (PGY-1)- Internal medicine resident Attending Provider Attestation/Addendum Gloria Barreto, , attest that I was physically present for the wilson portions of the service and evaluated the patient with the resident and I reviewed and discussed the case with the resident and agree with the resident's findings and plans of care as documented above Patient seen and evaluated this AM. Patient is on room air and states he is feeling improved. He has cough and productive sputum. However, patient did present with a fever last night. Will continue with broad spectrum antibiotics. F/u with cultures. If patient is able to ambulate and remain on room air, anticipate DC within next 24hrs.
--- NOTE | 2024-09-23 16:36 | PC.SS ---
Initial assessment: this is 79 year old male admitted for SOB. Patient is Lao speaking. Patient lives at [address] in [place] [id number]. Patient lives with Ina. Patient assigned daughterShira as his emergency contact. Patient PCP is Imani Kevin. Patient reports being independent with ADL's. Patient informs recently has home oxygen PNR on 2L. Patient parmacy is [facility]. Patient plans to return home upon discharge, the patients family to transport the patient home. D/c plan: Home Next of kin: daughterShira [phone]
[2024-09-24] VITALS (9 sets, daily range): BP systolic 111–142; BP diastolic 59–81; PULSE 68–96; RESP 16–96; TEMP 36.3–36.5; O2SAT 93–100; BMI 22.6
[2024-09-24] MEDS: LEVALBUTEROL RT 0.63 MG/3 ML NEBU INH ×4 (00:18→13:49)
[2024-09-24] MEDS: IPRATROPIUM RT 0.5 MG/ 2.5 ML NEBU INH ×3 (00:18→13:48)
[2024-09-24] MEDS: PIPER/TAZO 3.375 GM PREMIX 3.375 GM/50 ML BAG IV (05:41)
[2024-09-24 06:13] LABS: Basophils % (Auto) 0 % (0-2.5); Eosinophils # (Auto) 0.3 Thou/mm3 (0.0-0.5); Eosinophils % (Auto) 3 % (0-10); Hematocrit 28.7 % (41.0-53.0); Hemoglobin 9.6 g/dL (13.5-16.0); Immature Granulocytes % (Auto) 1 % (0-0); Immature Granulocytes Auto 0.08 Thou/mm3 (0.00-0.00); Lymphocytes # (Auto) 1.3 Thou/mm3 (1.0-4.8); Lymphocytes % (Auto) 12 % (10-50); Mean Corpuscular HGB Conc 33.4 g/dl (31.0-37.0); Mean Corpuscular Hemoglobin 33.6 pg (25.0-35.0); Mean Corpuscular Volume 100 fL (80-100); Monocytes # (Auto) 1.1 Thou/mm3 (0.0-0.8); Monocytes % (Auto) 10 % (0-12); Neutrophils # (Auto) 7.7 Thou/mm3 (1.8-7.7); Neutrophils % (Auto) 73 % (37-80); Nucleated Red Blood Cell % 0 /100 WBC (0); Platelet Count 166 Thou/mm3 (140-440); RDW Standard Deviation 53.4 fL (35.1-43.9); Red Blood Count 2.86 Miln/mm3 (4.50-5.90); White Blood Count 10.5 Thou/mm3 (3.8-10.6)
[2024-09-24 06:46] LABS: Alanine Aminotransferase 16 U/L (10-49); Albumin, Serum 3.5 gm/dL (3.4-4.8); Albumin/Globulin Ratio 1.3 (1.2-2.2); Alkaline Phosphatase 70 U/L (46-116); Anion Gap 9 (7-16); Aspartate Amino Transferase 19 U/L (0-34); BUN/Creatinine Ratio 26 Ratio (12-20); Bilirubin,Total 0.8 mg/dL (0.3-1.2); Blood Urea Nitrogen 18 mg/dL (9-23); Calcium 8.8 mg/dL (8.3-10.6); Calcium (Corrected) 9.2 mg/dL (8.5-10.1); Carbon Dioxide 21.8 mMol/L (20.0-31.0); Chloride 107 mMol/L (98-107); Creatinine (Component) 0.7 mg/dL (0.6-1.3); Estimated Creatinine Clearance 71.7 mL/min (>60); Globulin 2.7 gm/dL (2.3-3.5); Glucose 107 mg/dL (74-106); Magnesium 2.1 mg/dL (1.6-2.6); Osmolality,Calculated 277 (275-295); Phosphorous 3.3 mg/dL (2.4-5.1); Sodium 138 mMol/L (136-145); Total Protein 6.2 gm/dL (5.7-8.2); eGFR > 60 See Note
[2024-09-24] MEDS: METOPROLOL SUCCINATE XL 25 MG TABCR 50 MG PO (08:28)
[2024-09-24] MEDS: EZETIMIBE 10 MG TABLET PO (08:28)
[2024-09-24] MEDS: MEGESTROL ACET 20 MG TABLET PO (08:28)
[2024-09-24] MEDS: APIXABAN 2.5 MG TABLET 5 MG PO (08:28)
[2024-09-24] MEDS: PARoxetine HCL 10 MG TABLET PO (08:28)
[2024-09-24] MEDS: PANTOPRAZOLE 40 MG TABLET PO (08:30)
[2024-09-24 10:07] LABS: Vancomycin,Trough 10.3 mcg/mL (5.0-10.0)
--- NOTE | 2024-09-24 12:39 | PC.NURSE ---
Notified pts daughter Shira of pts dc per daughter will picker tender helper pt in about 1 hr.
[2024-09-24] MEDS: guaiFENesin/DM TABLET 1 EACH PO (12:54)
--- NOTE | 2024-09-24 13:43 | ESDS_ITS ---
<Statement entered by Gloria Avalos DO - 09/25/24 07:18> I, Gloria Avalos DO, attest that I was physically present for the wilson portions of the service and evaluated the patient with the resident and I reviewed and discussed the case with the resident and agree with the resident's findings and plans of care as documented above Planned Discharge Date 09/24/24 DS: Providers Provider Date of admission: 09/22/24 20:54 Primary care physician: Imani Kevin NP Admitting Provider: Peter Hawley MD Attending Provider on Admission: Gloria Avalos DO Attending Provider on DC: Tim Lyons MD Discharging Provider: Tim Lyons MD DS: Diagnosis Problem List Completed Was Problem List Reviewed/Reconciled?: Yes Hospital Course Hospital Course Hospital course: Mr. Carreno is a 79-year-old male with significant past medical history of atrial fibrillation on Eliquis, hypertension, diabetes mellitus type 2, hyperlipidemia, COPD supposed to be on home oxygen and neuroendocrine tumor presented to [facility] ED 09/22/24 complaining of worsening of SOB, Pt underwent failed outpatient treatment for pneumonia with levofloxacin. Pt was admitted to hospitalfor further management of pneumonia with broad IV antibiotics with zosyn and vancomycin. Pt's blood cultures had no growth and MRSA was negative as well. Pt is saturating above 98% on room air, states he has had a cough for many years. He was a heavy smoker for 30 years and quit 15 years ago. Pt is encouraged to use his home inhalers. Pt is hemodynamically stable, saturating on room air, endorses to resolution of shortness of breath and ready to be discharged home to self care with additional 5 days of augmentin to complete the course of antibiotics for pneumonia. Discharge Recommendations Continue home medications as prescribed. Take Augmentin 1 tab twice daily for 5 days. Follow up with PCP within 2 weeks. Return to ED if symptoms recur or worsen Hospitalization Diagnosis #Acute hypoxic respiratory failure 2/2- improved #Sepsis 2/2 #Community-acquired pneumonia #COPD #Diabetes mellitus type 2 #A-fib, rate controlled #Hypertension #Hypomagnesemia -resolved #Hypophosphatemia- resolved #Hyperlipidemia #Abdominal neuroendocrine tumor Assessment and plan discussed with my attending physician Dr. Bailey Lyons (PGY-1)- Internal medicine resident Time Spent with Patient Time attestation: Total time spent providing and/or coordinating discharge services: Time spent: Greater than 30 minutes Exam Vital Signs Temp Pulse Resp BP Pulse Ox O2 Del Method O2 Flow Rate 97.5 F 115 H 18 162/86 H 93 L Room Air 2 09/24/24 12:00 09/24/24 12:00 09/24/24 12:00 09/24/24 12:00 09/24/24 12:00 09/24/24 12:00 09/23/24 08:00 Narrative Exam GENERAL: A&Ox3 . elderly male, cooperative, saturating on room air, not in acute distress NEURO: no focal neurological deficits HEENT: Atraumatic, Normocephalic. mucous membranes moist. Eyes open, symmetrical, & clear HEART: Normal Heart Sounds LUNGS:no wheezing bilaterally ABDOMEN: soft, non-distended, non-tender, bowel sounds heard, no guarding or rebound tenderness SKIN: No Rash or ecchymoses EXTREMITIES: No edema, tenderness, able to move all 4 extremities, pedal pulses palpated Discharge Plan Plan Patient Disposition: HOME (Self Care) Patient condition on transfer: Stable Care Plan Goals: Continue home medications as prescribed. Take Augmentin 1 tab twice daily for 5 days. Follow up with PCP within 2 weeks. Return to ED if symptoms recur or worsen Contin?e tomando los medicamentos en casa seg?n lo prescrito. Temperance 1 comprimido de Augmentin dos veces al d?a emilee 5 d?as. Consulte con castaneda m?dico de atenci?n primaria dentro de 2 semanas. Regrese a urgencias si los s?ntomas reaparecen o empeoran. Prescriptions/Referrals Prescriptions/Med Rec: New amoxicillin-pot clavulanate 875-125 mg tablet 1 tab PO BID 5 Days Qty: 10 0RF Continued metoprolol succinate 50 mg tablet extended release 24 hr 50 mg PO QDAY budesonide-formoterol [Breyna] 160-4.5 mcg/actuation HFA aerosol inhaler 2 puff inhalation Q12H ipratropium bromide 0.02 % solution 0.5 mg inhalation Q6H 30 Days Qty: 300 0RF megestrol 40 mg tablet 20 mg PO BID ezetimibe 10 mg tablet 10 mg PO QDAY Qty: 90 0RF (DME) lancets [Comfort EZ Lancets] 28 gauge misc See Rx Instructions .Route Qty: 100 0RF Rx Instructions: Check blood once a day (DME) blood sugar diagnostic Strip See Rx Instructions .Route Qty: 100 0RF Rx Instructions: Check BS once a day lisinopril 20 mg tablet 20 mg PO QDAY Qty: 90 0RF pantoprazole 40 mg tablet,delayed release (DR/EC) 40 mg PO QAM 56 Days Qty: 56 0RF paroxetine HCl [Paxil] 10 mg tablet 10 mg PO QDAY Qty: 90 0RF Januvia 25 mg tablet 25 mg PO DAILY Qty: 90 0RF ferrous sulfate 325 mg (65 mg iron) tablet,delayed release (DR/EC) 325 mg PO QDAY Qty: 90 0RF Eliquis 5 mg tablet 5 mg PO BID Qty: 180 0RF albuterol sulfate [Ventolin HFA] 90 mcg/actuation HFA aerosol inhaler 2 puff inhalation Q6H PRN (Reason: Shortness Of Breath Or Wheezing) Qty: 8.5 5RF (DME) AeroChamber Plus Z Stat Lg Msk Spacer See Rx Instructions .Route Qty: 10 6RF Rx Instructions: As directed albuterol sulfate 2.5 mg /3 mL (0.083 %) solution for nebulization 2.5 mg inhalation Q6H PRN (Reason: shortness of breath or wheezing) Referrals: [facility] ATTORNEY,Imani Fried TRADEMARK ATTORNEY [Primary Care Provider] - Patient/Caregiver Discharge Instructions Print Language: Singaporean Stand Alone Forms: Emily Award Info., Patient Portal Info Letter Discharge Order Discharge Orders: Discharge (Routine); Ordered 09/24/24 Ordered By: Parag Solorzano Quality Discharge Quality Measures VTE prophylaxis
--- NOTE | 2024-09-26 08:40 | PC.CC ---
Addendum entered by Vernell Cabrera RN 09/26/24 08:44: Booked with [facility] is 09/28/24 Original Note: referral sent to [facility]
== END 2024-09-24 14:08 | disposition home or self-care (01) | DRG 871 ==
LOC: SERX 20:08 → SERHOLD 21:00 → S3NX 09-23 00:37
PROVIDERS: Registered Nurse General Practice; Student in an Organized Health Care Education/Training Program; Admitting Provider Student in an Organized Health Care Education/Training Program; Emergency Provider Emergency Medicine; PCP Nurse Practitioner Family; Visit Provider Internal Medicine
DX: A41.9 Sepsis, unspecified organism (principal); J18.9 Pneumonia, unspecified organism; J96.01 Acute respiratory failure with hypoxia; J44.0 Chronic obstructive pulmonary disease with (acute) lower respiratory infection; R65.20 Severe sepsis without septic shock; I10 Essential (primary) hypertension; E11.9 Type 2 diabetes mellitus without complications; E78.5 Hyperlipidemia, unspecified; I48.91 Unspecified atrial fibrillation; F32.A Depression, unspecified; E83.42 Hypomagnesemia; D3A.8 Other benign neuroendocrine tumors; E83.39 Other disorders of phosphorus metabolism; K74.60 Unspecified cirrhosis of liver; Z79.01 Long term (current) use of anticoagulants; F41.9 Anxiety disorder, unspecified; Z87.891 Personal history of nicotine dependence; Z90.49 Acquired absence of other specified parts of digestive tract; Z79.899 Other long term (current) drug therapy; Z79.4 Long term (current) use of insulin
CPT/HCPCS: 36415; 71045; 80053; 80061; 80202; 80307; 81001; 83036; 83605; 83615; 83690; 83735; 83880; 84100; 84145; 84443; 84484; 85025; 85610; 85730; 87040; 87081; 87086; 87400; 87811; 93005; 93225; 94640; 94644; 96365; 96366; 96367; 99285; J0696; J2543; J3370; J3475; J7030; J7040; J7999; A9270

== ENCOUNTER → 2024-10-02 | Outpatient (BNVA) | payer MEDICARE, MEDICAID, SELFPAY | END | disposition home or self-care (01) | PROVIDERS: PCP Nurse Practitioner Family; Referring Provider Nurse Practitioner Family; Visit Provider Nurse Practitioner Family | DX: J44.9 Chronic obstructive pulmonary disease, unspecified (principal); J18.9 Pneumonia, unspecified organism; Z76.89 Persons encountering health services in other specified circumstances; I10 Essential (primary) hypertension | CPT/HCPCS: 94640; 99214; J7614; A9270 ==

== ENCOUNTER → 2024-10-06 | Outpatient (CLI) | payer MEDICARE, MEDICAID, SELFPAY ==
--- NOTE | 2024-10-06 09:13 | XR_ITS ---
Examination: PA lateral chest 2 views TECHNIQUE: Upright PA lateral chest 2 views Exam date and time: 0919 hours Comparison September 22, 2024 INDICATIONS: Significant bilateral pneumonia September 22, 2024 FINDINGS: Partial clearing with minimal residual bibasilar pneumonia Normal heart size Significant hyperexpansion IMPRESSION: Partial clearing bibasilar pneumonia, suggest continued follow-up
== END | disposition home or self-care (01) ==
LOC: CDIM 08:49
PROVIDERS: PCP Nurse Practitioner Family; Referring Provider Specialist; Visit Provider Specialist
DX: J18.8 Other pneumonia, unspecified organism (principal)
CPT/HCPCS: 71046

== ENCOUNTER 2024-10-12 15:15 | Outpatient (RCR) | payer MEDICARE, MEDICAID, SELFPAY ==
--- NOTE | 2024-10-13 06:43 | CTCFLWUP_ITS ---
Patient: DES CRUZ : 1945 Page 3 of 5 FOLLOW UP NOTE DATE OF SERVICE: 10/12/2024 NAME: DES CRUZ ACCOUNT: [id number] : 1945 AGE: 79 INTERVAL HISTORY: Des, a 79-year-old male, presented for follow-up of brain MRI results and management of stage 3B cancer. His history includes chronic hypertension and lung issues requiring portable oxygen. Recent PET scan showed no evidence of cancer, and liver function tests were normal. Brain MRI revealed changes likely due to chronic hypertension, possibly contributing to his forgetfulness. Management plan includes monitoring with serum chromogranin and urine 5-HIAA tests every two months, considering cancer injection therapy if lab values rise, and continued use of portable oxygen. Chief Complaint Follow-up for brain MRI results, lung issues requiring portable oxygen History of Present Illness Des Cruz, a 79-year-old male with a history of stage 3B cancer, presents for follow-up regarding his cancer treatment and recent diagnostic results. The patient's primary concern is his ongoing management of cancer, for which he has been recommended to receive injections. The patient currently reports no symptoms related to his cancer. He has no complaints of diarrhea, which is a potential side effect of the recommended injection treatment. The only health issue mentioned is lung problems, for which he is receiving portable oxygen therapy. The patient's cognitive function has been noted to show some changes, possibly related to chronic hypertension, which may be causing some forgetfulness. Since the last visit, there have been no reported new symptoms or changes in the patient's overall health status related to his cancer. The patient's adherence to current treatments, including the use of portable oxygen for his lung issues, appears to be good. There is no mention of discontinuation of any treatments or specific progress towards health goals. Medical History - Stage 3B cancer (tumor less than one centimeter, found in lymph nodes) - Chronic hypertension - Lung issues requiring portable oxygen Medications and Supplements - Cancer injection - Planned for a year - Potential side effect: diarrhea - Not yet started Social History - Substance Use: Patient uses portable oxygen for lung issues Laboratory, Imaging, and Diagnostic Test Results - Brain MRI: Changes likely due to chronic high blood pressure - Liver function tests: Normal - PET scan: No evidence of cancer - Tumor characteristics: - Size: Less than 1 cm - Stage: 3B (lymph node involvement) Review of Systems Respiratory: Positive for lung issues requiring portable oxygen. Neurological: Positive for forgetfulness. 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 Patient have quit smoking since last hospitalization. Patient had lsot weight ,abt 20 and still have diarrhea. Patient have poor appetite .he also have wheexing which gets better with inhalers OTHER MEDICAL HISTORY/CONDITIONS: Neuroendocrine Diabetes Abscess?- Pneumothorax?left?2023 FAMILY HISTORY: Patient?denies?family?cancer?history. 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 ETOH Use:?Quit 10-15yrs ago - Beer/ Hard liquor daily Drug?Note:?Denies Social?History?Note:?Lives?with? MEDICATIONS: 1. albuterol sulfate - 90 mcg/actuation Every 6 Hours 2. Eliquis - 5 mg 1 tab Twice a Day 3. ezetimibe - 10 mg 1 tab Daily 4. Januvia - 25 mg 1 tab Daily 5. lisinopril - 10 mg 1 tab Daily 6. megestrol - 40 mg 1 tab Twice a Day 7. metoprolol succinate - 50 mg 1 tab Daily 8. pantoprazole - 40 mg 1 tab Daily 9. PARoxetine HCl - 10 mg 1 tab Daily 10. Symbicort - 160-4.5 mcg/actuation 2 Puff(s) As directed Medications Last Reconciled by Irais Villasenor MA on 10/12/2024 ALLERGIES: No Known Drug Allergies REVIEW OF SYSTEMS: A complete 14-point review of systems was performed and is negative except as noted in interval history. PHYSICAL EXAMINATION: VITAL SIGNS: Temperature?98, B/P?129/60, Oxygen?Saturation?95% Weight?139?lbs PAIN: 0 - No pain ECOG Performance Status: 0 - Asymptomatic and fully active GENERAL APPEARANCE: Appears well, in no apparent distress, appropriately interactive. HEENT: Normocephalic, no temporal wasting, normal conjunctiva, no scleral icterus, normal hearing, lips without lesions, neck normal range of motion. CARDIOVASCULAR: Not assessed. PULMONARY: Normal respiratory effort, no respiratory distress or use of accessory muscles, speaking in full sentences, no tachypnea. EXTREMITIES: No pedal edema or cyanosis. SKIN: Normal skin appearance. NEUROLOGIC: Alert and oriented x4. PSHYCHIATRIC: Appropriate affect, mood normal, behavior normal, intact thought and speech. LABORATORY DATA: I have personally reviewed and interpreted each of the patient?s relevant lab tests, abnormal findings are below: Date 09/23/24 09/24/24 ??WHITE?BLOOD?COUNT?(Thou/mm3) ? 10.5 ??RED?BLOOD?COUNT?(Miln/mm3) ? 2.86?L ??HEMOGLOBIN?(gm/dl) ? 9.6?L ??HEMATOCRIT?(%) ? 28.7?L ??PLATELET?COUNT?(Thou/mm3) ? 166 ??NEUTROPHILS?%,?AUTO?(%) ? 73 ??LYMPH?%,?AUTO?(%) ? 12 ??NEUTROPHILS,?AUTO?(Thou/mm3) ? 7.7 ??GLUCOSE,RANDOM?(mg/dL) 138?H 107?H ??BLOOD?UREA?NITROGEN?(mg/dL) 16 18 ??CREATININE?(mg/dL) 0.80 0.70 ??SODIUM?(mmol/L) 140 138 ??POTASSIUM?(mmol/L) 4.3 4.0 ??CHLORIDE?(mmol/L) 109?H 107 ??CrCl?(CandG)?(ml/min) 64.37 73.56 ??AST/SGOT?(Unit/L) 18 19 ??ALT/SGPT?(Unit/L) 15 16 ??ALKALINE?PHOSPHATASE?(Unit/L) 65 70 ??BILIRUBIN,?TOTAL?(mg/dL) 0.9 0.8 ??PROTEIN?TOTAL?(gm/dl) 5.7 6.2 ??ALBUMIN,?SERUM?(gm/dl) 3.2?L 3.5 ??GLOBULIN?(gm/dl) 2.5 2.7 ??ALBUMIN/GLOBULIN?RATIO 1.3 1.3 ??CALCIUM,?SERUM?(mg/dL) 8.4 8.8 ??CALCIUM?SERUM?(CORRECTED)?(mg/dL) 9.0 9.2 ??MAGNESIUM?(mg/dL) ? 2.1 ASSESSMENT/PLAN: Low grade NET Des Cruz, a 79-year-old male with a history of stage 3B cancer, presents for follow-up of brain MRI, PET scan, and discussion of cancer treatment. Stage 3B Cancer Assessment: Patient has a history of stage 3B cancer with a tumor less than one centimeter found in the lymph nodes. Recent PET scan shows no visible cancer in the body. The small tumor size indicates a very low chance of metastasis, but lymph node involvement warranted staging as 3B. Special labs including serum chromogranin level and urine 5-HIAA were ordered but results are not yet available. Patient is currently asymptomatic. Plan: - Order serum chromogranin level and urine 5-HIAA tests today - Repeat chromogranin and 5-HIAA labs every two months - Monitor for new symptoms, particularly diarrhea - Follow up in two months with lab results - Consider starting cancer injection therapy if lab numbers rise or symptoms appear Hypertension with Chronic Changes Assessment: Brain MRI reveals changes likely due to chronic hypertension, which may be contributing to patient's forgetfulness. Current blood pressure control status is unknown. Plan: - Advise patient to follow up with primary care provider for blood pressure management Lung Issues Assessment: Patient reports lung issues requiring portable oxygen. No further details provided in the transcript. Plan: - Continue current management with portable oxygen ORDERS: Order # Description RETURN TO CLINIC: BILLING AND COMPLIANCE: I reviewed external records from providers outside my specialty as summarized above. I spent a total of 50 minutes on this patient?s care on the day of their visit excluding time spent related to any billed procedures. This time includes time spent with the patient as well as time spent documenting in the medical record, reviewing patients records and tests, obtaining history, placing orders, communicating with other healthcare professionals, counseling the patient, family or caregiver, and/or care coordination for the diagnoses above. Electronically Signed by: {Object.Sanct_ID*PnP.NameFL@M}, {Object.Sanct_ID*PnP.Suffix@U} D: {Object.Sanct_Date} T: {Object.Sanct_Time} CC: PCP: Dorita c Imani Ryan Referring: [facility] Imani Ryan This document was completed utilizing speech recognition software. Grammatical errors, random word insertions, pronoun errors, and incomplete sentences are an occasional consequence of this system due to software limitations, ambient noise, and hardware issues. Any formal questions or concerns about the content, text or information contained within the body of this dictation should be directly addressed to the provider for clarification.
== END 2024-11-07 23:59 | disposition home or self-care (01) ==
LOC: SCTC 15:15
PROVIDERS: PCP Nurse Practitioner Family; Referring Provider Nurse Practitioner Family; Visit Provider Internal Medicine Hematology & Oncology
DX: C7B.8 Other secondary neuroendocrine tumors (principal); I10 Essential (primary) hypertension; Z99.81 Dependence on supplemental oxygen; Z87.09 Personal history of other diseases of the respiratory system
CPT/HCPCS: 99213; G0463

== ENCOUNTER → 2024-10-14 | Outpatient (CLI) | payer MEDICARE, MEDICAID, SELFPAY ==
[2024-10-14 12:31] LABS: Misc Send Out* See Sep Rpt
[2024-10-14 12:45] LABS: Misc Send Out* See Sep Rpt
[2024-10-14 12:56] LABS: Basophils # (Auto) 0.1 Thou/mm3 (0.0-0.2); Basophils % (Auto) 1 % (0-2.5); Eosinophils # (Auto) 0.2 Thou/mm3 (0.0-0.5); Eosinophils % (Auto) 2 % (0-10); Hematocrit 35.8 % (41.0-53.0); Hemoglobin 11.8 g/dL (13.5-16.0); Immature Granulocytes % (Auto) 2 % (0-0); Immature Granulocytes Auto 0.27 Thou/mm3 (0.00-0.00); Lymphocytes # (Auto) 2.1 Thou/mm3 (1.0-4.8); Lymphocytes % (Auto) 14 % (10-50); Mean Corpuscular Volume 100 fL (80-100); Monocytes # (Auto) 1.4 Thou/mm3 (0.0-0.8); Monocytes % (Auto) 9 % (0-12); Neutrophils # (Auto) 10.9 Thou/mm3 (1.8-7.7); Neutrophils % (Auto) 73 % (37-80); Nucleated Red Blood Cell % 0 /100 WBC (0); Platelet Count 265 Thou/mm3 (140-440); RDW Standard Deviation 51.2 fL (35.1-43.9); Red Blood Count 3.58 Miln/mm3 (4.50-5.90)
[2024-10-14 13:16] LABS: Alanine Aminotransferase 14 U/L (10-49); Albumin, Serum 4.1 gm/dL (3.4-4.8); Albumin/Globulin Ratio 1.4 (1.2-2.2); Alkaline Phosphatase 72 U/L (46-116); Anion Gap 8 (7-16); Aspartate Amino Transferase 21 U/L (0-34); BUN/Creatinine Ratio 23 Ratio (12-20); Bilirubin,Total 0.3 mg/dL (0.3-1.2); Blood Urea Nitrogen 18 mg/dL (9-23); Calcium 9.3 mg/dL (8.3-10.6); Calcium (Corrected) 9.3 mg/dL (8.5-10.1); Carbon Dioxide 24.2 mMol/L (20.0-31.0); Chloride 108 mMol/L (98-107); Creatinine (Component) 0.8 mg/dL (0.6-1.3); Glucose 142 mg/dL (74-106); Osmolality,Calculated 283 (275-295); Potassium 4.2 mMol/L (3.4-5.1); Sodium 140 mMol/L (136-145); Total Protein 7.1 gm/dL (5.7-8.2); eGFR > 60 See Note
== END | disposition home or self-care (01) ==
LOC: SCTO 12:07
PROVIDERS: PCP Nurse Practitioner Family; Referring Provider Internal Medicine Hematology & Oncology; Visit Provider Internal Medicine Hematology & Oncology
DX: C7B.8 Other secondary neuroendocrine tumors (principal)
CPT/HCPCS: 36415; 80053; 85025

== ENCOUNTER → 2024-11-05 | Outpatient (BNVA) | payer MEDICARE, MEDICAID, SELFPAY | END | disposition home or self-care (01) | PROVIDERS: PCP Nurse Practitioner Family; Referring Provider Nurse Practitioner Family; Visit Provider Nurse Practitioner Family | DX: J44.9 Chronic obstructive pulmonary disease, unspecified (principal); K21.9 Gastro-esophageal reflux disease without esophagitis | CPT/HCPCS: 99212; G0463 ==

== ENCOUNTER → 2024-11-27 | Outpatient (CLI) | payer MEDICARE, MEDICAID, SELFPAY ==
--- NOTE | 2024-11-27 14:17 | XR_ITS ---
MRI abdomen, without contrast. MRCP Date and time of exam: November 27, 2024 at 1423 hours Comparison MR abdomen August 29, 2024 INDICATIONS: Extrahepatic biliary tract dilatation and multiple areas of calcification in the liver on MRI abdomen August 29, 2024 Technique: Multiple axial and coronal images of the abdomen have been obtained with the Siemens 1.5T MRI scanner. Images obtained included T1 weighted transverse images, T2-weighted transverse images, T2-weighted transverse images fat-suppressed, T2 weighted haste fat suppressed transverse images, T1 weighted images, in and out of phase images, T2-weighted coronal images, breath hold, T2 weighted haze coronal images as well as T2 weighted coronal thick slab images, MRCP. Findings: Liver is irregular in contour No convincing solid liver lesions are not depicted Contracted gallbladder Common hepatic duct 9 mm no definite stones No dilated pancreatic duct no peripancreatic edema Spleen normal size No ascites Minimal perinephric stranding Aorta normal size No abdominal lymphadenopathy IMPRESSION: No convincing solid liver lesions depicted Common bile duct is enlarged 9 mm but no common hepatic or common bile duct stones noted
== END | disposition home or self-care (01) ==
PROVIDERS: PCP Nurse Practitioner Family; Referring Provider Internal Medicine Gastroenterology; Visit Provider Internal Medicine Gastroenterology
DX: K83.8 Other specified diseases of biliary tract (principal)
CPT/HCPCS: S8037; 74181

== ENCOUNTER → 2024-11-27 | Outpatient (BNVA) | payer MEDICARE, MEDICAID, SELFPAY | END | disposition home or self-care (01) | PROVIDERS: PCP Hospitalist; Referring Provider Hospitalist; Visit Provider Hospitalist | DX: J44.1 Chronic obstructive pulmonary disease with (acute) exacerbation (principal); Z01.83 Encounter for blood typing ==

== ENCOUNTER 2024-11-30 13:23 | Outpatient (AMB) | payer MEDICARE, MEDICAID, SELFPAY ==
[2024-11-30 13:41] VITALS: BP 121/54; PULSE 62; RESP 19; TEMP 36.5; O2SAT 91; BMI 27.3
--- NOTE | 2024-11-30 13:41 | PD.GSCLVISIT ---
Vital Signs - [facility] 11/30/24 13:41 Height 1.61 m Height Method Stated Weight 70.817 kg Weight Measurement Method Standing Scale BMI 27.3 BP 121/54 L Blood Pressure Source Automatic Cuff Blood Pressure Location Left Upper Arm Position Sitting Respiration 19 Pulse 62 Pulse Source Monitor Temp 97.7 F Temp Source Temporal Artery Scan Pulse Oximetry (%) 91 L Oxygen Delivery Method Room Air Med/Allergies Allergies & Medications Allergies No Known Allergies Allergy (Verified 11/30/24 13:42) Medication Reconciliation apixaban 5 mg tablet (Eliquis) 5 mg PO BID #180 tabs 01/21/24 [Rx Confirmed 11/30/24] inhalat.spacing dev,large mask (Aerochamber Plus Z Stat Large Mask) #10 ea 08/04/24 [Rx Confirmed 11/30/24] blood sugar diagnostic #100 ea 08/19/24 [Rx Confirmed 11/30/24] lancets 28 gauge (Comfort EZ Lancets) #100 ea 08/19/24 [Rx Confirmed 11/30/24] paroxetine HCl 10 mg tablet (Paxil) 10 mg PO QDAY #90 tabs 08/19/24 [Rx Confirmed 11/30/24] metoprolol succinate 50 mg tablet,extended release 24 hr 50 mg PO QDAY 09/09/24 [History Confirmed 11/30/24] lisinopril 20 mg tablet 10 mg PO QDAY 10/02/24 [History Confirmed 11/30/24] ezetimibe 10 mg tablet See Rx Instructions .Route .COMPLEX #90 tabs 10/05/24 [Rx Confirmed 11/30/24] albuterol sulfate 2.5 mg/3 mL (0.083 %) solution for nebulization 2.5 mg (3 mL) inhalation Q6H PRN shortness of breath or wheezing 30 days #180 mL 11/05/24 [Rx Confirmed 11/30/24] albuterol sulfate 90 mcg/actuation aerosol inhaler (Ventolin HFA) 2 puff inhalation Q6H PRN shortness of breath or wheezing #8.5 grams 11/05/24 [Rx Confirmed 11/30/24] budesonide-formoterol HFA 160 mcg-4.5 mcg/actuation aerosol inhaler (Breyna) 2 puff inhalation Q12H #10.2 grams 11/05/24 [Rx Confirmed 11/30/24] pantoprazole 40 mg tablet,delayed release 40 mg PO QAM 90 days #90 tabs 11/05/24 [Rx Confirmed 11/30/24] sitagliptin phosphate 25 mg tablet (Januvia) 25 mg PO QDAY 11/27/24 [History Confirmed 11/30/24] megestrol 40 mg tablet 20 mg (1/2 x 40 mg) PO BID #30 tabs 11/30/24 [Rx] MA Intake Visit Data Collection New Patient or Established: Established Patient (seen at [facility] within 3 years) Seen by Clinical Staff ONLY (RN/MA): No Reason for Visit:: FOLLOW UP Pain Present Currently: 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 PCP or OBGYN visit in last 3 months: Yes Smoking Status Smoking Status: Former smoker Immunization / Flu Flu Vaccine in the Last 12 Months: No Flu Vaccine Exclusion Criteria: No Exclusion Criteria Past Medical History Past Medical History NEUROLOGIC: Negative Neurological Disorders or Seizures CARDIAC: Positive Cardiac Disorders, Atrial Fibrillation, Angina, Peripheral Vascular Disease, Hypercholesterolemia and Hypertension; Negative Congestive Heart Failure RESPIRATORY: Positive Chronic Obstructive Pulmonary Disease (COPD), Asthma, Bronchitis, Pneumonia and Smoking GASTROINTESTINAL: Positive Gastrointestinal Disorders (06/30/24 colonoscopy,biopsy=hemorrhoids,polyp x1 terminal ileum.), Cirrhosis, Esophageal Varices (06/30/24egd,biopsy=[place] GradeBrefluxesophagitis,Grade 1 esophvarices,Gastritis) and Hemorrhoids; Negative Colorectal Cancer GENITOURINARY: Positive Genitourinary Disorders and Renal Disease; Negative Prostate Cancer MUSCULOSKELETAL: Positive Arthritis ENT: Positive Deafness ENDOCRINE: Positive Endocrine Disorders and Diabetes Mellitus Type 2; Negative Diabetes Mellitus Type 1 HEMATOLOGIC: Positive Blood Disorders and Anemia; Negative Sickle Cell Disease PSYCHO/SOCIAL: Positive Depression OTHER HISTORY: Positive Hospitalization, Falls and Measles; Negative Down Syndrome, Developmental Delay, Blood Transfusions, Blood Transfusion Reaction, Anesthesia Reactions, MRSA, Vancomycin-Resistant Enterococci, Cancer, Colorectal Cancer, Lung Cancer or Prostate Cancer Family History FAMILY HISTORY: Positive Family Respiratory Disorders and Family Cancer; Negative Family Cardiac Disorders Surgical History SURGICAL: Positive Abdominal Surgery (07/06/24laparotomy,resection of terminal ileum and ascending colon); Negative Cardiac Surgery, Pacemaker, Endocrine Surgery or Joint Replacement Social History SMOKING STATUS: Smoking status: Former smoker SECOND HAND EXPOSURE: second hand exposure: Yes ALCOHOL: Alcohol Intake: Former ALCOHOL FREQUENCY: Alcohol Intake Frequency: A Few Times a Month HOUSING: Housing: Apartment LIVES WITH: Lives With: Family HPI HPI Narrative 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 At previous visit patient noted ongoing decreased appetite and I increased his dose of Megestroll; patient states that since then his appetite has improved, he still taking the medication but he is eating much better and he has gained about 20 pounds. 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 I encouraged pt to follow up with his planned endoscopy and follow up with surveillance colonoscopies per his GI recommendation. Pt is encouraged to reach out if he develops any concerns or questions for me Advanced Care Planning Advance care planning discussed with:: patient and child Office Procedures GNS Level of Care Nursing/Assessment Patient Status: Established Patient Nursing Assessment/Reassesment: Medication Reconciliation, Update PMH in EMR and Vital Signs Coordination of Care: Complex Care and Chronic Disease 1-5, Consent,records obtained, informed consent, Education Simp Pt/Fam, Results/Orders obtained and Staff clarify orders Special Needs: Language special needs Established Patient Charge Established Patient Point Assignment: 90 Established Patient Point Charge: EP Level 3 (80-115) Patient Portal Questionaires Social History Living Situation History Lives With: Spouse Housing: Apartment Housing Other:: Pt lives with Tobacco History Smoking Status: Former smoker Second Hand Smoke Exposure: Yes Alcohol History Alcohol Intake: Former Alcohol Intake Frequency: A Few Times a Month Substance Use History Substance Use: NONE Review of Systems Report any current symptoms Only answer those that you have currently: Past Medical History Past Medical History Have you ever been diagnosed with any of the following: Neurological Problems Seizures: No Cardiology Problems Atrial Fibrillation: Yes Angina: Yes Peripheral Vascular Disease: Yes Hypercholesterolemia: Yes Congestive Heart Failure: No Hypertension: Yes Respiratory Problems Chronic Obstructive Pulmonary Disease (COPD): Yes Asthma: Yes Bronchitis: Yes Pneumonia: Yes Smoking: Yes Stomache/Intestinal Problems Cirrhosis: Yes Esophageal Varices: Yes (06/30/24egd,biopsy=[place] GradeBrefluxesophagitis,Grade 1 esophvarices,Gastritis) Colorectal Cancer: No Hemorrhoids: Yes Genital/Urinary Problems Renal Disease: Yes Prostate Cancer: No Musculoskeletal Problems Arthritis: Yes Head,Eye,Nose,Throat Problems Deafness: Yes Endocrine Problems Diabetes Mellitus Type 1: No Diabetes Mellitus Type 2: Yes Blood Problems Anemia: Yes Sickle Cell Disease: No Psychologic Problems Depression: Yes Other Problems Hospitalization: Yes Down Syndrome: No Developmental Delay: No Falls: Yes Blood Transfusions: No Blood Transfusion Reaction: No Anesthesia Reactions: No MRSA: No Vancomycin-Resistant Enterococci: No Measles: Yes Cancer: No Lung Cancer: No Surgical History Pacemaker: No
== END 2024-11-30 14:35 | disposition home or self-care (01) ==
LOC: HODSRG 13:23
PROVIDERS: PCP Nurse Practitioner Family; Referring Provider Nurse Practitioner Family; Supervising Provider Surgery; Visit Provider Surgery
DX: Z48.815 Encounter for surgical aftercare following surgery on the digestive system (principal); C7B.8 Other secondary neuroendocrine tumors; I10 Essential (primary) hypertension; J44.9 Chronic obstructive pulmonary disease, unspecified; E11.9 Type 2 diabetes mellitus without complications; K74.60 Unspecified cirrhosis of liver
CPT/HCPCS: 99213; G0463

== ENCOUNTER → 2024-12-10 | Outpatient (CLI) | payer MEDICARE, MEDICAID, SELFPAY ==
[2024-12-10 11:05] LABS: Misc Send Out* See Sep Rpt
[2024-12-10 12:38] LABS: Basophils # (Auto) 0.1 Thou/mm3 (0.0-0.2); Basophils % (Auto) 1 % (0-2.5); Eosinophils # (Auto) 0.2 Thou/mm3 (0.0-0.5); Eosinophils % (Auto) 2 % (0-10); Hematocrit 40.4 % (41.0-53.0); Hemoglobin 13.5 g/dL (13.5-16.0); Immature Granulocytes Auto 0.16 Thou/mm3 (0.00-0.00); Lymphocytes # (Auto) 2.4 Thou/mm3 (1.0-4.8); Lymphocytes % (Auto) 20 % (10-50); Mean Corpuscular HGB Conc 33.4 g/dl (31.0-37.0); Mean Corpuscular Hemoglobin 33.0 pg (25.0-35.0); Mean Corpuscular Volume 99 fL (80-100); Monocytes # (Auto) 1.3 Thou/mm3 (0.0-0.8); Monocytes % (Auto) 11 % (0-12); Neutrophils # (Auto) 8.2 Thou/mm3 (1.8-7.7); Neutrophils % (Auto) 66 % (37-80); Nucleated Red Blood Cell # 0.00 Thou/mm3 (0.00-0.00); Nucleated Red Blood Cell % 0 /100 WBC (0); Platelet Count 203 Thou/mm3 (140-440); RDW Standard Deviation 51.8 fL (35.1-43.9); Red Blood Count 4.09 Miln/mm3 (4.50-5.90); White Blood Count 12.4 Thou/mm3 (3.8-10.6)
[2024-12-10 12:52] LABS: Alanine Aminotransferase 19 U/L (10-49); Albumin, Serum 4.0 gm/dL (3.4-4.8); Albumin/Globulin Ratio 1.3 (1.2-2.2); Alkaline Phosphatase 52 U/L (46-116); Anion Gap 7 (7-16); Aspartate Amino Transferase 25 U/L (0-34); BUN/Creatinine Ratio 19 Ratio (12-20); Bilirubin,Total 0.8 mg/dL (0.3-1.2); Blood Urea Nitrogen 19 mg/dL (9-23); Calcium 9.3 mg/dL (8.3-10.6); Calcium (Corrected) 9.3 mg/dL (8.5-10.1); Carbon Dioxide 25.7 mMol/L (20.0-31.0); Chloride 110 mMol/L (98-107); Creatinine (Component) 1.0 mg/dL (0.6-1.3); Globulin 3.0 gm/dL (2.3-3.5); Glucose 161 mg/dL (74-106); Osmolality,Calculated 290 (275-295); Potassium 4.4 mMol/L (3.4-5.1); Sodium 143 mMol/L (136-145); Total Protein 7.0 gm/dL (5.7-8.2); eGFR > 60 See Note
== END | disposition home or self-care (01) ==
LOC: SCTO 10:30
PROVIDERS: PCP Nurse Practitioner Family; Referring Provider Internal Medicine Hematology & Oncology; Visit Provider Internal Medicine Hematology & Oncology
DX: C7B.8 Other secondary neuroendocrine tumors (principal)
CPT/HCPCS: 36415; 80053; 85025

== ENCOUNTER → 2024-12-14 | Outpatient (CLI) | payer MEDICARE, MEDICAID, SELFPAY ==
[2024-12-14 09:32] LABS: Misc Send Out* See Sep Rpt
== END | disposition home or self-care (01) ==
LOC: SLDO 08:47
PROVIDERS: Referring Provider Internal Medicine Hematology & Oncology; Visit Provider Internal Medicine Hematology & Oncology
DX: C7B.8 Other secondary neuroendocrine tumors (principal)
CPT/HCPCS: 82570; 83497

== ENCOUNTER 2024-12-17 14:37 | Outpatient (RCR) | payer MEDICARE, MEDICAID, SELFPAY ==
--- NOTE | 2024-12-28 01:46 | CTCFLWUP_ITS ---
Patient: DES CARRENO : 1945 Page 3 of 5 FOLLOW UP NOTE DATE OF SERVICE: 12/17/2024 NAME: DES CARRENO ACCOUNT: [id number] : 1945 AGE: 79 INTERVAL HISTORY: Des, a 79-year-old male, presented for follow-up of brain MRI results and management of stage 3B cancer. His history includes chronic hypertension and lung issues requiring portable oxygen. Recent PET scan showed no evidence of cancer, and liver function tests were normal. Brain MRI revealed changes likely due to chronic hypertension, possibly contributing to his forgetfulness. Management plan includes monitoring with serum chromogranin and urine 5-HIAA tests every two months, considering cancer injection therapy if lab values rise, and continued use of portable oxygen. Chief Complaint Follow-up for brain MRI results, lung issues requiring portable oxygen History of Present Illness Des Carreno, a 79-year-old male with a history of stage 3B cancer, presents for follow-up regarding his cancer treatment and recent diagnostic results. The patient's primary concern is his ongoing management of cancer, for which he has been recommended to receive injections. The patient currently reports no symptoms related to his cancer. He has no complaints of diarrhea, which is a potential side effect of the recommended injection treatment. The only health issue mentioned is lung problems, for which he is receiving portable oxygen therapy. The patient's cognitive function has been noted to show some changes, possibly related to chronic hypertension, which may be causing some forgetfulness. Since the last visit, there have been no reported new symptoms or changes in the patient's overall health status related to his cancer. The patient's adherence to current treatments, including the use of portable oxygen for his lung issues, appears to be good. There is no mention of discontinuation of any treatments or specific progress towards health goals. Medical History - Stage 3B cancer (tumor less than one centimeter, found in lymph nodes) - Chronic hypertension - Lung issues requiring portable oxygen Medications and Supplements - Cancer injection - Planned for a year - Potential side effect: diarrhea - Not yet started Social History - Substance Use: Patient uses portable oxygen for lung issues Laboratory, Imaging, and Diagnostic Test Results - Brain MRI: Changes likely due to chronic high blood pressure - Liver function tests: Normal - PET scan: No evidence of cancer - Tumor characteristics: - Size: Less than 1 cm - Stage: 3B (lymph node involvement) Review of Systems Respiratory: Positive for lung issues requiring portable oxygen. Neurological: Positive for forgetfulness. 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 Patient have quit smoking since last hospitalization. Patient had lsot weight ,abt 20 and still have diarrhea. Patient have poor appetite .he also have wheexing which gets better with inhalers OTHER MEDICAL HISTORY/CONDITIONS: Neuroendocrine Diabetes Abscess?- Pneumothorax?left?2023 FAMILY HISTORY: Patient?denies?family?cancer?history. 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 ETOH Use:?Quit 10-15yrs ago - Beer/ Hard liquor daily Drug?Note:?Denies Social?History?Note:?Lives?with? MEDICATIONS: 1. albuterol sulfate - 90 mcg/actuation Every 6 Hours 2. Eliquis - 5 mg 1 tab Twice a Day 3. ezetimibe - 10 mg 1 tab Daily 4. Januvia - 25 mg 1 tab Daily 5. lisinopril - 10 mg 1 tab Daily 6. megestrol - 40 mg 1 tab Twice a Day 7. metoprolol succinate - 50 mg 1 tab Daily 8. pantoprazole - 40 mg 1 tab Daily 9. PARoxetine HCl - 10 mg 1 tab Daily 10. Symbicort - 160-4.5 mcg/actuation 2 Puff(s) As directed Medications Last Reconciled by Irais Odonnell MD on 12/17/2024 ALLERGIES: No Known Drug Allergies REVIEW OF SYSTEMS: A complete 14-point review of systems was performed and is negative except as noted in interval history. PHYSICAL EXAMINATION: VITAL SIGNS: Temperature?99, B/P?155/61, Oxygen?Saturation?95% Weight?152?lbs ECOG Performance Status: 2 - Symptomatic; ambulatory; capable of self-care; >50% of waking hrs. not in bed GENERAL APPEARANCE: Appears well, in no apparent distress, appropriately interactive. HEENT: Normocephalic, no temporal wasting, normal conjunctiva, no scleral icterus, normal hearing, lips without lesions, neck normal range of motion. CARDIOVASCULAR: Not assessed. PULMONARY: Normal respiratory effort, no respiratory distress or use of accessory muscles, speaking in full sentences, no tachypnea. EXTREMITIES: No pedal edema or cyanosis. SKIN: Normal skin appearance. NEUROLOGIC: Alert and oriented x4. PSHYCHIATRIC: Appropriate affect, mood normal, behavior normal, intact thought and speech. LABORATORY DATA: I have personally reviewed and interpreted each of the patient?s relevant lab tests, abnormal findings are below: Date 10/14/24 12/10/24 ??WHITE?BLOOD?COUNT?(Thou/mm3) 15.0?H 12.4?H ??RED?BLOOD?COUNT?(Miln/mm3) 3.58?L 4.09?L ??HEMOGLOBIN?(gm/dl) 11.8?L 13.5 ??HEMATOCRIT?(%) 35.8?L 40.4?L ??PLATELET?COUNT?(Thou/mm3) 265 203 ??NEUTROPHILS?%,?AUTO?(%) 73 66 ??LYMPH?%,?AUTO?(%) 14 20 ??NEUTROPHILS,?AUTO?(Thou/mm3) 10.9?H 8.2?H ??GLUCOSE,RANDOM?(mg/dL) 142?H 161?H ??BLOOD?UREA?NITROGEN?(mg/dL) 18 19 ??CREATININE?(mg/dL) 0.80 1.00 ??SODIUM?(mmol/L) 140 143 ??POTASSIUM?(mmol/L) 4.2 4.4 ??CHLORIDE?(mmol/L) 108?H 110?H ??CrCl?(CandG)?(ml/min) 66.77 53.42 ??AST/SGOT?(Unit/L) 21 25 ??ALT/SGPT?(Unit/L) 14 19 ??ALKALINE?PHOSPHATASE?(Unit/L) 72 52 ??BILIRUBIN,?TOTAL?(mg/dL) 0.3 0.8 ??PROTEIN?TOTAL?(gm/dl) 7.1 7.0 ??ALBUMIN,?SERUM?(gm/dl) 4.1 4.0 ??GLOBULIN?(gm/dl) 3.0 3.0 ??ALBUMIN/GLOBULIN?RATIO 1.4 1.3 ??CALCIUM,?SERUM?(mg/dL) 9.3 9.3 ??CALCIUM?SERUM?(CORRECTED)?(mg/dL) 9.3 9.3 ASSESSMENT/PLAN: Low grade NET Des Carreno, a 79-year-old male with a history of stage 3B cancer, presents for follow-up of brain MRI, PET scan, and discussion of cancer treatment. Stage 3B Cancer Assessment: Patient has a history of stage 3B cancer with a tumor less than one centimeter found in the lymph nodes. Recent PET scan shows no visible cancer in the body. The small tumor size indicates a very low chance of metastasis, but lymph node involvement warranted staging as 3B. Special labs including serum chromogranin level and urine 5-HIAA were ordered but results are not yet available. Patient is currently asymptomatic. Plan: - Order serum chromogranin level and urine 5-HIAA tests today - Repeat chromogranin and 5-HIAA labs every two months - Monitor for new symptoms, particularly diarrhea - Follow up in two months with lab results - Consider starting cancer injection therapy if lab numbers rise or symptoms appear Hypertension with Chronic Changes Assessment: Brain MRI reveals changes likely due to chronic hypertension, which may be contributing to patient's forgetfulness. Current blood pressure control status is unknown. Plan: - Advise patient to follow up with primary care provider for blood pressure management Lung Issues Assessment: Patient reports lung issues requiring portable oxygen. No further details provided in the transcript. Plan: - Continue current management with portable oxygen ORDERS: Order # Description [id number] Urine 5 HIAA [id number] Chromogranin A [id number] Comprehensive Metabolic Panel - 12 + CBC with Auto Diff [id number] MD Follow Up 4 Week RETURN TO CLINIC: I reviewed the diagnosis, prognosis, and recommended treatment/procedure options with the patient (and/or their legal industrial sales representative), including the potential benefits, risks, side effects and alternative therapies. We also discussed the option of no treatment and the possibility of clinical trial participation, if applicable. All questions were addressed, and they demonstrated understanding. They provided informed consent to proceed with the proposed plan of care. BILLING AND COMPLIANCE: I reviewed external records from providers outside my specialty as summarized above. I spent a total of 50 minutes on this patient?s care on the day of their visit excluding time spent related to any billed procedures. This time includes time spent with the patient as well as time spent documenting in the medical record, reviewing patients records and tests, obtaining history, placing orders, communicating with other healthcare professionals, counseling the patient, family or caregiver, and/or care coordination for the diagnoses above. Electronically Signed by: Abelino Samson MD T: 1:44 AM CC: PCP: [facility] Imani Ryan Referring: [facility] Imani Ryan This document was completed utilizing speech recognition software. Grammatical errors, random word insertions, pronoun errors, and incomplete sentences are an occasional consequence of this system due to software limitations, ambient noise, and hardware issues. Any formal questions or concerns about the content, text or information contained within the body of this dictation should be directly addressed to the provider for clarification.
--- NOTE | 2025-01-04 05:39 | CTCFLWUP_ITS ---
Patient: REGIS CARRENO : 1945 MR#: [id number] Page 2 of 2 TELEHEALTH AUDIO FOLLOW UP NOTE DATE OF CONSULTATION: 12/30/2024 NAME: REGIS CARRENO ACCOUNT: [id number] : 1945 AGE: 79 REFERRING PHYSICIAN: Imani Kevin [facility] MANAGER ENVIRONMENTAL HEALTH AND SAFETY PRIMARY PHYSICIAN: Imani Kevin [facility] MANAGER ENVIRONMENTAL HEALTH AND SAFETY INTERVAL HISTORY: Patient was not available on phone for review of signs and symptoms. Patient's daughter was available to discuss the results I discussed lab values which were pending with Mr. Carreno's daughter and advised her that his numbers are getting worsened and patient need to come in to discuss changing his signs and symptoms. Patient is already scheduled to see me. 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 Vail I and D Perirectal Abscess - 02/22/24 Spntaneous Pneumothorax left lung -2023 FAMILY HISTORY: Patient?denies?family?cancer?history. 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 Tobacco Use:?Quit 10-15yrs ago - Smoke 1/2 PPD x 30yrs ETOH Use:?Quit 10-15yrs ago - Beer/ Hard liquor daily Drug?Note:?Denies Social?History?Note:?Lives?with? MEDICATIONS: 1. albuterol sulfate - 90 mcg/actuation Every 6 Hours 2. Eliquis - 5 mg 1 tab Twice a Day 3. ezetimibe - 10 mg 1 tab Daily 4. Januvia - 25 mg 1 tab Daily 5. lisinopril - 10 mg 1 tab Daily 6. megestrol - 40 mg 1 tab Twice a Day 7. metoprolol succinate - 50 mg 1 tab Daily 8. pantoprazole - 40 mg 1 tab Daily 9. PARoxetine HCl - 10 mg 1 tab Daily 10. Symbicort - 160-4.5 mcg/actuation 2 Puff(s) As directed?Palabra Meds? Medications Last Reconciled by Irais Hamilton MACHUCA on 12/30/2024 ALLERGIES: No Known Drug Allergies REVIEW OF SYSTEMS: A complete 14-point review of systems was performed and is negative except as noted in interval history. PHYSICAL EXAMINATION: The patient appeared well-nourished, alert, and in no apparent distress via video conferencing. LABORATORY DATA: I have personally reviewed and interpreted each of the patient?s relevant lab tests, abnormal findings are below: ASSESSMENT/PLAN: Low-grade neuroendocrine tumor Patient have history of stage IIIb cancer Discussed chromogranin A level and urine HIAA Serum chromogranin levels is elevated Will start on octreotide Patient advised to follow-up with me on the next coming appointment ORDERS: Order # Description [id number] Follow Up 3 Months [id number] Urine 5 HIAA [id number] Chromogranin A [id number] Comprehensive Metabolic Panel - 12 + CBC with Auto Diff RETURN TO CLINIC: I reviewed the diagnosis, prognosis, and recommended treatment/procedure options with the patient (and/or their legal financial service representative), including the potential benefits, risks, side effects and alternative therapies. We also discussed the option of no treatment and the possibility of clinical trial participation, if applicable. All questions were addressed, and they demonstrated understanding. They provided informed consent to proceed with the proposed plan of care. BILLING AND COMPLIANCE: I reviewed external records from providers outside my specialty as summarized above. I spent a total of 50 minutes on this patient?s care on the day of their visit excluding time spent related to any billed procedures. This time includes time spent with the patient as well as time spent documenting in the medical record, reviewing patients records and tests, obtaining history, placing orders, communicating with other healthcare professionals, counseling the patient, family or caregiver, and/or care coordination for the diagnoses above. I performed this evaluation using real-time Telehealth tools. Prior to initiating, the patient consented to perform this evaluation using Telehealth tools. Electronically Signed by: Abelino Samson MD T: 5:36 AM CC: PCP: Imani Brown Np Referring: Imani Brown Np This document was completed utilizing speech recognition software. Grammatical errors, random word insertions, pronoun errors, and incomplete sentences are an occasional consequence of this system due to software limitations, ambient noise, and hardware issues. Any formal questions or concerns about the content, text or information contained within the body of this dictation should be directly addressed to the provider for clarification.
== END 2025-01-07 23:59 | disposition home or self-care (01) ==
LOC: SCTC 14:37
PROVIDERS: PCP Nurse Practitioner Family; Referring Provider Nurse Practitioner Family; Visit Provider Internal Medicine Hematology & Oncology
DX: C7B.8 Other secondary neuroendocrine tumors (principal); I10 Essential (primary) hypertension
CPT/HCPCS: 99212; G0463

== ENCOUNTER → 2025-01-08 | Outpatient (CLI) | payer MEDICARE, MEDICAID, SELFPAY ==
--- NOTE | 2025-01-08 08:44 | XR_ITS ---
Examination: PA lateral chest 2 views TECHNIQUE: Upright PA lateral chest 2 views Date and time: January 08, 2025 0848 hours Comparison October 06, 2024 INDICATIONS: Coughing 40 years. FINDINGS: COPD with prominent hyperexpansion Scarring in the lingular segment Accentuation basilar bronchovascular markings. No lobar pneumonia or pulmonary edema Prominent osteopenia Prominent central pulmonary arteries IMPRESSION: COPD Pulmonary artery hypertension Basilar bronchitis pattern
== END | disposition home or self-care (01) ==
LOC: CDIM 08:38
PROVIDERS: PCP Nurse Practitioner Family; Referring Provider Specialist; Visit Provider Specialist
DX: J44.9 Chronic obstructive pulmonary disease, unspecified (principal); I27.21 Secondary pulmonary arterial hypertension
CPT/HCPCS: 71046

== ENCOUNTER → 2025-01-26 | Outpatient (BNVA) | payer MEDICARE, MEDICAID, SELFPAY | END | disposition home or self-care (01) | PROVIDERS: PCP Nurse Practitioner Family; Referring Provider Nurse Practitioner Family; Visit Provider Nurse Practitioner Family | DX: E78.5 Hyperlipidemia, unspecified (principal); E11.9 Type 2 diabetes mellitus without complications | CPT/HCPCS: 99212; G0463 ==

== ENCOUNTER → 2025-01-26 | Outpatient (CLI) | payer MEDICARE, MEDICAID, SELFPAY ==
[2025-01-26 16:35] LABS: Basophils # (Auto) 0.1 Thou/mm3 (0.0-0.2); Basophils % (Auto) 1 % (0-2.5); Eosinophils # (Auto) 0.3 Thou/mm3 (0.0-0.5); Eosinophils % (Auto) 2 % (0-10); Hematocrit 39.1 % (41.0-53.0); Hemoglobin 13.6 g/dL (13.5-16.0); Immature Granulocytes Auto 0.13 Thou/mm3 (0.00-0.00); Lymphocytes # (Auto) 2.4 Thou/mm3 (1.0-4.8); Lymphocytes % (Auto) 19 % (10-50); Mean Corpuscular HGB Conc 34.8 g/dl (31.0-37.0); Mean Corpuscular Hemoglobin 33.7 pg (25.0-35.0); Mean Corpuscular Volume 97 fL (80-100); Monocytes # (Auto) 1.5 Thou/mm3 (0.0-0.8); Monocytes % (Auto) 11 % (0-12); Neutrophils # (Auto) 8.7 Thou/mm3 (1.8-7.7); Neutrophils % (Auto) 66 % (37-80); Nucleated Red Blood Cell # 0.00 Thou/mm3 (0.00-0.00); Nucleated Red Blood Cell % 0 /100 WBC (0); Platelet Count 239 Thou/mm3 (140-440); RDW Standard Deviation 48.8 fL (35.1-43.9); Red Blood Count 4.03 Miln/mm3 (4.50-5.90); White Blood Count 13.1 Thou/mm3 (3.8-10.6)
[2025-01-26 16:50] LABS: Alanine Aminotransferase 15 U/L (10-49); Albumin, Serum 4.3 gm/dL (3.4-4.8); Albumin/Globulin Ratio 1.5 (1.2-2.2); Alkaline Phosphatase 61 U/L (46-116); Anion Gap 11 (7-16); Aspartate Amino Transferase 24 U/L (0-34); BUN/Creatinine Ratio 17 Ratio (12-20); Bilirubin,Total 1.2 mg/dL (0.3-1.2); Blood Urea Nitrogen 20 mg/dL (9-23); Calcium 10.2 mg/dL (8.3-10.6); Calcium (Corrected) 10.2 mg/dL (8.5-10.1); Carbon Dioxide 24.8 mMol/L (20.0-31.0); Chloride 105 mMol/L (98-107); Creatinine (Component) 1.2 mg/dL (0.6-1.3); Globulin 2.9 gm/dL (2.3-3.5); Glucose 155 mg/dL (74-106); Osmolality,Calculated 286 (275-295); Potassium 4.6 mMol/L (3.4-5.1); Sodium 141 mMol/L (136-145); Total Protein 7.2 gm/dL (5.7-8.2); eGFR > 60 See Note
== END | disposition home or self-care (01) ==
LOC: SCTO 15:48
PROVIDERS: PCP Nurse Practitioner Family; Referring Provider Internal Medicine Hematology & Oncology; Visit Provider Internal Medicine Hematology & Oncology
DX: C7B.8 Other secondary neuroendocrine tumors (principal)
CPT/HCPCS: 36415; 80053; 85025

== ENCOUNTER 2025-01-28 14:41 | Outpatient (RCR) | payer MEDICARE, MEDICAID, SELFPAY | END 2025-02-07 23:59 | disposition home or self-care (01) | LOC: SCTC 14:41 | PROVIDERS: PCP Nurse Practitioner Family; Referring Provider Nurse Practitioner Family; Visit Provider Internal Medicine Hematology & Oncology | DX: C7A.8 Other malignant neuroendocrine tumors (principal); R97.8 Other abnormal tumor markers | CPT/HCPCS: 96372; J1932 ==

== ENCOUNTER 2025-02-01 18:29 | Emergency (ER) | payer MEDICARE, MEDICAID, SELFPAY ==
[2025-02-01 19:40] VITALS: BP 122/75; PULSE 83; RESP 17; TEMP 36.7; O2SAT 96
--- NOTE | 2025-02-01 19:52 | XR_ITS ---
Examination: PA chest single view TECHNIQUE: Upright PA chest single view Date and time: February 01, 20252000 hours INDICATIONS: COPD history with shortness of breath today. FINDINGS: COPD with significant hyperexpansion. Normal heart size. Interstitial disease of the lung bases, consider bronchitis, bronchiectasis No pulmonary edema IMPRESSION: COPD Bronchitis versus bronchiectasis at the lung bases
--- NOTE | 2025-02-01 22:04 | PD.EDRME ---
Rapid Medical Screening Exam RME Arrival date/time: 02/01/25 18:29 This is a case of 80-year-old male with history of asthma smoker COPD came in in the emergency room due to cough and shortness of breath no chest pain patient was seen in the clinic where accidentally they were given dexamethasone via nebulizer machine patient become anxious this patient decided to start consult here in the emergency room Chief Complaint: General Adult/Misc Complain Time Seen by Provider: 02/01/25 19:52 Vital signs: Vital Signs Temperature 98.1 F 02/01/25 19:40 Pulse Rate 83 02/01/25 19:40 Respiratory Rate 17 02/01/25 19:40 Blood Pressure 122/75 02/01/25 19:40 Pulse Oximetry (%) 96 02/01/25 19:40 Oxygen Delivery Method Room Air 02/01/25 19:40
--- NOTE | 2025-02-01 22:10 | PC.NURSE ---
CALLED PT IN ER LOBBY AND OUTSIDE OF ER AND NO ANSWER
--- NOTE | 2025-02-01 22:25 | PC.NURSE ---
CALLED PT IN ER LOBBY AND OUTSIDE OF ER AND NO ANSWER
--- NOTE | 2025-02-01 22:25 | PC.NURSE ---
CALLED PT NO ANSWER OUT SIDE OF ER AND IN ER LOBBY
--- NOTE | 2025-02-01 22:57 | PC.NURSE ---
CALLED PT IN ER LOBBY AND OUTSIDE OF ER AND NO ANSWER
== END 2025-02-01 22:58 | disposition left against medical advice (07) ==
PROVIDERS: Emergency Provider Emergency Medicine; PCP Nurse Practitioner Family
DX: R05.9 Cough, unspecified (principal); R06.02 Shortness of breath; J44.9 Chronic obstructive pulmonary disease, unspecified
CPT/HCPCS: 71045; 80053; 85025; 99283; A9270

== ENCOUNTER → 2025-02-01 | Outpatient (BNVA) | payer MEDICARE, MEDICAID, SELFPAY | END | disposition home or self-care (01) | PROVIDERS: PCP Nurse Practitioner Family; Referring Provider Nurse Practitioner Family; Visit Provider Nurse Practitioner Family | DX: J44.1 Chronic obstructive pulmonary disease with (acute) exacerbation (principal); E11.9 Type 2 diabetes mellitus without complications | CPT/HCPCS: 96372; 99214; J2919; J7614; A9270 ==

== ENCOUNTER → 2025-02-02 | Outpatient (BNVA) | payer MEDICARE, MEDICAID, SELFPAY | END | disposition home or self-care (01) | PROVIDERS: PCP Nurse Practitioner Family; Referring Provider Nurse Practitioner Family; Visit Provider Nurse Practitioner Family | DX: Z09 Encounter for follow-up examination after completed treatment for conditions other than malignant neoplasm (principal); J44.1 Chronic obstructive pulmonary disease with (acute) exacerbation | CPT/HCPCS: 99212; G0463 ==

== ENCOUNTER → 2025-02-04 | Outpatient (BNVA) | payer MEDICARE, MEDICAID, SELFPAY | END | disposition home or self-care (01) | PROVIDERS: PCP Nurse Practitioner Family; Referring Provider Nurse Practitioner Family; Visit Provider Nurse Practitioner Family | DX: E11.65 Type 2 diabetes mellitus with hyperglycemia (principal); Z79.4 Long term (current) use of insulin | CPT/HCPCS: 82948; 99214 ==

== ENCOUNTER 2025-02-10 16:48 | Inpatient (IN) | payer MEDICARE, MEDICAID, SELFPAY ==
[2025-02-10] VITALS (24 sets, daily range): BP systolic 64–127; BP diastolic 33–70; PULSE 39–170; RESP 14–22; TEMP 36.5–37; O2SAT 93–99; BMI 28.1
--- NOTE | 2025-02-10 17:14 | PC.NURSE ---
Patient brought from [facility] and taken to room 2 with c/o n/vomiting, sob, dizziness and cp that started this am, patient bp 64/33, patient pale, daughter with patient, called dr. alvarado to bedside, new orders received.
--- NOTE | 2025-02-10 17:16 | EKG_ITS ---
[facility] Test Date: 2025-02-10 Pat Name: REGIS CRUZ Department: Room: - Gender: Male Acute Care Nursing Assistant: : 1945 Requested By: Angella Yan Order Number: [id number] Reading MD: Angella Yan Measurements Intervals Mcintosh Rate: 135 P: OH: QRS: -23 QRSD: 133 T: 152 QT: 294 QTc: 441 Interpretive Statements ATRIAL FIBRILLATION WITH RAPID VENTRICULAR RESPONSE LEFT BUNDLE BRANCH BLOCK [120+ ms QRS DURATION, 80+ ms Q/S IN V1/V2, 85+ ms R IN I/aVL/V5/V6] Compared to ECG 09/22/2024 19:12:29 Left bundle-branch block now present Sinus tachycardia no longer present ST (T wave) deviation no longer present /store/S0/[id number]/ecg/[id number].pdf
--- NOTE | 2025-02-10 17:16 | XR_ITS ---
Examination: AP chest single view Technique: Sitting AP portable chest single view Date and time: February 10, 2025, 1807 hrs. Indications: Onset chest pain today. Findings: Normal heart size. No lobar pneumonia or pulmonary edema. Accentuation bronchovascular markings Impression: Basilar bronchitis pattern
--- NOTE | 2025-02-10 17:20 | PC.NURSE ---
Patient placed on difibrillator pads, patient going in and out of afib and Vtach with pulse.
--- NOTE | 2025-02-10 17:27 | EDNOTE_ITS ---
ED Dizzyness RME/HPI General Chief Complaint: Dizziness Stated Complaint: DIZZINESS Time Seen by Provider: 02/10/25 16:53 Arrival date/time: 02/10/25 16:48 RME / HPI RME / HPI Narrative: 80 year old male with history of atrial fibrillation on Eliquis, hypertension, diabetes, hyperlipidemia, COPD presents to the ED for evaluation of global weakness and dizziness beginning this morning. Accompanied by left sided chest pain beginning intermittently 2 days ago and feeling mildly short of breath. Daughter reports they consulted with their PCP today and advised to come to the ED for further evaluation. In the ED, patient began to feel nauseated with one episode of vomiting. Daughter states patient appeared to be at his usual state of health yesterday and had no complaints. Software Implementation Specialist: Dr. Chaves. Related Data Home Medications ?Medication ?Instructions ?Recorded ?Confirmed losartan 50 mg-hydrochlorothiazide 1 tab PO QDAY 02/0402/18/25 12.5 mg tablet revefenacin 175 mcg/3 mL solution 175 mcg inhalation Q DAY 02/10/25 02/18/25 for nebulization (Yupelri) sitagliptin phosphate 25 mg tablet 25 mg PO QDAY 02/1002/18/25 (Januvia) Previous Rx's ?Medication ?Instructions ?Recorded apixaban 5 mg tablet (Eliquis) 5 mg PO BID #180 tabs 0 01/21/24 inhalat.spacing dev,large mask #10 ea 08/04/24 (Aerochamber Plus Z Stat Large Mask) albuterol sulfate 2.5 mg/3 mL 2.5 mg (3 mL) inhalation Q6H PRN 11/05/24 (0.083 %) solution for nebulization shortness of breat h or wheezing 30 days #180 mL albuterol sulfate 90 mcg/actuation 2 puff inhalation Q 6H PRN 11/05/24 aerosol inhaler (Ventolin HFA) shortness of breath or wheezing #8.5 grams budesonide-formoterol HFA 160 2 puff inhalation Q12H # 10.2 grams 11/05/24 mcg-4.5 mcg/actuation aerosol inhaler (Breyna) pantoprazole 40 mg tablet,delayed 40 mg PO QAM 90 days #90 tabs 11/05/24 release megestrol 40 mg tablet 20 mg (1/2 x 40 mg) PO BID # 30 tabs 11/30/24 paroxetine HCl 10 mg tablet See Rx Instructions .Route 12/08/24 .COMPLEX #90 tabs blood sugar diagnostic (True #100 strips 12/21/24 Metrix Glucose Test Strip) ezetimibe 10 mg tablet See Rx Instructions .Route 0 01/26/25 .COMPLEX #90 tabs metoprolol succinate 50 mg 50 mg PO QDAY 30 days #30 t abs 02/13/25 tablet,extended release 24 hr insulin glargine 100 unit/mL (3 10 unit (0.1 mL) subcu t QDAY 30 02/17/25 mL) subcutaneous pen (Lantus days #15 mL Solostar U-100 Insulin) lancets 28 gauge (Comfort EZ #100 ea 02/17/25 Lancets) blood-glucose sensor (Dexcom G7 #3 ea 02/18/25 Sensor device) insulin degludec 100 unit/mL (3 10 unit (0.1 mL) subcu t QDAY 30 02/18/25 mL) subcutaneous pen (Tresiba days #15 mL FlexTouch U-100 insulin) Allergies Allergy/AdvReac Type Severity Reaction Status Date / Time No Known Allergies Allergy Verified 02/18/25 15:17 Review of Systems Review of Systems Systems Reviewed: All systems reviewed, normal except as documented Past Medical History Past Medical History CARDIAC: Positive Cardiac Disorders, Atrial Fibrillation, Angina, Peripheral Vascular Disease, Hypercholesterolemia and Hypertension RESPIRATORY: Positive Chronic Obstructive Pulmonary Disease (COPD), Asthma, Bronchitis, Pneumonia and Smoking GASTROINTESTINAL: Positive Gastrointestinal Disorders (06/30/24 colonoscopy,biopsy=hemorrhoids,polyp x1 terminal ileum.), Cirrhosis, Esophageal Varices (06/30/24egd,biopsy=LA GradeBrefluxesophagitis,Grade 1 esophvarices,Gastritis) and Hemorrhoids GENITOURINARY: Positive Genitourinary Disorders and Renal Disease MUSCULOSKELETAL: Positive Musculoskeletal Disorders and Arthritis ENT: Positive Deafness ENDOCRINE: Positive Endocrine Disorders and Diabetes Mellitus Type 2 HEMATOLOGIC: Positive Blood Disorders PSYCHO/SOCIAL: Positive Depression OTHER HISTORY: Positive Hospitalization, Falls and Measles Family History FAMILY HISTORY: Positive Family Respiratory Disorders and Family Cancer Surgical History SURGICAL: Positive Abdominal Surgery (07/06/24laparotomy,resection of terminal ileum and ascending colon) Social History SMOKING STATUS: Former smoker SECOND HAND EXPOSURE: Yes SUBSTANCE USE: does not use ED Exam Narrative Physical exam: GENERAL APPEARANCE: alert and oriented x 4, well-developed, well-nourished, pallor, mild diaphoresis HEENT: Normocephalic, atraumatic; pupils equal, round, reactive to light; EOMI; mucous membranes pink, moist; oropharynx clear NECK: Supple LUNGS: CTABL; no wheezes, no rales, no rhonchi HEART: tachycardic and irregular; normal S1, S2; no murmurs ABDOMEN: keloided surgical scar on anterior abdomen; non distended; normal BS; soft, no tenderness, no guarding, no rebound; no masses, no organomegaly, no hernia BACK: no CVA tenderness EXTREMITIES: atraumatic; no edema NEUROLOGIC: awake; alert and oriented x4; cranial nerves II-XII grossly intact; no focal sensory or motor deficits PSYCHIATRIC: appropriate mood and affect SKIN: warm, pallor, mild diaphoresis; no rashes Course Quality Measures none Orders Category Date Time Status Bedside COVID-19 Antigen Test NOW Care 02/10/25 18:27 Completed Bedside Influenza A&B Antigen Test NOW Care 02/10/25 18:27 Completed COVID-19 Screening Questionnaire NOW Care 02/10/25 19:05 Completed Digital Print Operator NOW Care 02/10/25 17:16 Completed Decision to Admit X1 Care 02/10/25 19:05 Completed EKG (ED ONLY) *Do not use* NOW Care 02/10/25 17:16 Completed EKG (ED ONLY) *Do not use* NOW Care 02/10/25 18:23 Completed Saline [Insert IV] NOW Care 02/10/25 18:27 Completed Straight [In and Out Catheter] X1 Care 02/10/25 18:27 Completed Consult to Cardiology Stat Cons 02/10/25 18:25 Ordered EKG (ED Only) Stat Exams 02/10/25 17:16 Draft EKG (ED Only) Stat Exams 02/10/25 18:23 Draft XR chest 1V portable Stat Exams 02/10/25 17:16 Completed B-Type Natriuretic Peptide Stat Lab 02/10/25 17:44 Completed Bilirubin,Direct Stat Lab 02/10/25 17:44 Completed Blood Culture (Lab) Stat Lab 02/10/25 19:13 Completed C-Reactive Protein Stat Lab 02/10/25 17:44 Completed CBC Stat Lab 02/10/25 17:44 Completed Comprehensive Metabolic Panel Stat Lab 02/10/25 17:44 Completed D-Dimer Stat Lab 02/10/25 19:18 Completed ESR [Sed Rate (ESR)] Stat Lab 02/10/25 19:18 Completed Lactate (Lactic Acid) Stat Lab 02/10/25 17:44 Completed Lipase Stat Lab 02/10/25 17:44 Completed Magnesium Stat Lab 02/10/25 17:44 Completed Partial Thromboplastin Time Stat Lab 02/10/25 17:44 Completed Procalcitonin Stat Lab 02/10/25 17:44 Completed Prothrombin Time with INR Stat Lab 02/10/25 17:44 Completed Sputum Culture and Gram Stain Stat Lab 02/10/25 20:45 Completed Thyroid Stimulating Hormone Stat Lab 02/10/25 17:44 Completed Troponin I Stat Lab 02/10/25 17:44 Completed Urinalysis Stat Lab 02/10/25 19:02 Completed Urine Culture Stat Lab 02/10/25 19:00 Completed Amiodarone 150 mg Ivpb [Nexterone Ivpb] Med 02/10/25 20:00 Discontinued 150 mg in 100 ml IV 600 mls/hr Amiodarone 360 mg Ivpb [Nexterone Ivpb] Med 02/11/25 02:10 Discontinued 360 mg in 200 ml IV 16.667 mls/hr Amiodarone 360 mg Ivpb [Nexterone Ivpb] Med 02/10/25 20:10 Discontinued 360 mg in 200 ml IV 33.333 mls/hr Aspirin Med 02/10/25 17:33 Discontinued 325 mg .ROUTE .STK-MED ONE Aspirin Med 02/10/25 17:36 Discontinued 325 mg PO X1 ONE Azithromycin Inj [Zithromax Inj] 250 mg Med 02/11/25 21:00 Discontinued Sodium Chloride 0.9% 250 ml [Ns] 250 ml IV HS Azithromycin Inj [Zithromax Inj] 500 mg Med 02/10/25 20:05 Discontinued Sodium Chloride 0.9% 250 ml [Ns] 250 ml IV X1 Calcium Gluconate 10% Inj Med 02/10/25 17:27 Discontinued 1 gm .ROUTE .STK-MED ONE Calcium Gluconate 10% Inj Med 02/10/25 17:27 Discontinued 1 gm IV X1 ONE DILTIAZEM in D5W 125 MG Med 02/10/25 18:14 Discontinued 125 mg in 125 ml IV 5 mg/hr DILTIAZEM in D5W 125 MG Med 02/10/25 19:39 Discontinued 125 mg in 125 ml IV 5 mg/hr DOPamine/D5w 400 MG IVPB [Intropin in D5w Ivpb] Med 02/10/25 18:39 Discontinued 400 mg in 250 ml IV 5 mcg/kg/min Diltiazem Inj [Cardizem Inj] Med 02/10/25 17:34 Discontinued 125 mg IV .STK-MED ONE Diltiazem Inj [Cardizem Inj] Med 02/10/25 18:13 Discontinued 20 mg IV X1 ONE Diltiazem Inj [Cardizem Inj] Med 02/10/25 19:39 Discontinued 20 mg IV X1 ONE Diltiazem Inj [Cardizem Inj] Med 02/10/25 17:37 Discontinued 5 mg IV X1 ONE Magnesium Sulfate 2 GM Ivpb [Magnesium Sulfate Ivpb] Med 02/10/25 17:51 Discontinued 2 gm in 50 ml IV X1 Magnesium Sulfate 2 GM Ivpb [Magnesium Sulfate Ivpb] 50 Med 02/10/25 17:27 Discontinued ml IV .STK-MED Magnesium Sulfate 4 GM Ivpb [Magnesium Sulfate Ivpb] Med 02/10/25 19:57 Discontinued 4 gm in 50 ml IV X1 Ondansetron Inj [Zofran Inj] Med 02/10/25 17:18 Discontinued 4 mg IVP X1 ONE POTASSIUM CHL 10 mEq IVPB [Kcl Ivpb] Med 02/10/25 20:00 Discontinued 10 meq in 100 ml IV Q1H Remdesivir Inj [Veklury Inj] 100 mg Med 02/11/25 14:00 Discontinued Sodium Chloride 0.9% [Ns] 100 ml IV Q24H Remdesivir Inj [Veklury Inj] 200 mg Med 02/10/25 20:05 Discontinued Sodium Chloride 0.9% 250 ml [Ns] 250 ml IV X1 Sodium Chloride 0.9% 1000 ml [Ns] 1,000 ml Med 02/10/25 17:16 Discontinued IV 999 mls/hr Sodium Chloride 0.9% 1000 ml [Ns] 1,000 ml Med 02/10/25 17:16 Discontinued IV 999 mls/hr Sodium Chloride 0.9% 1000 ml [Ns] 1,000 ml Med 02/10/25 20:01 Discontinued IV 999 mls/hr Sodium Chloride Rt Ronda 10% [NS Rt Ronda 10%] Med 02/10/25 20:05 Discontinued 5 ml INH X1 ONE cefTRIAXone/D5w 1gm IV premix [Rocephin/D5w 1gm IV Med 02/10/25 20:15 Discontinued premix] 1 gm in 50 ml IV QDAY Vital Signs Vital signs: Vital Signs Temperature 98.3 F 02/10/25 17:15 Pulse Rate 102 H 02/10/25 17:15 Respiratory Rate 22 H 02/10/25 17:15 Blood Pressure 64/33 L 02/10/25 17:15 Pulse Oximetry (%) 99 02/10/25 17:15 Oxygen Delivery Method Room Air 02/10/25 17:15 Pulse ox is 99% on room air which is adequate. Dizziness MDM Narrative MDM Narrative:: Azul Barreto am scribing for and in the presence of Dr. Martinez. 1800: Patient signed out to Dr. Santos pending work-up and final disposition Patient data External records reviewed:: [facility] previous records (I reviewed todays outpatient PCP records ) Clinical information provided by:: patient and family Social determinants that could affect healthcare access:: none Patient has the following chronic illnesses:: atrial fibrillation on Eliquis, hypertension, diabetes, hyperlipidemia, COPD How is presenting disease/condition affected by chronic disease/condition?: exacerbated by Evaluation data The following diagnostics were reviewed and interpreted by me:: lab results and EKG tracing(s) (EKG @ 17:22 atrial fibrillation with RVR, rate 169, left bundle branch block. EKG compared to 07/03/2024 and LBBB present at that time. ) Lab and/or radiology exams considered but not ordered:: None Interpretation Summary: As noted above Medications / Prescriptions Medications or Prescriptions considered but not ordered:: None Medication administrations:: Medication Administration History Discontinued Medications Acetaminophen (Acetaminophen 325 Mg Tablet) 650 mg PO Q6H PRN PRN Reason: PAIN SCALE 1-3 (mild Stop: 03/12/25 20:05 Acetaminophen (Acetaminophen 325 Mg Tablet) 650 mg PO Q6H PRN PRN Reason: Fever >100.4 Stop: 03/12/25 20:05 Hydrocodone Bitart/Acetaminophen (Hydrocodone/Apap 10/325 Tab) 1 tab PO Q4HR PRN PRN Reason: PAIN SCALE 7-10 (Severe Stop: 02/15/25 20:05 Albuterol/Ipratropium (Albuterol/Ipratropium (Duoneb) Rt Ronda 3 Ml Nebu) 3 ml INH Q4HRRT SABINE Stop: 03/14/25 14:59 Last Admin: 02/13/25 14:38 Dose: 3 ml Documented By: Admin: 02/13/25 10:23 Dose: 3 ml Documented By: Admin: 02/13/25 06:23 Dose: 3 ml Documented By: Admin: 02/13/25 02:25 Dose: 3 ml Documented By: Admin: 02/12/25 23:03 Dose: 3 ml Documented By: Admin: 02/12/25 19:11 Dose: 3 ml Documented By: Admin: 02/12/25 14:31 Dose: 3 ml Documented By: HUSAM Apixaban (Apixaban 2.5 Mg Tablet) 5 mg PO BID SABINE Stop: 03/12/25 20:59 Last Admin: 02/13/25 10:02 Dose: 5 mg Documented By: Admin: 02/12/25 21:34 Dose: 5 mg Documented By: Admin: 02/12/25 09:03 Dose: 5 mg Documented By: Admin: 02/11/25 20:11 Dose: 5 mg Documented By: BO(2) Admin: 02/11/25 10:19 Dose: 5 mg Documented By: Admin: 02/10/25 21:28 Dose: 5 mg Documented By: FABIAN Aspirin (Aspirin 325 Mg Tablet) 325 mg PO X1 ONE Stop: 02/10/25 17:37 Last Admin: 02/10/25 17:38 Dose: 325 mg Documented By: KENZIE Aspirin (Aspirin 325 Mg Tablet) Confirm Administered Dose 325 mg .ROUTE .STK-MED ONE Stop: 02/10/25 17:34 Last Admin: 02/10/25 17:46 Dose: Not Given Documented By: KENZIE Non-Admin Reason: Duplicate Medication on eMAR Calcium Gluconate (Calcium Gluconate 10% Inj 1 Gm/10 Ml Vial) Confirm Administered Dose 1 gm .ROUTE .STK-MED ONE Stop: 02/10/25 17:28 Last Admin: 02/10/25 17:47 Dose: Not Given Documented By: KENZIE Non-Admin Reason: Duplicate Medication on eMAR Calcium Gluconate (Calcium Gluconate 10% Inj 1 Gm/10 Ml Vial) 1 gm IV X1 ONE Stop: 02/10/25 17:28 Last Admin: 02/10/25 17:46 Dose: 1 gm Documented By: KENZIE Comments: via 18g right ac over 4 min. Dextrose (Dextrose 50%-Water Inj 50 Ml Syringe) 25 ml IV Q15MIN PRN PRN Reason: BG 50-70 responsive npo pt Stop: 03/12/25 20:05 Dextrose (Dextrose 50%-Water Inj 50 Ml Syringe) 50 ml IV Q15MIN PRN PRN Reason: BG <50 OR BG <70 & pt unresponsive Stop: 03/12/25 20:05 Diltiazem HCl (Diltiazem Inj 5 Mg/Ml Vial 25 Ml) Confirm Administered Dose 125 mg IV .STK-MED ONE Stop: 02/10/25 17:35 Last Admin: 02/10/25 17:50 Dose: Not Given Documented By: KENZIE Non-Admin Reason: Duplicate Medication on eMAR Diltiazem HCl (Diltiazem Inj 5 Mg/Ml Vial 5 Ml) 5 mg IV X1 ONE Stop: 02/10/25 17:38 Last Admin: 02/10/25 17:40 Dose: 5 mg Documented By: KENZIE Diltiazem HCl (Diltiazem Inj 5 Mg/Ml Vial 5 Ml) 20 mg IV X1 ONE Stop: 02/10/25 18:14 Last Admin: 02/10/25 18:24 Dose: Not Given Documented By: KENZIE Non-Admin Reason: Cancelled by Provider Diltiazem HCl (Diltiazem Inj 5 Mg/Ml Vial 5 Ml) 20 mg IV X1 ONE Stop: 02/10/25 19:40 Last Admin: 02/10/25 19:45 Dose: 20 mg Documented By: FABIAN Ezetimibe (Ezetimibe 10 Mg Tablet) 10 mg PO QDAY SABINE Stop: 03/13/25 16:29 Last Admin: 02/13/25 10:02 Dose: 10 mg Documented By: Admin: 02/12/25 09:03 Dose: 10 mg Documented By: Admin: 02/11/25 16:58 Dose: 10 mg Documented By: KF Glucagon (Glucagon Inj 1 Mg Vial) 1 mg IM Q15MIN PRN PRN Reason: BG <70, and no IV access Sodium Chloride (Ns) 1,000 mls @ 999 mls/hr IV .Q1H1M ONE Stop: 02/10/25 18:16 Last Infusion: 02/10/25 19:12 Dose: Infused Documented By: Admin: 02/10/25 17:43 Dose: 999 mls/hr Documented By: KENZIE Sodium Chloride (Ns) 1,000 mls @ 999 mls/hr IV .Q1H1M ONE Stop: 02/10/25 18:16 Last Infusion: 02/10/25 19:12 Dose: Infused Documented By: Admin: 02/10/25 17:44 Dose: 999 mls/hr Documented By: KENZIE Magnesium Sulfate (Magnesium Sulfate Ivpb) Confirm Administered Dose 50 mls @ ud IV .STK-MED ONE Stop: 02/10/25 17:28 Last Admin: 02/10/25 17:52 Dose: Not Given Documented By: KENZIE Non-Admin Reason: Cancelled by Provider Magnesium Sulfate (Magnesium Sulfate Ivpb) 2 gm in 50 mls @ 25 mls/hr IV X1 ONE Stop: 02/10/25 19:50 Last Infusion: 02/10/25 19:41 Dose: Infused Documented By: Admin: 02/10/25 17:38 Dose: 25 mls/hr Documented By: KENZIE Diltiazem HCl (Diltiazem In D5w 125 Mg) 125 mg in 125 mls @ 5 mls/hr IV .Q24H SABINE Stop: 03/12/25 18:13 Last Admin: 02/10/25 18:24 Dose: Not Given Documented By: KENZIE Non-Admin Reason: Cancelled by Provider Dopamine HCl/Dextrose (Intropin In D5w Ivpb) 400 mg in 250 mls @ 15.3 mls/hr IV .[id number] SABINE; Protocol Stop: 03/12/25 18:38 Last Admin: 02/10/25 21:04 Dose: Not Given Documented By: FABIAN Non-Admin Reason: Cancelled by Provider Diltiazem HCl (Diltiazem In D5w 125 Mg) 125 mg in 125 mls @ 5 mls/hr IV .Q24H SABINE Stop: 03/12/25 19:38 Last Infusion: 02/10/25 19:54 Dose: 5 mg/hr, 5 mls/hr Documented By: Admin: 02/10/25 19:49 Dose: 5 mg/hr, 5 mls/hr Documented By: FABIAN Potassium Chloride (Kcl Ivpb) 10 meq in 100 mls @ 100 mls/hr IV Q1H SABINE Stop: 02/10/25 23:59 Last Admin: 02/10/25 23:52 Dose: 100 mls/hr Documented By: Infusion: 02/10/25 23:25 Dose: Infused Documented By: Admin: 02/10/25 22:25 Dose: 100 mls/hr Documented By: Infusion: 02/10/25 22:21 Dose: Infused Documented By: Admin: 02/10/25 21:21 Dose: 100 mls/hr Documented By: Infusion: 02/10/25 21:07 Dose: Infused Documented By: Admin: 02/10/25 20:07 Dose: 100 mls/hr Documented By: FABIAN Magnesium Sulfate (Magnesium Sulfate Ivpb) 4 gm in 50 mls @ 12.5 mls/hr IV X1 ONE Stop: 02/10/25 23:56 Last Admin: 02/10/25 20:04 Dose: 12.5 mls/hr Documented By: FABIAN Amiodarone HCl/Dextrose (Nexterone Ivpb) 360 mg in 200 mls @ 16.667 mls/hr IV .Q12H SABINE Stop: 02/12/25 02:09 Last Admin: 02/11/25 13:51 Dose: 16.667 mls/hr Documented By: Infusion: 02/11/25 13:51 Dose: Infused Documented By: Admin: 02/11/25 01:55 Dose: 16.667 mls/hr Documented By: MIKE Amiodarone HCl/Dextrose (Nexterone Ivpb) 360 mg in 200 mls @ 33.333 mls/hr IV .Q6H ONE Stop: 02/11/25 02:09 Last Admin: 02/10/25 20:31 Dose: 33.333 mls/hr Documented By: FABIAN Amiodarone HCl/Dextrose (Nexterone Ivpb) 150 mg in 100 mls @ 600 mls/hr IV .Q10M ONE Stop: 02/10/25 20:09 Last Infusion: 02/10/25 20:23 Dose: Infused Documented By: Admin: 02/10/25 20:12 Dose: 600 mls/hr Documented By: FABIAN Ceftriaxone Sodium/Dextrose (Rocephin/D5w 1gm Iv Premix) 1 gm in 50 mls @ 100 mls/hr IV QDAY SABINE Stop: 02/17/25 20:14 Last Admin: 02/11/25 10:08 Dose: 100 mls/hr Documented By: Infusion: 02/10/25 21:58 Dose: Infused Documented By: Admin: 02/10/25 21:28 Dose: 100 mls/hr Documented By: FABIAN Azithromycin 250 mg/ Sodium (Chloride) 250 mls @ 250 mls/hr IV HS SABINE Stop: 02/18/25 20:59 Last Admin: 02/11/25 20:11 Dose: 250 mls/hr Documented By: BO(2) Azithromycin 500 mg/ Sodium (Chloride) 250 mls @ 250 mls/hr IV X1 ONE Stop: 02/10/25 21:04 Last Infusion: 02/10/25 21:57 Dose: Infused Documented By: Admin: 02/10/25 20:51 Dose: 250 mls/hr Documented By: FABIAN Sodium Chloride (Ns) 1,000 mls @ 999 mls/hr IV .Q1H1M ONE Stop: 02/10/25 21:01 Last Infusion: 02/10/25 21:22 Dose: Infused Documented By: Admin: 02/10/25 20:17 Dose: 999 mls/hr Documented By: FABIAN Remdesivir 100 mg/ Sodium (Chloride) 100 mls @ 100 mls/hr IV Q24H NR; Protocol Stop: 02/12/25 14:59 Last Admin: 02/11/25 13:51 Dose: 100 mls/hr Documented By: NICOLETTE Remdesivir 200 mg/ Sodium (Chloride) 250 mls @ 250 mls/hr IV X1 ONE; Protocol Stop: 02/10/25 21:04 Last Infusion: 02/10/25 21:32 Dose: Infused Documented By: Admin: 02/10/25 20:32 Dose: 250 mls/hr Documented By: FABIAN Sodium Chloride (Ns) 1,000 mls @ 80 mls/hr IV .[id number] ONE Stop: 02/11/25 22:53 Last Admin: 02/11/25 11:35 Dose: 80 mls/hr Documented By: NICOLETTE Piperacillin/Tazobactam/Dextrose (Zosyn) 3.375 gm in 50 mls @ 12.5 mls/hr IV Q8HR SABINE Stop: 02/18/25 22:59 Last Admin: 02/13/25 14:44 Dose: 12.5 mls/hr Documented By: Infusion: 02/13/25 10:24 Dose: Infused Documented By: Admin: 02/13/25 06:24 Dose: 12.5 mls/hr Documented By: Infusion: 02/13/25 01:34 Dose: Infused Documented By: Admin: 02/12/25 21:34 Dose: 12.5 mls/hr Documented By: Infusion: 02/12/25 17:48 Dose: Infused Documented By: Admin: 02/12/25 13:48 Dose: 12.5 mls/hr Documented By: Infusion: 02/12/25 09:03 Dose: Infused Documented By: Admin: 02/12/25 05:03 Dose: 12.5 mls/hr Documented By: BO(2) Infusion: 02/12/25 03:26 Dose: Infused Documented By: BO(2) Admin: 02/11/25 23:26 Dose: 12.5 mls/hr Documented By: BO(2) Piperacillin/Tazobactam/Dextrose (Zosyn) 3.375 gm in 50 mls @ 100 mls/hr IV X1 ONE Stop: 02/11/25 18:44 Last Admin: 02/11/25 18:36 Dose: 100 mls/hr Documented By: NICOLETTE Magnesium Sulfate (Magnesium Sulfate Ivpb) 4 gm in 50 mls @ 12.5 mls/hr IV X1 ONE Stop: 02/12/25 11:25 Last Admin: 02/12/25 09:02 Dose: 12.5 mls/hr Documented By: MATT Sodium Chloride (Ns) 1,000 mls @ 75 mls/hr IV .[id number] SABINE Stop: 03/14/25 07:26 Last Admin: 02/13/25 10:02 Dose: 75 mls/hr Documented By: Infusion: 02/13/25 10:02 Dose: Infused Documented By: Admin: 02/13/25 00:05 Dose: 75 mls/hr Documented By: Infusion: 02/12/25 23:36 Dose: Infused Documented By: Admin: 02/12/25 10:16 Dose: 75 mls/hr Documented By: MATT Vancomycin HCl (Vancomycin/Water 1250 Mg Ivpb) 250 mls @ 120 mls/hr IV Q24H SABINE; Protocol Stop: 02/19/25 09:59 Last Admin: 02/13/25 10:02 Dose: 120 mls/hr Documented By: Infusion: 02/12/25 12:20 Dose: Infused Documented By: Admin: 02/12/25 10:15 Dose: 120 mls/hr Documented By: MATT Magnesium Sulfate (Magnesium Sulfate Ivpb) 2 gm in 50 mls @ 25 mls/hr IV X1 ONE Stop: 02/13/25 09:33 Last Admin: 02/13/25 07:47 Dose: 25 mls/hr Documented By: BRIDGET Insulin Degludec (Insulin Degludec 5 Unit/0.05 Ml (Per 5 Units)) 10 unit SC QDAY SABINE Stop: 03/14/25 08:59 Last Admin: 02/12/25 09:03 Dose: 10 unit Documented By: MATT Co-signed By: STEFAN Insulin Degludec (Insulin Degludec 5 Unit/0.05 Ml (Per 5 Units)) 15 unit SC QDAY SABINE Stop: 03/15/25 08:59 Last Admin: 02/13/25 10:04 Dose: 15 unit Documented By: BRIDGET Co-signed By: STEFAN Insulin Human Lispro (Insulin Lispro (Admelog) 1 Unit/0.01 Ml Unit) 0 unit SC ACHS [facility]; Protocol Stop: 03/12/25 20:59 Last Admin: 02/13/25 11:55 Dose: 2 unit Documented By: BRIDGET Co-signed By: LUCIE Admin: 02/13/25 10:03 Dose: 2 unit Documented By: BRIDGET Co-signed By: STEFAN Admin: 02/12/25 21:35 Dose: 2 unit Documented By: HEATHER Co-signed By: MIKE Admin: 02/12/25 17:23 Dose: 2 unit Documented By: MATT Co-signed By: husam Admin: 02/12/25 11:32 Dose: 2 unit Documented By: MATT Co-signed By: STEFAN Admin: 02/12/25 07:34 Dose: 1 unit Documented By: MATT Co-signed By: BIPIN Admin: 02/11/25 20:12 Dose: 4 unit Documented By: BO(2) Co-signed By: FLORY Admin: 02/11/25 16:58 Dose: 4 unit Documented By: NICOLETTE Co-signed By: STEFAN Admin: 02/11/25 11:41 Dose: 3 unit Documented By: KF Co-signed By: DESTINY Admin: 02/11/25 09:18 Dose: Not Given Documented By: KF Non-Admin Reason: NPO Admin: 02/10/25 21:29 Dose: 1 unit Documented By: FABIAN Co-signed By: JASMYN Insulin Human Regular (Insulin Hum Regular 1 Unit/0.01 Ml (Per Unit)) 5 unit SC X1 ONE Stop: 02/11/25 18:11 Last Admin: 02/11/25 18:36 Dose: 5 unit Documented By: NICOLETTE Co-signed By: BO(2) Methylprednisolone Sodium Succinate (Methylprednisolone Sod Succ 62.5 Mg/Ml 2ml Vial) 125 mg IVP X1 ONE Stop: 02/10/25 20:09 Last Admin: 02/10/25 20:26 Dose: 125 mg Documented By: FABIAN Metoprolol Succinate (Metoprolol Succinate Xl 25 Mg Tabcr) 50 mg PO QDAY SABINE Stop: 03/14/25 13:59 Last Admin: 02/13/25 09:41 Dose: Not Given Documented By: LUCIE Non-Admin Reason: Discontinued Metoprolol Succinate (Metoprolol Succinate Xl 25 Mg Tabcr) 50 mg PO X1 ONE Stop: 02/12/25 14:04 Last Admin: 02/12/25 14:26 Dose: 50 mg Documented By: MATT Ondansetron HCl (Ondansetron Inj 2 Mg/Ml Inj 2 Ml) 4 mg IVP X1 ONE; Protocol Stop: 02/10/25 17:19 Last Admin: 02/10/25 17:35 Dose: 4 mg Documented By: KENZIE Ondansetron HCl (Ondansetron Inj 2 Mg/Ml Inj 2 Ml) 4 mg IVP Q6H PRN; Protocol PRN Reason: NAUSEA OR VOMITING Stop: 03/12/25 20:05 Oxycodone/Acetaminophen (Oxycodone/Apap 5/325 Tablet) 1 tab PO Q6H PRN PRN Reason: PAIN SCALE 4-6 (Moderate Stop: 02/15/25 20:05 Pantoprazole Sodium (Pantoprazole Inj 40 Mg Vial) 40 mg IVP QDAY SABINE Stop: 03/12/25 20:14 Last Admin: 02/12/25 09:03 Dose: 40 mg Documented By: Admin: 02/11/25 10:08 Dose: 40 mg Documented By: Admin: 02/10/25 20:27 Dose: 40 mg Documented By: DT Pantoprazole Sodium (Pantoprazole 40 Mg Tablet) 40 mg PO QDAY SABINE; Protocol Stop: 03/15/25 08:59 Last Admin: 02/13/25 10:02 Dose: 40 mg Documented By: BRIDGET Pharmacy Consult (Vancomycin Pharmacy To Dose 1 Each Each) 1 each IV QDAY PRN PRN Reason: PROTOCOL Stop: 03/14/25 08:59 Potassium Phos/Sodium Phos (Naph,[facility] 1 Packet (1.5 Gm)) 1 packet PO X1 ONE Stop: 02/13/25 07:34 Last Admin: 02/13/25 07:47 Dose: 1 packet Documented By: BRIDGET Sodium Chloride (Sodium Chloride Rt 10% 15 Ml Nebu) 5 ml INH X1 ONE Stop: 02/10/25 20:06 Last Admin: 02/10/25 20:43 Dose: 5 ml Documented By: ALVA Comments: pt on tx for about a minute before expectorating sputum See above Consultations Consultation(s) initiated? (list below): No Consultation #1 (Physician, Specialty, Details): Call out to Dr. Chaves at [phone], no answer. Left a voicemail Diagnosis Dizziness Differential Diagnosis: benign paroxysmal positional vertigo and other (atrial fibrillation, [place] ) Most likely diagnosis given after review of the tests above:: Atrial fibrillation with RVR Admission Indicated Admission indicated?: not indicated Explain why admission is indicated or not indicated:: Signed out to Dr. Santos pending final disposition dicyclomine Admission Request Was there a request for admission?: No Disposition Plan Disposition Plan: other (specify) (Signed out to Dr. Santos ) Critical Care Time Critical Care Time Critical Care Time: Yes Total Critical Care Time (min.): 35 Attestation: The high probability of sudden, clinically significant deterioration in the patient's condition required the highest level of my preparedness to intervene urgently. The services I provided to this patient were to treat and/or prevent clinically significant deterioration. Services included the following: chart data review, reviewing nursing notes and/or old charts, documentation time, internet sales consultant collaboration regarding findings and treatment options, medication orders and management, direct patient care, vital sign assessments and ordering, interpreting and reviewing diagnostic studies and lab tests. Aggregate critical care time includes only time during which I was engaged in work directly related to the patient's care, as described above, whether at bedside or elsewhere in the Emergency Department. It did not include time spent performing other reported procedures or the services of residents, students, nurses or physician assistants. Discharge Plan Problem List Clinical Impression: Weakness generalized Patient/Caregiver Discharge Instructions Other Activity Instructions:: Decrease your losartan-hydrocholothiazide dose from 1 tablet a day to half tablet a day. Continue taking metoprolol succinate 50mg daily for atrial fibrillation management. Follow up with Software Implementation Specialist next Saturday for echo. Follow up with PCP in 1 week. You will need to repeat labs to check creatinine levels. Reduzca castaneda dosis de losart?n-hidroclorotiazida de 1 tableta al d?a luego media tableta al d?a. Contin?e tomando 50 mg de succinato de metoprolol al d?a para el control de la fibrilaci?n auricular. Warren wilver suhas con el cardi?logo el pr?ximo mi?rcoles para wilver ecocardiograf?a. Warren wilver suhas con el m?dico de cabecera en wilver semana. Deber? repetir los an?lisis de laboratorio para controlar los niveles de creatinina. Discharge Order Discharge Orders: Discharge (Routine); Ordered 02/13/25 Ordered By: Vashti Arias
[2025-02-10] MEDS: ONDANSETRON INJ 2 MG/ML INJ 2 ML 4 MG IVP (17:35)
[2025-02-10] MEDS: Magnesium Sulfate 2 GM Ivpb 2 GM/50 ML BAG IV (17:38)
[2025-02-10] MEDS: DILTIAZEM INJ 5 MG/ML VIAL 5 ML IV (17:40)
[2025-02-10] MEDS: SODIUM CHLORIDE 0.9% 1000 ML 1,000 ML 999 ML IV ×3 (17:43→20:17)
[2025-02-10] MEDS: CALCIUM GLUCONATE 10% INJ 1 GM/10 ML VIAL IV (17:46)
[2025-02-10 17:52] LABS: Lactate (Lactic Acid) 3.1 mMol/L (0.4-2.0)
[2025-02-10 17:58] LABS: Basophils # (Auto) 0.2 Thou/mm3 (0.0-0.2); Basophils % (Auto) 1 % (0-2.5); Eosinophils # (Auto) 0.4 Thou/mm3 (0.0-0.5); Eosinophils % (Auto) 2 % (0-10); Hematocrit 44.2 % (41.0-53.0); Hemoglobin 15.3 g/dL (13.5-16.0); Immature Granulocytes Auto 1.55 Thou/mm3 (0.00-0.00); Lymphocytes # (Auto) 5.4 Thou/mm3 (1.0-4.8); Lymphocytes % (Auto) 22 % (10-50); Mean Corpuscular HGB Conc 34.6 g/dl (31.0-37.0); Mean Corpuscular Hemoglobin 33.4 pg (25.0-35.0); Mean Corpuscular Volume 97 fL (80-100); Monocytes # (Auto) 2.6 Thou/mm3 (0.0-0.8); Monocytes % (Auto) 11 % (0-12); Neutrophils # (Auto) 14.6 Thou/mm3 (1.8-7.7); Neutrophils % (Auto) 59 % (37-80); Nucleated Red Blood Cell # 0.03 Thou/mm3 (0.00-0.00); Nucleated Red Blood Cell % 0 /100 WBC (0); Platelet Count 279 Thou/mm3 (140-440); RDW Standard Deviation 48.3 fL (35.1-43.9); Red Blood Count 4.58 Miln/mm3 (4.50-5.90); White Blood Count 24.7 Thou/mm3 (3.8-10.6)
--- NOTE | 2025-02-10 18:03 | PD.EDADDENDU ---
Emergency Room Addendum <Deborah Valentine - Last Filed: 02/10/25 19:21> Addendum Narrative: I took over the care from Dr. Martinez at 6 PM on 02/10/2025, see her notes for complete H&P and ED course. I reviewed all diagnostic test results. My interpretation of the chest x-ray is NAD. Blood tests remarkable for WBC 24.7, Creatinine 2.6, Lactic Acid 3.1. Diagnoses include: Tachy-Ricky syndrome, sepsis. I discussed the case with our dining room hostess and hospitalist. About the presentation and exam and diagnostics and treatments here. And need of further care in the hospital. Will accept the patient. Ernesto Santos MD <Ernesto Santos MD - Last Filed: 02/10/25 22:48> Addendum Narrative: I took over the care from Dr. Martinez at 6 PM on 02/10/2025, see her notes for complete H&P and ED course. I reviewed all diagnostic test results. Diagnoses include: Tachy-Ricky syndrome Sepsis Covid UTI SOREN I discussed the case with Dr. Chaves (patient's dining room hostess). About the presentation and exam and diagnostics and treatments here. Recommended admission to hospitalist service for further care. I discussed the case with our hospitalist. About the presentation and exam and diagnostics and treatments here. And need of further care in the hospital. Agreed to accept the patient. Ernesto Santos MD
--- NOTE | 2025-02-10 18:07 | PC.NURSE ---
Dr. Santos at bedside [facility] cost analyst will come to bedside to consult with patient
[2025-02-10 18:08] LABS: INR 1.1 (0.9-1.3); Partial Thromboplastin Time 23.1 Seconds (22.0-36.0); Prothrombin Time 11.9 Seconds (9.0-12.2)
--- NOTE | 2025-02-10 18:14 | PC.NURSE ---
Dr. Ellis at bedside to evaluate patient.
--- NOTE | 2025-02-10 18:20 | PC.NURSE ---
Patient hr dropped to 39, patient asymptomatic Anumandla at bedside state cancel cardizem ivp and cardizem gtt, repeat ekg ordered
[2025-02-10 18:21] LABS: B-Type Natriuretic Peptide 66 pg/mL (0-100)
--- NOTE | 2025-02-10 18:23 | EKG_ITS ---
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
[2025-02-10 18:27] LABS: Alanine Aminotransferase 28 U/L (10-49); Albumin, Serum 4.0 gm/dL (3.4-4.8); Albumin/Globulin Ratio 1.4 (1.2-2.2); Alkaline Phosphatase 71 U/L (46-116); Anion Gap 15 (7-16); Aspartate Amino Transferase 28 U/L (0-34); BUN/Creatinine Ratio 15 Ratio (12-20); Bilirubin,Total 1.4 mg/dL (0.3-1.2); Blood Urea Nitrogen 39 mg/dL (9-23); Calcium 9.8 mg/dL (8.3-10.6); Calcium (Corrected) 9.8 mg/dL (8.5-10.1); Carbon Dioxide 24.0 mMol/L (20.0-31.0); Chloride 98 mMol/L (98-107); Creatinine (Component) 2.6 mg/dL (0.6-1.3); Estimated Creatinine Clearance 23.2 mL/min (>60); Globulin 2.8 gm/dL (2.3-3.5); Glucose 146 mg/dL (74-106); Lipase 49 U/L (12-53); Magnesium 1.7 mg/dL (1.6-2.6); Osmolality,Calculated 286 (275-295); Potassium 3.5 mMol/L (3.4-5.1); Procalcitonin 0.24 ng/ml (0.0-0.49); Sodium 137 mMol/L (136-145); Total Protein 6.8 gm/dL (5.7-8.2); Troponin I 0.034 ng/mL (0.0-0.045); eGFR 24 See Note
--- NOTE | 2025-02-10 18:44 | PC.NURSE ---
Per Dr. Chaves, hold dopamine and start if sbp <90, Dr. Santos aware and will consult with intensivists regarding admission to ICU
--- NOTE | 2025-02-10 19:17 | PC.NURSE ---
PROVIDER DWEAYNE INFORMED PATIENT MAP 49. PER WEB PAGE DEVELOPER DO NOT START BP MEDICATION UNTIL SYSTOLIC BELOW 90. ORDER VERIFIED WITH ER PROVIDER DEWAYNE. PER PROVIDER DEWAYNE DONT START IT JUST YET. IF CARDIOLOGY SAID TO WAIT UNTIL SYSTOLIC IS BELOW 90.
[2025-02-10 19:19] LABS: Collection Type, Urine Clean Catch; Squamous Epithelial Cell,Urine 0 /hpf (0-5)
--- NOTE | 2025-02-10 19:24 | PC.NURSE ---
FAMILY CONTACT-DAUGHTER- ROXANN CRUZ- [phone].
[2025-02-10 19:34] LABS: Sed Rate (ESR) 18 mm/hr (0-20)
[2025-02-10 19:39] LABS: Bilirubin,Direct 0.5 mg/dL (0.0-0.3); C-Reactive Protein 2.8 mg/dL (0.0-0.9); Thyroid Stimulating Hormone 8.57 uIU/mL (0.55-4.78)
[2025-02-10 19:43] LABS: Bilirubin,Urine Negative (Negative); Blood,Urine 1+ (Negative); Calcium Oxalate Crystals,Urine 1+; Clarity,Urine Turbid (Clear/Hazy); Color,Urine Drk-Yellow (Lt Yel-Yel); Glucose, Urine Trace (Negative); Ketones,Urine Negative (Negative); Leukocyte Esterase,Urine Negative (Negative); Nitrite,Urine Negative (Negative); PH,Urine 5.5 (5.0-7.0); Protein,Urine 1+ (Neg - Trace); RBC,Urine 15 /hpf (0-3); Specific Gravity,Urine 1.020 (1.001-1.035); Urobilinogen,Urine 2.0 mg/dL (0.0-1.0); WBC,Urine 9 /hpf (0-5)
[2025-02-10 19:45] LABS: Hyaline Casts,Urine 25 /hpf (0-1); Sperm,Urine Present
[2025-02-10] MEDS: DILTIAZEM INJ 5 MG/ML VIAL 5 ML 20 MG IV (19:45)
[2025-02-10] MEDS: DILTIAZEM in D5W 125 MG 125 MG/125 ML BAG IV (19:49)
[2025-02-10] MEDS: Magnesium Sulfate 4 GM Ivpb 4 GM/50 ML BAG IV (20:04)
[2025-02-10 20:06] LABS: D-Dimer < 250 ng/mL (<600)
[2025-02-10] MEDS: POTASSIUM CHL 10 mEq IVPB 10 MEQ/100 ML BAG 100 MEQ IV ×4 (20:07→23:52)
[2025-02-10] MEDS: AMIODARONE 150 MG IVPB 150 MG/100 ML BAG 600 MG IV (20:12)
[2025-02-10] MEDS: MethylPREDNISolone SOD SUCC 62.5 MG/ML 2ML VIAL 125 MG IVP (20:26)
[2025-02-10] MEDS: AMIODARONE 360 MG IVPB 360 MG/200 ML BAG 33.333 MG IV (20:31)
[2025-02-10] MEDS: REMDESIVIR INJ 200 MG in SODIUM CHLORIDE 0.9% 250 ML 250 ML 250 MG IV (20:32)
[2025-02-10] MEDS: SODIUM CHLORIDE RT 10% 15 ML NEBU 5 ML INH (20:43)
[2025-02-10 20:47] LABS: Reflex Lactate? Y
[2025-02-10] MEDS: AZITHROMYCIN INJ 500 MG in SODIUM CHLORIDE 0.9% 250 ML 250 ML 250 MG IV (20:51)
--- NOTE | 2025-02-10 20:51 | PC.RT ---
sputum sent to lab at this time pt able to expectorate small thick green sputum.
[2025-02-10 20:52] LABS: Free T4 (Free Thyroxine) 1.37 ng/dL (0.89-1.76)
[2025-02-10 20:56] LABS: Lactate (Lactic Acid) 2.4 mMol/L (0.4-2.0)
--- NOTE | 2025-02-10 21:04 | PD.RESHP ---
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 Patient reports intermittent chest pain and shortness of breath that's been occuring for 2 months. However, 2 days ago patient felt dizziness, shortness of breath accompanying with chest pain. Hence his daughter took him to PCP. PCP advised the patient to call to the ED for further evaluation. In the ED patient felt nauseated and had 1 episode of nonbilious, nonbloody vomiting. Patient endorses chills, but denies chest palpitations, headache, flu-like symptoms, orthopnea, paroxysmal nocturnal dyspnea, abdominal pain, urinary symptoms. ED Course: -Initial vitals were BP 64/33, pulse 102, temp 98.3, O2 sat 99% 6 L NS -Labs significant for WBC 24.7, bun 39, creatinine 2.6, GFR 24, glucose 146, lactate 3.1, T. bili 1.4, direct bili 0.5, C-reactive protein 2.8, TSH 8.57, UA positive for 15 RBC, 9 WBC, 25 hyaline cast. COVID positive -Imaging included chest x-ray showed bibasilar bronchitis, EKG atrial fibrillation with RVR rate 135 with QTc 441 -In the ED, patient was given 3 L NS, diltiazem, aspirin, calcium gluconate, amiodarone drip. -Patient was admitted for A-fib with RVR secondary to sepsis and COVID. Review of Systems Review of systems otherwise negative except what is mentioned above. Past Medical History: As mentioned above Family History: noncontributory Surgical History: Social History: Former smoker, occasionally drinks alcohol use, denies recreational drug use Current Medications: (Source: ) Allergies: No known drug allergies Exam Vital Signs Temp Pulse Resp BP Pulse Ox O2 Del Method O2 Flow Rate 98.3 F 120 H 20 83/63 L 93 L Nasal Cannula 2 02/10/25 17:15 02/10/25 20:55 02/10/25 20:55 02/10/25 20:55 02/10/25 20:55 02/10/25 19:34 02/10/25 20:55 FiO2 2 02/10/25 19:34 Narrative Exam General: Alert, pale, no acute distress. Conversational Skin: Warm, dry, intact. No rash or ecchymoses. Head: Normocephalic, atraumatic. Eye: Normal conjunctiva, PERRL. Throat: Oral mucosa dr. No obvious lesions in oropharynx. Cardiovascular: Tachycardic rate and rhythm, no murmur, +S1/S2. Respiratory: Low breath sounds bilaterally respirations unlabored, no crackles, no wheezing. Gastrointestinal: Abdominal mildly firm on palpation. Guarding or rebound tenderness. Extremities: +1 pitting edema, no cyanosis, no clubbing. Neuro: Alert and oriented x3.No focal deficits observed. Conversant, moving all extremities. No overt cerebellar signs/incoordination. Psychiatric: Cooperative, appropriate affect Results: Labs 02/11/25 05:09 02/11/25 05:09 Labs: Short CBC 02/10/25 Range/Units 17:44 WBC 24.7 H (3.8-10.6) Thou/mm3 Hgb 15.3 (13.5-16.0) g/dL Hct 44.2 (41.0-53.0) % Plt Count 279 D (140-440) Thou/mm3 BMP 02/10/25 17:44 Sodium 137 Potassium 3.5 Chloride 98 Carbon Dioxide 24.0 BUN 39 H Creatinine 2.6 H Glucose 146 H Calcium 9.8 Cardiac Enzymes 02/10/25 Range/Units 17:44 Troponin I 0.034 (0.0-0.045) ng/mL Liver Function 02/10/25 Range/Units 17:44 Total Bilirubin 1.4 H (0.3-1.2) mg/dL Direct Bilirubin 0.5 H (0.0-0.3) mg/dL AST 28 (0-34) U/L ALT 28 (10-49) U/L Alkaline Phosphatase 71 (46-116) U/L Albumin 4.0 (3.4-4.8) gm/dL Urine 02/10/25 Range/Units 19:02 Urine Color Drk-Yellow A (Lt Yel-Yel) Urine Clarity Turbid A (Clear/Hazy) Urine pH 5.5 (5.0-7.0) Ur Specific [place] 1.020 (1.001-1.035) Urine Protein 1+ A (Neg - Trace) Urine Glucose (UA) Trace (Negative) Quality Measures Quality Measures none Advance care planning discussed with:: patient and child Medications Home Medications and Allergies Home Medications ?Medication ?Instructions ?Recorded ?Confirmed ?Type metoprolol succinate 50 mg 50 mg PO QDAY 09/09/24 02/10/25 History tablet,extended release 24 hr losartan 50 mg-hydrochlorothiazide 1 tab PO QDAY 02/04/25 02/10/25 History 12.5 mg tablet revefenacin 175 mcg/3 mL solution 175 mcg inhalation QDAY 02/10/25 02/10/25 History for nebulization (Yupelri) sitagliptin phosphate 25 mg tablet 25 mg PO QDAY 02/10/25 02/10/25 History (Isadora) Allergies Allergy/AdvReac Type Severity Reaction Status Date / Time No Known Allergies Allergy Verified 02/10/25 17:31 Visit Medications Acetaminophen (Acetaminophen 325 Mg Tablet) 650 mg PO Q6H PRN PRN Reason: PAIN SCALE 1-3 (mild Stop: 03/12/25 20:05 Acetaminophen (Acetaminophen 325 Mg Tablet) 650 mg PO Q6H PRN PRN Reason: Fever >100.4 Stop: 03/12/25 20:05 Hydrocodone Bitart/Acetaminophen (Hydrocodone/Apap 10/325 Tab) 1 tab PO Q4HR PRN PRN Reason: PAIN SCALE 7-10 (Severe Stop: 02/15/25 20:05 Apixaban (Apixaban 2.5 Mg Tablet) 5 mg PO BID SABINE Stop: 03/12/25 20:59 Dextrose (Dextrose 50%-Water Inj 50 Ml Syringe) 25 ml IV Q15MIN PRN PRN Reason: BG 50-70 responsive npo pt Stop: 03/12/25 20:05 Dextrose (Dextrose 50%-Water Inj 50 Ml Syringe) 50 ml IV Q15MIN PRN PRN Reason: BG <50 OR BG <70 & pt unresponsive Stop: 03/12/25 20:05 Glucagon (Glucagon Inj 1 Mg Vial) 1 mg IM Q15MIN PRN PRN Reason: BG <70, and no IV access Dopamine HCl/Dextrose (Intropin In D5w Ivpb) 400 mg in 250 mls @ 15.3 mls/hr IV .[id number] SABINE; Protocol Stop: 03/12/25 18:38 Potassium Chloride (Kcl Ivpb) 10 meq in 100 mls @ 100 mls/hr IV Q1H SABINE Stop: 02/10/25 23:59 Last Admin: 02/10/25 20:07 Dose: 100 mls/hr Magnesium Sulfate (Magnesium Sulfate Ivpb) 4 gm in 50 mls @ 12.5 mls/hr IV X1 ONE Stop: 02/10/25 23:56 Last Admin: 02/10/25 20:04 Dose: 12.5 mls/hr Amiodarone HCl/Dextrose (Nexterone Ivpb) 360 mg in 200 mls @ 16.667 mls/hr IV .Q12H SABINE Stop: 02/12/25 02:09 Amiodarone HCl/Dextrose (Nexterone Ivpb) 360 mg in 200 mls @ 33.333 mls/hr IV .Q6H ONE Stop: 02/11/25 02:09 Last Admin: 02/10/25 20:31 Dose: 33.333 mls/hr Ceftriaxone Sodium/Dextrose (Rocephin/D5w 1gm Iv Premix) 1 gm in 50 mls @ 100 mls/hr IV QDAY SABINE Stop: 02/17/25 20:14 Azithromycin 250 mg/ Sodium (Chloride) 250 mls @ 250 mls/hr IV QDAY SABINE Stop: 02/19/25 08:59 Remdesivir 100 mg/ Sodium (Chloride) 100 mls @ 100 mls/hr IV Q24H NR; Protocol Stop: 02/12/25 14:59 Insulin Human Lispro (Insulin Lispro (Admelog) 1 Unit/0.01 Ml Unit) 0 unit SC ACHS SABINE; Protocol Stop: 03/12/25 20:59 Ondansetron HCl (Ondansetron Inj 2 Mg/Ml Inj 2 Ml) 4 mg IVP Q6H PRN; Protocol PRN Reason: NAUSEA OR VOMITING Stop: 03/12/25 20:05 Oxycodone/Acetaminophen (Oxycodone/Apap 5/325 Tablet) 1 tab PO Q6H PRN PRN Reason: PAIN SCALE 4-6 (Moderate Stop: 02/15/25 20:05 Pantoprazole Sodium (Pantoprazole Inj 40 Mg Vial) 40 mg IVP QDAY SABINE Stop: 03/12/25 20:14 Last Admin: 02/10/25 20:27 Dose: 40 mg Discontinued Medications Aspirin (Aspirin 325 Mg Tablet) 325 mg PO X1 ONE Stop: 02/10/25 17:37 Last Admin: 02/10/25 17:38 Dose: 325 mg Calcium Gluconate (Calcium Gluconate 10% Inj 1 Gm/10 Ml Vial) 1 gm IV X1 ONE Stop: 02/10/25 17:28 Last Admin: 02/10/25 17:46 Dose: 1 gm Diltiazem HCl (Diltiazem Inj 5 Mg/Ml Vial 5 Ml) 5 mg IV X1 ONE Stop: 02/10/25 17:38 Last Admin: 02/10/25 17:40 Dose: 5 mg Diltiazem HCl (Diltiazem Inj 5 Mg/Ml Vial 5 Ml) 20 mg IV X1 ONE Stop: 02/10/25 18:14 Last Admin: 02/10/25 18:24 Dose: Not Given Diltiazem HCl (Diltiazem Inj 5 Mg/Ml Vial 5 Ml) 20 mg IV X1 ONE Stop: 02/10/25 19:40 Last Admin: 02/10/25 19:45 Dose: 20 mg Sodium Chloride (Ns) 1,000 mls @ 999 mls/hr IV .Q1H1M ONE Stop: 02/10/25 18:16 Last Infusion: 02/10/25 19:12 Dose: Infused Sodium Chloride (Ns) 1,000 mls @ 999 mls/hr IV .Q1H1M ONE Stop: 02/10/25 18:16 Last Infusion: 02/10/25 19:12 Dose: Infused Magnesium Sulfate (Magnesium Sulfate Ivpb) 2 gm in 50 mls @ 25 mls/hr IV X1 ONE Stop: 02/10/25 19:50 Last Infusion: 02/10/25 19:41 Dose: Infused Diltiazem HCl (Diltiazem In D5w 125 Mg) 125 mg in 125 mls @ 5 mls/hr IV .Q24H SABINE Stop: 03/12/25 18:13 Last Admin: 02/10/25 18:24 Dose: Not Given Diltiazem HCl (Diltiazem In D5w 125 Mg) 125 mg in 125 mls @ 5 mls/hr IV .Q24H SABINE Stop: 03/12/25 19:38 Last Infusion: 02/10/25 19:54 Dose: 5 mg/hr, 5 mls/hr Amiodarone HCl/Dextrose (Nexterone Ivpb) 150 mg in 100 mls @ 600 mls/hr IV .Q10M ONE Stop: 02/10/25 20:09 Last Infusion: 02/10/25 20:23 Dose: Infused Azithromycin 500 mg/ Sodium (Chloride) 250 mls @ 250 mls/hr IV X1 ONE Stop: 02/10/25 21:04 Last Admin: 02/10/25 20:51 Dose: 250 mls/hr Sodium Chloride (Ns) 1,000 mls @ 999 mls/hr IV .Q1H1M ONE Stop: 02/10/25 21:01 Last Admin: 02/10/25 20:17 Dose: 999 mls/hr Remdesivir 200 mg/ Sodium (Chloride) 250 mls @ 250 mls/hr IV X1 ONE; Protocol Stop: 02/10/25 21:04 Last Admin: 02/10/25 20:32 Dose: 250 mls/hr Methylprednisolone Sodium Succinate (Methylprednisolone Sod Succ 62.5 Mg/Ml 2ml Vial) 125 mg IVP X1 ONE Stop: 02/10/25 20:09 Last Admin: 02/10/25 20:26 Dose: 125 mg Ondansetron HCl (Ondansetron Inj 2 Mg/Ml Inj 2 Ml) 4 mg IVP X1 ONE; Protocol Stop: 02/10/25 17:19 Last Admin: 02/10/25 17:35 Dose: 4 mg Sodium Chloride (Sodium Chloride Rt 10% 15 Ml Nebu) 5 ml INH X1 ONE Stop: 02/10/25 20:06 Last Admin: 02/10/25 20:43 Dose: 5 ml Assessment & Plan Plan Mr Carreno is a 80 year old male with past medical history of arthritis, depression, anxiety, DM2, HTN, COPD, hyperlipidemia, cirrhosis, 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 Admitted for A-fib with RVR and pneumonia evaluation and management. #A-fib with RVR in setting of Sepsis #Tachy-Ricky syndrome #Hypotension Patient has a history of atrial fibrillation rate controlled on Eliquis. However on admission patient hypotensive, tachycardic, tachypneic. In the ED patient received diltiazem for rate control, and calcium gluconate. Later started patient on amiodarone drip due to persistent uncontrolled A-fib. Cardiology DrYun Elevated patient recommended pacemaker insertion, however due to patient current septic status the procedure has been deferred. EKG afebrile A-fib RVR, rate 135, QTc 441. Last echo 04/29/2025 ejection fraction 55 to 60%, grade 1 diastolic dysfunction. CHADsVAS score 5?10.0% risk of stroke/TIA/systemic embolism HAS BLED score 5 Plan - amiodarone drip - resumed home Eliquis 5 mg po - Cardiology consulted, recommendation appreciated-Systolic <90 consider dopamine - Will continue to monitor telemetry - Keep K > 4 and Mg > 2 #Sepsis in the setting of #COVID, low suspicion for pneumonia #Lactic acidosis # Leukocytosis Patient is positive for COVID given flu. Patient meeting scheduled sepsis with WBC of 24.7, hypotension of 64/33, tachypnic RR 22. Lactic acid 3.1. C-reactive protein 2.8. Chest x-ray show bibasilar bronchitis pattern qSOFA 3. - Remdesivir FOR COVID - Ceftriaxone 1gm (02/10/35)- - Ondansetron for nausea - trend lactic acid, stop if normal - continue to monitor vitals -Blood culture and sputum culture pending - Daily a.m. labs for CBC, CMP and electrolytes #Mild hyperbilirubinemia Mild hyperbilirubinemia likely in setting of sepsis. Total bilirubin 2.4, direct bili 0.5. - Continue to monitor #COPD Pt has history of COPD on 2 L of nasal cannula at home. - recieved methylprednisolone 125mg x1 for COPD - Supplemental O2 as needed -Maintain saturation 88-92% #SOREN likely prerenal SOREN likely due to dehydration and poor oral intake. On admission creatinine 2.6 (baseline 0.8) eGFR 24, bun 39, Cr clearance 23.2 -Avoid nephrotoxins -Monitor renal panel -Renally dosed medications #Subclinical hypothyroidism On admission TSH 8.57, free T1.37 -continue to Monitor #Sfu-sphhkbb-tlcumrgrw type 2 diabetes On admission glucose was 146. Last A1c 09/22/24 was 5.7. Home medication Januvia - Continue sliding scale - Consider resuming home medications #Hyperlipidemia Home meds ezetimide 10mg, - plan to resume home meds after med recc # Metastatic neuroendocrine carcinoma # Status post Laparotomy, resection of terminal ileum and ascending colon - Follow-up outpatient # Elevated Immature granulocytes, bandemia On labs Immature granulocytes 6%, noted in increase from previous labs. - Consider peripheral blood smear, low suspicion for myeloid disorders - continue to monitor #Depression #Anxiety History of depression and anxiety managed with paroxetine 10 mg -Pending med rec -Consider resuming home medications Hospital management: Lines: peripheral IV Diet: npo Bowel: na GI prophylaxis: pantoprazole DVT prophylaxis: SCDs Disposition: tele afib w/RVR, COVID + CODE STATUS: Full code Patient seen and assessed under supervision of attending physician Dr.Alhalaibeh Susanna Che MD PGY-1, Internal Medicine Please note: this document was transcribed using voice recognition technology; minor inaccuracies may be present. Attending Provider Attestation/Addendum After examination of the patient and review of the clinical data I feel that this patient needs admission to the hospital for further treatment/evaluation. I Prakash Calvo MD, attest that I was physically present for wilson portions of evaluation, and examined patient, labs and imagings and plan of care were discussed with IM residents team, and I agree with the findings and plans documented above.
[2025-02-10 21:23] LABS: Free T3 3.0 pg/mL (2.3-4.2); Free T4 (Free Thyroxine) 1.51 ng/dL (0.89-1.76)
[2025-02-10] MEDS: cefTRIAXone/D5w 1gm IV premix 1 GM/50 ML BAG IV (21:28)
[2025-02-10] MEDS: APIXABAN 2.5 MG TABLET 5 MG PO (21:28)
[2025-02-10] MEDS: INSULIN LISPRO (AdmeLOG) 1 UNIT/0.01 ML UNIT SC (21:29)
--- NOTE | 2025-02-10 22:00 | PD.IMCONS ---
HPI Data of Consult Requesting Physician: Prakash Calvo MD Primary Care Provider: RHODA Brownlee Consult Narrative cc:: cc: Prakash Calvo MD Meds Home Medications and Allergies Home Medications ?Medication ?Instructions ?Recorded ?Confirmed ?Type metoprolol succinate 50 mg 50 mg PO QDAY 09/09/24 02/10/25 History tablet,extended release 24 hr losartan 50 mg-hydrochlorothiazide 1 tab PO QDAY 02/04/25 02/10/25 History 12.5 mg tablet revefenacin 175 mcg/3 mL solution 175 mcg inhalation QDAY 02/10/25 02/10/25 History for nebulization (Yupelri) sitagliptin phosphate 25 mg tablet 25 mg PO QDAY 02/10/25 02/10/25 History (Edgarduvia) Allergies Allergy/AdvReac Type Severity Reaction Status Date / Time No Known Allergies Allergy Verified 02/10/25 17:31 Exam Vital Signs Temp Pulse Resp BP Pulse Ox O2 Del Method O2 Flow Rate 97.0 F 56 L 18 132/90 H 99 Nasal Cannula 2 02/11/25 04:00 02/11/25 04:00 02/11/25 04:00 02/11/25 04:00 02/11/25 04:00 02/11/25 04:00 02/11/25 04:00 FiO2 2 02/10/25 19:34 Results Labs 02/11/25 05:09 02/11/25 05:09 Labs: Short CBC 02/10/25 02/11/25 Range/Units 17:44 05:09 WBC 24.7 H 15.6 H D (3.8-10.6) Thou/mm3 Hgb 15.3 13.7 (13.5-16.0) g/dL Hct 44.2 39.7 L (41.0-53.0) % Plt Count 279 D 180 D (140-440) Thou/mm3 BMP 02/10/25 02/11/25 17:44 05:09 Sodium 137 138 Potassium 3.5 4.5 D Chloride 98 106 Carbon Dioxide 24.0 19.1 L BUN 39 H 24 H Creatinine 2.6 H 1.4 H D Glucose 146 H 275 H D Calcium 9.8 8.7 Cardiac Enzymes 02/10/25 Range/Units 17:44 Troponin I 0.034 (0.0-0.045) ng/mL Liver Function 02/10/25 02/11/25 Range/Units 17:44 05:09 Total Bilirubin 1.4 H 0.5 D (0.3-1.2) mg/dL Direct Bilirubin 0.5 H (0.0-0.3) mg/dL AST 28 20 (0-34) U/L ALT 28 22 (10-49) U/L Alkaline Phosphatase 71 63 (46-116) U/L Albumin 4.0 3.4 D (3.4-4.8) gm/dL Urine 02/10/25 Range/Units 19:02 Urine Color Drk-Yellow A (Lt Yel-Yel) Urine Clarity Turbid A (Clear/Hazy) Urine pH 5.5 (5.0-7.0) Ur Specific [place] 1.020 (1.001-1.035) Urine Protein 1+ A (Neg - Trace) Urine Glucose (UA) Trace (Negative)
--- NOTE | 2025-02-10 23:19 | PC.RT ---
at 23:08, went to assess pt on 1L nc spo2 94% RR20, hr 61, no admiting o2 orders noted Chinedu Vega called for a admiting o2 order, per DR. means with oxygen orders.
[2025-02-10 23:49] LABS: Reflex Lactate? Y
[2025-02-11] VITALS (9 sets, daily range): BP systolic 111–148; BP diastolic 55–90; PULSE 37–71; RESP 17–28; TEMP 36.1–36.6; O2SAT 97–99; BMI 25.9
[2025-02-11 00:40] LABS: Lactic Acid, 3 HR 2.7 mMol/L (0.4-2.0)
[2025-02-11] MEDS: AMIODARONE 360 MG IVPB 360 MG/200 ML BAG 16.667 MG IV ×2 (01:55→13:51)
[2025-02-11 05:51] LABS: Basophils # (Auto) 0.1 Thou/mm3 (0.0-0.2); Basophils % (Auto) 0 % (0-2.5); Eosinophils # (Auto) 0.0 Thou/mm3 (0.0-0.5); Eosinophils % (Auto) 0 % (0-10); Hematocrit 39.7 % (41.0-53.0); Hemoglobin 13.7 g/dL (13.5-16.0); Immature Granulocytes Auto 0.50 Thou/mm3 (0.00-0.00); Lymphocytes # (Auto) 1.2 Thou/mm3 (1.0-4.8); Lymphocytes % (Auto) 8 % (10-50); Mean Corpuscular HGB Conc 34.5 g/dl (31.0-37.0); Mean Corpuscular Hemoglobin 33.5 pg (25.0-35.0); Mean Corpuscular Volume 97 fL (80-100); Monocytes # (Auto) 0.2 Thou/mm3 (0.0-0.8); Monocytes % (Auto) 1 % (0-12); Neutrophils # (Auto) 13.6 Thou/mm3 (1.8-7.7); Neutrophils % (Auto) 87 % (37-80); Nucleated Red Blood Cell # 0.00 Thou/mm3 (0.00-0.00); Nucleated Red Blood Cell % 0 /100 WBC (0); Platelet Count 180 Thou/mm3 (140-440); RDW Standard Deviation 49.1 fL (35.1-43.9); Red Blood Count 4.09 Miln/mm3 (4.50-5.90); White Blood Count 15.6 Thou/mm3 (3.8-10.6)
[2025-02-11 06:10] LABS: Alanine Aminotransferase 22 U/L (10-49); Albumin, Serum 3.4 gm/dL (3.4-4.8); Albumin/Globulin Ratio 1.4 (1.2-2.2); Alkaline Phosphatase 63 U/L (46-116); Anion Gap 13 (7-16); Aspartate Amino Transferase 20 U/L (0-34); BUN/Creatinine Ratio 17 Ratio (12-20); Bilirubin,Total 0.5 mg/dL (0.3-1.2); Blood Urea Nitrogen 24 mg/dL (9-23); Calcium 8.7 mg/dL (8.3-10.6); Calcium (Corrected) 9.2 mg/dL (8.5-10.1); Carbon Dioxide 19.1 mMol/L (20.0-31.0); Chloride 106 mMol/L (98-107); Creatinine (Component) 1.4 mg/dL (0.6-1.3); Estimated Creatinine Clearance 39.3 mL/min (>60); Globulin 2.5 gm/dL (2.3-3.5); Glucose 275 mg/dL (74-106); Magnesium 2.2 mg/dL (1.6-2.6); Osmolality,Calculated 289 (275-295); Phosphorous 3.5 mg/dL (2.4-5.1); Potassium 4.5 mMol/L (3.4-5.1); Sodium 138 mMol/L (136-145); Total Protein 5.9 gm/dL (5.7-8.2); eGFR 51 See Note
[2025-02-11] MEDS: cefTRIAXone/D5w 1gm IV premix 1 GM/50 ML BAG IV (10:08)
[2025-02-11] MEDS: APIXABAN 2.5 MG TABLET 5 MG PO ×2 (10:19→20:11)
--- NOTE | 2025-02-11 10:33 | ESPR_ITS ---
<Statement entered by Vashti Arias MD - 02/11/25 16:19> Note reviewed, I agree with most of its contents and agree with the patient's care as documented by Dr. Sainz. Patient examined at bedside. Denies any major complaints such as chest pain or shortness of breath. Telemetry was reviewed with patient in normal sinus rhythm and regular rate. Currently on amiodarone drip for A-fib with RVR. Cardiology was consulted, recommendations are pending. Continuing azithromycin and ceftriaxone for treatment of sepsis secondary to COVID pneumonitis. Continuing fluids in setting of SOREN and lactic acidosis. Baseline creatinine appears to be around 1.0. Creatinine is downtrending-- today 1.4. Blood cultures are pending. The patient's management plan was discussed with my attending physician Dr. Lopez. Vashti Arias, PGY-2 Documentation for date of: 02/11/25 Subjective Subjective Interval history: 02/11/25: No acute events overnight. Vital signs remained stable. Patient was evaluated and examined at bedside. Patient denies any palpitations, shortness of breath or chest pain. Patient is currently asymptomatic and does not have any complaints at this time. Exam Vital Signs Temp Pulse Resp BP Pulse Ox O2 Del Method O2 Flow Rate 97.9 F 59 L 20 111/85 H 97 Nasal Cannula 1 02/11/25 08:00 02/11/25 08:00 02/11/25 08:00 02/11/25 08:00 02/11/25 08:00 02/11/25 08:00 02/11/25 08:00 FiO2 2 02/10/25 19:34 Narrative Exam General: Alert, no acute distress. Conversational Skin: Warm, dry, intact. No rash or ecchymoses. Head: Normocephalic, atraumatic. Eye: Normal conjunctiva, PERRL. Throat: Oral mucosa dr. No obvious lesions in oropharynx. Cardiovascular: RRR, no murmur, +S1/S2. Respiratory: CTAB, respirations unlabored, no crackles, no wheezing. Gastrointestinal: Abdomen is nondistende without any tenderness to palaption, No guarding or rebound tenderness. Extremities: +1 pitting edema, no cyanosis, no clubbing. Neuro: Alert and oriented x3.No focal deficits observed. Conversant, moving all extremities. No overt cerebellar signs/incoordination. Psychiatric: Cooperative, appropriate affect Objective Labs 02/12/25 04:58 02/12/25 04:58 Labs: Laboratory Results - last 24 hr 02/10/25 02/10/25 02/10/25 17:44 19:02 19:18 WBC 24.7 H RBC 4.58 Hgb 15.3 Hct 44.2 MCV 97 MCH 33.4 MCHC 34.6 RDW Std Deviation 48.3 H Plt Count 279 D Neut % (Auto) 59 Lymph % (Auto) 22 [place] % (Auto) 11 Eos % (Auto) 2 Baso % (Auto) 1 Neut # (Auto) 14.6 H Lymph # (Auto) 5.4 H [place] # (Auto) 2.6 H Eos # (Auto) 0.4 Baso # (Auto) 0.2 Immature Gran # (Auto) 1.55 H Absolute Nucleated RBC 0.03 H Immature Gran % 6 H Nucleated RBC % 0 ESR Cancelled 18 PT 11.9 INR 1.1 APTT 23.1 D-Dimer < 250 Sodium 137 Potassium 3.5 Chloride 98 Carbon Dioxide 24.0 Anion Gap 15 BUN 39 H Creatinine 2.6 H Estim Creat Clear Calc 23.2 L eGFR 24 L BUN/Creatinine Ratio 15 Glucose 146 H Calculated Osmolality 286 Lactic Acid 3.1 H Calcium 9.8 Corrected Calcium 9.8 Phosphorus Magnesium 1.7 Total Bilirubin 1.4 H Direct Bilirubin 0.5 H AST 28 ALT 28 Alkaline Phosphatase 71 Troponin I 0.034 C-Reactive Prot, Quant 2.8 H B-Natriuretic Peptide 66 Total Protein 6.8 Albumin 4.0 Globulin 2.8 Albumin/Globulin Ratio 1.4 Lipase 49 Procalcitonin 0.24 TSH 8.57 H Free T4 1.37 Free T3 pg/dL Ur Collection Type Clean Catch Urine Color Drk-Yellow A Urine Clarity Turbid A Urine pH 5.5 Ur Specific [place] 1.020 Urine Protein 1+ A Urine Glucose (UA) Trace Urine Ketones Negative Urine Blood 1+ A Urine Nitrite Negative Urine Bilirubin Negative Urine Urobilinogen (Auto) 2.0 Ur Leukocyte Esterase Negative Urine RBC 15 H Urine WBC 9 H Ur Squamous Epith Cells 0 Calcium Oxalate Crystal 1+ A Urine Bacteria None Hyaline Casts 25 H Urine Sperm Present A 02/10/25 02/11/25 02/11/25 20:46 00:17 05:09 WBC 15.6 H D RBC 4.09 L Hgb 13.7 Hct 39.7 L MCV 97 MCH 33.5 MCHC 34.5 RDW Std Deviation 49.1 H Plt Count 180 D Neut % (Auto) 87 H Lymph % (Auto) 8 L [place] % (Auto) 1 Eos % (Auto) 0 Baso % (Auto) 0 Neut # (Auto) 13.6 H Lymph # (Auto) 1.2 [place] # (Auto) 0.2 Eos # (Auto) 0.0 Baso # (Auto) 0.1 Immature Gran # (Auto) 0.50 H Absolute Nucleated RBC 0.00 Immature Gran % 3 H Nucleated RBC % 0 ESR PT INR APTT D-Dimer Sodium 138 Potassium 4.5 D Chloride 106 Carbon Dioxide 19.1 L Anion Gap 13 BUN 24 H Creatinine 1.4 H D Estim Creat Clear Calc 39.3 L eGFR 51 L BUN/Creatinine Ratio 17 Glucose 275 H D Calculated Osmolality 289 Lactic Acid 2.4 H 2.7 H Calcium 8.7 Corrected Calcium 9.2 Phosphorus 3.5 Magnesium 2.2 Total Bilirubin 0.5 D Direct Bilirubin AST 20 ALT 22 Alkaline Phosphatase 63 Troponin I C-Reactive Prot, Quant B-Natriuretic Peptide Total Protein 5.9 Albumin 3.4 D Globulin 2.5 Albumin/Globulin Ratio 1.4 Lipase Procalcitonin TSH Free T4 1.51 Free T3 pg/dL 3.0 Ur Collection Type Urine Color Urine Clarity Urine pH Ur Specific [place] Urine Protein Urine Glucose (UA) Urine Ketones Urine Blood Urine Nitrite Urine Bilirubin Urine Urobilinogen (Auto) Ur Leukocyte Esterase Urine RBC Urine WBC Ur Squamous Epith Cells Calcium Oxalate Crystal Urine Bacteria Hyaline Casts Urine Sperm Quality Measures Quality Measures none Advance care planning discussed with:: patient Assessment & Plan Assessment Current Active Medications: Generic Name Dose Route Start Last Admin Trade Name Freq PRN Reason Stop Dose Admin Acetaminophen 650 mg 02/10/25 20:06 Acetaminophen 325 Mg Tablet PO 03/12/25 20:05 Q6H PRN PAIN SCALE 1-3 (mild Acetaminophen 650 mg 02/10/25 20:06 Acetaminophen 325 Mg Tablet PO 03/12/25 20:05 Q6H PRN Fever >100.4 Hydrocodone Bitart/Acetaminophen 1 tab 02/10/25 20:06 Hydrocodone/Apap 10/325 Tab PO 02/15/25 20:05 Q4HR PRN PAIN SCALE 7-10 (Severe Apixaban 5 mg 02/10/25 21:00 02/11/25 10:19 Apixaban 2.5 Mg Tablet PO 03/12/25 20:59 5 mg BID SABINE Administration Dextrose 25 ml 02/10/25 20:06 Dextrose 50%-Water Inj 50 Ml Syringe IV 03/12/25 20:05 Q15MIN PRN BG 50-70 responsive npo pt Dextrose 50 ml 02/10/25 20:06 Dextrose 50%-Water Inj 50 Ml Syringe IV 03/12/25 20:05 Q15MIN PRN BG <50 OR BG <70 & pt unresponsive Glucagon 1 mg 02/10/25 20:06 Glucagon Inj 1 Mg Vial IM Q15MIN PRN BG <70, and no IV access Amiodarone HCl/Dextrose 360 mg in 200 mls @ 16.667 mls/hr 02/11/25 02:10 02/11/25 01:55 Nexterone Ivpb IV 02/12/25 02:09 16.667 mls/hr .Q12H SABINE Administration Ceftriaxone Sodium/Dextrose 1 gm in 50 mls @ 100 mls/hr 02/10/25 20:15 02/11/25 10:08 Rocephin/D5w 1gm Iv Premix IV 02/17/25 20:14 100 mls/hr QDAY SABINE Administration Azithromycin 250 mg/ Sodium 250 mls @ 250 mls/hr 02/11/25 21:00 Chloride IV 02/18/25 20:59 HS SABINE Remdesivir 100 mg/ Sodium 100 mls @ 100 mls/hr 02/11/25 14:00 Chloride IV 02/12/25 14:59 Q24H NR Protocol Sodium Chloride 1,000 mls @ 80 mls/hr 02/11/25 10:24 Ns IV 02/11/25 22:53 .[id number] ONE Insulin Human Lispro 0 unit 02/10/25 21:00 02/11/25 09:18 Insulin Lispro (Admelog) 1 Unit/0.01 Ml Unit SC 03/12/25 20:59 Not Given ACHS SABINE Protocol Ondansetron HCl 4 mg 02/10/25 20:06 Ondansetron Inj 2 Mg/Ml Inj 2 Ml IVP 03/12/25 20:05 Q6H PRN NAUSEA OR VOMITING Protocol Oxycodone/Acetaminophen 1 tab 02/10/25 20:06 Oxycodone/Apap 5/325 Tablet PO 02/15/25 20:05 Q6H PRN PAIN SCALE 4-6 (Moderate Pantoprazole Sodium 40 mg 02/10/25 20:15 02/11/25 10:08 Pantoprazole Inj 40 Mg Vial IVP 03/12/25 20:14 40 mg QDAY SABINE Administration Plan Mr Carreno is a 80 year old male with past medical history of arthritis, depression, anxiety, DM2, HTN, COPD, hyperlipidemia, cirrhosis, 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 Admitted for A-fib with RVR and sepsis 2/2 Covid and possible PNA. #A-fib with RVR #Paroxysmal atrial fibrillation, chronic #Tachy-Ricky syndrome #Hypotension Patient has a history of atrial fibrillation rate controlled by Metoprolol, on Eliquis. However on admission patient was noted to be hypotensive, tachycardic, tachypneic. In the ED patient received diltiazem for rate control, and calcium gluconate. However given bradycardia, he was started on amiodarone drip due to persistent uncontrolled A-fib. Cardiology was consulted in the ED who recommended pacemaker insertion, however due to patient current septic status the procedure has been deferred. EKG with A-fib RVR, rate 135, QTc 441. Last echo 04/29/2025 ejection fraction 55 to 60%, grade 1 diastolic dysfunction. Cardiac cath in [address] Dale showed Normal nonobstructive epicardial coronary arteries and Normal left ventricular function, ejection fraction 60%. CHADsVAS score 5?10.0% risk of stroke/TIA/systemic embolism HAS BLED score 5 Cardiology was consulted whose recommendations are below. Plan: - Continue amiodarone drip - Continue home Eliquis 5 mg po - Will continue to monitor telemetry - Keep K > 4 and Mg > 2 - In regards to the possibility of pacemaker placement, patient does not require emergency pacemaker due to current ongoing infection. Patient will need to discuss possible pacemaker in outpatient setting. #Sepsis in the setting of -Resolved #COVID, low suspicion for pneumonia #Lactic acidosis #Leukocytosis (Imporved) Patient is positive for COVID. Patient meeting sepsis criteria with WBC of 24.7, hypotension of 64/33, tachypnic RR 22. Lactic acid 3.1. C-reactive protein 2.8. Chest x-ray show bibasilar bronchitis pattern Patient received 1x methylprednisone in the ED WBC improved to 15.6 qSOFA 3. Lactate uptrended to 3.9. Plan: - Continue Remdesivir - Continue Ceftriaxone 1gm (02/10/35)- - Ondansetron for nausea - Continue to trend lactic acid, stop if normal - Continue to monitor vitals - Pending blood culture and sputum culture pending - Continue IVF at 80 #Mild hyperbilirubinemia- Improved Mild hyperbilirubinemia likely in setting of sepsis. Total bilirubin 2.4, direct bili 0.5. T Bili improved to 1.4 Plan: - Continue to monitor #Hypertension #Hypotension, resolved Has a hx of hypertension and does not take BP at home. BP on admission hypotensive due to sepsis. At home takes losartan HCTZ 50/12.5 mg QD. Plan: - Hold losartan HCTZ 50/12.5 mg QD iso soft BP, can resume as BP tolerates #COPD Pt has history of COPD on 2 L of nasal cannula at home. Plan: - recieved methylprednisolone 125mg x1 for COPD - Supplemental O2 as needed -Maintain saturation 88-92% #SOREN likely prerenal (Improved) SOREN likely due to dehydration and poor oral intake. On admission creatinine 2.6 (baseline 0.8) eGFR 24, bun 39, Cr clearance 23.2 Cr improved to 1.4 Plan: - Conrinue IVF -Avoid nephrotoxins -Monitor renal panel -Renally dosed medications #Subclinical hypothyroidism On admission TSH 8.57, free T1.37 Plan: -continue to Monitor #Xhj-klxjlye-vgfboeext type 2 diabetes On admission glucose was 146. Last A1c 09/22/24 was 5.7. Home medication Januvia Plan: - Continue sliding scale - Consider resuming home medications #Hyperlipidemia Home meds ezetimide 10mg Plan: - Continue ezetimibe # Metastatic neuroendocrine carcinoma # Status post Laparotomy, resection of terminal ileum and ascending colon - Follow-up outpatient # Elevated Immature granulocytes, bandemia On labs Immature granulocytes 6%, noted in increase from previous labs. Plan: - Consider peripheral blood smear, low suspicion for myeloid disorders - continue to monitor #Depression #Anxiety History of depression and anxiety managed with paroxetine 10 mg -Pending med rec -Consider resuming home medications Hospital management: Lines: peripheral IV Diet: Cardiac diet Bowel: none GI prophylaxis: pantoprazole DVT prophylaxis: SCDs Disposition: tele afib w/RVR, COVID + CODE STATUS: Full code Plan was discussed with attending physician Dr. Hawley and senior residents Dr. Arias and Mindi. Denis Sainz DO PGY-1 Attending Provider Attestation/Addendum I have examined the patient, reviewed labs and imaging findings, discussed the case with the resident(s), and reviewed entered orders. I agree with the plan of care as outlined in this note, with these additional summaries/recommendations: Patient seen at bedside. He currently denies chest pain and palpitations. Continue amiodarone gtt for atrial fibrillation with rapid ventricular response. Trigger for A-fib with RVR likely sepsis. Cardiology following, recommendations appreciated. Home Eliquis resumed on admission. Keep magnesium greater than 2 and potassium greater than 4. Continue to monitor on telemetry. Patient also diagnosed with sepsis pneumonitis +/- superimposed bacterial pneumonia. Patient will receive 1 dose of remdesivir now and will reevaluate for additional needs tomorrow. Symptoms relatively mild from a pulmonary standpoint and we will defer steroid. Lactic acidosis uptrending which was originally thought to be secondary to type a from sepsis although blood pressure has been stable and lactic acid slowly increasing. Possibly related to patient's underlying malignancy. Will continue IVF and trend lactic acid. Patient diagnosed with acute kidney injury. Creatinine 2.6 and BUN 39 on admission. Most likely secondary to prerenal azotemia in the setting of sepsis. Avoid nephrotoxic agents and renally dose medications. IVF. Continue insulin sliding scale for diabetes mellitus type 2 with Accu-Cheks. Hyperglycemia present and will continue to adjust basal bolus insulin as needed. Breathing treatments as needed for COPD. Patient updated on the plan and in agreement. All questions answered to satisfaction. Please see residents note for additional details and management. Dr. Marleen MD
[2025-02-11] MEDS: SODIUM CHLORIDE 0.9% 1000 ML 1,000 ML 80 ML IV (11:35)
[2025-02-11] MEDS: INSULIN LISPRO (AdmeLOG) 1 UNIT/0.01 ML UNIT SC ×3 (11:41→20:12)
--- NOTE | 2025-02-11 11:41 | ESPR_ITS ---
Documentation for date of: 02/11/25 Subjective Subjective Interval history: Patient was admitted overnight. Patient seen and examined at bedside using financial services assistant. Patient presented with shortness of breath and palpitations for 2 days. In the ED, patient was found to be septic 2/2 COVID+ with elevated lactate in Afib RVR rate 160s. Patient was started on amiodarone drip with inadequate rate control, diltiazem was started however patient became bradycardic and diltiazem drip was stopped. Currently, patient is on amiodarone drip in sinus rhythm with rate 50-60s and Eliquis 5 mg twice daily for atrial fibrillation. Takes metoprolol XL 50 mg QD and Losartan/HCTZ 50/12.5 mg QD at home, reports being adherent. Patient feels very well and request to go home. Denies current chest palpitations, chest pain, shortness of breath, lightheadedness, dizziness or nausea or vomiting. Exam Vital Signs Temp Pulse Resp BP Pulse Ox O2 Del Method O2 Flow Rate 97.9 F 59 L 20 111/85 H 97 Nasal Cannula 1 02/11/25 08:00 02/11/25 08:00 02/11/25 08:00 02/11/25 08:00 02/11/25 08:00 02/11/25 08:00 02/11/25 08:00 FiO2 2 02/10/25 19:34 Narrative Exam GENERAL: AOx3, no acute distress, elderly male appears younger than stated age HEENT: NC/AT, mucous membranes moist, bilateral sclera anicteric CARDIOVASCULAR: regular rate and rhythm, S1/S2 present, no murmurs appreciated PULMONARY: ++bilateral wheezing ABDOMINAL: soft, non-tender, non-distended, no rebound/guarding, bowel sounds present EXTREMITIES: no peripheral edema SKIN: warm and dry, intact, no rashes NEURO: CN II-XII grossly intact, no focal deficits, alert, following commands Objective Labs 02/13/25 05:12 02/12/25 04:58 Labs: Laboratory Results - last 24 hr 02/10/25 02/10/25 02/10/25 17:44 19:02 19:18 WBC 24.7 H RBC 4.58 Hgb 15.3 Hct 44.2 MCV 97 MCH 33.4 MCHC 34.6 RDW Std Deviation 48.3 H Plt Count 279 D Neut % (Auto) 59 Lymph % (Auto) 22 [place] % (Auto) 11 Eos % (Auto) 2 Baso % (Auto) 1 Neut # (Auto) 14.6 H Lymph # (Auto) 5.4 H [place] # (Auto) 2.6 H Eos # (Auto) 0.4 Baso # (Auto) 0.2 Immature Gran # (Auto) 1.55 H Absolute Nucleated RBC 0.03 H Immature Gran % 6 H Nucleated RBC % 0 ESR Cancelled 18 PT 11.9 INR 1.1 APTT 23.1 D-Dimer < 250 Sodium 137 Potassium 3.5 Chloride 98 Carbon Dioxide 24.0 Anion Gap 15 BUN 39 H Creatinine 2.6 H Estim Creat Clear Calc 23.2 L eGFR 24 L BUN/Creatinine Ratio 15 Glucose 146 H Calculated Osmolality 286 Lactic Acid 3.1 H Calcium 9.8 Corrected Calcium 9.8 Phosphorus Magnesium 1.7 Total Bilirubin 1.4 H Direct Bilirubin 0.5 H AST 28 ALT 28 Alkaline Phosphatase 71 Troponin I 0.034 C-Reactive Prot, Quant 2.8 H B-Natriuretic Peptide 66 Total Protein 6.8 Albumin 4.0 Globulin 2.8 Albumin/Globulin Ratio 1.4 Lipase 49 Procalcitonin 0.24 TSH 8.57 H Free T4 1.37 Free T3 pg/dL Ur Collection Type Clean Catch Urine Color Drk-Yellow A Urine Clarity Turbid A Urine pH 5.5 Ur Specific [place] 1.020 Urine Protein 1+ A Urine Glucose (UA) Trace Urine Ketones Negative Urine Blood 1+ A Urine Nitrite Negative Urine Bilirubin Negative Urine Urobilinogen (Auto) 2.0 Ur Leukocyte Esterase Negative Urine RBC 15 H Urine WBC 9 H Ur Squamous Epith Cells 0 Calcium Oxalate Crystal 1+ A Urine Bacteria None Hyaline Casts 25 H Urine Sperm Present A 02/10/25 02/11/25 02/11/25 20:46 00:17 05:09 WBC 15.6 H D RBC 4.09 L Hgb 13.7 Hct 39.7 L MCV 97 MCH 33.5 MCHC 34.5 RDW Std Deviation 49.1 H Plt Count 180 D Neut % (Auto) 87 H Lymph % (Auto) 8 L [place] % (Auto) 1 Eos % (Auto) 0 Baso % (Auto) 0 Neut # (Auto) 13.6 H Lymph # (Auto) 1.2 [place] # (Auto) 0.2 Eos # (Auto) 0.0 Baso # (Auto) 0.1 Immature Gran # (Auto) 0.50 H Absolute Nucleated RBC 0.00 Immature Gran % 3 H Nucleated RBC % 0 ESR PT INR APTT D-Dimer Sodium 138 Potassium 4.5 D Chloride 106 Carbon Dioxide 19.1 L Anion Gap 13 BUN 24 H Creatinine 1.4 H D Estim Creat Clear Calc 39.3 L eGFR 51 L BUN/Creatinine Ratio 17 Glucose 275 H D Calculated Osmolality 289 Lactic Acid 2.4 H 2.7 H Calcium 8.7 Corrected Calcium 9.2 Phosphorus 3.5 Magnesium 2.2 Total Bilirubin 0.5 D Direct Bilirubin AST 20 ALT 22 Alkaline Phosphatase 63 Troponin I C-Reactive Prot, Quant B-Natriuretic Peptide Total Protein 5.9 Albumin 3.4 D Globulin 2.5 Albumin/Globulin Ratio 1.4 Lipase Procalcitonin TSH Free T4 1.51 Free T3 pg/dL 3.0 Ur Collection Type Urine Color Urine Clarity Urine pH Ur Specific [place] Urine Protein Urine Glucose (UA) Urine Ketones Urine Blood Urine Nitrite Urine Bilirubin Urine Urobilinogen (Auto) Ur Leukocyte Esterase Urine RBC Urine WBC Ur Squamous Epith Cells Calcium Oxalate Crystal Urine Bacteria Hyaline Casts Urine Sperm Quality Measures Quality Measures none Advance care planning discussed with:: patient Assessment & Plan Assessment Current Active Medications: Generic Name Dose Route Start Last Admin Trade Name Freq PRN Reason Stop Dose Admin Acetaminophen 650 mg 02/10/25 20:06 Acetaminophen 325 Mg Tablet PO 03/12/25 20:05 Q6H PRN PAIN SCALE 1-3 (mild Acetaminophen 650 mg 02/10/25 20:06 Acetaminophen 325 Mg Tablet PO 03/12/25 20:05 Q6H PRN Fever >100.4 Hydrocodone Bitart/Acetaminophen 1 tab 02/10/25 20:06 Hydrocodone/Apap 10/325 Tab PO 02/15/25 20:05 Q4HR PRN PAIN SCALE 7-10 (Severe Apixaban 5 mg 02/10/25 21:00 02/11/25 10:19 Apixaban 2.5 Mg Tablet PO 03/12/25 20:59 5 mg BID SABINE Administration Dextrose 25 ml 02/10/25 20:06 Dextrose 50%-Water Inj 50 Ml Syringe IV 03/12/25 20:05 Q15MIN PRN BG 50-70 responsive npo pt Dextrose 50 ml 02/10/25 20:06 Dextrose 50%-Water Inj 50 Ml Syringe IV 03/12/25 20:05 Q15MIN PRN BG <50 OR BG <70 & pt unresponsive Glucagon 1 mg 02/10/25 20:06 Glucagon Inj 1 Mg Vial IM Q15MIN PRN BG <70, and no IV access Amiodarone HCl/Dextrose 360 mg in 200 mls @ 16.667 mls/hr 02/11/25 02:10 02/11/25 01:55 Nexterone Ivpb IV 02/12/25 02:09 16.667 mls/hr .Q12H SABINE Administration Ceftriaxone Sodium/Dextrose 1 gm in 50 mls @ 100 mls/hr 02/10/25 20:15 02/11/25 10:08 Rocephin/D5w 1gm Iv Premix IV 02/17/25 20:14 100 mls/hr QDAY SABINE Administration Azithromycin 250 mg/ Sodium 250 mls @ 250 mls/hr 02/11/25 21:00 Chloride IV 02/18/25 20:59 HS SABINE Remdesivir 100 mg/ Sodium 100 mls @ 100 mls/hr 02/11/25 14:00 Chloride IV 02/12/25 14:59 Q24H NR Protocol Sodium Chloride 1,000 mls @ 80 mls/hr 02/11/25 10:24 Ns IV 02/11/25 22:53 .[id number] ONE Insulin Human Lispro 0 unit 02/10/25 21:00 02/11/25 09:18 Insulin Lispro (Admelog) 1 Unit/0.01 Ml Unit SC 03/12/25 20:59 Not Given ACHS SABINE Protocol Ondansetron HCl 4 mg 02/10/25 20:06 Ondansetron Inj 2 Mg/Ml Inj 2 Ml IVP 03/12/25 20:05 Q6H PRN NAUSEA OR VOMITING Protocol Oxycodone/Acetaminophen 1 tab 02/10/25 20:06 Oxycodone/Apap 5/325 Tablet PO 02/15/25 20:05 Q6H PRN PAIN SCALE 4-6 (Moderate Pantoprazole Sodium 40 mg 02/10/25 20:15 02/11/25 10:08 Pantoprazole Inj 40 Mg Vial IVP 03/12/25 20:14 40 mg QDAY SABINE Administration Fela Carreno is a 80M with pmhx significant for 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 Cardiology consulted for atrial fibrillation RVR with rate of 160-170s. #Atrial fibrillation RVR, resolved #Tachy-gilbert syndrome Patient has long standing history of atrial fibrillation rate controlled by Metoprolol. On interview, patient is a poor historian. n the ED, patient was found to be septic 2/2 COVID+ with elevated lactate in Afib RVR rate 160s. Patient was started on amiodarone drip with inadequate rate control, diltiazem was started however patient became bradycardic to 40s and diltiazem drip was stopped. Patient received 3L of fluids with improvement in HR only on amiodarone drip. At home takes Eliquis 5 mg BID, losartan HCTZ 50/12.5 mg QD, metoprolol XL 50 mg QD, reports adherence At this time, patient does not require emergency pacemaker due to current ongoing infection as well as currently sinus rhythm and HR. Will discuss possible pacemaker in outpatient setting. Per Dr. Samson, neuroendocrine tumor is positive for chromogranin A, which can influence episodes of hypertension hypotension and tachycardia bradycardia. Recommended repeat chromogranin A to assess levels. If increased compared to prior, may be culprit of fluctuating vitals. Cardiac cath in [address] Dale showed Normal nonobstructive epicardial coronary arteries and Normal left ventricular function, ejection fraction 60%. TTE 06/2024 shows normal LV size and function, estimated EF 55 to 60%. Grade 1 diastolic dysfunction, normal RV size and function, mild MR and TR. CHADVASC score 5 7.2% stroke risk per year HASBLED score 3 points, high risk of major bleeding Plan: - Continue amiodarone drip, finish amiodarone drip then transition to metoprolol - Continue Eliquis 5 mg BID - Telemetry for cardiac monitoring - Keep K>4 and Mg>2 #Hypertension #Hypotension, resolved Has a hx of hypertension and does not take BP at home. BP on admission hypotensive due to sepsis. At home takes losartan HCTZ 50/12.5 mg QD. Plan: - Hold losartan HCTZ 50/12.5 mg QD iso soft BP, can resume as BP tolerates #Non insulin dependent type 2 DM #Hyperlipidemia Patient reports he does not take insulin at home and is on Januvia. Last A1c in 09/2024 5.7, however per chart review, A1c at PCP office on 02/01 was 7.9. Takes ezetimide at home. Plan: - Hold Januvia inpatient - SSI in place - Continue ezetimibe - Management per primary team #Sepsis in the setting of #COVID, low suspicion for pneumonia #Lactic acidosis #Leukocytosis #Mild hyperbilirubinemia #COPD #SOREN likely prerenal #Subclinical hypothyroidism #Metastatic neuroendocrine carcinoma #Status post Laparotomy, resection of terminal ileum and ascending colon #Depression #Anxiety Above further management as per primary team. Patient seen and care discussed with my attending physician, Dr. Chaves, elevator adjuster. Alpa Hsu, DO Internal Medicine PGY-1 Attending Provider Attestation/Addendum I have personally seen and examined the patient separately on the above date of service and discussed the plan of care with the resident. I reviewed the resident Dr. Alpa Hsu consultation progress note and agree with the resident findings and plan in the note above and have also edited the documentation to reflect my findings and plan. Saran Chaves M.D. Interventional Cardiology
[2025-02-11 11:46] LABS: Lactate (Lactic Acid) 3.0 mMol/L (0.4-2.0)
[2025-02-11] MEDS: REMDESIVIR INJ 100 MG in SODIUM CHLORIDE 0.9% 100 ML IV (13:51)
[2025-02-11 14:09] LABS: Lactate (Lactic Acid) 3.9 mMol/L (0.4-2.0)
[2025-02-11 14:45] LABS: Reflex Lactate? Y
[2025-02-11] MEDS: EZETIMIBE 10 MG TABLET PO (16:58)
[2025-02-11 17:08] LABS: Reflex Lactate? Y
--- NOTE | 2025-02-11 17:17 | EKG_ITS ---
[facility] Test Date: 2025-02-11 Pat Name: REGIS CRUZ [facility] Clinic Lead: SAUL : 1945 Requested By: Vashti Arias Order Number: [id number] Reading MD: Vashti Arias Measurements Intervals [place] Rate: 67 P: 58 MI: 157 QRS: -26 QRSD: 145 T: 136 QT: 453 QTc: 480 Interpretive Statements SINUS RHYTHM LEFT BUNDLE BRANCH BLOCK Compared to ECG 02/10/2025 17:22:36 Atrial fibrillation no longer present /[id number]/[id number]
[2025-02-11 17:27] LABS: Lactate (Lactic Acid) 5.0 mMol/L (0.4-2.0)
[2025-02-11 18:27] LABS: Misc Send Out* See Sep Rpt
[2025-02-11] MEDS: INSULIN HUM REGULAR 1 UNIT/0.01 ML (PER UNIT) 5 UNIT SC (18:36)
[2025-02-11] MEDS: PIPER/TAZO 3.375 GM PREMIX 3.375 GM/50 ML BAG IV ×2 (18:36→23:26)
[2025-02-11 18:50] LABS: Amylase 43 U/L (30-118); Lipase 30 U/L (12-53)
[2025-02-11 20:04] LABS: Reflex Lactate? Y
[2025-02-11] MEDS: AZITHROMYCIN INJ 250 MG in SODIUM CHLORIDE 0.9% 250 ML 250 ML IV (20:11)
[2025-02-11 21:18] LABS: Lactic Acid, 3 HR 4.0 mMol/L (0.4-2.0)
[2025-02-12] VITALS (11 sets, daily range): BP systolic 125–161; BP diastolic 56–82; PULSE 54–88; RESP 18–98; TEMP 35.9–36.6; O2SAT 96–100; BMI 26.0
[2025-02-12 00:39] LABS: Lactate (Lactic Acid) 2.3 mMol/L (0.4-2.0)
[2025-02-12 03:36] LABS: Reflex Lactate? Y
[2025-02-12] MEDS: PIPER/TAZO 3.375 GM PREMIX 3.375 GM/50 ML BAG IV ×3 (05:03→21:34)
[2025-02-12 06:16] LABS: Basophils # (Auto) 0.0 Thou/mm3 (0.0-0.2); Basophils % (Auto) 0 % (0-2.5); Eosinophils # (Auto) 0.0 Thou/mm3 (0.0-0.5); Eosinophils % (Auto) 0 % (0-10); Hematocrit 36.5 % (41.0-53.0); Hemoglobin 12.4 g/dL (13.5-16.0); Immature Granulocytes Auto 0.18 Thou/mm3 (0.00-0.00); Lymphocytes # (Auto) 1.1 Thou/mm3 (1.0-4.8); Lymphocytes % (Auto) 7 % (10-50); Mean Corpuscular HGB Conc 34.0 g/dl (31.0-37.0); Mean Corpuscular Hemoglobin 33.2 pg (25.0-35.0); Mean Corpuscular Volume 98 fL (80-100); Monocytes # (Auto) 0.8 Thou/mm3 (0.0-0.8); Monocytes % (Auto) 5 % (0-12); Neutrophils # (Auto) 13.6 Thou/mm3 (1.8-7.7); Neutrophils % (Auto) 87 % (37-80); Nucleated Red Blood Cell # 0.00 Thou/mm3 (0.00-0.00); Nucleated Red Blood Cell % 0 /100 WBC (0); Platelet Count 191 Thou/mm3 (140-440); RDW Standard Deviation 48.7 fL (35.1-43.9); Red Blood Count 3.73 Miln/mm3 (4.50-5.90); White Blood Count 15.7 Thou/mm3 (3.8-10.6)
[2025-02-12 06:40] LABS: Alanine Aminotransferase 19 U/L (10-49); Albumin, Serum 3.3 gm/dL (3.4-4.8); Albumin/Globulin Ratio 1.4 (1.2-2.2); Alkaline Phosphatase 53 U/L (46-116); Anion Gap 13 (7-16); Aspartate Amino Transferase 18 U/L (0-34); BUN/Creatinine Ratio 16 Ratio (12-20); Bilirubin,Total 0.5 mg/dL (0.3-1.2); Blood Urea Nitrogen 21 mg/dL (9-23); Calcium 8.8 mg/dL (8.3-10.6); Calcium (Corrected) 9.4 mg/dL (8.5-10.1); Carbon Dioxide 21.2 mMol/L (20.0-31.0); Chloride 106 mMol/L (98-107); Creatinine (Component) 1.3 mg/dL (0.6-1.3); Estimated Creatinine Clearance 42.4 mL/min (>60); Globulin 2.3 gm/dL (2.3-3.5); Glucose 221 mg/dL (74-106); Magnesium 1.7 mg/dL (1.6-2.6); Osmolality,Calculated 289 (275-295); Phosphorous 2.8 mg/dL (2.4-5.1); Potassium 4.3 mMol/L (3.4-5.1); Sodium 140 mMol/L (136-145); Total Protein 5.6 gm/dL (5.7-8.2); eGFR 56 See Note
[2025-02-12] MEDS: INSULIN LISPRO (AdmeLOG) 1 UNIT/0.01 ML UNIT SC ×4 (07:34→21:35)
[2025-02-12 08:17] LABS: Glucose Estimated Average 186 mg/dL (80-131); Hemoglobin A1C 8.1 % Hgb (4.8-6.0)
[2025-02-12 08:27] LABS: Lactate (Lactic Acid) 2.7 mMol/L (0.4-2.0)
--- NOTE | 2025-02-12 08:37 | ESPR_ITS ---
<Statement entered by Vashti Arias MD - 02/12/25 17:20> Note reviewed, I agree with most of its contents and agree with the patient's care as documented by Dr. Sainz. Patient examined at bedside. No events overnight. Lactate was slowly uptrending again despite fluids. Antibiotics were broadened to Vancomycin and Zosyn. Per oncology Dr. Samson, there was some concern for progression of neuroendocrine tumor vs. infection likely from COVID pneumonitis. Will follow up with repeated chromogranin level. Cardiology Dr. Chaves was consulted for Afib with RVR. Patient has completed amiodarone drip with HR now in the 50s. Cardiology recommends to start metoprolol if HR tolerates. Continue Eliquis 5mg BID. Continue to closely monitor. The patient's management plan was discussed with my attending physician Dr. Hawley. Vashti Arias, PGY-2 <Statement entered by Pari Obregon MD - 02/12/25 13:47> Patient seen and examined at bedside. No acute overnight events reported. Patient was given long-acting insulin of 10 units after found to have a blood sugar elevation earlier this morning which is his home dose. Lactic acid is coming down after recent change with antibiotics from IV ceftriaxone to IV Zosyn. Will also add IV vancomycin due to urine culture growing gram-positive cocci. Patient's mottling in his knees are resolved. Pending final cultures. I discussed with and supervised the internal security manager physician who took care of this patient. I personally saw and examined the patient and discussed the assessment and plan with the entire medicine team, including my attending Dr. Hawley, I agree with most of the assessment and plan as documented below Pari Obregon M.D. PGY-3 Disclaimer: Despite multiple revisions, due to the dictation software being used, the document bellow may not be free of grammatical errors including phonetic/typographic errors. However, this does not deter from our commitment to providing health care in the patient's best interest in mind. Documentation for date of: 02/12/25 Subjective Subjective Interval history: 02/12/25: No acute events overnight. Vital signs remain stable despite fluctuations in the HR. Patient's lactate levels were noted to be elevating yesterday. We called patient's Oncologist, Dr. Samson, for further recommendations. They recommended that his elevated lactate could be either due to worsening of his neuroendocrine tumor (siggested ordering chromogranin a levels) vs sepsis from unknwon source vs Covid. We continued his IVF fluid and discontinued Rocephin and added Zosyn for broader coverage. Lactate was then noted to be down trending since then. On exam, mild mottling of the skin over the knees were noted yesterday which resolved by today. Patient's urine culture positive for gram positives, thus we added Vanco for more coverage. Patient saravia snot have any complaints at this time and denies chest pain, dyspnea however was noted to be coughing at times during examinations. Exam Vital Signs Temp Pulse Resp BP Pulse Ox O2 Del Method O2 Flow Rate 96.9 F 54 L 20 161/82 H 99 Nasal Cannula 1 02/12/25 04:00 02/12/25 04:00 02/12/25 04:00 02/12/25 04:00 02/12/25 04:00 02/12/25 04:00 02/12/25 04:00 FiO2 2 02/10/25 19:34 Narrative Exam General: Alert, no acute distress. Conversational Skin: Warm, dry, intact. No rash or ecchymoses. Head: Normocephalic, atraumatic. Eye: Normal conjunctiva, PERRL. Throat: Oral mucosa dr. No obvious lesions in oropharynx. Cardiovascular: RRR, no murmur, +S1/S2. Respiratory: Rhonchi noted, actively coughin with phlegm, respirations unlabored Gastrointestinal: Abdomen is nondistende slightly firm, without any tenderness to palaption,Prior midline incision noted with mild incisional hernia. No guarding or rebound tenderness. Extremities: +1 pitting edema, no cyanosis, no clubbing. Neuro: Alert and oriented x3.No focal deficits observed. Conversant, moving all extremities. No overt cerebellar signs/incoordination. Psychiatric: Cooperative, appropriate affect Objective Labs 02/13/25 05:12 02/13/25 05:12 Labs: Laboratory Results - last 24 hr 02/11/25 02/11/25 02/11/25 11:38 13:56 16:48 WBC RBC Hgb Hct MCV MCH MCHC RDW Std Deviation Plt Count Neut % (Auto) Lymph % (Auto) [place] % (Auto) Eos % (Auto) Baso % (Auto) Neut # (Auto) Lymph # (Auto) [place] # (Auto) Eos # (Auto) Baso # (Auto) Immature Gran # (Auto) Absolute Nucleated RBC Immature Gran % Nucleated RBC % Sodium Potassium Chloride Carbon Dioxide Anion Gap BUN Creatinine Estim Creat Clear Calc eGFR BUN/Creatinine Ratio Glucose Estimated Ave Glu mg/dL Hemoglobin A1c Calculated Osmolality Lactic Acid 3.0 H 3.9 H 5.0 H* Calcium Corrected Calcium Phosphorus Magnesium Total Bilirubin AST ALT Alkaline Phosphatase Total Protein Albumin Globulin Albumin/Globulin Ratio Amylase 43 Lipase 30 D 02/11/25 02/12/25 02/12/25 20:48 00:25 04:58 WBC 15.7 H RBC 3.73 L Hgb 12.4 L Hct 36.5 L MCV 98 MCH 33.2 MCHC 34.0 RDW Std Deviation 48.7 H Plt Count 191 Neut % (Auto) 87 H Lymph % (Auto) 7 L [place] % (Auto) 5 Eos % (Auto) 0 Baso % (Auto) 0 Neut # (Auto) 13.6 H Lymph # (Auto) 1.1 [place] # (Auto) 0.8 Eos # (Auto) 0.0 Baso # (Auto) 0.0 Immature Gran # (Auto) 0.18 H Absolute Nucleated RBC 0.00 Immature Gran % 1 H Nucleated RBC % 0 Sodium 140 Potassium 4.3 Chloride 106 Carbon Dioxide 21.2 Anion Gap 13 BUN 21 Creatinine 1.3 Estim Creat Clear Calc 42.4 L eGFR 56 L BUN/Creatinine Ratio [address] Glu mg/dL 186 H Hemoglobin A1c 8.1 H Calculated Osmolality 289 Lactic Acid 4.0 H 2.3 H Calcium 8.8 Corrected Calcium 9.4 Phosphorus 2.8 Magnesium 1.7 Total Bilirubin 0.5 AST 18 ALT 19 Alkaline Phosphatase 53 Total Protein 5.6 L Albumin 3.3 L Globulin 2.3 Albumin/Globulin Ratio 1.4 Amylase Lipase Quality Measures Quality Measures none Advance care planning discussed with:: patient Assessment & Plan Assessment Current Active Medications: Generic Name Dose Route Start Last Admin Trade Name Freq PRN Reason Stop Dose Admin Acetaminophen 650 mg 02/10/25 20:06 Acetaminophen 325 Mg Tablet PO 03/12/25 20:05 Q6H PRN PAIN SCALE 1-3 (mild Acetaminophen 650 mg 02/10/25 20:06 Acetaminophen 325 Mg Tablet PO 03/12/25 20:05 Q6H PRN Fever >100.4 Hydrocodone Bitart/Acetaminophen 1 tab 02/10/25 20:06 Hydrocodone/Apap 10/325 Tab PO 02/15/25 20:05 Q4HR PRN PAIN SCALE 7-10 (Severe Apixaban 5 mg 02/10/25 21:00 02/11/25 20:11 Apixaban 2.5 Mg Tablet PO 03/12/25 20:59 5 mg BID SABINE Administration Dextrose 25 ml 02/10/25 20:06 Dextrose 50%-Water Inj 50 Ml Syringe IV 03/12/25 20:05 Q15MIN PRN BG 50-70 responsive npo pt Dextrose 50 ml 02/10/25 20:06 Dextrose 50%-Water Inj 50 Ml Syringe IV 03/12/25 20:05 Q15MIN PRN BG <50 OR BG <70 & pt unresponsive Ezetimibe 10 mg 02/11/25 16:30 02/11/25 16:58 Ezetimibe 10 Mg Tablet PO 03/13/25 16:29 10 mg QDAY SABINE Administration Glucagon 1 mg 02/10/25 20:06 Glucagon Inj 1 Mg Vial IM Q15MIN PRN BG <70, and no IV access Azithromycin 250 mg/ Sodium 250 mls @ 250 mls/hr 02/11/25 21:00 02/11/25 20:11 Chloride IV 02/18/25 20:59 250 mls/hr HS SABINE Administration Remdesivir 100 mg/ Sodium 100 mls @ 100 mls/hr 02/11/25 14:00 02/11/25 13:51 Chloride IV 02/12/25 14:59 100 mls/hr Q24H NR Administration Protocol Piperacillin/Tazobactam/Dextrose 3.375 gm in 50 mls @ 12.5 mls/hr 02/11/25 23:00 02/12/25 05:03 Zosyn IV 02/18/25 22:59 12.5 mls/hr Q8HR SABINE Administration Magnesium Sulfate 4 gm in 50 mls @ 12.5 mls/hr 02/12/25 07:26 Magnesium Sulfate Ivpb IV 02/12/25 11:25 X1 ONE Sodium Chloride 1,000 mls @ 75 mls/hr 02/12/25 07:27 Ns IV 03/14/25 07:26 .[id number] [facility] [place] Vancomycin HCl 250 mls @ 120 mls/hr 02/12/25 10:00 Vancomycin/Water 1250 Mg Ivpb IV 02/19/25 09:59 Q24H SABINE Protocol Insulin Degludec 10 unit 02/12/25 09:00 Insulin Degludec 5 Unit/0.05 Ml (Per 5 Units) SC 03/14/25 08:59 QDAY SABINE Insulin Human Lispro 0 unit 02/10/25 21:00 02/12/25 07:34 Insulin Lispro (Admelog) 1 Unit/0.01 Ml Unit SC 03/12/25 20:59 1 unit ACHS [facility] [place] Administration Protocol Ondansetron HCl 4 mg 02/10/25 20:06 Ondansetron Inj 2 Mg/Ml Inj 2 Ml IVP 03/12/25 20:05 Q6H PRN NAUSEA OR VOMITING Protocol Oxycodone/Acetaminophen 1 tab 02/10/25 20:06 Oxycodone/Apap 5/325 Tablet PO 02/15/25 20:05 Q6H PRN PAIN SCALE 4-6 (Moderate Pantoprazole Sodium 40 mg 02/10/25 20:15 02/11/25 10:08 Pantoprazole Inj 40 Mg Vial IVP 03/12/25 20:14 40 mg QDAY [facility] Administration Pharmacy Consult 1 each 02/12/25 09:00 Vancomycin Pharmacy To Dose 1 Each Each IV 03/14/25 08:59 QDAY PRN PROTOCOL Plan Mr Carreno is a 80 year old male with past medical history of arthritis, depression, anxiety, DM2, HTN, COPD, hyperlipidemia, cirrhosis, 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 Admitted for A-fib with RVR and sepsis 2/2 Covid and possible PNA. #A-fib with RVR #Paroxysmal atrial fibrillation, chronic #Tachy-Ricky syndrome #Hypotension Patient has a history of atrial fibrillation rate controlled by Metoprolol, on Eliquis. However on admission patient was noted to be hypotensive, tachycardic, tachypneic. In the ED patient received diltiazem for rate control, and calcium gluconate. However given bradycardia, he was started on amiodarone drip due to persistent uncontrolled A-fib. Cardiology was consulted in the ED who recommended pacemaker insertion, however due to patient current septic status the procedure has been deferred. EKG with A-fib RVR, rate 135, QTc 441. Last echo 04/29/2025 ejection fraction 55 to 60%, grade 1 diastolic dysfunction. Cardiac cath in [address] Dale showed Normal nonobstructive epicardial coronary arteries and Normal left ventricular function, ejection fraction 60%. CHADsVAS score 5?10.0% risk of stroke/TIA/systemic embolism HAS BLED score 5 Cardiology was consulted whose recommendations are below. Plan: - Continue amiodarone drip (last bag will be given today) - Pending cardiology recommendations for starting oral metoprolol given tachy ricky syndrome - Continue home Eliquis 5 mg po - Will continue to monitor telemetry - Keep K > 4 and Mg > 2 - In regards to the possibility of pacemaker placement, patient does not require emergency pacemaker due to current ongoing infection. Patient will need to discuss possible pacemaker in outpatient setting. #Sepsis in the setting of -Resolved #COVID, low suspicion for pneumonia #Hx of COPD #Lactic acidosis #Leukocytosis (Imporved) Patient is positive for COVID. Patient meeting sepsis criteria with WBC of 24.7, hypotension of 64/33, tachypnic RR 22. Lactic acid 3.1. C-reactive protein 2.8. Chest x-ray show bibasilar bronchitis pattern Patient received 1x methylprednisone in the ED WBC improved to 15.7 qSOFA 3. Lactate uptrended yesaterday, however downtrended after administration of broader coverage antibiotics to 2.3. Spoke with patient's Oncologist, Dr. Samson who recommended ordering chromogranin a to evaluate whether his elevated lactate is due to worsening malignancy vs sepsis. They also recommended ordering lipase and amylase to evaluate for any poential pancreatitis which were within normal limits. Urine cx: gram positives Plan: - Finished Remdesivir - Discontinue azithromycin - Discontinue Ceftriaxone 1gm (02/10/35-02/11/25) - Started Zosyn (02/11/25) - Start Vanco, pharmacy to dose (02/12/25) - Ondansetron for nausea - Continue to trend lactic acid, stop if normal - Continue to monitor vitals - Pending blood culture and sputum culture pending - Pending urine cx speciation - Pending chromogranin a levels - Continue IVF at 80 #Mild hyperbilirubinemia- Improved Mild hyperbilirubinemia likely in setting of sepsis. Total bilirubin 2.4, direct bili 0.5. T Bili improved to 1.4 Plan: - Continue to monitor #Hypertension #Hypotension, resolved Has a hx of hypertension and does not take BP at home. BP on admission hypotensive due to sepsis. At home takes losartan HCTZ 50/12.5 mg QD. Plan: - Hold losartan HCTZ 50/12.5 mg QD iso soft BP, can resume as BP tolerates #COPD Pt has history of COPD on 2 L of nasal cannula at home. Plan: - recieved methylprednisolone 125mg x1 for COPD - Supplemental O2 as needed - Start duoneb scheduled q4hr -Maintain saturation 88-92% #SOREN likely prerenal (Improved) SOREN likely due to dehydration and poor oral intake. On admission creatinine 2.6 (baseline 0.8) eGFR 24, bun 39, Cr clearance 23.2 Cr improved to 1.4 Plan: - Conrinue IVF -Avoid nephrotoxins -Monitor renal panel -Renally dosed medications #Subclinical hypothyroidism On admission TSH 8.57, free T1.37 Plan: -continue to Monitor #Tnp-[id number] type 2 diabetes On admission glucose was 146. Last A1c 09/22/24 was 5.7. Home medication Januvia Plan: - Start degludec 10 - Continue sliding scale - Consider resuming home medications #Hyperlipidemia Home meds ezetimide 10mg Plan: - Continue home ezetimibe # Metastatic neuroendocrine carcinoma # Status post Laparotomy, resection of terminal ileum and ascending colon - Follow-up outpatient - Ordered chromogranin a levels, per patient's oncologist # Elevated Immature granulocytes, bandemia On labs Immature granulocytes 6%, noted in increase from previous labs. Plan: - Consider peripheral blood smear, low suspicion for myeloid disorders - continue to monitor #Depression #Anxiety History of depression and anxiety managed with paroxetine 10 mg -Pending med rec -Consider resuming home medications Hospital management: Lines: peripheral IV Diet: Cardiac diet Bowel: none GI prophylaxis: pantoprazole DVT prophylaxis: SCDs Disposition: tele afib w/RVR, COVID + CODE STATUS: Full code Plan was discussed with attending physician Dr. Hawley and senior residents Dr. Arias and Mindi. Denis Sainz DO PGY-1 Attending Provider Attestation/Addendum I have examined the patient, reviewed labs and imaging findings, discussed the case with the resident(s), and reviewed entered orders. I agree with the plan of care as outlined in this note, with these additional summaries/recommendations: Patient seen at bedside. No acute overnight events. He currently denies chest pain and palpitations. He is seen eating lunch and tolerating well. S/P amiodarone gtt for atrial fibrillation with rapid ventricular response. Trigger for A-fib with RVR likely sepsis. In house cardiology following. We will discuss transitioning to metoprolol with cardiology as patient appears to have tachy-ricky syndrome. Continue Eliquis for elevated chadsvasc score. Keep magnesium greater than 2 and potassium greater than 4. Continue to monitor on telemetry. Patient also diagnosed with sepsis from covid pneumonitis +/- superimposed bacterial pneumonia. S/P remdesivir. Lactic acidosis uptrending which was originally thought to be secondary to type A from sepsis although blood pressure has been stable and lactic acid slowly increasing. At time time lastic acidosis most likely secondary to patients underlying malignancy. 12/16/2024 show chromogranin A level of 659. Cases discussed with patients oncologist and will need close outpatient follow up when medically cleared for discharge. Patient diagnosed with acute kidney injury. Creatinine 2.6 and BUN 39 on admission. Most likely secondary to prerenal azotemia in the setting of sepsis. Avoid nephrotoxic agents and renally dose medications. IVF, improving, Cr now 1.3. Continue insulin sliding scale for diabetes mellitus type 2 with Accu-Cheks. Hyperglycemia present and will continue to adjust basal bolus insulin as needed. Breathing treatments as needed for COPD. Patient updated on the plan and in agreement. All questions answered to satisfaction. Please see residents note for additional details and management. Dr. Marleen MD
[2025-02-12] MEDS: Magnesium Sulfate 4 GM Ivpb 4 GM/50 ML BAG IV (09:02)
[2025-02-12] MEDS: EZETIMIBE 10 MG TABLET PO (09:03)
[2025-02-12] MEDS: APIXABAN 2.5 MG TABLET 5 MG PO ×2 (09:03→21:34)
[2025-02-12] MEDS: INSULIN DEGLUDEC 5 UNIT/0.05 ML (PER 5 UNITS) 10 UNIT SC (09:03)
--- NOTE | 2025-02-12 09:15 | PC.SS ---
Rounding Note: AFIB and sepsis have been resolved. Covid work up in place.
[2025-02-12] MEDS: VANCOMYCIN/WATER 1250 MG IVPB 250 ML 120 MG IV (10:15)
[2025-02-12] MEDS: SODIUM CHLORIDE 0.9% 1000 ML 1,000 ML 75 ML IV (10:16)
--- NOTE | 2025-02-12 10:52 | PC.SS ---
CARGO MATE attempted phone contact with patient's daughter to conduct initial assessment on behalf of the patient. Patient is Faroese speaking. No response. Will re-attempt at later date.
[2025-02-12 11:22] LABS: Reflex Lactate? Y
[2025-02-12 12:16] LABS: Lactic Acid, 3 HR 3.0 mMol/L (0.4-2.0)
--- NOTE | 2025-02-12 12:44 | ESPR_ITS ---
Documentation for date of: 02/12/25 Subjective Subjective Interval history: Patient was admitted overnight. Patient seen and examined at bedside using self defense instructor. Patient presented with shortness of breath and palpitations for 2 days. In the ED, patient was found to be septic 2/2 COVID+ with elevated lactate in Afib RVR rate 160s. Patient was started on amiodarone drip with inadequate rate control, diltiazem was started however patient became bradycardic and diltiazem drip was stopped. Currently, patient is on amiodarone drip in sinus rhythm with rate 50-60s and Eliquis 5 mg twice daily for atrial fibrillation. Takes metoprolol XL 50 mg QD and Losartan/HCTZ 50/12.5 mg QD at home, reports being adherent. Patient feels very well and request to go home. Denies current chest palpitations, chest pain, shortness of breath, lightheadedness, dizziness or nausea or vomiting. 02/12/25: No acute overnight events. Patient seen and examined at bedside. Telemetry reviewed no further episodes of significant bradycardia, lowest heart rate in the 50s highest 100s. Patient reports feeling very well today, he feels like he can run and walk which he states that he has been doing in the room without shortness of breath. Denies chest pain, palpitations, lightheadedness, dizziness, nausea vomiting or diaphoresis. Exam Vital Signs Temp Pulse Resp BP Pulse Ox O2 Del Method O2 Flow Rate 97.2 F 70 22 H 152/68 H 98 Nasal Cannula 1 02/12/25 08:00 02/12/25 08:00 02/12/25 08:00 02/12/25 08:00 02/12/25 08:00 02/12/25 08:00 02/12/25 08:00 FiO2 2 02/10/25 19:34 Narrative Exam GENERAL: AOx3, no acute distress, elderly male appears younger than stated age HEENT: NC/AT, mucous membranes moist, bilateral sclera anicteric CARDIOVASCULAR: regular rate and rhythm, S1/S2 present, no murmurs appreciated PULMONARY: ++bilateral wheezing ABDOMINAL: soft, non-tender, non-distended, no rebound/guarding, bowel sounds present EXTREMITIES: no peripheral edema SKIN: warm and dry, intact, no rashes NEURO: CN II-XII grossly intact, no focal deficits, alert, following commands Objective Labs 02/13/25 05:12 02/12/25 04:58 Labs: Laboratory Results - last 24 hr 02/11/25 02/11/25 02/11/25 13:56 16:48 20:48 WBC RBC Hgb Hct MCV MCH MCHC RDW Std Deviation Plt Count Neut % (Auto) Lymph % (Auto) [place] % (Auto) Eos % (Auto) Baso % (Auto) Neut # (Auto) Lymph # (Auto) [place] # (Auto) Eos # (Auto) Baso # (Auto) Immature Gran # (Auto) Absolute Nucleated RBC Immature Gran % Nucleated RBC % Sodium Potassium Chloride Carbon Dioxide Anion Gap BUN Creatinine Estim Creat Clear Calc eGFR BUN/Creatinine Ratio Glucose Estimated Ave Glu mg/dL Hemoglobin A1c Calculated Osmolality Lactic Acid 3.9 H 5.0 H* 4.0 H Calcium Corrected Calcium Phosphorus Magnesium Total Bilirubin AST ALT Alkaline Phosphatase Total Protein Albumin Globulin Albumin/Globulin Ratio Amylase 43 Lipase 30 D 02/12/25 02/12/25 02/12/25 00:25 04:58 07:59 WBC 15.7 H RBC 3.73 L Hgb 12.4 L Hct 36.5 L MCV 98 MCH 33.2 MCHC 34.0 RDW Std Deviation 48.7 H Plt Count 191 Neut % (Auto) 87 H Lymph % (Auto) 7 L [place] % (Auto) 5 Eos % (Auto) 0 Baso % (Auto) 0 Neut # (Auto) 13.6 H Lymph # (Auto) 1.1 [place] # (Auto) 0.8 Eos # (Auto) 0.0 Baso # (Auto) 0.0 Immature Gran # (Auto) 0.18 H Absolute Nucleated RBC 0.00 Immature Gran % 1 H Nucleated RBC % 0 Sodium 140 Potassium 4.3 Chloride 106 Carbon Dioxide 21.2 Anion Gap 13 BUN 21 Creatinine 1.3 Estim Creat Clear Calc 42.4 L eGFR 56 L BUN/Creatinine Ratio [address] Glu mg/dL 186 H Hemoglobin A1c 8.1 H Calculated Osmolality 289 Lactic Acid 2.3 H 2.7 H Calcium 8.8 Corrected Calcium 9.4 Phosphorus 2.8 Magnesium 1.7 Total Bilirubin 0.5 AST 18 ALT 19 Alkaline Phosphatase 53 Total Protein 5.6 L Albumin 3.3 L Globulin 2.3 Albumin/Globulin Ratio 1.4 Amylase Lipase 02/12/25 12:00 WBC RBC Hgb Hct MCV MCH MCHC RDW Std Deviation Plt Count Neut % (Auto) Lymph % (Auto) [place] % (Auto) Eos % (Auto) Baso % (Auto) Neut # (Auto) Lymph # (Auto) [place] # (Auto) Eos # (Auto) Baso # (Auto) Immature Gran # (Auto) Absolute Nucleated RBC Immature Gran % Nucleated RBC % Sodium Potassium Chloride Carbon Dioxide Anion Gap BUN Creatinine Estim Creat Clear Calc eGFR BUN/Creatinine Ratio Glucose Estimated Ave Glu mg/dL Hemoglobin A1c Calculated Osmolality Lactic Acid 3.0 H Calcium Corrected Calcium Phosphorus Magnesium Total Bilirubin AST ALT Alkaline Phosphatase Total Protein Albumin Globulin Albumin/Globulin Ratio Amylase Lipase Quality Measures Quality Measures none Advance care planning discussed with:: patient Assessment & Plan Assessment Current Active Medications: Generic Name Dose Route Start Last Admin Trade Name Freq PRN Reason Stop Dose Admin Acetaminophen 650 mg 02/10/25 20:06 Acetaminophen 325 Mg Tablet PO 03/12/25 20:05 Q6H PRN PAIN SCALE 1-3 (mild Acetaminophen 650 mg 02/10/25 20:06 Acetaminophen 325 Mg Tablet PO 03/12/25 20:05 Q6H PRN Fever >100.4 Hydrocodone Bitart/Acetaminophen 1 tab 02/10/25 20:06 Hydrocodone/Apap 10/325 Tab PO 02/15/25 20:05 Q4HR PRN PAIN SCALE 7-10 (Severe Apixaban 5 mg 02/10/25 21:00 02/12/25 09:03 Apixaban 2.5 Mg Tablet PO 03/12/25 20:59 5 mg BID SABINE Administration Dextrose 25 ml 02/10/25 20:06 Dextrose 50%-Water Inj 50 Ml Syringe IV 03/12/25 20:05 Q15MIN PRN BG 50-70 responsive npo pt Dextrose 50 ml 02/10/25 20:06 Dextrose 50%-Water Inj 50 Ml Syringe IV 03/12/25 20:05 Q15MIN PRN BG <50 OR BG <70 & pt unresponsive Ezetimibe 10 mg 02/11/25 16:30 02/12/25 09:03 Ezetimibe 10 Mg Tablet PO 03/13/25 16:29 10 mg QDAY SABINE Administration Glucagon 1 mg 02/10/25 20:06 Glucagon Inj 1 Mg Vial IM Q15MIN PRN BG <70, and no IV access Piperacillin/Tazobactam/Dextrose 3.375 gm in 50 mls @ 12.5 mls/hr 02/11/25 23:00 02/12/25 05:03 Zosyn IV 02/18/25 22:59 12.5 mls/hr Q8HR SABINE Administration Sodium Chloride 1,000 mls @ 75 mls/hr 02/12/25 07:27 02/12/25 10:16 Ns IV 03/14/25 07:26 75 mls/hr .[id number] SABINE Administration Vancomycin HCl 250 mls @ 120 mls/hr 02/12/25 10:00 02/12/25 10:15 Vancomycin/Water 1250 Mg Ivpb IV 02/19/25 09:59 120 mls/hr Q24H SABINE Administration Protocol Insulin Degludec 10 unit 02/12/25 09:00 02/12/25 09:03 Insulin Degludec 5 Unit/0.05 Ml (Per 5 Units) SC 03/14/25 08:59 10 unit QDAY SABINE Administration Insulin Human Lispro 0 unit 02/10/25 21:00 02/12/25 11:32 Insulin Lispro (Admelog) 1 Unit/0.01 Ml Unit SC 03/12/25 20:59 2 unit ACHS SABINE Administration Protocol Ondansetron HCl 4 mg 02/10/25 20:06 Ondansetron Inj 2 Mg/Ml Inj 2 Ml IVP 03/12/25 20:05 Q6H PRN NAUSEA OR VOMITING Protocol Oxycodone/Acetaminophen 1 tab 02/10/25 20:06 Oxycodone/Apap 5/325 Tablet PO 02/15/25 20:05 Q6H PRN PAIN SCALE 4-6 (Moderate Pantoprazole Sodium 40 mg 02/13/25 09:00 Pantoprazole 40 Mg Tablet PO 03/15/25 08:59 QDAY SABINE Protocol Pharmacy Consult 1 each 02/12/25 09:00 Vancomycin Pharmacy To Dose 1 Each Each IV 03/14/25 08:59 QDAY PRN PROTOCOL Plan Des Carreno is a 80M with pmhx significant for 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 Cardiology consulted for atrial fibrillation RVR with rate of 160-170s. #Atrial fibrillation RVR, paroxysmal-resolved #Tachy-gilbert syndrome Patient has long standing history of atrial fibrillation rate controlled by Metoprolol. On interview, patient is a poor historian. n the ED, patient was found to be septic 2/2 COVID+ with elevated lactate in Afib RVR rate 160s. Patient was started on amiodarone drip with inadequate rate control, diltiazem was started however patient became bradycardic to 40s and diltiazem drip was stopped. Patient received 3L of fluids with improvement in HR only on amiodarone drip. At home takes Eliquis 5 mg BID, losartan HCTZ 50/12.5 mg QD, metoprolol XL 50 mg QD, reports adherence At this time, patient does not require emergency pacemaker due to current ongoing infection as well as currently sinus rhythm and HR. Will discuss possible pacemaker in outpatient setting if patient still has evidence of tachybradycardia syndrome after he recovers from the COVID infection. Per Dr. Samson, neuroendocrine tumor is positive for chromogranin A, which can influence episodes of hypertension hypotension and tachycardia bradycardia. Recommended repeat chromogranin A to assess levels. If increased compared to prior, may be culprit of fluctuating vitals. Cardiac cath in 2019 showed Normal nonobstructive epicardial coronary arteries and Normal left ventricular function, ejection fraction 60%. TTE 06/2024 shows normal LV size and function, estimated EF 55 to 60%. Grade 1 diastolic dysfunction, normal RV size and function, mild MR and TR. Amiodarone drip completed 02/12 CHADVASC score 5 7.2% stroke risk per year HASBLED score 3 points, high risk of major bleeding Plan: - Recommend to restart metoprolol XL 50 mgx1, reassess tomorrow on whether BP and HR tolerates - Continue Eliquis 5 mg BID - Telemetry for cardiac monitoring - Keep K>4 and Mg>2 #Hypertension #Hypotension, resolved Has a hx of hypertension and does not take BP at home. BP on admission hypotensive due to sepsis. At home takes losartan HCTZ 50/12.5 mg QD. Plan: - Hold losartan HCTZ 50/12.5 mg QD iso soft BP, can resume as BP tolerates #Non insulin dependent type 2 DM #Hyperlipidemia Patient reports he does not take insulin at home and is on Januvia. Last A1c in 09/2024 5.7, however per chart review, A1c at PCP office on 02/01 was 7.9. Takes ezetimide at home. Plan: - Hold Januvia inpatient - SSI in place - Continue ezetimibe - Management per primary team #Sepsis in the setting of #COVID, low suspicion for pneumonia #Lactic acidosis #Leukocytosis #Mild hyperbilirubinemia #COPD #SOREN likely prerenal #Subclinical hypothyroidism #Metastatic neuroendocrine carcinoma #Status post Laparotomy, resection of terminal ileum and ascending colon #Depression #Anxiety Above further management as per primary team. Patient seen and care discussed with my attending physician, Dr. Chaves, cleaner and dyer. Alpa Hsu, DO Internal Medicine PGY-1 Attending Provider Attestation/Addendum I have personally seen and examined the patient separately on the above date of service and discussed the plan of care with the resident. I reviewed the resident Dr. Alpa Hsu consultation progress note and agree with the resident findings and plan in the note above and have also edited the documentation to reflect my findings and plan. Saran Chaves M.D. Interventional Cardiology
--- NOTE | 2025-02-12 13:28 | PC.SS ---
SS follow up note; SS submitted SNF inquiry through [employer] platform. SS submitted PASSR, LEVEL 2 Clearance pending.
--- NOTE | 2025-02-12 14:23 | PC.SS ---
Patient Des Carreno is a 80 Year old male admitted for Covid AFB. SS contacted patient's daughter, Shira to discuss discharge plan and verify demographic information. Patient reports patient lives at home with her. Patient reports she is patient's medical decision maker, [phone]. Prior to admission patient did not utilize any source of DME to assist with ambulation, however she reports patient does have FWW and Wheelchair. Patient does have home 02 at 2L. PCP is Imani Kevin. Pharmacy of choice is [facility]. SS discuss discharge plan and informed patient's daughter that PT was recommending SNF. Patient's daughter refused SNF however would like patient to be followed by HH agency. No preference. At time of discharge patient's daughter will provide transportation. Discharge plan Home with HH Next of kin, Daughter, Shira Carreno PCP Imani Kevin-Last seen-3 days ago.
[2025-02-12] MEDS: METOPROLOL SUCCINATE XL 25 MG TABCR 50 MG PO (14:26)
[2025-02-12] MEDS: ALBUTEROL/IPRATROPIUM (Duoneb) RT SOL 3 ML NEBU INH ×3 (14:31→23:03)
[2025-02-13] VITALS (11 sets, daily range): BP systolic 131–150; BP diastolic 64–83; PULSE 63–97; RESP 15–99; TEMP 36.1–36.9; O2SAT 92–100; BMI 25.9; BMI 26.0
[2025-02-13] MEDS: SODIUM CHLORIDE 0.9% 1000 ML 1,000 ML 75 ML IV ×2 (00:05→10:02)
[2025-02-13] MEDS: ALBUTEROL/IPRATROPIUM (Duoneb) RT SOL 3 ML NEBU INH ×4 (02:25→14:38)
[2025-02-13 05:47] LABS: Basophils # (Auto) 0.0 Thou/mm3 (0.0-0.2); Basophils % (Auto) 0 % (0-2.5); Eosinophils # (Auto) 0.0 Thou/mm3 (0.0-0.5); Eosinophils % (Auto) 0 % (0-10); Hematocrit 35.9 % (41.0-53.0); Hemoglobin 12.6 g/dL (13.5-16.0); Immature Granulocytes Auto 0.10 Thou/mm3 (0.00-0.00); Lymphocytes # (Auto) 1.6 Thou/mm3 (1.0-4.8); Lymphocytes % (Auto) 12 % (10-50); Mean Corpuscular HGB Conc 35.1 g/dl (31.0-37.0); Mean Corpuscular Hemoglobin 34.5 pg (25.0-35.0); Mean Corpuscular Volume 98 fL (80-100); Monocytes # (Auto) 1.1 Thou/mm3 (0.0-0.8); Monocytes % (Auto) 8 % (0-12); Neutrophils # (Auto) 10.0 Thou/mm3 (1.8-7.7); Neutrophils % (Auto) 78 % (37-80); Nucleated Red Blood Cell # 0.00 Thou/mm3 (0.00-0.00); Nucleated Red Blood Cell % 0 /100 WBC (0); Platelet Count 177 Thou/mm3 (140-440); RDW Standard Deviation 49.1 fL (35.1-43.9); Red Blood Count 3.65 Miln/mm3 (4.50-5.90); White Blood Count 12.7 Thou/mm3 (3.8-10.6)
[2025-02-13 06:23] LABS: Alanine Aminotransferase 19 U/L (10-49); Albumin, Serum 3.5 gm/dL (3.4-4.8); Albumin/Globulin Ratio 1.5 (1.2-2.2); Alkaline Phosphatase 52 U/L (46-116); Anion Gap 15 (7-16); Aspartate Amino Transferase 19 U/L (0-34); BUN/Creatinine Ratio 13 Ratio (12-20); Bilirubin,Total 0.8 mg/dL (0.3-1.2); Blood Urea Nitrogen 16 mg/dL (9-23); Calcium 9.0 mg/dL (8.3-10.6); Calcium (Corrected) 9.4 mg/dL (8.5-10.1); Carbon Dioxide 18.6 mMol/L (20.0-31.0); Chloride 105 mMol/L (98-107); Creatinine (Component) 1.2 mg/dL (0.6-1.3); Estimated Creatinine Clearance 45.9 mL/min (>60); Globulin 2.4 gm/dL (2.3-3.5); Glucose 215 mg/dL (74-106); Magnesium 1.8 mg/dL (1.6-2.6); Osmolality,Calculated 284 (275-295); Phosphorous 2.3 mg/dL (2.4-5.1); Potassium 3.9 mMol/L (3.4-5.1); Sodium 139 mMol/L (136-145); Total Protein 5.9 gm/dL (5.7-8.2); eGFR > 60 See Note
[2025-02-13] MEDS: PIPER/TAZO 3.375 GM PREMIX 3.375 GM/50 ML BAG IV ×2 (06:24→14:44)
[2025-02-13] MEDS: Magnesium Sulfate 2 GM Ivpb 2 GM/50 ML BAG IV (07:47)
[2025-02-13] MEDS: NAPH,KPH MBDB 1 PACKET (1.5 GM) PO (07:47)
--- NOTE | 2025-02-13 08:43 | PD.RESPRO ---
Documentation for date of: 02/13/25 Subjective Subjective Interval history: Patient was seen and examined at bedside. He reported no chest pain, palpitation, or chest pressure. He was wondering when he can be discharged. Review of the to the box monitor for the past 24 hours did not show any A-fib with RVR or severe bradycardia. His lowest heart rate was 40 and highest was 120 both regular sinus. He was given x 1 metoprolol 50 mg p.o. Chromogranin a still pending. His vitals blood pressure in the 140s over 70s, his WBC downtrending to 12.7, his potassium level today is 3.9 His magnesium was 1.8, serum creatinine still 2.9, lactic acid went up to 3.0. 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 Objective Labs 02/13/25 05:12 02/13/25 05:12 Labs: Laboratory Results - last 24 hr 02/12/25 02/12/25 02/13/25 07:59 12:00 05:12 WBC 12.7 H RBC 3.65 L Hgb 12.6 L Hct 35.9 L MCV 98 MCH 34.5 MCHC 35.1 RDW Std Deviation 49.1 H Plt Count 177 Neut % (Auto) 78 Lymph % (Auto) 12 [place] % (Auto) 8 Eos % (Auto) 0 Baso % (Auto) 0 Neut # (Auto) 10.0 H Lymph # (Auto) 1.6 [place] # (Auto) 1.1 H Eos # (Auto) 0.0 Baso # (Auto) 0.0 Immature Gran # (Auto) 0.10 H Absolute Nucleated RBC 0.00 Immature Gran % 1 H Nucleated RBC % 0 Sodium 139 Potassium 3.9 Chloride 105 Carbon Dioxide 18.6 L Anion Gap 15 BUN 16 Creatinine 1.2 Estim Creat Clear Calc 45.9 L eGFR > 60 BUN/Creatinine Ratio 13 Glucose 215 H Calculated Osmolality 284 Lactic Acid 2.7 H 3.0 H Calcium 9.0 Corrected Calcium 9.4 Phosphorus 2.3 L Magnesium 1.8 Total Bilirubin 0.8 AST 19 ALT 19 Alkaline Phosphatase 52 Total Protein 5.9 Albumin 3.5 Globulin 2.4 Albumin/Globulin Ratio 1.5 Quality Measures Quality Measures none Advance care planning discussed with:: patient Assessment & Plan Assessment Current Active Medications: Generic Name Dose Route Start Last Admin Trade Name Freq PRN Reason Stop Dose Admin Acetaminophen 650 mg 02/10/25 20:06 Acetaminophen 325 Mg Tablet PO 03/12/25 20:05 Q6H PRN PAIN SCALE 1-3 (mild Acetaminophen 650 mg 02/10/25 20:06 Acetaminophen 325 Mg Tablet PO 03/12/25 20:05 Q6H PRN Fever >100.4 Hydrocodone Bitart/Acetaminophen 1 tab 02/10/25 20:06 Hydrocodone/Apap 10/325 Tab PO 02/15/25 20:05 Q4HR PRN PAIN SCALE 7-10 (Severe Albuterol/Ipratropium 3 ml 02/12/25 15:00 02/13/25 06:23 Albuterol/Ipratropium (Duoneb) Rt Ronda 3 Ml Nebu INH 03/14/25 14:59 3 ml Q4HRRT SABINE Administration Apixaban 5 mg 02/10/25 21:00 02/12/25 21:34 Apixaban 2.5 Mg Tablet PO 03/12/25 20:59 5 mg BID SABINE Administration Dextrose 25 ml 02/10/25 20:06 Dextrose 50%-Water Inj 50 Ml Syringe IV 03/12/25 20:05 Q15MIN PRN BG 50-70 responsive npo pt Dextrose 50 ml 02/10/25 20:06 Dextrose 50%-Water Inj 50 Ml Syringe IV 03/12/25 20:05 Q15MIN PRN BG <50 OR BG <70 & pt unresponsive Ezetimibe 10 mg 02/11/25 16:30 02/12/25 09:03 Ezetimibe 10 Mg Tablet PO 03/13/25 16:29 10 mg QDAY SABINE Administration Glucagon 1 mg 02/10/25 20:06 Glucagon Inj 1 Mg Vial IM Q15MIN PRN BG <70, and no IV access Piperacillin/Tazobactam/Dextrose 3.375 gm in 50 mls @ 12.5 mls/hr 02/11/25 23:00 02/13/25 06:24 Zosyn IV 02/18/25 22:59 12.5 mls/hr Q8HR SABINE Administration Sodium Chloride 1,000 mls @ 75 mls/hr 02/12/25 07:27 02/13/25 00:05 Ns IV 03/14/25 07:26 75 mls/hr .[id number] SABINE Administration Vancomycin HCl 250 mls @ 120 mls/hr 02/12/25 10:00 02/12/25 10:15 Vancomycin/Water 1250 Mg Ivpb IV 02/19/25 09:59 120 mls/hr Q24H SABINE Administration Protocol Magnesium Sulfate 2 gm in 50 mls @ 25 mls/hr 02/13/25 07:34 02/13/25 07:47 Magnesium Sulfate Ivpb IV 02/13/25 09:33 25 mls/hr X1 ONE Administration Insulin Degludec 15 unit 02/13/25 09:00 Insulin Degludec 5 Unit/0.05 Ml (Per 5 Units) SC 03/15/25 08:59 QDAY SBAINE Insulin Human Lispro 0 unit 02/10/25 21:00 02/12/25 21:35 Insulin Lispro (Admelog) 1 Unit/0.01 Ml Unit SC 03/12/25 20:59 2 unit ACHS SABINE Administration Protocol Ondansetron HCl 4 mg 02/10/25 20:06 Ondansetron Inj 2 Mg/Ml Inj 2 Ml IVP 03/12/25 20:05 Q6H PRN NAUSEA OR VOMITING Protocol Oxycodone/Acetaminophen 1 tab 02/10/25 20:06 Oxycodone/Apap 5/325 Tablet PO 02/15/25 20:05 Q6H PRN PAIN SCALE 4-6 (Moderate Pantoprazole Sodium 40 mg 02/13/25 09:00 Pantoprazole 40 Mg Tablet PO 03/15/25 08:59 QDAY [facility] Protocol Pharmacy Consult 1 each 02/12/25 09:00 Vancomycin Pharmacy To Dose 1 Each Each IV 03/14/25 08:59 QDAY PRN PROTOCOL Plan Des Carreno is a 80M with pmhx significant for 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 Cardiology consulted for atrial fibrillation RVR with rate of 160-170s. #Atrial fibrillation RVR, paroxysmal-resolved #Tachy-gilbert syndrome Patient has long standing history of atrial fibrillation rate controlled by Metoprolol. On interview, patient is a poor historian. n the ED, patient was found to be septic 2/2 COVID+ with elevated lactate in Afib RVR rate 160s. Patient was started on amiodarone drip with inadequate rate control, diltiazem was started however patient became bradycardic to 40s and diltiazem drip was stopped. Patient received 3L of fluids with improvement in HR only on amiodarone drip. At home takes Eliquis 5 mg BID, losartan HCTZ 50/12.5 mg QD, metoprolol XL 50 mg QD, reports adherence At this time, patient does not require emergency pacemaker due to current ongoing infection as well as currently sinus rhythm and HR. Will discuss possible pacemaker in outpatient setting if patient still has evidence of tachybradycardia syndrome after he recovers from the COVID infection. Per Dr. Samson, neuroendocrine tumor is positive for chromogranin A, which can influence episodes of hypertension hypotension and tachycardia bradycardia. Recommended repeat chromogranin A to assess levels. If increased compared to prior, may be culprit of fluctuating vitals. Cardiac cath in 2019 showed Normal nonobstructive epicardial coronary arteries and Normal left ventricular function, ejection fraction 60%. TTE 06/2024 shows normal LV size and function, estimated EF 55 to 60%. Grade 1 diastolic dysfunction, normal RV size and function, mild MR and TR. Cameliaodarone ip completed 02/12 CHADVASC score 5 7.2% stroke risk per year HASBLED score 3 points, high risk of major bleeding 02/14/2024 Review of the to the box monitor for the past 24 hours did not show any A-fib with RVR or severe bradycardia. His lowest heart rate was 50 and highest was 120 both regular sinus. He was given x 1 metoprolol 50 mg p.o. Chromogranin a still pending. His vitals blood pressure in the 140s over 70s, his potassium level today is 3.9 His magnesium was 1.8. Plan: - Recommend to continue metoprolol XL 50 mg p.o. daily - Continue Eliquis 5 mg BID - Telemetry for cardiac monitoring - Keep K>4 and Mg>2 #Hypertension #Hypotension, resolved Has a hx of hypertension and does not take BP at home. BP on admission hypotensive due to sepsis. At home takes losartan HCTZ 50/12.5 mg QD. Plan: - Hold losartan HCTZ 50/12.5 mg QD iso soft BP, can resume as BP tolerates #Non insulin dependent type 2 DM #Hyperlipidemia Patient reports he does not take insulin at home and is on Januvia. Last A1c in 09/2024 5.7, however per chart review, A1c at PCP office on 02/01 was 7.9. Takes ezetimide at home. Plan: - Hold Januvia inpatient - SSI in place - Continue ezetimibe - Management per primary team #Sepsis in the setting of #COVID, low suspicion for pneumonia #Lactic acidosis #Leukocytosis #Mild hyperbilirubinemia #COPD #SOREN likely prerenal #Subclinical hypothyroidism #Metastatic neuroendocrine carcinoma #Status post Laparotomy, resection of terminal ileum and ascending colon #Depression #Anxiety Above further management as per primary team. Thank you for your consultation, please do not hesitate to reach out if you have any question or concern - Patient's plan and care discussed with my attending, Dr. Saran Boswell MD Internal Medicine PGY-3
[2025-02-13] MEDS: APIXABAN 2.5 MG TABLET 5 MG PO (10:02)
[2025-02-13] MEDS: PANTOPRAZOLE 40 MG TABLET PO (10:02)
[2025-02-13] MEDS: EZETIMIBE 10 MG TABLET PO (10:02)
[2025-02-13] MEDS: VANCOMYCIN/WATER 1250 MG IVPB 250 ML 120 MG IV (10:02)
[2025-02-13] MEDS: INSULIN LISPRO (AdmeLOG) 1 UNIT/0.01 ML UNIT SC ×2 (10:03→11:55)
[2025-02-13] MEDS: INSULIN DEGLUDEC 5 UNIT/0.05 ML (PER 5 UNITS) 15 UNIT SC (10:04)
--- NOTE | 2025-02-13 14:40 | ESDS_ITS ---
Planned Discharge Date 02/13/25 DS: Providers Provider Date of admission: 02/10/25 20:06 Primary care physician: RHODA Brownlee Admitting Provider: Prakash Calvo MD Attending Provider on Admission: Peter Hawley MD Consults: 02/10/25 18:25 Consult to Cardiology Stat Comment: Consulting Provider: Saran Chaves Instructions: Atrial fibrillation with RVR Attending Provider on DC: Peter Hawley MD Discharging Provider: Peter Hawley MD DS: Diagnosis Problem List Completed Was Problem List Reviewed/Reconciled?: Yes Hospital Course Hospital Course Hospital course: Reason for hospitalization: Atrial fibrillation with RVR Des Carreno is 80 yr male PMH of arthritis, depression, anxiety, DM2, HTN, COPD, hyperlipidemia, cirrhosis, 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 BP was 64/33, WBC 24.7, bun 39, creatinine 2.6, GFR 24, glucose 146, lactate 3.1. UA positive for 15 RBC, 9 WBC, 25 hyaline cast. COVID positive. maging included chest x-ray showed bibasilar bronchitis, EKG atrial fibrillation with RVR rate 135 with QTc 441[address] Cardiology Dr. Chaves was consulted. Patient was admitted for A-fib with RVR secondary to sepsis and COVID pneumonitis. He received dose of remdesivir.. During hospitalization, A-fib with RVR resolved with Amio drip. Antibiotics were broadened to vancomycin and Zosyn due to worsening lactic acid. Patient should follow-up with oncologist Dr. Mohan for repeat results of chromogranin levels in setting of his neuroendocrine tumor. SOREN resolved with adequate fluid resuscitation. Cardiology restarted metoprolol 50 mg daily as BP was permissible. Patient should continue losartan hydrochlorothiazide half tablet daily in addition to the metoprolol. Follow-up with cardiology following week to obtain echo outpatient. Patient is now stable condition and ready for discharge. Discharge Recommendations: Decrease your losartan-hydrocholothiazide dose from 1 tablet a day to half tablet a day. Continue taking metoprolol succinate 50mg daily for atrial fibrillation management. Follow up with Records Specialist next Saturday for echo. Follow up with PCP in 1 week. You will need to repeat labs to check creatinine levels. Reduzca castaneda dosis de losart?n-hidroclorotiazida de 1 tableta al d?a luego media tableta al d?a. Contin?e tomando 50 mg de succinato de metoprolol al d?a para el control de la fibrilaci?n auricular. Warren wilver suhas con el cardi?logo el pr?ximo mi?rcoles para wilver ecocardiograf?a. Warren wilver suhas con el m?dico de cabecera en wilver semana. Deber? repetir los an?lisis de laboratorio para controlar los niveles de creatinina. Hospital Diagnoses: #A-fib with RVR #Paroxysmal atrial fibrillation, chronic #Tachy-Ricky syndrome #Hypotension #Sepsis in the setting of -Resolved #COVID, low suspicion for pneumonia #Hx of COPD #Lactic acidosis #SOREN likely prerenal #Subclinical hypothyroidism #Nhw-aigpvpg-rempplapq type 2 diabetes #Hyperlipidemia # Metastatic neuroendocrine carcinoma The patient's management plan was discussed with my attending physician Dr. Halwey. Vashti Arias MD, PGY-2 Time Spent with Patient Time attestation: Total time spent providing and/or coordinating discharge services: Time spent: Greater than 30 minutes Home Health Home Health Referral Orders: 02/12/25 14:28 Home Health Referral Routine Reason For Exam: Physical therapy Home-Bound The patient must either because of illness or injury, need the aid of supportive devices such as crutches, canes, wheelchairs, and walkers; the use of special transportation; or the assistance of another person in order to leave their place of residence; OR have a condition such that leaving his or her home is medically contraindicated. In addition, the patient also meets the following criteria: patient is normally unable to leave the home and leaving home requires considerable taxing effort. Addendum to Home Health Certification Practitioner's Certification: I certify that the patient has been under my care in the hospital and the care of attending physician (see below). We had a fvrw-om-jxng encounter on (see date below). My clinical findings indicate that the patient is home bound per the above criteria and the Home Health Services noted in these orders are medically necessary. The primary reason for the tvmz-ag-memt encounter is related to the fact that the patient requires home health services. Date Certifying Rcvt-ok-Rcub Physician Encounter: 02/12/25 Physician's Name who will Assume Oversight for Services: Imani Kevin [facility] Physician's Phone No.who will Assume Oversight for Service: [employer]CISION CROP MANAGER - Community Resources: Yes PT to Evaluate: Yes PT to evaluate and provide a treatmnet plan to increase patient's mobility and strength. Wound Care: No IV Therapy: No RN Safety Evaluation: Yes RN to evaluate and create a plan of care that will produce positive outcomes. Palliative Treatment: No Palliative treatment and evaluate the need for hospice. Home Health Aide - Personal Care: Yes Home Health Aide to assist with any ADL's. Exam Vital Signs Temp Pulse Resp BP Pulse Ox O2 Del Method O2 Flow Rate 98.3 F 83 23 H 138/75 H 95 Room Air 1 02/13/25 12:00 02/13/25 12:00 02/13/25 12:00 02/13/25 12:00 02/13/25 12:00 02/13/25 12:00 02/13/25 08:00 FiO2 2 02/10/25 19:34 Narrative Exam GEN: AOx3, able to speak full sentences HEENT: NC/AC, PERRLA, oral mucosa moist, neck supple CVS: RRR, S1-S2 present, no murmurs appreciated RESP: CTAB GI: soft,non distended, non tender, NBS MSK: able to move all 4 limbs, no lower extremity edema SKIN: warm and dry CENTRAL OFFICE WORKER: CN II-XII and Sensation grossly intact. Discharge Plan Plan Patient Disposition: HOME (Self Care) Patient condition on transfer: Stable Prescriptions/Referrals Prescriptions/Med Rec: Continued megestrol 40 mg tablet 20 mg PO BID Qty: 30 3RF albuterol sulfate [Ventolin HFA] 90 mcg/actuation HFA aerosol inhaler 2 puff inhalation Q6H PRN (Reason: shortness of breath or wheezing) Qty: 8.5 5RF albuterol sulfate 2.5 mg /3 mL (0.083 %) solution for nebulization 2.5 mg inhalation Q6H PRN (Reason: shortness of breath or wheezing) 30 Days Qty: 180 2RF budesonide-formoterol [Breyna] 160-4.5 mcg/actuation HFA aerosol inhaler 2 puff inhalation Q12H Qty: 10.2 3RF pantoprazole 40 mg tablet,delayed release (DR/EC) 40 mg PO QAM 90 Days Qty: 90 1RF ezetimibe 10 mg tablet See Rx Instructions .ROUTE .COMPLEX Qty: 90 0RF Dose Instruction: TOME 1 TABLETA POR VIA ORAL TODOS LOS SIEGEL Rx Instructions: TOME 1 TABLETA POR VIA ORAL TODOS LOS SIEGEL losartan-hydrochlorothiazide 50-12.5 mg tablet 1 tab PO QDAY (DME) Dexcom G7 Sensor Device See Rx Instructions .Route Qty: 3 5RF Rx Instructions: Please dispense 30 day supply (DME) lancets [Comfort EZ Lancets] 28 gauge misc See Rx Instructions .Route Qty: 100 0RF Rx Instructions: Check blood once a day Eliquis 5 mg tablet 5 mg PO BID Qty: 180 0RF (DME) AeroChamber Plus Z Stat Lg Msk Spacer See Rx Instructions .Route Qty: 10 6RF Rx Instructions: As directed paroxetine HCl 10 mg tablet See Rx Instructions .ROUTE .COMPLEX Qty: 90 0RF Dose Instruction: TOME 1 TABLETA POR VIA ORAL TODOS LOS SIEGEL Rx Instructions: TOME 1 TABLETA POR VIA ORAL TODOS LOS SIEGEL Januvia 25 mg tablet See Rx Instructions .ROUTE .COMPLEX Qty: 90 0RF Dose Instruction: TOME 1 TABLETA POR VIA ORAL TODOS LOS SIEGEL Rx Instructions: TOME 1 TABLETA POR VIA ORAL TODOS LOS SIEGEL (DME) True Metrix Glucose Test Strip Strip See Rx Instructions .ROUTE .COMPLEX Qty: 100 0RF Dose Instruction: CHECK BLOOD SUGAR ONCE A DAY Rx Instructions: CHECK BLOOD SUGAR ONCE A DAY Januvia 25 mg tablet 25 mg PO QDAY Yupelri 175 mcg/3 mL solution for nebulization 175 mcg inhalation QDAY metoprolol succinate 50 mg tablet extended release 24 hr 50 mg PO QDAY 30 Days Qty: 30 0RF Referrals: Saran Chaves MD [Physician, Cardiology] [facility],RHODA Hernandez [Primary Care Provider] Patient/Caregiver Discharge Instructions Other Discharge Activity Instructions:: Decrease your losartan- hydrocholothiazide dose from 1 tablet a day to half tablet a day. Continue taking metoprolol succinate 50mg daily for atrial fibrillation management. Follow up with Records Specialist next Saturday for echo. Follow up with PCP in 1 week. You will need to repeat labs to check creatinine levels. Reduzca castaneda dosis de losart?n-hidroclorotiazida de 1 tableta al d?a luego media tableta al d?a. Contin?e tomando 50 mg de succinato de metoprolol al d?a para el control de la fibrilaci?n auricular. Warren wilver suhas con el cardi?logo el pr?ximo mi?rcoles para wilver ecocardiograf?a. Warren wilver suhas con el m?dico de cabecera en wilver semana. Deber? repetir los an?lisis de laboratorio para controlar los niveles de creatinina. Education Materials: Disinfecting Your Home of COVID-19, COVID-19 Home Care, ED About Arrhythmias, ED Bradycardia Print Language: Micronesian Stand Alone Forms: Emily Award Info., Patient Portal Info Letter Discharge Order Discharge Orders: Discharge (Routine); Ordered 02/13/25 Ordered By: Vashti Arias Quality Discharge Quality Measures VTE prophylaxis Attestestation MD Attestation I have examined the patient, reviewed labs and imaging findings, discussed the case with the resident(s), and reviewed entered orders. I agree with the plan of care as outlined in this note. Time Spent: [address] Marleen MD
--- NOTE | 2025-02-14 14:30 | PC.SS ---
SS accessed chart for review for [facility] closing. Pt DC home not SNF. [facility] closed.
--- NOTE | 2025-02-15 15:18 | PC.CC ---
Addendum entered by Christopher Sharma RN 02/15/25 18:40: soc 02/16 Addendum entered by Christopher Sharma RN 02/15/25 15:22: [facility] accepted and booked, soc pending Original Note: hh ref sent out, waiting for resp
== END 2025-02-13 16:49 | disposition home or self-care (01) | DRG 871 ==
LOC: SERX 19:06 → SERHOLD 21:02 → S2NX 22:11
PROVIDERS: Emergency Medicine; Admitting Provider Student in an Organized Health Care Education/Training Program; Emergency Provider Emergency Medicine; PCP Nurse Practitioner Family; Visit Provider Student in an Organized Health Care Education/Training Program
DX: A41.89 Other specified sepsis (principal); J12.82 Pneumonia due to coronavirus disease 2019; U07.1 COVID-19; J15.9 Unspecified bacterial pneumonia; N17.9 Acute kidney failure, unspecified; N39.0 Urinary tract infection, site not specified; I48.20 Chronic atrial fibrillation, unspecified; E87.20 Acidosis, unspecified; J44.0 Chronic obstructive pulmonary disease with (acute) lower respiratory infection; C7A.8 Other malignant neuroendocrine tumors; E78.5 Hyperlipidemia, unspecified; Z79.01 Long term (current) use of anticoagulants; I10 Essential (primary) hypertension; E11.9 Type 2 diabetes mellitus without complications; I48.91 Unspecified atrial fibrillation; K74.60 Unspecified cirrhosis of liver; F32.A Depression, unspecified; F41.9 Anxiety disorder, unspecified; K21.9 Gastro-esophageal reflux disease without esophagitis; I49.5 Sick sinus syndrome; J44.9 Chronic obstructive pulmonary disease, unspecified; E03.9 Hypothyroidism, unspecified; E11.65 Type 2 diabetes mellitus with hyperglycemia; I48.0 Paroxysmal atrial fibrillation; E03.8 Other specified hypothyroidism; Z79.4 Long term (current) use of insulin; Z79.84 Long term (current) use of oral hypoglycemic drugs; Z79.899 Other long term (current) drug therapy; Z87.891 Personal history of nicotine dependence; Z90.49 Acquired absence of other specified parts of digestive tract
CPT/HCPCS: 36415; 71045; 80053; 81001; 82150; 82248; 83036; 83605; 83690; 83735; 83880; 84100; 84145; 84439; 84443; 84481; 84484; 85025; 85379; 85610; 85652; 85730; 86140; 86316; 87040; 87077; 87081; 87086; 87186; 87205; 87400; 87811; 89220; 93005; 94640; 94664; 96365; 96366; 96375; 99285; A9270; J0248; J0283; J0456; J0612; J0696; J1815; J2405; J2470; J2543; J2919; J3372; J3475; J3480; J3490; J7030; J7050

== ENCOUNTER → 2025-02-10 | Outpatient (BNVA) | payer MEDICARE, MEDICAID, SELFPAY | END | disposition home or self-care (01) | PROVIDERS: PCP Nurse Practitioner Family; Referring Provider Nurse Practitioner Family; Visit Provider Nurse Practitioner Primary Care | DX: A41.9 Sepsis, unspecified organism (principal); U07.1 COVID-19; E87.20 Acidosis, unspecified; I48.91 Unspecified atrial fibrillation; I50.9 Heart failure, unspecified; I49.5 Sick sinus syndrome; J44.9 Chronic obstructive pulmonary disease, unspecified; N17.9 Acute kidney failure, unspecified; E11.9 Type 2 diabetes mellitus without complications; E78.5 Hyperlipidemia, unspecified; R17 Unspecified jaundice; E03.8 Other specified hypothyroidism; C7B.8 Other secondary neuroendocrine tumors; D72.825 Bandemia; F32.A Depression, unspecified; F41.9 Anxiety disorder, unspecified | CPT/HCPCS: 99213 ==

== ENCOUNTER → 2025-02-17 | Outpatient (BNVA) | payer MEDICARE, MEDICAID, SELFPAY | END | disposition home or self-care (01) | PROVIDERS: PCP Nurse Practitioner Family; Referring Provider Nurse Practitioner Family; Visit Provider Nurse Practitioner Family | DX: Z09 Encounter for follow-up examination after completed treatment for conditions other than malignant neoplasm (principal); I48.91 Unspecified atrial fibrillation; J44.9 Chronic obstructive pulmonary disease, unspecified; E11.9 Type 2 diabetes mellitus without complications | CPT/HCPCS: 99214 ==

== ENCOUNTER → 2025-02-18 | Outpatient (BNVA) | payer MEDICARE, MEDICAID, SELFPAY | END | disposition home or self-care (01) | PROVIDERS: PCP Nurse Practitioner Family; Referring Provider Nurse Practitioner Family; Visit Provider Nurse Practitioner Family | DX: E11.65 Type 2 diabetes mellitus with hyperglycemia (principal); J44.9 Chronic obstructive pulmonary disease, unspecified; Z79.4 Long term (current) use of insulin | CPT/HCPCS: 82948; 94640; 99215; A9270 ==

== ENCOUNTER → 2025-02-22 | Outpatient (CLI) | payer MEDICARE, MEDICAID, SELFPAY ==
[2025-02-22 14:22] LABS: Misc Send Out* See Sep Rpt
[2025-02-22 17:42] LABS: Basophils # (Auto) 0.1 Thou/mm3 (0.0-0.2); Basophils % (Auto) 1 % (0-2.5); Eosinophils # (Auto) 0.4 Thou/mm3 (0.0-0.5); Eosinophils % (Auto) 4 % (0-10); Hematocrit 36.0 % (41.0-53.0); Hemoglobin 12.4 g/dL (13.5-16.0); Immature Granulocytes Auto 0.17 Thou/mm3 (0.00-0.00); Lymphocytes # (Auto) 2.7 Thou/mm3 (1.0-4.8); Lymphocytes % (Auto) 24 % (10-50); Mean Corpuscular HGB Conc 34.4 g/dl (31.0-37.0); Mean Corpuscular Hemoglobin 33.6 pg (25.0-35.0); Mean Corpuscular Volume 98 fL (80-100); Monocytes # (Auto) 1.1 Thou/mm3 (0.0-0.8); Monocytes % (Auto) 10 % (0-12); Neutrophils # (Auto) 7.0 Thou/mm3 (1.8-7.7); Neutrophils % (Auto) 61 % (37-80); Nucleated Red Blood Cell # 0.00 Thou/mm3 (0.00-0.00); Nucleated Red Blood Cell % 0 /100 WBC (0); Platelet Count 207 Thou/mm3 (140-440); RDW Standard Deviation 47.8 fL (35.1-43.9); Red Blood Count 3.69 Miln/mm3 (4.50-5.90); White Blood Count 11.4 Thou/mm3 (3.8-10.6)
[2025-02-22 18:00] LABS: Alanine Aminotransferase 22 U/L (10-49); Albumin, Serum 4.0 gm/dL (3.4-4.8); Albumin/Globulin Ratio 1.8 (1.2-2.2); Alkaline Phosphatase 55 U/L (46-116); Anion Gap 11 (7-16); Aspartate Amino Transferase 26 U/L (0-34); BUN/Creatinine Ratio 17 Ratio (12-20); Bilirubin,Total 0.9 mg/dL (0.3-1.2); Blood Urea Nitrogen 24 mg/dL (9-23); Calcium 9.4 mg/dL (8.3-10.6); Calcium (Corrected) 9.4 mg/dL (8.5-10.1); Carbon Dioxide 24.1 mMol/L (20.0-31.0); Chloride 104 mMol/L (98-107); Creatinine (Component) 1.4 mg/dL (0.6-1.3); Globulin 2.2 gm/dL (2.3-3.5); Glucose 266 mg/dL (74-106); Osmolality,Calculated 290 (275-295); Potassium 4.1 mMol/L (3.4-5.1); Sodium 139 mMol/L (136-145); Total Protein 6.2 gm/dL (5.7-8.2); eGFR 51 See Note
== END | disposition home or self-care (01) ==
LOC: SCTO 14:04
PROVIDERS: PCP Nurse Practitioner Family; Referring Provider Internal Medicine Hematology & Oncology; Visit Provider Internal Medicine Hematology & Oncology
DX: C7B.8 Other secondary neuroendocrine tumors (principal)
CPT/HCPCS: 36415; 80053; 85025

== ENCOUNTER → 2025-02-24 | Outpatient (CLI) | payer MEDICARE, MEDICAID, SELFPAY ==
[2025-02-24 08:27] LABS: Misc Send Out* See Sep Rpt
== END | disposition home or self-care (01) ==
LOC: SLDO 08:15
PROVIDERS: Referring Provider Internal Medicine Hematology & Oncology; Visit Provider Internal Medicine Hematology & Oncology
DX: C7B.8 Other secondary neuroendocrine tumors (principal)
CPT/HCPCS: 82570; 83497

== ENCOUNTER → 2025-03-03 | Outpatient (BNVA) | payer MEDICARE, MEDICAID, SELFPAY | END | disposition home or self-care (01) | PROVIDERS: PCP Nurse Practitioner Family; Referring Provider Nurse Practitioner Family; Visit Provider Nurse Practitioner Family | DX: Z00.01 Encounter for general adult medical examination with abnormal findings (principal); K70.30 Alcoholic cirrhosis of liver without ascites; E11.65 Type 2 diabetes mellitus with hyperglycemia; E78.5 Hyperlipidemia, unspecified; I10 Essential (primary) hypertension; J44.9 Chronic obstructive pulmonary disease, unspecified; E66.3 Overweight; Z68.28 Body mass index [BMI] 28.0-28.9, adult; Z71.85 Encounter for immunization safety counseling; K02.9 Dental caries, unspecified | CPT/HCPCS: 99173; 99215 ==

== ENCOUNTER 2025-03-04 15:20 | Outpatient (RCR) | payer MEDICARE, MEDICAID, SELFPAY ==
--- NOTE | 2025-03-08 02:03 | CTCFLWUP_ITS ---
Patient: REGIS CRUZ : 1945 Page 2 of 3 FOLLOW UP NOTE DATE OF SERVICE: 03/02/2025 NAME: REGIS CRUZ ACCOUNT: [id number] : 1945 AGE: 80 INTERVAL HISTORY: No new complaints ONCOLOGY HISTORY: DIAGNOSIS: Other secondary neuroendocrine tumors [ICD10] C7B.8 Other secondary neuroendocrine tumors [ICD10] C7B.8 DATE OF DIAGNOSIS: 06/30/2024 STAGE/TNM: T1 N1 MX TREATMENT HISTORY: Care?Plan Start?Date Cycle Day Intent lanreotide 40 mg is normal HISTORY OF PRESENT ILLNESS: 80-year-old male with chronic smoking and alcohol use. Patient do not have any diarrhea any further. Denies any problem with the breathing. He has his octreotide and tolerated well OTHER MEDICAL HISTORY/CONDITIONS: Neuroendocrine tumor terminal ileum - dx 06/30/24 Diabetes HTN COPD Hyperlipidemia Atrial fibrillation - Cirrhosis liver Laparotomy - resection of terminal ileum and ascending colon 07/06/24 - [facility] - Dr. Vail I and D Perirectal Abscess - 02/22/24 Spntaneous Pneumothorax left lung -2023 FAMILY HISTORY: Patient?denies?family?cancer?history. 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 Tobacco Use:?Quit 10-15yrs ago - Smoke 1/2 PPD x 30yrs ETOH Use:?Quit 10-15yrs ago - Beer/ Hard liquor daily Drug?Note:?Denies Social?History?Note:?Lives?with? MEDICATIONS: 1. albuterol sulfate - 90 mcg/actuation Every 6 Hours 2. Eliquis - 5 mg 1 tab Twice a Day 3. ezetimibe - 10 mg 1 tab Daily 4. Januvia - 25 mg 1 tab Daily 5. lisinopril - 10 mg 1 tab Daily 6. megestrol - 40 mg 1 tab Twice a Day 7. metoprolol succinate - 50 mg 1 tab Daily 8. pantoprazole - 40 mg 1 tab Daily 9. PARoxetine HCl - 10 mg 1 tab Daily 10. Symbicort - 160-4.5 mcg/actuation 2 Puff(s) As directed Medications Last Reconciled by Irais Odonnell MD on 03/04/2025 ALLERGIES: No Known Drug Allergies REVIEW OF SYSTEMS: A complete 14-point review of systems was performed and is negative except as noted in interval history. PHYSICAL EXAMINATION: VITAL SIGNS: PAIN: 0 - No pain The patient appeared well-nourished, alert, and in no apparent distress via video conferencing. LABORATORY DATA: I have personally reviewed and interpreted each of the patient?s relevant lab tests, abnormal findings are below: Date 02/13/25 02/22/25 ??WHITE?BLOOD?COUNT?(Thou/mm3) 12.7?H 11.4?H ??RED?BLOOD?COUNT?(Miln/mm3) 3.65?L 3.69?L ??HEMOGLOBIN?(gm/dl) 12.6?L 12.4?L ??HEMATOCRIT?(%) 35.9?L 36.0?L ??PLATELET?COUNT?(Thou/mm3) 177 207 ??NEUTROPHILS?%,?AUTO?(%) 78 61 ??LYMPH?%,?AUTO?(%) 12 24 ??NEUTROPHILS,?AUTO?(Thou/mm3) 10.0?H 7.0 ??GLUCOSE,RANDOM?(mg/dL) 215?H 266?H ??BLOOD?UREA?NITROGEN?(mg/dL) 16 24?H ??CREATININE?(mg/dL) 1.20 1.40?H ??SODIUM?(mmol/L) 139 139 ??POTASSIUM?(mmol/L) 3.9 4.1 ??CHLORIDE?(mmol/L) 105 104 ??CrCl?(CandG)?(ml/min) 51.66 44.28 ??AST/SGOT?(Unit/L) 19 26 ??ALT/SGPT?(Unit/L) 19 22 ??ALKALINE?PHOSPHATASE?(Unit/L) 52 55 ??BILIRUBIN,?TOTAL?(mg/dL) 0.8 0.9 ??PROTEIN?TOTAL?(gm/dl) 5.9 6.2 ??ALBUMIN,?SERUM?(gm/dl) 3.5 4.0 ??GLOBULIN?(gm/dl) 2.4 2.2?L ??ALBUMIN/GLOBULIN?RATIO 1.5 1.8 ??CALCIUM,?SERUM?(mg/dL) 9.0 9.4 ??CALCIUM?SERUM?(CORRECTED)?(mg/dL) 9.4 9.4 ASSESSMENT/PLAN: Low-grade neuroendocrine tumor Patient have history of stage IIIb cancer Discussed chromogranin A level and urine HIAA Serum chromogranin levels is elevated Continue octreotide Patient advised to follow-up with me on the next coming appointment ORDERS: Order # Description [id number] Urine 5 HIAA [id number] Chromogranin A [id number] Comprehensive Metabolic Panel - 12 + CBC with Auto Diff [id number] Comprehensive Metabolic Panel - 12 + CBC with Auto Diff [id number] MD Follow Up 3 Months RETURN TO CLINIC: I reviewed the diagnosis, prognosis, and recommended treatment/procedure options with the patient (and/or their legal guest services representative), including the potential benefits, risks, side effects and alternative therapies. We also discussed the option of no treatment and the possibility of clinical trial participation, if applicable. All questions were addressed, and they demonstrated understanding. They provided informed consent to proceed with the proposed plan of care. BILLING AND COMPLIANCE: I reviewed external records from providers outside my specialty as summarized above. I spent a total of 50 minutes on this patient?s care on the day of their visit excluding time spent related to any billed procedures. This time includes time spent with the patient as well as time spent documenting in the medical record, reviewing patients records and tests, obtaining history, placing orders, communicating with other healthcare professionals, counseling the patient, family or caregiver, and/or care coordination for the diagnoses above. Electronically Signed by: Abelino Samson MD T: 2:01 AM CC: PCP: Abelino Samson Referring: Abelino Samson This document was completed utilizing speech recognition software. Grammatical errors, random word insertions, pronoun errors, and incomplete sentences are an occasional consequence of this system due to software limitations, ambient noise, and hardware issues. Any formal questions or concerns about the content, text or information contained within the body of this dictation should be directly addressed to the provider for clarification.
== END 2025-03-09 23:59 | disposition home or self-care (01) ==
LOC: SCTC 15:20
PROVIDERS: PCP Nurse Practitioner Family; Referring Provider Internal Medicine Hematology & Oncology; Visit Provider Internal Medicine Hematology & Oncology
DX: C7A.8 Other malignant neuroendocrine tumors (principal)
CPT/HCPCS: 96372; 99212; J1932; G0463

== ENCOUNTER → 2025-03-04 | Outpatient (BNVA) | payer MEDICARE, MEDICAID, SELFPAY | END | disposition home or self-care (01) | PROVIDERS: PCP Nurse Practitioner Family; Referring Provider Nurse Practitioner Family; Visit Provider Nurse Practitioner Family | DX: Z71.2 Person consulting for explanation of examination or test findings (principal); E11.65 Type 2 diabetes mellitus with hyperglycemia; E78.5 Hyperlipidemia, unspecified | CPT/HCPCS: 99212; G0463 ==

== ENCOUNTER → 2025-03-05 | Outpatient (BNVA) | payer MEDICARE, MEDICAID, SELFPAY | END | disposition home or self-care (01) | PROVIDERS: PCP Nurse Practitioner Family; Referring Provider Nurse Practitioner Family; Visit Provider Nurse Practitioner Family | DX: E11.65 Type 2 diabetes mellitus with hyperglycemia (principal); Z79.4 Long term (current) use of insulin | CPT/HCPCS: 99213 ==

== ENCOUNTER → 2025-03-11 | Outpatient (BNVA) | payer MEDICARE, MEDICAID, SELFPAY | END | disposition home or self-care (01) | PROVIDERS: PCP Nurse Practitioner Family; Referring Provider Nurse Practitioner Family; Visit Provider Nurse Practitioner Family | DX: E11.65 Type 2 diabetes mellitus with hyperglycemia (principal); R06.00 Dyspnea, unspecified; R06.2 Wheezing; F41.9 Anxiety disorder, unspecified; Z23 Encounter for immunization | CPT/HCPCS: 90471; 90686; 94640; 99214; A9270 ==

== ENCOUNTER → 2025-03-29 | Outpatient (CLI) | payer MEDICARE, MEDICAID, SELFPAY ==
[2025-03-29 12:21] LABS: Basophils # (Auto) 0.1 Thou/mm3 (0.0-0.2); Basophils % (Auto) 1 % (0-2.5); Eosinophils # (Auto) 0.3 Thou/mm3 (0.0-0.5); Eosinophils % (Auto) 3 % (0-10); Hematocrit 37.7 % (41.0-53.0); Hemoglobin 12.8 g/dL (13.5-16.0); Immature Granulocytes Auto 0.14 Thou/mm3 (0.00-0.00); Lymphocytes # (Auto) 2.0 Thou/mm3 (1.0-4.8); Lymphocytes % (Auto) 20 % (10-50); Mean Corpuscular HGB Conc 34.0 g/dl (31.0-37.0); Mean Corpuscular Hemoglobin 34.5 pg (25.0-35.0); Mean Corpuscular Volume 102 fL (80-100); Monocytes # (Auto) 1.1 Thou/mm3 (0.0-0.8); Monocytes % (Auto) 12 % (0-12); Neutrophils # (Auto) 6.1 Thou/mm3 (1.8-7.7); Neutrophils % (Auto) 63 % (37-80); Nucleated Red Blood Cell # 0.00 Thou/mm3 (0.00-0.00); Nucleated Red Blood Cell % 0 /100 WBC (0); Platelet Count 232 Thou/mm3 (140-440); RDW Standard Deviation 49.4 fL (35.1-43.9); Red Blood Count 3.71 Miln/mm3 (4.50-5.90); White Blood Count 9.7 Thou/mm3 (3.8-10.6)
[2025-03-29 12:33] LABS: Alanine Aminotransferase 21 U/L (10-49); Albumin, Serum 4.4 gm/dL (3.4-4.8); Albumin/Globulin Ratio 1.5 (1.2-2.2); Alkaline Phosphatase 63 U/L (46-116); Anion Gap 14 (7-16); Aspartate Amino Transferase 25 U/L (0-34); BUN/Creatinine Ratio 14 Ratio (12-20); Bilirubin,Total 0.5 mg/dL (0.3-1.2); Blood Urea Nitrogen 17 mg/dL (9-23); Calcium 9.4 mg/dL (8.3-10.6); Calcium (Corrected) 9.4 mg/dL (8.5-10.1); Carbon Dioxide 21.1 mMol/L (20.0-31.0); Chloride 102 mMol/L (98-107); Creatinine (Component) 1.2 mg/dL (0.6-1.3); Globulin 2.9 gm/dL (2.3-3.5); Glucose 328 mg/dL (74-106); Osmolality,Calculated 288 (275-295); Potassium 4.2 mMol/L (3.4-5.1); Sodium 137 mMol/L (136-145); Total Protein 7.3 gm/dL (5.7-8.2); eGFR > 60 See Note
== END | disposition home or self-care (01) ==
LOC: SCTO 11:12
PROVIDERS: PCP Nurse Practitioner Family; Referring Provider Internal Medicine Hematology & Oncology; Visit Provider Internal Medicine Hematology & Oncology
DX: C7B.8 Other secondary neuroendocrine tumors (principal)
CPT/HCPCS: 36415; 80053; 85025

== ENCOUNTER 2025-03-31 14:37 | Outpatient (RCR) | payer MEDICARE, MEDICAID, SELFPAY | END 2025-04-09 23:59 | disposition home or self-care (01) | LOC: SCTC 14:37 | PROVIDERS: PCP Nurse Practitioner Family; Referring Provider Nurse Practitioner Family; Visit Provider Internal Medicine Hematology & Oncology | DX: C7A.8 Other malignant neuroendocrine tumors (principal) | CPT/HCPCS: 96372; J1932 ==

== ENCOUNTER → 2025-04-06 | Outpatient (BNVA) | payer MEDICARE, MEDICAID, SELFPAY | END | disposition home or self-care (01) | PROVIDERS: PCP Nurse Practitioner Family; Referring Provider Nurse Practitioner Family; Visit Provider Nurse Practitioner Family | DX: J44.9 Chronic obstructive pulmonary disease, unspecified (principal); E78.5 Hyperlipidemia, unspecified; E11.9 Type 2 diabetes mellitus without complications; F41.9 Anxiety disorder, unspecified | CPT/HCPCS: 82948; 83036; 99214 ==

== ENCOUNTER → 2025-04-23 | Outpatient (BNVA) | payer MEDICARE, MEDICAID, SELFPAY | END | disposition home or self-care (01) | PROVIDERS: PCP Nurse Practitioner Family; Referring Provider Nurse Practitioner Family; Visit Provider Nurse Practitioner Family | DX: K21.9 Gastro-esophageal reflux disease without esophagitis (principal); E11.65 Type 2 diabetes mellitus with hyperglycemia | CPT/HCPCS: 90677; 99213 ==

== ENCOUNTER → 2025-04-29 | Outpatient (CLI) | payer MEDICARE, MEDICAID, SELFPAY ==
[2025-04-29 09:26] LABS: Basophils # (Auto) 0.1 Thou/mm3 (0.0-0.2); Basophils % (Auto) 1 % (0-2.5); Eosinophils # (Auto) 0.5 Thou/mm3 (0.0-0.5); Eosinophils % (Auto) 7 % (0-10); Hematocrit 36.8 % (41.0-53.0); Hemoglobin 13.0 g/dL (13.5-16.0); Immature Granulocytes Auto 0.05 Thou/mm3 (0.00-0.00); Lymphocytes # (Auto) 2.3 Thou/mm3 (1.0-4.8); Lymphocytes % (Auto) 31 % (10-50); Mean Corpuscular HGB Conc 35.3 g/dl (31.0-37.0); Mean Corpuscular Hemoglobin 33.8 pg (25.0-35.0); Mean Corpuscular Volume 96 fL (80-100); Monocytes # (Auto) 1.2 Thou/mm3 (0.0-0.8); Monocytes % (Auto) 16 % (0-12); Neutrophils # (Auto) 3.4 Thou/mm3 (1.8-7.7); Neutrophils % (Auto) 45 % (37-80); Nucleated Red Blood Cell # 0.00 Thou/mm3 (0.00-0.00); Nucleated Red Blood Cell % 0 /100 WBC (0); Platelet Count 229 Thou/mm3 (140-440); RDW Standard Deviation 41.8 fL (35.1-43.9); Red Blood Count 3.85 Miln/mm3 (4.50-5.90); White Blood Count 7.5 Thou/mm3 (3.8-10.6)
[2025-04-29 09:48] LABS: Alanine Aminotransferase 23 U/L (10-49); Albumin, Serum 4.3 gm/dL (3.4-4.8); Albumin/Globulin Ratio 1.7 (1.2-2.2); Alkaline Phosphatase 61 U/L (46-116); Anion Gap 9 (7-16); Aspartate Amino Transferase 34 U/L (0-34); BUN/Creatinine Ratio 20 Ratio (12-20); Bilirubin,Total 0.7 mg/dL (0.3-1.2); Blood Urea Nitrogen 18 mg/dL (9-23); Calcium 9.1 mg/dL (8.3-10.6); Calcium (Corrected) 9.1 mg/dL (8.5-10.1); Carbon Dioxide 26.8 mMol/L (20.0-31.0); Chloride 106 mMol/L (98-107); Creatinine (Component) 0.9 mg/dL (0.6-1.3); Globulin 2.5 gm/dL (2.3-3.5); Glucose 183 mg/dL (74-106); Osmolality,Calculated 290 (275-295); Potassium 3.3 mMol/L (3.4-5.1); Sodium 142 mMol/L (136-145); Total Protein 6.8 gm/dL (5.7-8.2); eGFR > 60 See Note
== END | disposition home or self-care (01) ==
LOC: SCTO 08:51
PROVIDERS: PCP Nurse Practitioner Family; Referring Provider Internal Medicine Hematology & Oncology; Visit Provider Internal Medicine Hematology & Oncology
DX: C7B.8 Other secondary neuroendocrine tumors (principal)
CPT/HCPCS: 36415; 80053; 85025

== ENCOUNTER 2025-05-03 13:18 | Outpatient (RCR) | payer MEDICARE, MEDICAID, SELFPAY | END 2025-05-09 23:59 | disposition home or self-care (01) | LOC: SCTC 13:18 | PROVIDERS: PCP Nurse Practitioner Family; Referring Provider Nurse Practitioner Family; Visit Provider Internal Medicine Hematology & Oncology | DX: C7B.8 Other secondary neuroendocrine tumors (principal) | CPT/HCPCS: 96372; J1932 ==